=== PATIENT | male | born 1995 | race American Indian/Alaskan Native ===

== ENCOUNTER 2021-04-16 23:22 | Inpatient (IN) | payer BC, OTHER ==
[2021-04-16] MEDS ORDERED: fentaNYL 100 MCG/2 ML INJ IV PRN (23:26)
[2021-04-16] MEDS ORDERED: MINERAL OIL/PETROLATUM, WHITE OPHTH OINT 3.5 GM OU PRN (23:26)
[2021-04-16] MEDS ORDERED: LIP THERAPY VASELINE TP PRN (23:26)
[2021-04-16] MEDS ORDERED: SODIUM CHLORIDE 0.9% 1000 ML 1,000 ML IV ONE (23:28)
[2021-04-16] MEDS ORDERED: ASPIRIN 300 MG RECT SUPP PR ONE (23:28)
[2021-04-16] MEDS ORDERED: hydrALAZINE 20 MG/1 ML INJ IV ONE (23:29)
--- NOTE | 2021-04-16 23:30 | Emergency Department Report ---
ED CPR HPI - General Chief Complaint: Cardiac Arrest/CPR Stated Complaint: CPR Time Seen by Provider: 04/16/21 23:22 Source: EMS Mode of arrival: Stretcher Limitations: Altered Mental Status, Physical Limitation - History of Present Illness Initial Comments: Patient is a 26-year-old male that presents emergency room for cardiac arrest. Patient was brought to the emergency room initially for seizure while in route with EMS, patient went to cardiac arrest. Patient initially walked to the ambulance. Patient was alert and oriented x3 and the patient that went into a seizure that could not be stopped patient was given Versed and went into ventricular tachycardia. Patient was then shocked and went into a cardiac arrest. Patient's initial rhythm was PEA on the monitor and then CPR was started the patient given 1 round of epi. Patient had e ROSC after the epi. Patient has history of end-stage renal disease on dialysis, hypertension and no history of seizure. MD Complaint: seizure Bystander CPR Performed: No AED Applied by Bystander/Hoisting Laborer: No Shock Advised: Yes Number of Shocks Delivered: 1 Initial Findings in the Field: alert ROSC in the Field: Yes Associated Injuries: No - Related Data Allergies Allergy/AdvReac Type Severity Reaction Status Date / Time No Known Allergies Allergy Verified 04/16/21 23:39 ED Review of Systems ROS: Stated complaint: CPR Other details as noted in HPI Comment: Unobtainable due to pts medical conditions ED Past Medical Hx - Past Medical History Previous Medical History?: Yes Hx Hypertension: Yes Hx Renal Disease: Yes (End-stage renal disease on dialysis.) - Surgical History Past Surgical History?: Yes Additional Surgical History: Left arm dialysis fistula. - Family History Family history: no significant - Social History Smoking Status: Unknown if ever smoked Substance Use Type: None ED Physical Exam - General General appearance: obtunded - Head Head exam: Present: atraumatic, normocephalic - Eye Eye exam: Present: normal appearance, PERRL Pupils: Present: normal accommodation - ENT ENT exam: Present: mucous membranes dry - Neck Neck exam: Present: normal inspection - Respiratory Respiratory exam: Present: other (Patient being bagged by respiratory. Patient was immediately extubated after it was noted that the patient was not intubated endotracheally and was in stomach.) - Cardiovascular Cardiovascular Exam: Present: regular rate, normal rhythm. Absent: systolic murmur, diastolic murmur, rubs, gallop - GI/Abdominal GI/Abdominal exam: Present: soft, normal bowel sounds - Rectal Rectal exam: Present: deferred - Extremities Exam Extremities exam: Present: normal inspection - Back Exam Back exam: Present: normal inspection - Neurological Exam Neurological exam: Present: altered - Skin Skin exam: Present: warm, dry, intact, normal color. Absent: rash ED Course Vital Signs 04/16/21 04/16/21 04/16/21 23:22 23:26 23:30 Temperature Pulse Rate 132 H Respiratory 20 10 L Rate Blood Pressure 241/149 O2 Sat by Pulse 100 100 Oximetry 04/16/21 04/16/21 04/17/21 23:45 23:56 00:00 Temperature Pulse Rate 119 H 118 H 131 H Respiratory 20 20 Rate Blood Pressure 183/90 183/90 183/90 O2 Sat by Pulse 99 99 95 Oximetry 04/17/21 04/17/21 04/17/21 00:01 00:15 00:30 Temperature 99.0 F Pulse Rate 132 H 129 H Respiratory 16 20 20 Rate Blood Pressure 204/126 204/126 O2 Sat by Pulse 97 97 Oximetry 04/17/21 04/17/21 04/17/21 00:46 01:00 01:15 Temperature Pulse Rate 107 H 113 H 115 H Respiratory 21 26 H 26 H Rate Blood Pressure 171/106 175/105 178/114 O2 Sat by Pulse 98 98 96 Oximetry 04/17/21 04/17/21 04/17/21 01:42 01:46 02:00 Temperature Pulse Rate 117 H 108 H Respiratory 17 17 Rate Blood Pressure 177/118 177/118 162/106 O2 Sat by Pulse 97 99 99 Oximetry 04/17/21 04/17/21 04/17/21 02:16 02:30 02:46 Temperature Pulse Rate 106 H 106 H 105 H Respiratory 20 20 20 Rate Blood Pressure 178/114 159/98 155/97 O2 Sat by Pulse 99 99 99 Oximetry 04/17/21 04/17/21 04/17/21 03:00 03:16 03:30 Temperature Pulse Rate 101 H 99 H 104 H Respiratory 20 20 20 Rate Blood Pressure 161/101 161/101 161/101 O2 Sat by Pulse 98 99 100 Oximetry 04/17/21 04/17/21 03:50 04:00 Temperature Pulse Rate 105 H 106 H Respiratory 20 20 Rate Blood Pressure 139/89 146/83 O2 Sat by Pulse 97 97 Oximetry - Reevaluation(s) Reevaluation #1: Initial valuation done. Patient arrived via EMS. Report received from EMS. Elvin clark was found to be intubated in the stomach. The ET tube was removed and the patient was immediately bagged. Patient was then given RSI meds of etomidate and rocuronium. Patient was then intubated without difficulty. See procedure note. 04/16/21 23:07 Reevaluation #2: Patient was intubated without difficulty. See procedure note. Patient placed on the ventilator. Patient's blood pressure extremely elevated. Patient's blood pressure will be monitored and the patient was given 20 mg of hydralazine if it remains high. 04/16/21 23:15 Reevaluation #3: Patient vital signs pain monitor. Patient is on vent. Patient is adequately sedated. Patient is already received 20 of hydralazine the patient blood pressure still high. Patient received Lopressor. 04/17/21 00:20 Reevaluation #4: Patient blood pressure still elevated. Patient will placed on a nicardipine drip. 04/17/21 01:16 - Consultations Consultation #1: Hospitalist consulted for admission. Hospitalist to admit patient. 04/17/21 02:20 - Intubation Time Out Performed: Yes Sedative: Etomidate Paralytic: Rocuronium Laryngoscope: fiberoptic video scope Size: 4 ET Tube Size: 7.5 Tube Secured Depth (cm): 22 Tube Secured Location: teeth Tube Placement Confirmation: visualized tube passing t, equal breath sounds bilat, no breath sounds over epi, confirmation by capnometr Patient Tolerated Procedure: well, no complications Intubation Complications: none ED Medical Decision Making - Lab Data Result diagrams: 04/16/21 23:41 04/17/21 03:56 - EKG Data -: EKG Interpreted by Me EKG shows normal: sinus rhythm, axis, intervals, QRS complexes, ST-T waves Rate: tachycardia - Radiology Data Radiology results: report reviewed, image reviewed interpreted by me: Chest x-ray: No pneumonia, no pneumothorax, no osseous findings, ET tube in satisfactory placement. CHEST 1 VIEW 04/16/2021 10:46 PM INDICATION / CLINICAL INFORMATION: ETT placement. COMPARISON: None available. FINDINGS: SUPPORT DEVICES: Tip of endotracheal tube is positioned approximately 5 cm above the altagracia. HEART / MEDIASTINUM: No significant abnormality. LUNGS / PLEURA: No significant pulmonary or pleural abnormality. No pneumothorax. ADDITIONAL FINDINGS: No significant additional findings. IMPRESSION: 1. Endotracheal tube in expected position. CT HEAD WITHOUT CONTRAST INDICATION / CLINICAL INFORMATION: Seizure and cardiac arrest. TECHNIQUE: All CT scans at this location are performed using CT dose reduction for [place] by means of automated exposure control. COMPARISON: None available. FINDINGS: Study is limited by motion artifact. HEMORRHAGE: None. EXTRA-AXIAL SPACES: Normal in size and morphology for the patient's age. VENTRICULAR SYSTEM: Normal in size and morphology for the patient's age. CEREBRAL PARENCHYMA: No significant abnormality. No acute territorial infarct. MIDLINE SHIFT / HERNIATION: None. CEREBELLUM / BRAINSTEM: No significant abnormality. ORBITS: Normal as visualized. SOFT TISSUES: No significant abnormality. SKULL: No significant abnormality. PARANASAL SINUSES / MASTOID AIR CELLS: Normal as visualized. ADDITIONAL FINDINGS: None. IMPRESSION: 1. No acute intracranial abnormality. - Medical Decision Making Patient is a 46-year-old male who presents emergency room for cardiac arrest. Patient initially called EMS because he had a new onset seizure. Patient not have a history of seizure. Patient began to have another seizure with EMS and was given Versed and went into V. tach and went to a cardiac arrest. Patient was shocked by EMS. Patient was given 1 round of epi and had spontaneous return of circulation. Patient was then intubated by EMS and the ET tube was noted to be in the stomach. Patient was immediately extubated and reintubated properly. See procedure note. Patient tolerated intubation and the patient was given etomidate and mar for RSI. Patient had chest x-ray to confirm ET tube and showed good placement of the ET tube. Patient had labs done which showed multiple abnormalities to include DKA, metabolic acidosis, end-stage renal disease. Patient was placed on a DKA protocol to include insulin and fluids. Patient also found to be hyperkalemic and given Kayexalate and calcium. Patient given calcium prior to being given insulin. Patient initially placed on fentanyl and then needed a Ativan drip. Patient had a head CT which was negative for acute findings. Patient also found to have hypertensive emergency and the patient was placed on nicardipine drip after hydralazine and blood pressure did not bring down the blood pressure. Patient admitted to the hospital service for further evaluation treatment into the ICU. Critical care time documented due to the multiple reassessments, prolonged time at the bedside, interpretation of diagnostics and labs. - Differential Diagnosis Cardiac arrest, seizure, sepsis, DKA, Critical Care Time: Yes Critical care time in (mins) excluding proc time.: 80 Critical care attestation.: If time is entered above; I have spent that time in minutes in the direct care of this critically ill patient, excluding procedure time. Critical Care Time: 80 minutes ED Disposition Clinical Impression: Cardiac arrest, Seizure-like activity, New onset seizure, Metabolic acidosis, ESRD (end stage renal disease) on dialysis, Hypertensive emergency, Hyperkalemia DKA (diabetic ketoacidosis) Qualifiers: Diabetes mellitus type: other specified (including DIPAK) Diabetes mellitus complication detail: with coma Qualified Code(s): E13.11 - Other specified diabetes mellitus with ketoacidosis with coma UTI (urinary tract infection) Qualifiers: Urinary tract infection type: acute cystitis Hematuria presence: with hematuria Qualified Code(s): N30.01 - Acute cystitis with hematuria Disposition: OP ADMIT IP TO THIS HOSP Is pt being admited?: Yes Does the pt Need Aspirin: No Condition: Critical Time of Disposition: 02:20
[2021-04-16] MEDS ORDERED: CEFEPIME/NS 2 GM/100 ML 2 GM/100 ML BAG IV ONE (23:35)
[2021-04-16] MEDS ORDERED: levETIRAcetam 1000 MG/NS 0.75% 1,000 MG/100 ML BAG IV ONE (23:35)
--- NOTE | 2021-04-16 23:53 | XRay Report ---
CHEST 1 VIEW 04/16/2021 10:46 PM INDICATION / CLINICAL INFORMATION: ETT placement. COMPARISON: None available. FINDINGS: SUPPORT DEVICES: Tip of endotracheal tube is positioned approximately 5 cm above the altagracia. HEART / MEDIASTINUM: No significant abnormality. LUNGS / PLEURA: No significant pulmonary or pleural abnormality. No pneumothorax. ADDITIONAL FINDINGS: No significant additional findings. IMPRESSION: 1. Endotracheal tube in expected position. Signer Name: Naveen Rodriguez MD Signed: 04/16/2021 11:49 PM Workstation Name: [id number]
[2021-04-17 00:03] LABS: Mean Corpuscular HGB Conc 29 % (32-34); Mean Corpuscular Volume 81 fl (84-94); Platelet Count 369 K/mm3 (140-440); Red Blood Count 4.97 M/mm3 (3.65-5.03)
[2021-04-17 00:23] LABS: INR 1.47 (0.87-1.13)
[2021-04-17 00:24] LABS: Partial Thromboplastin Time 38.2 Sec. (24.2-36.6)
[2021-04-17] MEDS: fentaNYL DRIP Premix 2,000 MCG/100 ML BAG IV SCH ×3 (00:24→20:04)
[2021-04-17] MEDS ORDERED: ROCURONIUM 50 MG/5 ML INJ IV ONE (00:24)
[2021-04-17] MEDS ORDERED: ETOMIDATE 20 MG/10 ML INJ IV ONE (00:24)
[2021-04-17 00:25] LABS: Albumin 4.7 g/dL (3.9-5); Calcium 9.5 mg/dL (8.4-10.2)
[2021-04-17] MEDS ORDERED: METOPROLOL TARTRATE 5 MG/5 ML INJ IV ONE (00:25)
[2021-04-17 00:40] LABS: Hematocrit 40.5 % (35.5-45.6); Hemoglobin 11.9 gm/dl (11.8-15.2); Red Cell Distribution Width 20.4 % (13.2-15.2)
[2021-04-17] MEDS: LORazepam 2 MG/ML VIAL IV PRN ×2 (01:00→03:28)
[2021-04-17 01:03] LABS: ABG Base Excess -19.6 mmol/L (-2.0-3.0); ABG HCO3 10.3 mmol/L (20.0-26.0); ABG Methemoglobin 0.6 % (0.0-1.5); ABG Oxygen Saturation 90.8 % (95.0-99.0); ABG PO2 91.2 mm Hg (80.0-90.0)
[2021-04-17 01:08] LABS: ABG PH 7.03 pH Units (7.350-7.450)
[2021-04-17] MEDS ORDERED: niCARdipine DRIP 40 MG/200 ML BAG IV ONE (01:17)
[2021-04-17] MEDS ORDERED: CALCIUM CHLORIDE 1,000 MG/10 ML SDV IVP ONE (01:21)
[2021-04-17] MEDS ORDERED: INSULIN REGULAR, HUMAN 100 UNITS/1 ML IV ONE ×2 (01:21→10:00)
[2021-04-17] MEDS ORDERED: DEXTROSE 50% IN WATER (25GM) 50 ML VIAL IV ONE (01:21)
[2021-04-17] MEDS ORDERED: SODIUM POLYSTYRENE 15 GM/60 ML ORAL LIQD PR ONE (01:21)
[2021-04-17] MEDS ORDERED: SODIUM CHLORIDE 0.9% 1000 ML 1,000 ML IV ONE (01:25)
[2021-04-17] MEDS ORDERED: DEXTROSE 50% IN WATER (25GM) 50 ML SYRINGE IV PRN (01:25)
[2021-04-17] MEDS ORDERED: CALCIUM CHLORIDE 1,000 MG in SODIUM CHLORIDE 0.9% 100 ML IV ONE (01:30)
[2021-04-17 01:31] LABS: Bacteria,Urine 1+ /HPF (Negative); Bilirubin,Urine NEG (Negative); Blood,Urine MOD (Negative); Color,Urine Yellow (Yellow); Urobilinogen,Urine < 2.0 mg/dL (<2.0)
[2021-04-17 01:33] LABS: Protein,Urine >500 mg/dL (Negative)
[2021-04-17 01:38] LABS: Amphetamine Screen,Urine PRESUMPTIVE NEGATIVE; Benzodiazepines Screen,Urine PRESUMPTIVE NEGATIVE; Cannabinoid Screen,Urine PRESUMPTIVE NEGATIVE; Cocaine Screen,Urine PRESUMPTIVE NEGATIVE; Methadone Screen,Urine PRESUMPTIVE NEGATIVE; Opiate Screen,Urine PRESUMPTIVE NEGATIVE
[2021-04-17] MEDS ORDERED: LORazepam 2 MG/ML VIAL ONE (01:39)
--- NOTE | 2021-04-17 01:56 | Cat Scan Report ---
CT HEAD WITHOUT CONTRAST INDICATION / CLINICAL INFORMATION: Seizure and cardiac arrest. TECHNIQUE: All CT scans at this location are performed using CT dose reduction for ALARA by means of automated exposure control. COMPARISON: None available. FINDINGS: Study is limited by motion artifact. HEMORRHAGE: None. EXTRA-AXIAL SPACES: Normal in size and morphology for the patient's age. VENTRICULAR SYSTEM: Normal in size and morphology for the patient's age. CEREBRAL PARENCHYMA: No significant abnormality. No acute territorial infarct. MIDLINE SHIFT / HERNIATION: None. CEREBELLUM / BRAINSTEM: No significant abnormality. ORBITS: Normal as visualized. SOFT TISSUES: No significant abnormality. SKULL: No significant abnormality. PARANASAL SINUSES / MASTOID AIR CELLS: Normal as visualized. ADDITIONAL FINDINGS: None. IMPRESSION: 1. No acute intracranial abnormality. Signer Name: Naveen Rodriguez MD Signed: 04/17/2021 1:51 AM Workstation Name: [id number]
[2021-04-17] MEDS ORDERED: INSULIN REGULAR, HUMAN 100 UNITS in SODIUM CHLORIDE 0.9% 99 ML IV SCH ×2 (02:00→05:00)
[2021-04-17 02:14] LABS: Calcium 7.9 mg/dL (8.4-10.2)
[2021-04-17 02:38] LABS: Anisocytosis 1+; Total Cells Counted 100
[2021-04-17 02:39] LABS: Platelet Estimate Consistent w Auto
[2021-04-17] MEDS: D5W/0.45% NACL 1,000 ML IV SCH ×3 (02:51→21:23)
[2021-04-17] MEDS ORDERED: LORazepam 100 MG in SODIUM CHLORIDE 0.9% 50 ML, EMPTY BAG 0 ML IV SCH (03:00)
[2021-04-17 04:32] LABS: Chol/HDL Ratio 2.82 %
[2021-04-17] MEDS ORDERED: ONDANSETRON 4 MG/2 ML INJ IV PRN (04:50)
[2021-04-17] MEDS ORDERED: HYDROcodone/ACETAMINOPHEN 5-325 MG TAB PO PRN (04:50)
[2021-04-17] MEDS ORDERED: HYDROmorphone 1 MG/1 ML INJ IV PRN (04:50)
[2021-04-17] MEDS ORDERED: SODIUM BICARB 8.4% 50 MEQ/50 ML SYRINGE IV ONE (05:00)
[2021-04-17] MEDS ORDERED: CEFEPIME/NS 1 GM/100 ML 1 GM/100 ML BAG IV SCH (05:00)
[2021-04-17] MEDS ORDERED: CALCIUM GLUCONATE 1,000 MG in SODIUM CHLORIDE 0.9% 100 ML IV ONE ×2 (05:06→09:04)
[2021-04-17] MEDS ORDERED: NITROGLYCERIN 0.4 MG TAB SUBL SL PRN (05:06)
[2021-04-17] MEDS ORDERED: ACETAMINOPHEN 325 MG TAB PO PRN (05:06)
--- NOTE | 2021-04-17 05:13 | History and Physical Report ---
History of Present Illness Date of examination: 04/17/21 Date of admission: 04/17/21 02:27 Chief complaint: Cardiac arrest History of present illness: 26-year-old male with past medical history of end-stage renal disease on dialysis, hypertension was brought to the emergency room because of cardiac arrest. Patient was brought to the emergency room initially for seizure while in route with EMS, patient went to cardiac arrest. Patient initially walked to the ambulance. Patient was alert and oriented x3 and the patient that went into a seizure that could not be stopped patient was given Versed and went into ventricular tachycardia. Patient was then shocked and went into a cardiac arrest. Patient's initial rhythm was PEA on the monitor and then CPR was started the patient given 1 round of epi. Patient had e ROSC after the epi. In the emergency room patient is found to have cardiac arrest. Patient was intubated by the ER physician. Patient potassium was 7.6 bicarb was 12 anion gap 34 BUN 94 creatinine 17.6 and troponin 0 0.091 Past History Past Medical History: ESRD, hypertension Medications and Allergies Allergies Allergy/AdvReac Type Severity Reaction Status Date / Time No Known Allergies Allergy Verified 04/16/21 23:39 Active Meds: Active Medications Acetaminophen (Acetaminophen 325 Mg Tab) 650 mg PO Q4H PRN PRN Reason: Pain MILD(1-3)/Fever >100.5/BANKS Dextrose (Dextrose 50% In Water (25gm) 50 Ml Syringe) 50 ml IV Q30MIN PRN; Protocol PRN Reason: Hypoglycemia Last Admin: 04/17/21 02:48 Dose: 50 ml Documented by: Famotidine (Famotidine 20 Mg/2 Ml Inj) 20 mg IV DAILY ZEE Fentanyl (Fentanyl 100 Mcg/2 Ml Inj) 50 mcg IV Q10MIN PRN PRN Reason: ANALGESIA Hydromorphone HCl (Hydromorphone 1 Mg/1 Ml Inj) 0.5 mg IV Q3H PRN PRN Reason: Pain , Severe (7-10) Hydrophilic Ointment (Lip Therapy Vaseline) 1 applic TP Q2HR PRN PRN Reason: Dry Lips Fentanyl Citrate (Fentanyl Drip Premix) 2,000 mcg in 100 mls @ 3.606 mls/hr IV TITR ZEE; Protocol Last Titration: 04/17/21 02:31 Dose: 5 mcg/kg/hr, 18.03 mls/hr Documented by: Nicardipine/Sodium Chloride (Cardene Drip 40 Mg/200 Ml) 40 mg in 200 mls @ 25 mls/hr IV ONCE ONE; Protocol Stop: 04/17/21 09:16 Last Titration: 04/17/21 03:28 Dose: 5 mg/hr, 25 mls/hr Documented by: Insulin Human Regular 100 (units/ Sodium Chloride) 100 mls @ 1 mls/hr IV TITR ZEE; Protocol Last Titration: 04/17/21 04:32 Dose: 0 units/hr, 0 mls/hr Documented by: Lorazepam 100 mg/ Sodium Chloride/ Miscellaneous Information 100 mls @ 1 mls/hr IV TITR ZEE; Protocol Last Titration: 04/17/21 03:28 Dose: 2 mg/hr, 2 mls/hr Documented by: Dextrose/Sodium Chloride (D5/0.45ns) 1,000 mls @ 125 mls/hr IV DIRECT ZEE Last Admin: 04/17/21 02:51 Dose: 125 mls/hr Documented by: Cefepime HCl (Cefepime/Ns 1 Gm/100 Ml) 1 gm in 100 mls @ 200 mls/hr IV Q8H ZEE; Protocol Insulin Human Regular 100 (units/ Sodium Chloride) 100 mls @ 1 mls/hr IV TITR ZEE; Protocol Levetiracetam 500 mg/ Dextrose 105 mls @ 400 mls/hr IV Q12HR ZEE Lorazepam (Lorazepam 2 Mg/Ml Vial) 2 mg IV Q10MIN PRN PRN Reason: Agitation Last Admin: 04/17/21 03:28 Dose: 2 mg Documented by: Multi-Ingred Cream/Lotion/Oil/Oint (Mineral Oil/Petrolatum, White Ophth Oint 3.5 Gm) 1 applic OU Q4HR PRN PRN Reason: Dry Eye(s) Ondansetron HCl (Ondansetron 4 Mg/2 Ml Inj) 4 mg IV Q8H PRN PRN Reason: Nausea And Vomiting Senna/Docusate Sodium (Sennosides/Docusate Sodium 8.6/50 Mg Tab) 1 tab FEEDTUBE BID ZEE Sodium Chloride (Sodium Chloride 0.9% 10 Ml Flush Syringe) 10 ml IV BID ZEE Sodium Chloride (Sodium Chloride 0.9% 10 Ml Flush Syringe) 10 ml IV PRN PRN PRN Reason: LINE FLUSH Review of Systems Neurological: seizures Exam - Constitutional Vitals: Temp Pulse Resp BP Pulse Ox 99.0 F 106 H 20 128/74 98 04/17/21 00:01 04/17/21 04:34 04/17/21 04:32 04/17/21 04:32 04/17/21 04:34 General appearance: Present: no acute distress, well-nourished - EENT Eyes: Present: PERRL ENT: hearing intact, clear oral mucosa - Neck Neck: Present: supple, normal ROM - Respiratory Respiratory effort: normal Respiratory: bilateral: diminished - Cardiovascular Heart Sounds: Present: S1 & S2. Absent: rub, click - Extremities Extremities: pulses symmetrical, No edema Peripheral Pulses: within normal limits - Abdominal General gastrointestinal: Present: soft, non-tender, non-distended, normal bowel sounds Male genitourinary: Present: normal - Integumentary Integumentary: Present: clear, warm, dry - Musculoskeletal Musculoskeletal: gait normal, strength equal bilaterally - Psychiatric Psychiatric: other (Patient is status post intubation) - Neurologic Neurologic: CNII-XII intact, moves all extremities, other (Patient is a status post intubation) HEART Score - HEART Score Troponin: Troponin T 0.091 ng/mL (0.00-0.029) H 04/17/21 01:40 Results - Labs CBC & Chem 7: 04/16/21 23:41 04/17/21 03:56 Labs: Laboratory Last Values WBC 9.7 K/mm3 (4.5-11.0) 04/16/21 23:41 RBC 4.97 M/mm3 (3.65-5.03) 04/16/21 23:41 Hgb 11.9 gm/dl (11.8-15.2) 04/16/21 23:41 Hct 40.5 % (35.5-45.6) 04/16/21 23:41 MCV 81 fl (84-94) L 04/16/21 23:41 MCH 24 pg (28-32) L 04/16/21 23:41 MCHC 29 % (32-34) L 04/16/21 23:41 RDW 20.4 % (13.2-15.2) H 04/16/21 23:41 Plt Count 369 K/mm3 (140-440) 04/16/21 23:41 Lymph % (Auto) Insurance Sales Professional 04/16/21 23:41 Lymph # (Auto) Insurance Sales Professional 04/16/21 23:41 Add Manual Diff Complete 04/16/21 23:41 Total Counted 100 04/16/21 23:41 Seg Neuts % (Manual) 26.0 % (40.0-70.0) L 04/16/21 23:41 Lymphocytes % (Manual) 70.0 % (13.4-35.0) H 04/16/21 23:41 Monocytes % (Manual) 3.0 % (0.0-7.3) 04/16/21 23:41 Eosinophils % (Manual) 1.0 % (0.0-4.3) 04/16/21 23:41 Nucleated RBC % Not Reportable 04/16/21 23:41 Seg Neutrophils # Man 2.5 K/mm3 (1.8-7.7) 04/16/21 23:41 Band Neutrophils # 0.0 K/mm3 04/16/21 23:41 Lymphocytes # (Manual) 6.8 K/mm3 (1.2-5.4) H 04/16/21 23:41 Abs React Lymphs (Man) 0.0 K/mm3 04/16/21 23:41 Monocytes # (Manual) 0.3 K/mm3 (0.0-0.8) 04/16/21 23:41 Eosinophils # (Manual) 0.1 K/mm3 (0.0-0.4) 04/16/21 23:41 Basophils # (Manual) 0.0 K/mm3 (0.0-0.1) 04/16/21 23:41 Metamyelocytes # 0.0 K/mm3 04/16/21 23:41 Myelocytes # 0.0 K/mm3 04/16/21 23:41 Promyelocytes # 0.0 K/mm3 04/16/21 23:41 Blast Cells # 0.0 K/mm3 04/16/21 23:41 WBC Morphology Not Reportable 04/16/21 23:41 Hypersegmented Neuts Not Reportable 04/16/21 23:41 Hyposegmented Neuts Not Reportable 04/16/21 23:41 Hypogranular Neuts Not Reportable 04/16/21 23:41 Smudge Cells Not Reportable 04/16/21 23:41 Toxic Granulation Not Reportable 04/16/21 23:41 Toxic Vacuolation Not Reportable 04/16/21 23:41 Dohle Bodies Not Reportable 04/16/21 23:41 Pelger-Huet Anomaly Not Reportable 04/16/21 23:41 Lila Rods Not Reportable 04/16/21 23:41 Platelet Estimate Consistent w auto 04/16/21 23:41 Clumped Platelets Not Reportable 04/16/21 23:41 Plt Clumps, EDTA Not Reportable 04/16/21 23:41 Large Platelets Not Reportable 04/16/21 23:41 Giant Platelets Not Reportable 04/16/21 23:41 Platelet Satelliting Not Reportable 04/16/21 23:41 Plt Morphology Comment Not Reportable 04/16/21 23:41 RBC Morphology Not Reportable 04/16/21 23:41 Dimorphic RBCs Not Reportable 04/16/21 23:41 Polychromasia Not Reportable 04/16/21 23:41 Hypochromasia Not Reportable 04/16/21 23:41 Poikilocytosis Not Reportable 04/16/21 23:41 Anisocytosis 1+ 04/16/21 23:41 Microcytosis Not Reportable 04/16/21 23:41 Macrocytosis Not Reportable 04/16/21 23:41 Spherocytes Not Reportable 04/16/21 23:41 Pappenheimer Bodies Not Reportable 04/16/21 23:41 Sickle Cells Not Reportable 04/16/21 23:41 Target Cells Not Reportable 04/16/21 23:41 Tear Drop Cells Not Reportable 04/16/21 23:41 Ovalocytes Not Reportable 04/16/21 23:41 Helmet Cells Not Reportable 04/16/21 23:41 [place] Bodies Not Reportable 04/16/21 23:41 [place] Rings Not Reportable 04/16/21 23:41 Diamond Cells Not Reportable 04/16/21 23:41 Bite Cells Not Reportable 04/16/21 23:41 Crenated Cell Not Reportable 04/16/21 23:41 Elliptocytes Not Reportable 04/16/21 23:41 Acanthocytes (Spur) Not Reportable 04/16/21 23:41 Rouleaux Not Reportable 04/16/21 23:41 Hemoglobin C Crystals Not Reportable 04/16/21 23:41 Schistocytes Not Reportable 04/16/21 23:41 Malaria parasites Not Reportable 04/16/21 23:41 Nicolas Bodies Not Reportable 04/16/21 23:41 Hem Pathologist Commnt No 04/16/21 23:41 PT 18.3 Sec. (12.2-14.9) H 04/16/21 23:41 INR 1.47 (0.87-1.13) H 04/16/21 23:41 APTT 38.2 Sec. (24.2-36.6) H 04/16/21 23:41 ABG pH 7.245 (7.320-7.450) L 04/17/21 04:32 POC ABG pCO2 34.9 mmHg (32.0-48.0) 04/17/21 04:32 ABG pCO2 40.0 mm Hg 04/17/21 00:55 POC ABG pO2 92.3 mmHg (83-108) 04/17/21 04:32 ABG pO2 91.2 mm Hg (80.0-90.0) H 04/17/21 00:55 POC ABG HCO3 14.8 04/17/21 04:32 ABG HCO3 10.3 mmol/L (20.0-26.0) L 04/17/21 00:55 ABG O2 Saturation 95.1 (0-100) 04/17/21 04:32 ABG O2 Content 13.8 (0.0-44) 04/17/21 00:55 POC ABG Base Excess -11.5 04/17/21 04:32 ABG Base Excess -19.6 mmol/L (-2.0-3.0) L 04/17/21 00:55 ABG Hemoglobin 10.7 (12.0-17.5) L 04/17/21 04:32 ABG Oxyhemoglobin 93.7 (94-98) L 04/17/21 04:32 ABG Carboxyhemoglobin 1.5 % (0.0-5.0) 04/17/21 00:55 ABG Methemoglobin 0.3 (0.0-1.5) 04/17/21 04:32 ABG Sodium 133.2 mmol/L (136.0-145.0) L 04/17/21 04:32 ABG Potassium 6.0 mmol/L (3.40-4.50) H 04/17/21 04:32 ABG Chloride 102.0 mmol/L (98-107) 04/17/21 04:32 ABG Glucose 85 mg/dL (65-95) 04/17/21 04:32 Oxyhemoglobin 88.9 % (95.0-99.0) L 04/17/21 00:55 Carboxyhemoglobin 1.2 (0.5-1.5) 04/17/21 04:32 FiO2 30 % 04/17/21 00:55 FiO2 % 30.0 04/17/21 04:32 Sodium 134 mmol/L (137-145) L 04/17/21 03:56 Potassium 6.4 mmol/L (3.6-5.0) H* 04/17/21 03:56 Chloride 98.0 mmol/L (98-107) 04/17/21 03:56 Carbon Dioxide 15 mmol/L (22-30) L 04/17/21 03:56 Anion Gap 27 mmol/L 04/17/21 03:56 BUN 92 mg/dL (9-20) H 04/17/21 03:56 Creatinine 17.0 mg/dL (0.8-1.3) H 04/17/21 03:56 Estimated GFR 4 ml/min 04/17/21 03:56 BUN/Creatinine Ratio 5 % 04/17/21 03:56 Glucose 137 mg/dL (75-100) H 04/17/21 03:56 POC Glucose 87 mg/dL (70-105) 04/17/21 04:32 Calcium 8.0 mg/dL (8.4-10.2) L 04/17/21 03:56 Phosphorus 9.30 mg/dL (2.5-4.5) H 04/17/21 01:40 Magnesium 3.70 mg/dL (1.7-2.3) H 04/17/21 01:40 Total Bilirubin 0.30 mg/dL (0.1-1.2) 04/16/21 23:41 AST 25 units/L (5-40) 04/16/21 23:41 ALT 20 units/L (7-56) 04/16/21 23:41 Alkaline Phosphatase 137 units/L (35-129) H 04/16/21 23:41 Troponin T 0.091 ng/mL (0.00-0.029) H 04/17/21 01:40 Total Protein 7.8 g/dL (6.3-8.2) 04/16/21 23:41 Albumin 4.7 g/dL (3.9-5) 04/16/21 23:41 Albumin/Globulin Ratio 1.5 % 04/16/21 23:41 Triglycerides 114 mg/dL (2-149) 04/16/21 23:41 Cholesterol 147 mg/dL (50-199) 04/16/21 23:41 LDL Cholesterol Direct 85 mg/dL (50-130) 04/16/21 23:41 HDL Cholesterol 52 mg/dL (40-59) 04/16/21 23:41 Cholesterol/HDL Ratio 2.82 % 04/16/21 23:41 Arterial Blood Glucose 85 mg/dL (65-95) 04/17/21 04:32 Arterial Blood Ionized Calcium 4.5 mg/dL (4.6-5.3) L 04/17/21 04:32 Urine Color Yellow (Yellow) 04/17/21 01:05 Urine Turbidity Slightly-cloudy (Clear) 04/17/21 01:05 Urine pH 7.0 (5.0-7.0) 04/17/21 01:05 Ur Specific [place] 1.012 (1.003-1.030) 04/17/21 01:05 Urine Protein >500 mg/dL (Negative) 04/17/21 01:05 Urine Glucose (UA) >=500 mg/dL (Negative) 04/17/21 01:05 Urine Ketones Neg mg/dL (Negative) 04/17/21 01:05 Urine Blood Mod (Negative) 04/17/21 01:05 Urine Nitrite Neg (Negative) 04/17/21 01:05 Urine Bilirubin Neg (Negative) 04/17/21 01:05 Urine Urobilinogen < 2.0 mg/dL (<2.0) 04/17/21 01:05 Ur Leukocyte Esterase Tr (Negative) 04/17/21 01:05 Urine WBC (Auto) 51.0 /HPF (0.0-6.0) H 04/17/21 01:05 Urine RBC (Auto) 47.0 /HPF (0.0-6.0) 04/17/21 01:05 Urine Bacteria (Auto) 1+ /HPF (Negative) 04/17/21 01:05 Urine Opiates Screen Presumptive negative 04/17/21 01:05 Urine Methadone Screen Presumptive negative 04/17/21 01:05 Ur Barbiturates Screen Presumptive negative 04/17/21 01:05 Ur Phencyclidine Scrn Presumptive negative 04/17/21 01:05 Ur Amphetamines Screen Presumptive negative 04/17/21 01:05 U Benzodiazepines Scrn Presumptive negative 04/17/21 01:05 Urine Cocaine Screen Presumptive negative 04/17/21 01:05 U Marijuana (THC) Screen Presumptive negative 04/17/21 01:05 Drugs of Abuse Note Disclamer 04/17/21 01:05 Plasma/Serum Alcohol < 0.01 % (0-0.07) 04/17/21 00:08 Microbiology: Microbiology 04/17/21 00:08 Peripheral/Venous Blood Culture - Preliminary Culture in Progress 04/17/21 00:41 Peripheral/Venous Blood Culture - Preliminary Culture in Progress - Imaging and Cardiology Chest x-ray: report reviewed CT Scan - head: report reviewed Assessment and Plan VTE prophylaxis?: Mechanical Plan of care discussed with patient/family: Yes - Patient Problems (1) Cardiac arrest Current Visit: Yes Status: Acute Plan to address problem: Admit the patient to the critical care unit. Aspirin 81 mg p.o. daily. Lipitor 40 mg p.o. daily. Nitroglycerin as needed. We will do the serial cardiac enzyme. Echocardiogram. Cardiology consult (2) DKA (diabetic ketoacidosis) Current Visit: Yes Status: Acute Qualifiers: Diabetes mellitus type: other specified (including DIPAK) Diabetes mellitus complication detail: with coma Qualified Code(s): E13.11 - Other specified diabetes mellitus with ketoacidosis with coma Plan to address problem: We will put the patient on DKA pathway. IV fluid as per protocol. Insulin drip as per protocol. Serial BMP. Will consult critical care. (3) ESRD (end stage renal disease) on dialysis Current Visit: Yes Status: Acute Plan to address problem: Avoid nephrotoxic drug. We will consult nephrology for hemodialysis. Recheck BMP in the morning (4) Hyperkalemia Current Visit: Yes Status: Acute Plan to address problem: Patient get insulin. Calcium gluconate one 1 g IV x1 dose. Kayexalate 60 g p.o. every 6 hours x2 dose. Will consult nephrology for hemodialysis. Recheck BMP in the morning (5) Metabolic acidosis Current Visit: Yes Status: Acute Plan to address problem: Most likely secondary to renal failure. Sodium bicarb 2 amp IV slowly x1 dose. Will consult nephrology for hemodialysis recheck BMP in the morning (6) New onset seizure Current Visit: Yes Status: Acute Plan to address problem: Keppra 500 mg IV every 12 hours. EEG. Will consult neurology for evaluation. (7) DVT prophylaxis Current Visit: Yes Status: Acute Plan to address problem: SCD for DVT prophylaxis. Pepcid 20 mg IV twice daily for GI prophylaxis. Patient is a full code
[2021-04-17 05:55] LABS: Calcium 7.9 mg/dL (8.4-10.2)
[2021-04-17 05:57] LABS: Hematocrit 32.8 % (35.5-45.6); Hemoglobin 10.4 gm/dl (11.8-15.2); Mean Corpuscular HGB Conc 32 % (32-34); Mean Corpuscular Volume 73 fl (84-94); Platelet Count 234 K/mm3 (140-440); Red Blood Count 4.49 M/mm3 (3.65-5.03)
[2021-04-17] MEDS: SODIUM POLYSTYRENE 15 GM/60 ML ORAL LIQD PO SCH ×3 (05:57→13:21)
[2021-04-17 06:06] LABS: Red Cell Distribution Width 20.2 % (13.2-15.2)
[2021-04-17 07:26] LABS: Anisocytosis 1+; Platelet Estimate Consistent w Auto; Total Cells Counted 100
[2021-04-17] MEDS ORDERED: SODIUM CHLORIDE 0.9% 100 ML IV PRN (08:24)
--- NOTE | 2021-04-17 08:49 | Consultation ---
History of Present Illness Consult date: 04/17/21 Reason for Consult: Post cardiac arrest ,ESRD and or witnessed seizure,DKA History of present illness: Chief complaint: Cardiac arrest History of present illness: 26-year-old male with past medical history of end-stage renal disease on dialysis, hypertension was brought to the emergency room because of cardiac arrest. Patient was brought to the emergency room initially for seizure while in route with EMS, patient went to cardiac arrest. Patient initially walked to the ambulance. Patient was alert and oriented x3 then went into witnessed seizure that could not be stopped patient was given Versed and went into ventricular tachycardia. Patient was then shocked and went into a cardiac arrest. Patient's initial rhythm was PEA on the monitor and then CPR was started the patient given 1 round of epi. Patient had e ROSC after the epi. In the emergency room patient is found to have cardiac arrest. Patient was intubated by the ER physician. Patient potassium was 7.6 bicarb was 4, anion gap 34 BUN 94 creatinine 17.6 and troponin [address] brain is unremarkable pt. was given keppra Intubated and started on fentanyl and propofol. UDS is unremarkable Past History Past Medical History: ESRD, hypertension. Medications and Allergies Allergies Allergy/AdvReac Type Severity Reaction Status Date / Time No Known Allergies Allergy Verified 04/16/21 23:39 Active Meds: Active Medications Acetaminophen (Acetaminophen 325 Mg Tab) 650 mg PO Q4H PRN PRN Reason: Pain MILD(1-3)/Fever >100.5/BANKS Dextrose (Dextrose 50% In Water (25gm) 50 Ml Syringe) 50 ml IV Q30MIN PRN; Protocol PRN Reason: Hypoglycemia Last Admin: 04/17/21 02:48 Dose: 50 ml Documented by: Famotidine (Famotidine 20 Mg/2 Ml Inj) 20 mg IV DAILY [facility] Fentanyl (Fentanyl 100 Mcg/2 Ml Inj) 50 mcg IV Q10MIN PRN PRN Reason: ANALGESIA Hydromorphone HCl (Hydromorphone 1 Mg/1 Ml Inj) 0.5 mg IV Q3H PRN PRN Reason: Pain , Severe (7-10) Hydrophilic Ointment (Lip Therapy Vaseline) 1 applic TP Q2HR PRN PRN Reason: Dry Lips Fentanyl Citrate (Fentanyl Drip Premix) 2,000 mcg in 100 mls @ 3.606 mls/hr IV TITR ZEE; Protocol Last Titration: 04/17/21 02:31 Dose: 5 mcg/kg/hr, 18.03 mls/hr Documented by: Nicardipine/Sodium Chloride (Cardene Drip 40 Mg/200 Ml) 40 mg in 200 mls @ 25 mls/hr IV ONCE ONE; Protocol Stop: 04/17/21 09:16 Last Titration: 04/17/21 03:28 Dose: 5 mg/hr, 25 mls/hr Documented by: Insulin Human Regular 100 (units/ Sodium Chloride) 100 mls @ 1 mls/hr IV TITR ZEE; Protocol Last Titration: 04/17/21 04:32 Dose: 0 units/hr, 0 mls/hr Documented by: Lorazepam 100 mg/ Sodium Chloride/ Miscellaneous Information 100 mls @ 1 mls/hr IV TITR ZEE; Protocol Last Titration: 04/17/21 03:28 Dose: 2 mg/hr, 2 mls/hr Documented by: Dextrose/Sodium Chloride (D5/0.45ns) 1,000 mls @ 125 mls/hr IV DIRECT ZEE Last Admin: 04/17/21 02:51 Dose: 125 mls/hr Documented by: Cefepime HCl (Cefepime/Ns 1 Gm/100 Ml) 1 gm in 100 mls @ 200 mls/hr IV Q8H ZEE; Protocol Insulin Human Regular 100 (units/ Sodium Chloride) 100 mls @ 1 mls/hr IV TITR ZEE; Protocol Levetiracetam 500 mg/ Dextrose 105 mls @ 400 mls/hr IV Q12HR ZEE Lorazepam (Lorazepam 2 Mg/Ml Vial) 2 mg IV Q10MIN PRN PRN Reason: Agitation Last Admin: 04/17/21 03:28 Dose: 2 mg Documented by: Multi-Ingred Cream/Lotion/Oil/Oint (Mineral Oil/Petrolatum, White Ophth Oint 3.5 Gm) 1 applic OU Q4HR PRN PRN Reason: Dry Eye(s) Ondansetron HCl (Ondansetron 4 Mg/2 Ml Inj) 4 mg IV Q8H PRN PRN Reason: Nausea And Vomiting Senna/Docusate Sodium (Sennosides/Docusate Sodium 8.6/50 Mg Tab) 1 tab FEEDTUBE BID ZEE Sodium Chloride (Sodium Chloride 0.9% 10 Ml Flush Syringe) 10 ml IV BID ZEE Sodium Chloride (Sodium Chloride 0.9% 10 Ml Flush Syringe) 10 ml IV PRN PRN PRN Reason: LINE FLUSH Review of Systems Neurological: seizures Past History Past Medical History: ESRD, hypertension Medications and Allergies Allergies Allergy/AdvReac Type Severity Reaction Status Date / Time No Known Allergies Allergy Verified 04/16/21 23:39 Active Meds: Active Medications Acetaminophen (Acetaminophen 325 Mg Tab) 650 mg PO Q4H PRN PRN Reason: Pain MILD(1-3)/Fever >100.5/BANKS Atorvastatin Calcium (Atorvastatin 40 Mg Tab) 40 mg PO QHS ZEE Dextrose (Dextrose 50% In Water (25gm) 50 Ml Syringe) 50 ml IV Q30MIN PRN; Protocol PRN Reason: Hypoglycemia Last Admin: 04/17/21 02:48 Dose: 50 ml Documented by: Famotidine (Famotidine 20 Mg/2 Ml Inj) 20 mg IV DAILY ZEE Fentanyl (Fentanyl 100 Mcg/2 Ml Inj) 50 mcg IV Q10MIN PRN PRN Reason: ANALGESIA Hydrophilic Ointment (Lip Therapy Vaseline) 1 applic TP Q2HR PRN PRN Reason: Dry Lips Fentanyl Citrate (Fentanyl Drip Premix) 2,000 mcg in 100 mls @ 3.606 mls/hr IV TITR ZEE; Protocol Last Titration: 04/17/21 04:32 Dose: 4 mcg/kg/hr, 14.424 mls/hr Documented by: Nicardipine/Sodium Chloride (Cardene Drip 40 Mg/200 Ml) 40 mg in 200 mls @ 25 mls/hr IV ONCE ONE; Protocol Stop: 04/17/21 09:16 Last Titration: 04/17/21 06:00 Dose: 2.5 mg/hr, 12.5 mls/hr Documented by: Dextrose/Sodium Chloride (D5/0.45ns) 1,000 mls @ 125 mls/hr IV DIRECT ZEE Last Admin: 04/17/21 02:51 Dose: 125 mls/hr Documented by: Insulin Human Regular 100 (units/ Sodium Chloride) 100 mls @ 1 mls/hr IV TITR ZEE; Protocol Levetiracetam 500 mg/ Dextrose 105 mls @ 400 mls/hr IV Q12HR ZEE Cefepime HCl (Cefepime/Ns 1 Gm/100 Ml) 1 gm in 100 mls @ 200 mls/hr IV Q24H ZEE; Protocol Propofol (Diprivan 10 Mg/Ml) 1,000 mg in 100 mls @ 2.164 mls/hr IV TITR ZEE; Protocol Sodium Chloride (Nacl 0.9%) 100 mls @ 999 mls/hr IV SHYANNE PRN PRN Reason: Hypotension Multi-Ingred Cream/Lotion/Oil/Oint (Mineral Oil/Petrolatum, White Ophth Oint 3.5 Gm) 1 applic OU Q4HR PRN PRN Reason: Dry Eye(s) Nitroglycerin (Nitroglycerin 0.4 Mg Tab Subl) 0.4 mg SL Q5M PRN PRN Reason: Chest Pain Ondansetron HCl (Ondansetron 4 Mg/2 Ml Inj) 4 mg IV Q8H PRN PRN Reason: Nausea And Vomiting Senna/Docusate Sodium (Sennosides/Docusate Sodium 8.6/50 Mg Tab) 1 tab FEEDTUBE BID ZEE Sodium Chloride (Sodium Chloride 0.9% 10 Ml Flush Syringe) 10 ml IV BID ZEE Sodium Chloride (Sodium Chloride 0.9% 10 Ml Flush Syringe) 10 ml IV PRN PRN PRN Reason: LINE FLUSH Sodium Polystyrene Sulfonate (Sodium Polystyrene 15 Gm/60 Ml Oral Liqd) 30 gm PO Q6HR ZEE Stop: 04/17/21 12:01 Last Admin: 04/17/21 05:57 Dose: 30 gm Documented by: Physical Examination - Vital Signs Vital Signs: Vital Signs Pulse Ox 100 04/16/21 23:22 - Constitutional General appearance: uncomfortable, other (intubated , moan and move to stimulat ion) - EENT EENT: Present: PERRL, mucous membranes moist - Respiratory Respiratory: Present: chest non-tender, lungs clear, rhonchi - Cardiovascular Cardiovascular: Present: regular rate, normal S1, normal S2 Extremities: Present: no peripheral edema bilatateraly, no clubbing, cyanosis - Gastrointestinal Gastrointestinal: Present: normoactive bowel sounds - Integumentary Integumentary: Present: normal - Neurologic Cranial nerve examination: PERRL, EOMI, intact Speech examination: other (Intubated) Sensorimotor examination: other (move mostly head and to lesser extent limbs to stimulation ) Results - Laboratory Findings CBC and BMP: 04/17/21 05:21 04/17/21 10:16 Abnormal Lab Findings: Abnormal Labs 04/16/21 04/16/21 04/16/21 23:41 23:41 23:41 WBC Hgb Hct MCV 81 L MCH 24 L MCHC 29 L RDW 20.4 H Seg Neuts % (Manual) 26.0 L Lymphocytes % (Manual) 70.0 H Seg Neutrophils # Man Lymphocytes # (Manual) 6.8 H PT 18.3 H INR 1.47 H APTT 38.2 H ABG pH ABG pO2 ABG HCO3 ABG O2 Saturation ABG Base Excess ABG Hemoglobin ABG Oxyhemoglobin ABG Sodium ABG Potassium Oxyhemoglobin Sodium 135 L Potassium 6.0 H Chloride 87.9 L Carbon Dioxide 4 L* BUN 95 H Creatinine 17.9 H Glucose 239 H POC Glucose Calcium Phosphorus Magnesium Alkaline Phosphatase 137 H Troponin T 0.047 H Arterial Blood Ionized Calcium Urine WBC (Auto) 04/17/21 04/17/21 04/17/21 00:55 01:05 01:40 WBC Hgb Hct MCV MCH MCHC RDW Seg Neuts % (Manual) Lymphocytes % (Manual) Seg Neutrophils # Man Lymphocytes # (Manual) PT INR APTT ABG pH 7.030 L* ABG pO2 91.2 H ABG HCO3 10.3 L ABG O2 Saturation 90.8 L ABG Base Excess -19.6 L ABG Hemoglobin 10.9 L ABG Oxyhemoglobin ABG Sodium ABG Potassium Oxyhemoglobin 88.9 L Sodium Potassium Chloride Carbon Dioxide BUN Creatinine Glucose POC Glucose Calcium Phosphorus Magnesium Alkaline Phosphatase Troponin T 0.091 H Arterial Blood Ionized Calcium Urine WBC (Auto) 51.0 H 04/17/21 04/17/21 04/17/21 01:40 01:40 02:30 WBC Hgb Hct MCV MCH MCHC RDW Seg Neuts % (Manual) Lymphocytes % (Manual) Seg Neutrophils # Man Lymphocytes # (Manual) PT INR APTT ABG pH ABG pO2 ABG HCO3 ABG O2 Saturation ABG Base Excess ABG Hemoglobin ABG Oxyhemoglobin ABG Sodium ABG Potassium Oxyhemoglobin Sodium 133 L Potassium 7.6 H* D Chloride 94.8 L Carbon Dioxide 12 L D BUN 94 H Creatinine 17.6 H Glucose 209 H POC Glucose 151 H Calcium 7.9 L D Phosphorus 9.30 H Magnesium 3.70 H Alkaline Phosphatase Troponin T Arterial Blood Ionized Calcium Urine WBC (Auto) 04/17/21 04/17/21 04/17/21 03:42 03:56 04:32 WBC Hgb Hct MCV MCH MCHC RDW Seg Neuts % (Manual) Lymphocytes % (Manual) Seg Neutrophils # Man Lymphocytes # (Manual) PT INR APTT ABG pH 7.245 L ABG pO2 ABG HCO3 ABG O2 Saturation ABG Base Excess ABG Hemoglobin 10.7 L ABG Oxyhemoglobin 93.7 L ABG Sodium 133.2 L ABG Potassium 6.0 H Oxyhemoglobin Sodium 134 L Potassium 6.4 H* Chloride Carbon Dioxide 15 L BUN 92 H Creatinine 17.0 H Glucose 137 H POC Glucose 128 H Calcium 8.0 L Phosphorus Magnesium Alkaline Phosphatase Troponin T Arterial Blood Ionized Calcium 4.5 L Urine WBC (Auto) 04/17/21 04/17/21 04/17/21 05:08 05:08 05:08 WBC Hgb Hct MCV MCH MCHC RDW Seg Neuts % (Manual) Lymphocytes % (Manual) Seg Neutrophils # Man Lymphocytes # (Manual) PT INR APTT ABG pH ABG pO2 ABG HCO3 ABG O2 Saturation ABG Base Excess ABG Hemoglobin ABG Oxyhemoglobin ABG Sodium ABG Potassium Oxyhemoglobin Sodium Potassium 6.5 H* Chloride Carbon Dioxide 17 L BUN 94 H Creatinine 17.4 H Glucose POC Glucose Calcium 7.9 L Phosphorus 7.50 H Magnesium 3.80 H Alkaline Phosphatase Troponin T 0.301 H* D Arterial Blood Ionized Calcium Urine WBC (Auto) 04/17/21 04/17/21 05:21 07:44 WBC 15.3 H Hgb 10.4 L Hct 32.8 L D MCV 73 L MCH 23 L MCHC RDW 20.2 H Seg Neuts % (Manual) 93.0 H Lymphocytes % (Manual) 4.0 L Seg Neutrophils # Man 14.2 H Lymphocytes # (Manual) 0.6 L PT INR APTT ABG pH ABG pO2 ABG HCO3 ABG O2 Saturation ABG Base Excess ABG Hemoglobin ABG Oxyhemoglobin ABG Sodium ABG Potassium Oxyhemoglobin Sodium Potassium Chloride Carbon Dioxide BUN Creatinine Glucose POC Glucose 123 H Calcium Phosphorus Magnesium Alkaline Phosphatase Troponin T Arterial Blood Ionized Calcium Urine WBC (Auto) Assessment and Plan Assessment and Plan VTE prophylaxis?: Mechanical Plan of care discussed with patient/family: Yes - Patient Problems #post Cardiac arrest Admit the patient to the critical care unit. Aspirin 81 mg p.o. daily. Lipitor 40 mg p.o. daily. Nitroglycerin as needed. We will do the serial cardiac enzyme. Echocardiogram. Cardiology consult # New onset seizure -Most likley secondary to above , renal failure , DKA -infection can not be excluded -will stop Keppra -Vimpat 50 mg bid -EEG when possible -MRI brain wo Gd when possible # DKA (diabetic ketoacidosis) -We will put the patient on DKA pathway. - IV fluid as per protocol. - Insulin drip as per protocol. # ESRD (end stage renal disease) on dialysis -Avoid nephrotoxic drug. -hemodialysis today # Hyperkalemia -Patient get insulin. -Calcium gluconate one 1 g IV x1 dose. - Kayexalate 60 g p.o. every 6 hours x2 dose. -Dialysis today # Metabolic acidosis -Most likely secondary to renal failure. - Sodium bicarb 2 amp IV slowly x1 dose. # DVT prophylaxis SCD for DVT prophylaxis. Pepcid 20 mg IV twice daily for GI prophylaxis. Patient is a full code will follow
[2021-04-17] MEDS ORDERED: DEXTROSE 50% IN WATER (25GM) 50 ML SYRINGE IV ONE (09:02)
--- NOTE | 2021-04-17 09:07 | Consultation ---
History of Present Illness - Reason for Consult Consult date: 04/17/21 end stage renal disease, hyperkalemia - History of Present Illness This is a 26 year-old man with ESRD who presents for cardiac arrest. Patient intubated, unable to provide HPI, unknown where patient receives HD and who is primary pastoral worker is. No contact listed in demographics. Per report, initially had seizure with EMS, unable to be stopped with Versed, went into cardiac arrest with PEA, s/p CPR. K noted to be high, with severe acidosis. Past History Past Medical History: ESRD, hypertension Medications and Allergies Allergies Allergy/AdvReac Type Severity Reaction Status Date / Time No Known Allergies Allergy Verified 04/16/21 23:39 Active Meds: Active Medications Acetaminophen (Acetaminophen 325 Mg Tab) 650 mg PO Q4H PRN PRN Reason: Pain MILD(1-3)/Fever >100.5/BANKS Atorvastatin Calcium (Atorvastatin 40 Mg Tab) 40 mg PO QHS ZEE Dextrose (Dextrose 50% In Water (25gm) 50 Ml Syringe) 50 ml IV Q30MIN PRN; Protocol PRN Reason: Hypoglycemia Last Admin: 04/17/21 02:48 Dose: 50 ml Documented by: Dextrose (Dextrose 50% In Water (25gm) 50 Ml Syringe) 50 ml IV ONCE ONE; Protocol Stop: 04/17/21 09:03 Famotidine (Famotidine 20 Mg/2 Ml Inj) 20 mg IV DAILY ZEE Fentanyl (Fentanyl 100 Mcg/2 Ml Inj) 50 mcg IV Q10MIN PRN PRN Reason: ANALGESIA Hydrophilic Ointment (Lip Therapy Vaseline) 1 applic TP Q2HR PRN PRN Reason: Dry Lips Fentanyl Citrate (Fentanyl Drip Premix) 2,000 mcg in 100 mls @ 3.606 mls/hr IV TITR ZEE; Protocol Last Titration: 04/17/21 04:32 Dose: 4 mcg/kg/hr, 14.424 mls/hr Documented by: Nicardipine/Sodium Chloride (Cardene Drip 40 Mg/200 Ml) 40 mg in 200 mls @ 25 mls/hr IV ONCE ONE; Protocol Stop: 04/17/21 09:16 Last Titration: 04/17/21 06:00 Dose: 2.5 mg/hr, 12.5 mls/hr Documented by: Dextrose/Sodium Chloride (D5/0.45ns) 1,000 mls @ 125 mls/hr IV DIRECT ZEE Last Admin: 04/17/21 02:51 Dose: 125 mls/hr Documented by: Insulin Human Regular 100 (units/ Sodium Chloride) 100 mls @ 1 mls/hr IV TITR ZEE; Protocol Levetiracetam 500 mg/ Dextrose 105 mls @ 400 mls/hr IV Q12HR ZEE Cefepime HCl (Cefepime/Ns 1 Gm/100 Ml) 1 gm in 100 mls @ 200 mls/hr IV Q24H ZEE; Protocol Propofol (Diprivan 10 Mg/Ml) 1,000 mg in 100 mls @ 2.164 mls/hr IV TITR ZEE; Protocol Sodium Chloride (Nacl 0.9%) 100 mls @ 999 mls/hr IV SHYANNE PRN PRN Reason: Hypotension Calcium Gluconate 1,000 mg/ (Sodium Chloride) 110 mls @ 660 mls/hr IV ONCE ONE Stop: 04/17/21 09:13 Insulin Human Regular (Insulin Regular, Human 100 Units/1 Ml) 8 units IV ONCE ONE Stop: 04/17/21 09:03 Multi-Ingred Cream/Lotion/Oil/Oint (Mineral Oil/Petrolatum, White Ophth Oint 3.5 Gm) 1 applic OU Q4HR PRN PRN Reason: Dry Eye(s) Nitroglycerin (Nitroglycerin 0.4 Mg Tab Subl) 0.4 mg SL Q5M PRN PRN Reason: Chest Pain Ondansetron HCl (Ondansetron 4 Mg/2 Ml Inj) 4 mg IV Q8H PRN PRN Reason: Nausea And Vomiting Senna/Docusate Sodium (Sennosides/Docusate Sodium 8.6/50 Mg Tab) 1 tab FEEDTUBE BID ZEE Sodium Chloride (Sodium Chloride 0.9% 10 Ml Flush Syringe) 10 ml IV BID ZEE Sodium Chloride (Sodium Chloride 0.9% 10 Ml Flush Syringe) 10 ml IV PRN PRN PRN Reason: LINE FLUSH Sodium Polystyrene Sulfonate (Sodium Polystyrene 15 Gm/60 Ml Oral Liqd) 30 gm PO Q6HR ZEE Stop: 04/17/21 12:01 Last Admin: 04/17/21 05:57 Dose: 30 gm Documented by: Review of Systems ROS unobtainable: due to endotracheal tube, due to mental status Exam - Vital Signs Vital signs: Vital Signs Pulse Ox 100 04/16/21 23:22 - Physical Exam Narrative exam: Constitutional: ill appearing, intubated Head: NC/AT Neck: supple Lungs: coarse lung sounds CV: tachycardic Abdomen: soft, non-tender, bowel sounds present Back: nontender Extremities: no edema, pulses WNL Skin: intact Neuro: sedated Results - Lab Results 04/17/21 05:21 04/17/21 08:10 Most recent lab results ABG pH 7.245 (7.320-7.450) L 04/17/21 04:32 ABG pCO2 40.0 mm Hg 04/17/21 00:55 ABG pO2 91.2 mm Hg (80.0-90.0) H 04/17/21 00:55 ABG HCO3 10.3 mmol/L (20.0-26.0) L 04/17/21 00:55 ABG O2 Saturation 95.1 (0-100) 04/17/21 04:32 Calcium 7.9 mg/dL (8.4-10.2) L 04/17/21 05:08 Phosphorus 7.50 mg/dL (2.5-4.5) H 04/17/21 05:08 Magnesium 3.80 mg/dL (1.7-2.3) H 04/17/21 05:08 Assessment and Plan This is a 26 year old man who presents with cardiac arrest, hyperkalemia/acidosis # ESRD: HD STAT today for recurrent hyperkalemia/acidosis - daily labs - renally dose meds - avoid nephrotoxins - renal diet - verbal consent unable to be obtained due to patient status; dual physician consent provided for emergent need (spoke with primary team) # Anemia: last hemoglobin at goal for ESRD, no ESAs indicated # HTN: UF as tolerated. BP high initially # Secondary Hyperparathyroidism: continue home binders as needed # Cardiac Arrest, Respiratory Failure: appreciate ICU, cardiology; HD for hyperkalemia as noted
[2021-04-17] MEDS: SENNOSIDES/DOCUSATE SODIUM 8.6/50 MG TAB FEEDTUBE SCH ×2 (09:26→21:23)
[2021-04-17] MEDS: FAMOTIDINE 20 MG/2 ML INJ IV SCH (09:26)
[2021-04-17] MEDS ORDERED: FAMOTIDINE 20 MG/2 ML INJ IV SCH (10:00)
[2021-04-17] MEDS ORDERED: levETIRAcetam 500 MG in DEXTROSE 5% IN WATER 100 ML IV SCH (10:00)
--- NOTE | 2021-04-17 10:38 | Consultation ---
History of Present Illness Consult date: 04/17/21 Reason for consult: other (Cardiac arrest) History of present illness: 26 y/o male with known ESRD and HTN admitted with seizures. Subsequently after treatment administered for seizures, patient developed VTACH and then went into VFIB arrest. Patient had ROSC and was intubated. Transferred to ICU. Currently sedated so no further history can be obtained. Hyperkalemic and severely acidotic on arrival. Past History Past Medical History: ESRD, hypertension Past Surgical History: Other (unobtainable) Social history: other (unobtainable) Family history: other (unobtainable) Medications and Allergies Allergies Allergy/AdvReac Type Severity Reaction Status Date / Time No Known Allergies Allergy Verified 04/16/21 23:39 Home Medications Medication Instructions Recorded Confirmed Last Taken Type Amlodipine Besylate 5 mg PO DAILY 04/18/21 04/18/21 Unknown History Lamivudine 150 mg PO DAILY 04/18/21 04/18/21 Unknown History Lisinopril 40 mg PO DAILY 04/18/21 04/18/21 Unknown History Nifedipine ER 30 mg PO DAILY 04/18/21 04/18/21 Unknown History Sevelamer Carbonate 800 mg PO TID 04/18/21 04/18/21 Unknown History Tenofovir Disoproxil Fumarate 300 mg PO 1XW 04/18/21 04/18/21 Unknown History Tivicay 50 mg PO DAILY 04/18/21 04/18/21 Unknown History carvediloL 6.25 mg PO BID 04/18/21 04/18/21 Unknown History hydrALAZINE 50 mg PO BID 04/18/21 04/18/21 Unknown History Active Meds: Active Medications Acetaminophen (Acetaminophen 325 Mg Tab) 650 mg PO Q4H PRN PRN Reason: Pain MILD(1-3)/Fever >100.5/BANKS Atorvastatin Calcium (Atorvastatin 40 Mg Tab) 40 mg PO QHS ZEE Dextrose (Dextrose 50% In Water (25gm) 50 Ml Syringe) 50 ml IV Q30MIN PRN; Protocol PRN Reason: Hypoglycemia Last Admin: 04/17/21 02:48 Dose: 50 ml Documented by: Famotidine (Famotidine 20 Mg/2 Ml Inj) 20 mg IV DAILY ZEE Last Admin: 04/17/21 09:26 Dose: 20 mg Documented by: Fentanyl (Fentanyl 100 Mcg/2 Ml Inj) 50 mcg IV Q10MIN PRN PRN Reason: ANALGESIA Hydrophilic Ointment (Lip Therapy Vaseline) 1 applic TP Q2HR PRN PRN Reason: Dry Lips Fentanyl Citrate (Fentanyl Drip Premix) 2,000 mcg in 100 mls @ 3.606 mls/hr IV TITR [facility]; Protocol Last Titration: 04/17/21 04:32 Dose: 4 mcg/kg/hr, 14.424 mls/hr Documented by: Dextrose/Sodium Chloride (D5/0.45ns) 1,000 mls @ 125 mls/hr IV DIRECT [facility] Last Admin: 04/17/21 02:51 Dose: 125 mls/hr Documented by: Insulin Human Regular 100 (units/ Sodium Chloride) 100 mls @ 1 mls/hr IV TITR [facility]; Protocol Levetiracetam 500 mg/ Dextrose 105 mls @ 400 mls/hr IV Q12HR [facility] Last Admin: 04/17/21 09:26 Dose: 400 mls/hr Documented by: Cefepime HCl (Cefepime/Ns 1 Gm/100 Ml) 1 gm in 100 mls @ 200 mls/hr IV Q24H [facility]; Protocol Propofol (Diprivan 10 Mg/Ml) 1,000 mg in 100 mls @ 2.164 mls/hr IV TITR [facility]; Protocol Sodium Chloride (Nacl 0.9%) 100 mls @ 999 mls/hr IV [facility] PRN PRN Reason: Hypotension Multi-Ingred Cream/Lotion/Oil/Oint (Mineral Oil/Petrolatum, White Ophth Oint 3.5 Gm) 1 applic OU Q4HR PRN PRN Reason: Dry Eye(s) Nitroglycerin (Nitroglycerin 0.4 Mg Tab Subl) 0.4 mg SL Q5M PRN PRN Reason: Chest Pain Ondansetron HCl (Ondansetron 4 Mg/2 Ml Inj) 4 mg IV Q8H PRN PRN Reason: Nausea And Vomiting Senna/Docusate Sodium (Sennosides/Docusate Sodium 8.6/50 Mg Tab) 1 tab FEEDTUBE BID [facility] Last Admin: 04/17/21 09:26 Dose: 1 tab Documented by: Sodium Chloride (Sodium Chloride 0.9% 10 Ml Flush Syringe) 10 ml IV BID [facility] Last Admin: 04/17/21 09:27 Dose: 10 ml Documented by: Sodium Chloride (Sodium Chloride 0.9% 10 Ml Flush Syringe) 10 ml IV PRN PRN PRN Reason: LINE FLUSH Sodium Polystyrene Sulfonate (Sodium Polystyrene 15 Gm/60 Ml Oral Liqd) 30 gm PO Q6HR [facility] Stop: 04/17/21 12:01 Last Admin: 04/17/21 05:57 Dose: 30 gm Documented by: Review of Systems ROS unobtainable: due to endotracheal tube, due to mental status Physical Examination Vital signs: Vital Signs Pulse Ox 100 04/16/21 23:22 General appearance: no acute distress, comatose (secondary to sedation) ENT: other (orally intubated) Effort: normal Ascultation: Bilateral: clear Percussion: Bilateral: not dull Cardiovascular: regular rate and rhythm Gastrointestinal: normoactive bowel sounds, soft Results - Laboratory Findings CBC and BMP: 04/19/21 04:23 04/19/21 04:23 ABG ABG pH 7.245 (7.320-7.450) L 04/17/21 04:32 POC ABG pCO2 34.9 mmHg (32.0-48.0) 04/17/21 04:32 ABG pCO2 40.0 mm Hg 04/17/21 00:55 POC ABG pO2 92.3 mmHg (83-108) 04/17/21 04:32 ABG pO2 91.2 mm Hg (80.0-90.0) H 04/17/21 00:55 POC ABG HCO3 14.8 04/17/21 04:32 ABG O2 Saturation 95.1 (0-100) 04/17/21 04:32 PT/INR, D-dimer PT 18.3 Sec. (12.2-14.9) H 04/16/21 23:41 INR 1.47 (0.87-1.13) H 04/16/21 23:41 Abnormal lab findings: Abnormal Labs 04/16/21 04/16/21 04/16/21 23:41 23:41 23:41 WBC Hgb Hct MCV 81 L MCH 24 L MCHC 29 L RDW 20.4 H Seg Neuts % (Manual) 26.0 L Lymphocytes % (Manual) 70.0 H Seg Neutrophils # Man Lymphocytes # (Manual) 6.8 H PT 18.3 H INR 1.47 H APTT 38.2 H ABG pH ABG pO2 ABG HCO3 ABG O2 Saturation ABG Base Excess ABG Hemoglobin ABG Oxyhemoglobin ABG Sodium ABG Potassium Oxyhemoglobin Sodium 135 L Potassium 6.0 H Chloride 87.9 L Carbon Dioxide 4 L* BUN 95 H Creatinine 17.9 H Glucose 239 H POC Glucose Calcium Phosphorus Magnesium Alkaline Phosphatase 137 H Troponin T 0.047 H Arterial Blood Ionized Calcium Urine WBC (Auto) 04/17/21 04/17/21 04/17/21 00:55 01:05 01:40 WBC Hgb Hct MCV MCH MCHC RDW Seg Neuts % (Manual) Lymphocytes % (Manual) Seg Neutrophils # Man Lymphocytes # (Manual) PT INR APTT ABG pH 7.030 L* ABG pO2 91.2 H ABG HCO3 10.3 L ABG O2 Saturation 90.8 L ABG Base Excess -19.6 L ABG Hemoglobin 10.9 L ABG Oxyhemoglobin ABG Sodium ABG Potassium Oxyhemoglobin 88.9 L Sodium Potassium Chloride Carbon Dioxide BUN Creatinine Glucose POC Glucose Calcium Phosphorus Magnesium Alkaline Phosphatase Troponin T 0.091 H Arterial Blood Ionized Calcium Urine WBC (Auto) 51.0 H 04/17/21 04/17/21 04/17/21 01:40 01:40 02:30 WBC Hgb Hct MCV MCH MCHC RDW Seg Neuts % (Manual) Lymphocytes % (Manual) Seg Neutrophils # Man Lymphocytes # (Manual) PT INR APTT ABG pH ABG pO2 ABG HCO3 ABG O2 Saturation ABG Base Excess ABG Hemoglobin ABG Oxyhemoglobin ABG Sodium ABG Potassium Oxyhemoglobin Sodium 133 L Potassium 7.6 H* D Chloride 94.8 L Carbon Dioxide 12 L D BUN 94 H Creatinine 17.6 H Glucose 209 H POC Glucose 151 H Calcium 7.9 L D Phosphorus 9.30 H Magnesium 3.70 H Alkaline Phosphatase Troponin T Arterial Blood Ionized Calcium Urine WBC (Auto) 04/17/21 04/17/21 04/17/21 03:42 03:56 04:32 WBC Hgb Hct MCV MCH MCHC RDW Seg Neuts % (Manual) Lymphocytes % (Manual) Seg Neutrophils # Man Lymphocytes # (Manual) PT INR APTT ABG pH 7.245 L ABG pO2 ABG HCO3 ABG O2 Saturation ABG Base Excess ABG Hemoglobin 10.7 L ABG Oxyhemoglobin 93.7 L ABG Sodium 133.2 L ABG Potassium 6.0 H Oxyhemoglobin Sodium 134 L Potassium 6.4 H* Chloride Carbon Dioxide 15 L BUN 92 H Creatinine 17.0 H Glucose 137 H POC Glucose 128 H Calcium 8.0 L Phosphorus Magnesium Alkaline Phosphatase Troponin T Arterial Blood Ionized Calcium 4.5 L Urine WBC (Auto) 04/17/21 04/17/21 04/17/21 05:08 05:08 05:08 WBC Hgb Hct MCV MCH MCHC RDW Seg Neuts % (Manual) Lymphocytes % (Manual) Seg Neutrophils # Man Lymphocytes # (Manual) PT INR APTT ABG pH ABG pO2 ABG HCO3 ABG O2 Saturation ABG Base Excess ABG Hemoglobin ABG Oxyhemoglobin ABG Sodium ABG Potassium Oxyhemoglobin Sodium Potassium 6.5 H* Chloride Carbon Dioxide 17 L BUN 94 H Creatinine 17.4 H Glucose POC Glucose Calcium 7.9 L Phosphorus 7.50 H Magnesium 3.80 H Alkaline Phosphatase Troponin T 0.301 H* D Arterial Blood Ionized Calcium Urine WBC (Auto) 04/17/21 04/17/21 04/17/21 05:21 07:44 08:10 WBC 15.3 H Hgb 10.4 L Hct 32.8 L D MCV 73 L MCH 23 L MCHC RDW 20.2 H Seg Neuts % (Manual) 93.0 H Lymphocytes % (Manual) 4.0 L Seg Neutrophils # Man 14.2 H Lymphocytes # (Manual) 0.6 L PT INR APTT ABG pH ABG pO2 ABG HCO3 ABG O2 Saturation ABG Base Excess ABG Hemoglobin ABG Oxyhemoglobin ABG Sodium ABG Potassium Oxyhemoglobin Sodium Potassium 6.8 H* Chloride Carbon Dioxide BUN Creatinine Glucose POC Glucose 123 H Calcium Phosphorus Magnesium Alkaline Phosphatase Troponin T Arterial Blood Ionized Calcium Urine WBC (Auto) 04/17/21 04/17/21 09:36 09:43 WBC Hgb Hct MCV MCH MCHC RDW Seg Neuts % (Manual) Lymphocytes % (Manual) Seg Neutrophils # Man Lymphocytes # (Manual) PT INR APTT ABG pH ABG pO2 ABG HCO3 ABG O2 Saturation ABG Base Excess ABG Hemoglobin ABG Oxyhemoglobin ABG Sodium ABG Potassium Oxyhemoglobin Sodium Potassium Chloride Carbon Dioxide BUN Creatinine Glucose POC Glucose 112 H Calcium Phosphorus Magnesium 3.40 H Alkaline Phosphatase Troponin T Arterial Blood Ionized Calcium Urine WBC (Auto) - Diagnostic Findings Chest x-ray: image reviewed Assessment and Plan 26 y/o with witnessed cardiac arrest (Vfib), with ESRD on HD 1. Check UDS 2. Check Echo, given heart size on CXR 3. HD per renal 4. Wean Sedation as tolerated. 5. On minimal vent support and CXR is clear. If mentation is normal post HD can consider extubation. CCT 31 minutes.
[2021-04-17 11:34] LABS: Calcium 8.2 mg/dL (8.4-10.2)
[2021-04-17 12:00] LABS: Hepatitis B Surface Antigen Non-Reactive (Negative); Hepatitis C Virus Antibody Non-Reactive (NonReactive)
[2021-04-17 12:51] LABS: Amphetamine Screen,Urine Negative; Benzodiazepines Screen,Urine Negative; Cannabinoid Screen,Urine Negative; Cocaine Screen,Urine Negative; Methadone Screen,Urine Negative; Opiate Screen,Urine Negative
[2021-04-17 13:10] LABS: Calcium 7.4 mg/dL (8.4-10.2)
[2021-04-17] MEDS: LACOSAMIDE 50 MG in SODIUM CHLORIDE 0.9% 100 ML IV SCH (13:24)
[2021-04-17] MEDS: hydrALAZINE 20 MG/1 ML INJ IV PRN (14:25)
--- NOTE | 2021-04-17 14:57 | Event Note ---
<APUL JOSHI - Last Filed: 04/17/21 14:53> Date: 04/17/21 This is a 26-year-old male with ESRD and HTN who presented to the emergency department s/p V. fib arrest after witnessed seizure with EMS and was treated with Versed and was noted to be in V. tach and after being shocked patient was noted to be in PEA and ACLS was initiated with achievement of ROSC and the patient was intubated. Upon arrival to the emergency department it was noted that patient was intubated into the stomach and was reintubated in the ED work- up in emergency department revealed hyperkalemia, high anion gap metabolic acidosis, elevated BUN/creatinine and troponin. He was started on DKA protocol. Patient was admitted to the hospital service with consults to CCM, cardiology, nephrology, neurology s/p cardiac arrest, ESRD on HD, DKA, hyperkalemia acute hypoxic respiratory failure and seizures PMH: Unable to obtain as patient is sedated and intubated, per documentation patient has ESRD and HTN Past surgical history: Unable to obtain Home medications: Unable to obtain, not updated in chart Neuro: Acute metabolic encephalopathy -04/16 CT head shows -Multifactorial with regard imbalances, hypoxia, new onset seizure -04/17 UDS negative New onset seizures -Witnessed by EMS and aborted with Versed -Patient was loaded with Keppra in the ED -Currently on Vimpat -Neurology consulted, appreciate recommendations -Neurology recommends EEG and MRI when possible Cardio: S/p cardiac arrest -Per EMS patient went into V. tach after having seizure aborted by Versed -Cardiology consulted, appreciate recommendations -Echocardiogram pending -CXR shows cardiomegaly -Lipitor,ASA Elevated troponins -04/16 troponin 0.047, 04/17 troponin 0.091, 04/17 troponin 0.301, 04/17 troponin 0.282 -Cardiology consulted, appreciate recommendations -Likely elevated secondary to cardiac arrest, NSTEMI type II h/o HTN -Resume home antihypertensive regimen when obtained and as needed -s/p cardene gtt -IV as needed hydralazine -Blood pressure monitor per protocol Respiratory: Acute hypoxic respiratory failure -Patient was intubated in the field however he was intubated to stomach and had to be reintubated in the emergency department upon arrival -CCM consulted, appreciate recommendations -VAP bundle -Ventilator weaning as tolerated -Daily SBT -Daily CXR and serial ABGs FEN/GI DKA -Initiated DKA protocol -On insulin drip -BMP per protocol ESRD -Nephrology consulted, appreciate recommendations -HD per nephrology -Avoid nephrotoxic medications -Renally dose medications -Strict intake and output -Daily weights Hyperkalemia -S/p calcium gluconate, insulin, D50, Kionex -HD per nephrology Heme: Leukocytosis -Patient started on cefepime -04/17 blood pressures x2 in progress Guerrero catheter for strict intake and output -Guerrero care per nursing Skin, NAD -Offloading per nursing protocol DVT/GI prophylaxis: Heparin subcu, SCDs to bilateral lower extremities while in bed, PPI Full code Disposition: ICU Lines: Guerrero, PIV The high probability of a clinically significant, sudden or life threatening deterioration of the [multi] system(s) required my full and direct attention, intervention and personal management. The aggregate critical care time was [45] minutes. This time is in addition to time spent performing reported procedures but includes the following: [x] Data Review and interpretation [x] Patient assessment and monitoring of vital signs [x] Documentation [x] Medication orders and management <ANGELINE ARMSTRONG - Last Filed: 04/18/21 11:42> Patient seen and examined, agree with assessment and plan as outlined as above. Patient 26-year-old end-stage renal disease patient who presented with seizures, V. tach and PEA, ACLS with ROSC. Intubated, brought to [facility] for continued care in the ICU. Cardiology, nephrology, neurology have been consulted. Patient is intubated, will attempt to wean off of vent. Blood pressure not controlled, will start labetalol, nicardipine if needed. Prognosis is guarded at this time.
--- NOTE | 2021-04-17 16:30 | Consultation ---
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 Pt was initially evaluated by EMS for new onset seizure activity. Following administration of Versed by EMS, pt apparently went into VT arrest. ACLS protocol was initiated by EMS. Pt received 1 shock according to ER documentation, after which PEA was noted on the monitor. Following 1 subsequent round of CPR and 1 dose of epi, ROSC was achieved. Pt is previously unknown to our practice; however, he has been seen by [facility]. 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 Past History Past Medical History: ESRD, HIV/AIDS, hypertension Past Surgical History: denies: CABG, PTCA Social history: denies: smoking, alcohol abuse Family history: denies: CAD Medications and Allergies Allergies Allergy/AdvReac Type Severity Reaction Status Date / Time No Known Allergies Allergy Verified 04/16/21 23:39 Active Meds: Active Medications Acetaminophen (Acetaminophen 325 Mg Tab) 650 mg PO Q4H PRN PRN Reason: Pain MILD(1-3)/Fever >100.5/BANKS Atorvastatin Calcium (Atorvastatin 40 Mg Tab) 40 mg PO QHS [facility] Dextrose (Dextrose 50% In Water (25gm) 50 Ml Syringe) 50 ml IV Q30MIN PRN; Protocol PRN Reason: Hypoglycemia Last Admin: 04/17/21 02:48 Dose: 50 ml Documented by: Famotidine (Famotidine 20 Mg/2 Ml Inj) 20 mg IV DAILY [facility] Last Admin: 04/17/21 09:26 Dose: 20 mg Documented by: Fentanyl (Fentanyl 100 Mcg/2 Ml Inj) 50 mcg IV Q10MIN PRN PRN Reason: ANALGESIA Hydralazine HCl (Hydralazine 20 Mg/1 Ml Inj) 10 mg IV Q4H PRN PRN Reason: Hypertension Last Admin: 04/17/21 14:25 Dose: 10 mg Documented by: Hydrophilic Ointment (Lip Therapy Vaseline) 1 applic TP Q2HR PRN PRN Reason: Dry Lips Fentanyl Citrate (Fentanyl Drip Premix) 2,000 mcg in 100 mls @ 3.606 mls/hr IV TITR [facility]; Protocol Last Admin: 04/17/21 11:15 Dose: 4 mcg/kg/hr, 14.424 mls/hr Documented by: Dextrose/Sodium Chloride (D5/0.45ns) 1,000 mls @ 125 mls/hr IV DIRECT [facility] Last Admin: 04/17/21 11:16 Dose: 125 mls/hr Documented by: Insulin Human Regular 100 (units/ Sodium Chloride) 100 mls @ 1 mls/hr IV TITR [facility]; Protocol Cefepime HCl (Cefepime/Ns 1 Gm/100 Ml) 1 gm in 100 mls @ 200 mls/hr IV Q24H [facility]; Protocol Propofol (Diprivan 10 Mg/Ml) 1,000 mg in 100 mls @ 2.164 mls/hr IV TITR [facility]; Protocol Sodium Chloride (Nacl 0.9%) 100 mls @ 999 mls/hr IV [facility] PRN PRN Reason: Hypotension Lacosamide 50 mg/ Sodium (Chloride) 105 mls @ 100 mls/hr IV Q12H [facility] Last Admin: 04/17/21 13:24 Dose: 100 mls/hr Documented by: Labetalol HCl (Labetalol 20 Mg/4 Ml Inj) 10 mg IV Q4HR PRN PRN Reason: Hypertension Last Admin: 04/17/21 15:46 Dose: 10 mg Documented by: Multi-Ingred Cream/Lotion/Oil/Oint (Mineral Oil/Petrolatum, White Ophth Oint 3.5 Gm) 1 applic OU Q4HR PRN PRN Reason: Dry Eye(s) Nitroglycerin (Nitroglycerin 0.4 Mg Tab Subl) 0.4 mg SL Q5M PRN PRN Reason: Chest Pain Ondansetron HCl (Ondansetron 4 Mg/2 Ml Inj) 4 mg IV Q8H PRN PRN Reason: Nausea And Vomiting Senna/Docusate Sodium (Sennosides/Docusate Sodium 8.6/50 Mg Tab) 1 tab FEEDTUBE BID [facility] Last Admin: 04/17/21 09:26 Dose: 1 tab Documented by: Sodium Chloride (Sodium Chloride 0.9% 10 Ml Flush Syringe) 10 ml IV BID [facility] Last Admin: 04/17/21 09:27 Dose: 10 ml Documented by: Sodium Chloride (Sodium Chloride 0.9% 10 Ml Flush Syringe) 10 ml IV PRN PRN PRN Reason: LINE FLUSH Review of Systems ROS unobtainable: due to endotracheal tube Physical Examination Last Vital Signs Temp 98.8 F 04/17/21 16:00 Pulse 109 H 04/17/21 17:20 Resp 20 04/17/21 17:20 BP 145/94 04/17/21 17:20 Pulse Ox 98 04/17/21 17:20 General appearance: other (intubated) HEENT: Positive: Normocephaly Neck: Negative: JVD/HJR Cardiac: Positive: S1/S2, Tachycardia Lungs: Positive: Ventilated Respirations Neuro: Positive: Other (intubated) Abdomen: Positive: Soft Skin: Negative: Rash, Wound Musculoskeletal: No Fluid Collection Extremities: Present: lower extr. pulses. Absent: edema Results 04/17/21 05:21 04/17/21 12:35 Cardiac Enzymes 04/16/21 Range/Units 23:41 AST 25 (5-40) units/L Coagulation 04/16/21 Range/Units 23:41 PT 18.3 H (12.2-14.9) Sec. INR 1.47 H (0.87-1.13) APTT 38.2 H (24.2-36.6) Sec. Lipids 04/16/21 Range/Units 23:41 Triglycerides 114 (2-149) mg/dL Cholesterol 147 (50-199) mg/dL HDL Cholesterol 52 (40-59) mg/dL Cholesterol/HDL Ratio 2.82 % CBC 04/16/21 04/17/21 Range/Units 23:41 05:21 WBC 9.7 15.3 H (4.5-11.0) K/mm3 RBC 4.97 4.49 (3.65-5.03) M/mm3 Hgb 11.9 10.4 L (11.8-15.2) gm/dl Hct 40.5 32.8 L D (35.5-45.6) % Plt Count 369 234 (140-440) K/mm3 Lymph # (Auto) Welder Oxyhydrogen Comprehensive Metabolic Panel 04/16/21 04/17/21 04/17/21 Range/Units 23:41 01:40 03:56 Sodium 135 L 133 L 134 L (137-145) mmol/L Potassium 6.0 H 7.6 H* D 6.4 H* (3.6-5.0) mmol/L Chloride 87.9 L 94.8 L 98.0 (98-107) mmol/L Carbon Dioxide 4 L* 12 L D 15 L (22-30) mmol/L BUN 95 H 94 H 92 H (9-20) mg/dL Creatinine 17.9 H 17.6 H 17.0 H (0.8-1.3) mg/dL Glucose 239 H 209 H 137 H (75-100) mg/dL Calcium 9.5 7.9 L D 8.0 L (8.4-10.2) mg/dL AST 25 (5-40) units/L ALT 20 (7-56) units/L Alkaline Phosphatase 137 H (35-129) units/L Total Protein 7.8 (6.3-8.2) g/dL Albumin 4.7 (3.9-5) g/dL 04/17/21 04/17/21 04/17/21 Range/Units 05:08 08:10 10:16 Sodium 137 140 (137-145) mmol/L Potassium 6.5 H* 6.8 H* 5.0 D (3.6-5.0) mmol/L Chloride 98.0 98.5 (98-107) mmol/L Carbon Dioxide 17 L 18 L (22-30) mmol/L BUN 94 H 93 H (9-20) mg/dL Creatinine 17.4 H 16.5 H (0.8-1.3) mg/dL Glucose 80 139 H (75-100) mg/dL Calcium 7.9 L 8.2 L (8.4-10.2) mg/dL AST (5-40) units/L ALT (7-56) units/L Alkaline Phosphatase (35-129) units/L Total Protein (6.3-8.2) g/dL Albumin (3.9-5) g/dL 04/17/21 Range/Units 12:35 Sodium 136 L (137-145) mmol/L Potassium 4.0 (3.6-5.0) mmol/L Chloride 97.8 L (98-107) mmol/L Carbon Dioxide 21 L (22-30) mmol/L BUN 61 H (9-20) mg/dL Creatinine 11.2 H (0.8-1.3) mg/dL Glucose 247 H (75-100) mg/dL Calcium 7.4 L (8.4-10.2) mg/dL AST (5-40) units/L ALT (7-56) units/L Alkaline Phosphatase (35-129) units/L Total Protein (6.3-8.2) g/dL Albumin (3.9-5) g/dL - Imaging and Cardiology Echo: pending EKG: report reviewed, image reviewed EKG interpretations - EKG Sinus rhythms and dysrhythmias: sinus tachycardia Repolarization changes or abnormalities: nonspecific abnormality, ST segment, and/or T wave Assessment and Plan Echo pending. Suspect cardiac arrest secondary to significant electrolyte disturbances. Volume optimization and correction of electrolytes per Nephro. May initiate IV Lopressor while pt remains NPO. Wean Cardene gtt as tolerated. Pt seen in conjunction with Dr. Phillips, who agrees with the assessment and plan of care. - Patient Problems (1) Cardiac arrest Current Visit: Yes Status: Acute (2) New onset seizure Current Visit: Yes Status: Acute (3) Metabolic acidosis Current Visit: Yes Status: Acute (4) Hyperkalemia Current Visit: Yes Status: Acute (5) Hypermagnesemia Current Visit: Yes Status: Acute (6) Accelerated hypertension Current Visit: Yes Status: Acute (7) NSTEMI (non-ST elevated myocardial infarction) Current Visit: Yes Status: Acute Plan to address problem: Type 2 (8) Restrictive cardiomyopathy Current Visit: Yes Status: Chronic (9) ESRD (end stage renal disease) on dialysis Current Visit: Yes Status: Chronic (10) HIV-associated nephropathy Current Visit: Yes Status: Chronic (11) AIDS Current Visit: Yes Status: Chronic
[2021-04-17] MEDS: niCARdipine 50 MG in SODIUM CHLORIDE 0.9% 250ML 230 ML IV SCH (17:40)
[2021-04-17 18:34] LABS: Calcium 8.1 mg/dL (8.4-10.2)
[2021-04-17] MEDS: METOPROLOL TARTRATE 5 MG/5 ML INJ IV SCH (20:05)
[2021-04-17 23:59] LABS: Calcium 8.2 mg/dL (8.4-10.2)
[2021-04-18] MEDS: METOPROLOL TARTRATE 5 MG/5 ML INJ IV SCH ×2 (00:58→06:32)
[2021-04-18] MEDS: CEFEPIME/NS 1 GM/100 ML 1 GM/100 ML BAG IV SCH (01:01)
[2021-04-18] MEDS: LACOSAMIDE 50 MG in SODIUM CHLORIDE 0.9% 100 ML IV SCH ×2 (01:01→13:03)
[2021-04-18] MEDS: HALOPERIDOL LACTATE 5 MG/1 ML INJ IV PRN (01:36)
[2021-04-18 02:19] LABS: Calcium 8.2 mg/dL (8.4-10.2)
[2021-04-18] MEDS: niCARdipine 50 MG in SODIUM CHLORIDE 0.9% 250ML 230 ML IV SCH (02:20)
[2021-04-18] MEDS: LORazepam 2 MG/ML VIAL IV PRN ×2 (03:02→19:44)
[2021-04-18] MEDS: D5W/0.45% NACL 1,000 ML IV SCH (05:30)
[2021-04-18] MEDS: hydrALAZINE 20 MG/1 ML INJ IV PRN ×3 (08:07→19:43)
[2021-04-18 08:12] LABS: Hematocrit 28.6 % (35.5-45.6); Hemoglobin 9.2 gm/dl (11.8-15.2); Mean Corpuscular HGB Conc 32 % (32-34); Mean Corpuscular Volume 72 fl (84-94); Platelet Count 235 K/mm3 (140-440); Red Blood Count 3.96 M/mm3 (3.65-5.03)
[2021-04-18 08:15] LABS: Red Cell Distribution Width 20.4 % (13.2-15.2)
[2021-04-18 08:27] LABS: Calcium 8.3 mg/dL (8.4-10.2)
--- NOTE | 2021-04-18 08:56 | Progress Note ---
Assessment and Plan Echo findings reviewed - EF 55-60%, moderate concentric LVH, no significant valvular abnormalities. Suspect VT arrest secondary to significant electrolyte disturbances. Volume optimization and correction of electrolytes per [facility]ph[facility]. (Pt was recently set up @ [facility] on TTS schedule after completing transition to [facility] [employer] program Oct 2020 per [facility]). Will optimize antihypertensive now that pt is able to tolerate PO meds. Start PO Lopressor 50mg BID. Increase as tolerated. Resume also Amlodipine 10mg daily. Signed by: Tiffany Keith NP Pt seen in conjunction with Dr. Phillips, who agrees with the assessment and plan of care. - Patient Problems (1) Cardiac arrest Current Visit: Yes Status: Acute (2) New onset seizure Current Visit: Yes Status: Acute (3) Acute metabolic encephalopathy Current Visit: Yes Status: Acute (4) Metabolic acidosis Current Visit: Yes Status: Acute (5) Hyperkalemia Current Visit: Yes Status: Acute (6) Hypermagnesemia Current Visit: Yes Status: Acute (7) Accelerated hypertension Current Visit: Yes Status: Acute (8) NSTEMI (non-ST elevated myocardial infarction) Current Visit: Yes Status: Acute Plan to address problem: Type 2 (9) ESRD (end stage renal disease) on dialysis Current Visit: Yes Status: Chronic (10) Anemia Current Visit: Yes Status: Chronic (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 Lethargic, not answering questions. Tele reviewed - ST 110-120s, no acute events overnight. Objective Last Vital Signs Temp 98.2 F 04/18/21 04:34 Pulse 122 H 04/18/21 14:06 Resp 20 04/18/21 12:00 BP 209/111 04/18/21 14:06 Pulse Ox 97 04/18/21 11:30 - Physical Examination General: No Apparent Distress HEENT: Positive: Normocephaly Neck: Negative: JVD/HJR Cardiac: Positive: Regular Rhythm, S1/S2, Tachycardia Lungs: Positive: Decreased Breath Sounds (bases) Neuro: Positive: Other (unresponsive) Abdomen: Positive: Soft Skin: Negative: Rash, Wound Musculoskeletal: No Fluid Collection Extremities: Present: lower extr. pulses. Absent: edema - Labs and Meds CBC 04/18/21 Range/Units 07:55 WBC 15.2 H (4.5-11.0) K/mm3 RBC 3.96 (3.65-5.03) M/mm3 Hgb 9.2 L (11.8-15.2) gm/dl Hct 28.6 L (35.5-45.6) % Plt Count 235 (140-440) K/mm3 Comprehensive Metabolic Panel 04/17/21 04/17/21 04/17/21 Range/Units 08:10 10:16 12:35 Sodium 140 136 L (137-145) mmol/L Potassium 6.8 H* 5.0 D 4.0 (3.6-5.0) mmol/L Chloride 98.5 97.8 L (98-107) mmol/L Carbon Dioxide 18 L 21 L (22-30) mmol/L BUN 93 H 61 H (9-20) mg/dL Creatinine 16.5 H 11.2 H (0.8-1.3) mg/dL Glucose 139 H 247 H (75-100) mg/dL Calcium 8.2 L 7.4 L (8.4-10.2) mg/dL 04/17/21 04/17/21 04/18/21 Range/Units 17:45 23:25 01:38 Sodium 135 L 134 L 136 L (137-145) mmol/L Potassium 4.0 4.1 4.0 (3.6-5.0) mmol/L Chloride 96.4 L 95.3 L 96.2 L (98-107) mmol/L Carbon Dioxide 22 22 22 (22-30) mmol/L BUN 45 H 44 H 45 H (9-20) mg/dL Creatinine 10.5 H 11.0 H 11.6 H (0.8-1.3) mg/dL Glucose 117 H 149 H 106 H (75-100) mg/dL Calcium 8.1 L 8.2 L 8.2 L (8.4-10.2) mg/dL 04/18/21 Range/Units 07:55 Sodium 134 L (137-145) mmol/L Potassium 3.7 (3.6-5.0) mmol/L Chloride 93.4 L (98-107) mmol/L Carbon Dioxide 24 (22-30) mmol/L BUN 45 H (9-20) mg/dL Creatinine 11.2 H (0.8-1.3) mg/dL Glucose 108 H (75-100) mg/dL Calcium 8.3 L (8.4-10.2) mg/dL - Imaging and Cardiology EKG: report reviewed, image reviewed Echo: report reviewed - Telemetry EKG Rhythm: Sinus Tachycardia - EKG Sinus rhythms and dysrhythmias: sinus tachycardia Repolarization changes or abnormalities: nonspecific abnormality, ST segment, and/or T wave
--- NOTE | 2021-04-18 09:23 | Progress Note ---
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 BP high initially, now much improved # Secondary Hyperparathyroidism: continue home binders as needed # Cardiac Arrest, Respiratory Failure: appreciate ICU, cardiology; HD for hyperkalemia as noted Subjective Date of service: 04/18/21 Interval history: Extubated overnight, resting this AM on NC. Arousable but remains minimally interactive and not answering questions Objective - Exam Narrative Exam: Constitutional: no acute distress, on NC Head: NC/AT Neck: supple Lungs: coarse lung sounds CV: tachycardic Abdomen: soft, non-tender, bowel sounds present Back: nontender Extremities: no edema, pulses WNL Skin: intact Neuro: drowsy - Vital Signs Vital signs: Vital Signs - 12hr 04/17/21 04/17/21 04/17/21 21:30 21:40 21:50 Temperature Pulse Rate 111 H 107 H 105 H Pulse Rate [ From Monitor] Pulse Rate [ None] Respiratory 21 20 20 Rate Blood Pressure 154/92 154/92 153/93 O2 Sat by Pulse 97 98 99 Oximetry 04/17/21 04/17/21 04/17/21 22:00 22:10 22:20 Temperature Pulse Rate 105 H 112 H 108 H Pulse Rate [ From Monitor] Pulse Rate [ None] Respiratory 20 22 20 Rate Blood Pressure 153/97 153/97 168/99 O2 Sat by Pulse 98 97 98 Oximetry 04/17/21 04/17/21 04/17/21 22:25 22:30 22:40 Temperature Pulse Rate 107 H 106 H Pulse Rate [ 91 H From Monitor] Pulse Rate [ None] Respiratory 20 20 21 Rate Blood Pressure 155/95 155/95 O2 Sat by Pulse 98 97 100 Oximetry 04/17/21 04/17/21 04/17/21 22:50 23:00 23:05 Temperature Pulse Rate 108 H 109 H 115 H Pulse Rate [ 91 H From Monitor] Pulse Rate [ None] Respiratory 20 20 Rate Blood Pressure 162/101 O2 Sat by Pulse 99 99 Oximetry 04/17/21 04/17/21 04/17/21 23:10 23:15 23:20 Temperature Pulse Rate 125 H 115 H 121 H Pulse Rate [ From Monitor] Pulse Rate [ None] Respiratory 16 22 20 Rate Blood Pressure 162/101 189/105 O2 Sat by Pulse 100 98 Oximetry 04/17/21 04/17/21 04/17/21 23:30 23:40 23:50 Temperature Pulse Rate 116 H 114 H 127 H Pulse Rate [ From Monitor] Pulse Rate [ None] Respiratory 21 20 36 H Rate Blood Pressure 161/93 161/93 167/93 O2 Sat by Pulse 99 99 100 Oximetry 04/17/21 04/18/21 04/18/21 23:53 00:00 00:10 Temperature 97.9 F Pulse Rate 132 H 132 H Pulse Rate [ From Monitor] Pulse Rate [ None] Respiratory 18 26 H Rate Blood Pressure 150/97 150/97 O2 Sat by Pulse 91 Oximetry 04/18/21 04/18/21 04/18/21 00:20 00:30 00:40 Temperature Pulse Rate 125 H 131 H 129 H Pulse Rate [ From Monitor] Pulse Rate [ None] Respiratory 23 26 H 25 H Rate Blood Pressure 154/88 154/88 142/87 O2 Sat by Pulse 96 Oximetry 04/18/21 04/18/21 04/18/21 00:52 00:58 01:00 Temperature Pulse Rate 130 H 130 H 116 H Pulse Rate [ From Monitor] Pulse Rate [ None] Respiratory 29 H 22 Rate Blood Pressure 151/88 151/88 161/95 O2 Sat by Pulse 97 100 Oximetry 04/18/21 04/18/21 04/18/21 01:10 01:20 01:30 Temperature Pulse Rate 119 H 120 H 114 H Pulse Rate [ From Monitor] Pulse Rate [ None] Respiratory 21 22 20 Rate Blood Pressure 161/95 168/97 158/87 O2 Sat by Pulse 99 94 96 Oximetry 04/18/21 04/18/21 04/18/21 01:40 01:50 02:00 Temperature Pulse Rate 116 H 110 H 107 H Pulse Rate [ From Monitor] Pulse Rate [ None] Respiratory 22 18 15 Rate Blood Pressure 151/88 157/93 164/98 O2 Sat by Pulse 96 92 93 Oximetry 04/18/21 04/18/21 04/18/21 02:10 02:20 02:30 Temperature Pulse Rate 120 H 120 H 114 H Pulse Rate [ From Monitor] Pulse Rate [ None] Respiratory 21 28 H 23 Rate Blood Pressure 157/93 174/111 181/105 O2 Sat by Pulse 89 97 Oximetry 04/18/21 04/18/21 04/18/21 02:40 02:50 03:00 Temperature Pulse Rate 108 H Pulse Rate [ From Monitor] Pulse Rate [ None] Respiratory 22 33 H Rate Blood Pressure 181/105 163/112 193/122 O2 Sat by Pulse 91 Oximetry 04/18/21 04/18/21 04/18/21 03:10 03:20 03:30 Temperature Pulse Rate 126 H 104 H 109 H Pulse Rate [ From Monitor] Pulse Rate [ None] Respiratory 17 22 23 Rate Blood Pressure 193/122 155/86 146/89 O2 Sat by Pulse 97 90 Oximetry 04/18/21 04/18/21 04/18/21 03:40 03:45 03:50 Temperature Pulse Rate 106 H 106 H 104 H Pulse Rate [ From Monitor] Pulse Rate [ None] Respiratory 21 20 18 Rate Blood Pressure 146/89 141/81 O2 Sat by Pulse 93 99 94 Oximetry 04/18/21 04/18/21 04/18/21 04:00 04:10 04:20 Temperature Pulse Rate 107 H 116 H 110 H Pulse Rate [ From Monitor] Pulse Rate [ None] Respiratory 19 20 19 Rate Blood Pressure 139/75 139/75 127/70 O2 Sat by Pulse 94 90 94 Oximetry 04/18/21 04/18/21 04/18/21 04:30 04:34 04:40 Temperature 98.2 F Pulse Rate 111 H 110 H 114 H Pulse Rate [ From Monitor] Pulse Rate [ 101 H None] Respiratory 19 19 21 Rate Blood Pressure 126/72 127/70 126/72 O2 Sat by Pulse 94 94 94 Oximetry 04/18/21 04/18/21 04/18/21 04:50 05:00 05:10 Temperature Pulse Rate 112 H 112 H Pulse Rate [ From Monitor] Pulse Rate [ None] Respiratory 19 21 Rate Blood Pressure 140/84 141/87 141/87 O2 Sat by Pulse 92 93 91 Oximetry 04/18/21 04/18/21 04/18/21 05:20 05:30 05:40 Temperature Pulse Rate 116 H 111 H Pulse Rate [ From Monitor] Pulse Rate [ None] Respiratory 19 18 Rate Blood Pressure 125/100 171/82 141/93 O2 Sat by Pulse 99 99 96 Oximetry 04/18/21 04/18/21 04/18/21 05:50 06:00 06:32 Temperature Pulse Rate 111 H 115 H 118 H Pulse Rate [ From Monitor] Pulse Rate [ None] Respiratory 18 22 Rate Blood Pressure 150/93 142/94 143/80 O2 Sat by Pulse 97 95 Oximetry 04/18/21 08:07 Temperature Pulse Rate Pulse Rate [ From Monitor] Pulse Rate [ None] Respiratory Rate Blood Pressure 170/108 O2 Sat by Pulse Oximetry - Lab 04/18/21 07:55 04/18/21 07:55 Most recent lab results ABG pH 7.245 (7.320-7.450) L 04/17/21 04:32 ABG pCO2 40.0 mm Hg 04/17/21 00:55 ABG pO2 91.2 mm Hg (80.0-90.0) H 04/17/21 00:55 ABG HCO3 10.3 mmol/L (20.0-26.0) L 04/17/21 00:55 ABG O2 Saturation 95.1 (0-100) 04/17/21 04:32 Calcium 8.3 mg/dL (8.4-10.2) L 04/18/21 07:55 Phosphorus 7.50 mg/dL (2.5-4.5) H 04/17/21 05:08 Magnesium 3.40 mg/dL (1.7-2.3) H 04/17/21 09:36 Medications & Allergies - Medications Allergies/Adverse Reactions: Allergies No Known Allergies Allergy (Verified 04/16/21 23:39) Active Medications: Generic Name Dose Route Start Last Admin Trade Name Freq PRN Reason Stop Dose Admin Acetaminophen 650 mg 04/17/21 04:50 Acetaminophen 325 Mg Tab PO Q4H PRN Pain MILD(1-3)/Fever >100.5/BANKS Atorvastatin Calcium 40 mg 04/17/21 22:00 04/17/21 21:22 Atorvastatin 40 Mg Tab PO 40 mg QHS ZEE Administration Dextrose 50 ml 04/17/21 01:25 04/17/21 02:48 Dextrose 50% In Water (25gm) 50 Ml Syringe IV 50 ml Q30MIN PRN Administration Hypoglycemia Protocol Famotidine 20 mg 04/17/21 10:00 04/17/21 09:26 Famotidine 20 Mg/2 Ml Inj IV 20 mg DAILY ZEE Administration Fentanyl 50 mcg 04/16/21 23:26 04/17/21 21:30 Fentanyl 100 Mcg/2 Ml Inj IV 50 mcg Q10MIN PRN Administration ANALGESIA Haloperidol Lactate 5 mg 04/18/21 01:14 04/18/21 01:36 Haloperidol Lactate 5 Mg/1 Ml Inj IV 5 mg Q6H PRN Administration Agitation Hydralazine HCl 10 mg 04/17/21 13:23 04/18/21 08:07 Hydralazine 20 Mg/1 Ml Inj IV 10 mg Q4H PRN Administration Hypertension Hydrophilic Ointment 1 applic 04/16/21 23:26 Lip Therapy Vaseline TP Q2HR PRN Dry Lips Fentanyl Citrate 2,000 mcg in 100 mls @ 3.606 mls/hr 04/16/21 23:45 04/17/21 23:30 Fentanyl Drip Premix IV 0 mcg/kg/hr TITR ZEE 0 mls/hr Titration Protocol 1 MCG/KG/HR Dextrose/Sodium Chloride 1,000 mls @ 125 mls/hr 04/17/21 03:00 04/18/21 05:30 D5/0.45ns IV 125 mls/hr DIRECT ZEE Administration Insulin Human Regular 100 100 mls @ 1 mls/hr 04/17/21 05:00 04/18/21 08:32 units/ Sodium Chloride IV 1 units/hr TITR ZEE 1 mls/hr Titration Protocol 1 UNITS/HR Cefepime HCl 1 gm in 100 mls @ 200 mls/hr 04/17/21 23:45 04/18/21 01:01 Cefepime/Ns 1 Gm/100 Ml IV 200 mls/hr Q24H ZEE Administration Protocol Propofol 1,000 mg in 100 mls @ 2.164 mls/hr 04/17/21 08:00 Diprivan 10 Mg/Ml IV TITR ZEE Protocol 5 MCG/KG/MIN Sodium Chloride 100 mls @ 999 mls/hr 04/17/21 08:24 Nacl 0.9% IV SHYANNE PRN Hypotension Lacosamide 50 mg/ Sodium 105 mls @ 100 mls/hr 04/17/21 13:00 04/18/21 01:01 Chloride IV 100 mls/hr Q12H ZEE Administration Labetalol HCl 10 mg 04/17/21 15:18 04/18/21 05:45 Labetalol 20 Mg/4 Ml Inj IV 10 mg Q4HR PRN Administration Hypertension Lorazepam 1 mg 04/18/21 01:14 04/18/21 03:02 Lorazepam 2 Mg/Ml Vial IV 1 mg Q4HR PRN Administration Agitation Metoprolol Tartrate 2.5 mg 04/17/21 19:00 04/18/21 06:32 Metoprolol Tartrate 5 Mg/5 Ml Inj IV 2.5 mg Q6H ZEE Administration Multi-Ingred Cream/Lotion/Oil/Oint 1 applic 04/16/21 23:26 Mineral Oil/Petrolatum, White Ophth Oint 3.5 Gm OU Q4HR PRN Dry Eye(s) Nitroglycerin 0.4 mg 04/17/21 05:06 Nitroglycerin 0.4 Mg Tab Subl SL Q5M PRN Chest Pain Ondansetron HCl 4 mg 04/17/21 04:50 Ondansetron 4 Mg/2 Ml Inj IV Q8H PRN Nausea And Vomiting Senna/Docusate Sodium 1 tab 04/17/21 10:00 04/17/21 21:23 Sennosides/Docusate Sodium 8.6/50 Mg Tab FEEDTUBE 1 tab BID ZEE Administration Sodium Chloride 10 ml 04/17/21 10:00 04/17/21 21:32 Sodium Chloride 0.9% 10 Ml Flush Syringe IV 10 ml BID ZEE Administration Sodium Chloride 10 ml 04/17/21 04:50 04/18/21 05:32 Sodium Chloride 0.9% 10 Ml Flush Syringe IV 10 ml PRN PRN Administration LINE FLUSH
[2021-04-18] MEDS: FAMOTIDINE 20 MG/2 ML INJ IV SCH (10:04)
[2021-04-18] MEDS: SENNOSIDES/DOCUSATE SODIUM 8.6/50 MG TAB FEEDTUBE SCH ×2 (10:04→23:52)
--- NOTE | 2021-04-18 10:49 | Progress Note ---
Assessment and Plan 26 y/o with witnessed cardiac arrest (Vfib), with ESRD on HD 04/18/21: UDS was negative. Spoke with Cards about ECHO, it is normal EF with moderate LVH. HD per renal. Continue scheduled mood therapy as long as QT is stable. Agree with sitter. Transfer to floor. Will sign off once out of unit. 1. Check UDS 2. Check Echo, given heart size on CXR 3. HD per renal 4. Wean Sedation as tolerated. 5. On minimal vent support and CXR is clear. If mentation is normal post HD can consider extubation. Subjective Date of service: 04/18/21 Interval history: Called last night by staff that patient is awake and alert. Had HD on yesterday as well. minimal vent settings so I ordered extubation. Tolerated well but was very agitated and combative so ordered scheduled haldol. Patient is asleep now. STable. Objective Vital Signs - 12hr 04/17/21 04/17/21 04/17/21 22:50 23:00 23:05 Temperature Pulse Rate 108 H 109 H 115 H Pulse Rate [ 91 H From Monitor] Pulse Rate [ None] Respiratory 20 20 Rate Blood Pressure 162/101 O2 Sat by Pulse 99 99 Oximetry 04/17/21 04/17/21 04/17/21 23:10 23:15 23:20 Temperature Pulse Rate 125 H 115 H 121 H Pulse Rate [ From Monitor] Pulse Rate [ None] Respiratory 16 22 20 Rate Blood Pressure 162/101 189/105 O2 Sat by Pulse 100 98 Oximetry 04/17/21 04/17/21 04/17/21 23:30 23:40 23:50 Temperature Pulse Rate 116 H 114 H 127 H Pulse Rate [ From Monitor] Pulse Rate [ None] Respiratory 21 20 36 H Rate Blood Pressure 161/93 161/93 167/93 O2 Sat by Pulse 99 99 100 Oximetry 04/17/21 04/18/21 04/18/21 23:53 00:00 00:10 Temperature 97.9 F Pulse Rate 132 H 132 H Pulse Rate [ From Monitor] Pulse Rate [ None] Respiratory 18 26 H Rate Blood Pressure 150/97 150/97 O2 Sat by Pulse 91 Oximetry 04/18/21 04/18/21 04/18/21 00:20 00:30 00:40 Temperature Pulse Rate 125 H 131 H 129 H Pulse Rate [ From Monitor] Pulse Rate [ None] Respiratory 23 26 H 25 H Rate Blood Pressure 154/88 154/88 142/87 O2 Sat by Pulse 96 Oximetry 04/18/21 04/18/21 04/18/21 00:52 00:58 01:00 Temperature Pulse Rate 130 H 130 H 116 H Pulse Rate [ From Monitor] Pulse Rate [ None] Respiratory 29 H 22 Rate Blood Pressure 151/88 151/88 161/95 O2 Sat by Pulse 97 100 Oximetry 04/18/21 04/18/21 04/18/21 01:10 01:20 01:30 Temperature Pulse Rate 119 H 120 H 114 H Pulse Rate [ From Monitor] Pulse Rate [ None] Respiratory 21 22 20 Rate Blood Pressure 161/95 168/97 158/87 O2 Sat by Pulse 99 94 96 Oximetry 04/18/21 04/18/21 04/18/21 01:40 01:50 02:00 Temperature Pulse Rate 116 H 110 H 107 H Pulse Rate [ From Monitor] Pulse Rate [ None] Respiratory 22 18 15 Rate Blood Pressure 151/88 157/93 164/98 O2 Sat by Pulse 96 92 93 Oximetry 04/18/21 04/18/21 04/18/21 02:10 02:20 02:30 Temperature Pulse Rate 120 H 120 H 114 H Pulse Rate [ From Monitor] Pulse Rate [ None] Respiratory 21 28 H 23 Rate Blood Pressure 157/93 174/111 181/105 O2 Sat by Pulse 89 97 Oximetry 04/18/21 04/18/21 04/18/21 02:40 02:50 03:00 Temperature Pulse Rate 108 H Pulse Rate [ From Monitor] Pulse Rate [ None] Respiratory 22 33 H Rate Blood Pressure 181/105 163/112 193/122 O2 Sat by Pulse 91 Oximetry 04/18/21 04/18/21 04/18/21 03:10 03:20 03:30 Temperature Pulse Rate 126 H 104 H 109 H Pulse Rate [ From Monitor] Pulse Rate [ None] Respiratory 17 22 23 Rate Blood Pressure 193/122 155/86 146/89 O2 Sat by Pulse 97 90 Oximetry 04/18/21 04/18/21 04/18/21 03:40 03:45 03:50 Temperature Pulse Rate 106 H 106 H 104 H Pulse Rate [ From Monitor] Pulse Rate [ None] Respiratory 21 20 18 Rate Blood Pressure 146/89 141/81 O2 Sat by Pulse 93 99 94 Oximetry 04/18/21 04/18/21 04/18/21 04:00 04:10 04:20 Temperature Pulse Rate 107 H 116 H 110 H Pulse Rate [ From Monitor] Pulse Rate [ None] Respiratory 19 20 19 Rate Blood Pressure 139/75 139/75 127/70 O2 Sat by Pulse 94 90 94 Oximetry 04/18/21 04/18/21 04/18/21 04:30 04:34 04:40 Temperature 98.2 F Pulse Rate 111 H 110 H 114 H Pulse Rate [ From Monitor] Pulse Rate [ 101 H None] Respiratory 19 19 21 Rate Blood Pressure 126/72 127/70 126/72 O2 Sat by Pulse 94 94 94 Oximetry 04/18/21 04/18/21 04/18/21 04:50 05:00 05:10 Temperature Pulse Rate 112 H 112 H Pulse Rate [ From Monitor] Pulse Rate [ None] Respiratory 19 21 Rate Blood Pressure 140/84 141/87 141/87 O2 Sat by Pulse 92 93 91 Oximetry 04/18/21 04/18/21 04/18/21 05:20 05:30 05:40 Temperature Pulse Rate 116 H 111 H Pulse Rate [ From Monitor] Pulse Rate [ None] Respiratory 19 18 Rate Blood Pressure 125/100 171/82 141/93 O2 Sat by Pulse 99 99 96 Oximetry 04/18/21 04/18/21 04/18/21 05:50 06:00 06:32 Temperature Pulse Rate 111 H 115 H 118 H Pulse Rate [ From Monitor] Pulse Rate [ None] Respiratory 18 22 Rate Blood Pressure 150/93 142/94 143/80 O2 Sat by Pulse 97 95 Oximetry 04/18/21 04/18/21 08:07 10:15 Temperature Pulse Rate Pulse Rate [ From Monitor] Pulse Rate [ None] Respiratory Rate Blood Pressure 170/108 168/116 O2 Sat by Pulse Oximetry Gastrointestinal: normoactive bowel sounds Integumentary: normal CBC and BMP: 04/18/21 07:55 04/18/21 07:55 ABG, PT/INR, D-dimer: ABG ABG pH 7.245 (7.320-7.450) L 04/17/21 04:32 POC ABG pCO2 34.9 mmHg (32.0-48.0) 04/17/21 04:32 ABG pCO2 40.0 mm Hg 04/17/21 00:55 POC ABG pO2 92.3 mmHg (83-108) 04/17/21 04:32 ABG pO2 91.2 mm Hg (80.0-90.0) H 04/17/21 00:55 POC ABG HCO3 14.8 04/17/21 04:32 ABG O2 Saturation 95.1 (0-100) 04/17/21 04:32 PT/INR, D-dimer PT 18.3 Sec. (12.2-14.9) H 04/16/21 23:41 INR 1.47 (0.87-1.13) H 04/16/21 23:41 Abnormal lab findings: Abnormal Labs 04/16/21 04/16/21 04/16/21 23:41 23:41 23:41 WBC Hgb Hct MCV 81 L MCH 24 L MCHC 29 L RDW 20.4 H Seg Neuts % (Manual) 26.0 L Lymphocytes % (Manual) 70.0 H Seg Neutrophils # Man Lymphocytes # (Manual) 6.8 H PT 18.3 H INR 1.47 H APTT 38.2 H ABG pH ABG pO2 ABG HCO3 ABG O2 Saturation ABG Base Excess ABG Hemoglobin ABG Oxyhemoglobin ABG Sodium ABG Potassium Oxyhemoglobin Sodium 135 L Potassium 6.0 H Chloride 87.9 L Carbon Dioxide 4 L* BUN 95 H Creatinine 17.9 H Glucose 239 H POC Glucose Calcium Phosphorus Magnesium Alkaline Phosphatase 137 H Troponin T 0.047 H Arterial Blood Ionized Calcium Urine WBC (Auto) 04/17/21 04/17/21 04/17/21 00:55 01:05 01:40 WBC Hgb Hct MCV MCH MCHC RDW Seg Neuts % (Manual) Lymphocytes % (Manual) Seg Neutrophils # Man Lymphocytes # (Manual) PT INR APTT ABG pH 7.030 L* ABG pO2 91.2 H ABG HCO3 10.3 L ABG O2 Saturation 90.8 L ABG Base Excess -19.6 L ABG Hemoglobin 10.9 L ABG Oxyhemoglobin ABG Sodium ABG Potassium Oxyhemoglobin 88.9 L Sodium Potassium Chloride Carbon Dioxide BUN Creatinine Glucose POC Glucose Calcium Phosphorus Magnesium Alkaline Phosphatase Troponin T 0.091 H Arterial Blood Ionized Calcium Urine WBC (Auto) 51.0 H 07/17/21 07/17/21 07/17/21 01:40 01:40 02:30 WBC Hgb Hct MCV MCH MCHC RDW Seg Neuts % (Manual) Lymphocytes % (Manual) Seg Neutrophils # Man Lymphocytes # (Manual) PT INR APTT ABG pH ABG pO2 ABG HCO3 ABG O2 Saturation ABG Base Excess ABG Hemoglobin ABG Oxyhemoglobin ABG Sodium ABG Potassium Oxyhemoglobin Sodium 133 L Potassium 7.6 H* D Chloride 94.8 L Carbon Dioxide 12 L D BUN 94 H Creatinine 17.6 H Glucose 209 H POC Glucose 151 H Calcium 7.9 L D Phosphorus 9.30 H Magnesium 3.70 H Alkaline Phosphatase Troponin T Arterial Blood Ionized Calcium Urine WBC (Auto) 04/17/21 04/17/21 04/17/21 03:42 03:56 04:32 WBC Hgb Hct MCV MCH MCHC RDW Seg Neuts % (Manual) Lymphocytes % (Manual) Seg Neutrophils # Man Lymphocytes # (Manual) PT INR APTT ABG pH 7.245 L ABG pO2 ABG HCO3 ABG O2 Saturation ABG Base Excess ABG Hemoglobin 10.7 L ABG Oxyhemoglobin 93.7 L ABG Sodium 133.2 L ABG Potassium 6.0 H Oxyhemoglobin Sodium 134 L Potassium 6.4 H* Chloride Carbon Dioxide 15 L BUN 92 H Creatinine 17.0 H Glucose 137 H POC Glucose 128 H Calcium 8.0 L Phosphorus Magnesium Alkaline Phosphatase Troponin T Arterial Blood Ionized Calcium 4.5 L Urine WBC (Auto) 04/17/21 04/17/21 04/17/21 05:08 05:08 05:08 WBC Hgb Hct MCV MCH MCHC RDW Seg Neuts % (Manual) Lymphocytes % (Manual) Seg Neutrophils # Man Lymphocytes # (Manual) PT INR APTT ABG pH ABG pO2 ABG HCO3 ABG O2 Saturation ABG Base Excess ABG Hemoglobin ABG Oxyhemoglobin ABG Sodium ABG Potassium Oxyhemoglobin Sodium Potassium 6.5 H* Chloride Carbon Dioxide 17 L BUN 94 H Creatinine 17.4 H Glucose POC Glucose Calcium 7.9 L Phosphorus 7.50 H Magnesium 3.80 H Alkaline Phosphatase Troponin T 0.301 H* D Arterial Blood Ionized Calcium Urine WBC (Auto) 04/17/21 04/17/21 04/17/21 05:21 07:44 08:10 WBC 15.3 H Hgb 10.4 L Hct 32.8 L D MCV 73 L MCH 23 L MCHC RDW 20.2 H Seg Neuts % (Manual) 93.0 H Lymphocytes % (Manual) 4.0 L Seg Neutrophils # Man 14.2 H Lymphocytes # (Manual) 0.6 L PT INR APTT ABG pH ABG pO2 ABG HCO3 ABG O2 Saturation ABG Base Excess ABG Hemoglobin ABG Oxyhemoglobin ABG Sodium ABG Potassium Oxyhemoglobin Sodium Potassium 6.8 H* Chloride Carbon Dioxide BUN Creatinine Glucose POC Glucose 123 H Calcium Phosphorus Magnesium Alkaline Phosphatase Troponin T Arterial Blood Ionized Calcium Urine WBC (Auto) 04/17/21 04/17/21 04/17/21 09:36 09:43 10:16 WBC Hgb Hct MCV MCH MCHC RDW Seg Neuts % (Manual) Lymphocytes % (Manual) Seg Neutrophils # Man Lymphocytes # (Manual) PT INR APTT ABG pH ABG pO2 ABG HCO3 ABG O2 Saturation ABG Base Excess ABG Hemoglobin ABG Oxyhemoglobin ABG Sodium ABG Potassium Oxyhemoglobin Sodium Potassium Chloride Carbon Dioxide 18 L BUN 93 H Creatinine 16.5 H Glucose 139 H POC Glucose 112 H Calcium 8.2 L Phosphorus Magnesium 3.40 H Alkaline Phosphatase Troponin T Arterial Blood Ionized Calcium Urine WBC (Auto) 04/17/21 04/17/21 04/17/21 10:16 10:44 12:35 WBC Hgb Hct MCV MCH MCHC RDW Seg Neuts % (Manual) Lymphocytes % (Manual) Seg Neutrophils # Man Lymphocytes # (Manual) PT INR APTT ABG pH ABG pO2 ABG HCO3 ABG O2 Saturation ABG Base Excess ABG Hemoglobin ABG Oxyhemoglobin ABG Sodium ABG Potassium Oxyhemoglobin Sodium 136 L Potassium Chloride 97.8 L Carbon Dioxide 21 L BUN 61 H Creatinine 11.2 H Glucose 247 H POC Glucose 147 H Calcium 7.4 L Phosphorus Magnesium Alkaline Phosphatase Troponin T 0.282 H* Arterial Blood Ionized Calcium Urine WBC (Auto) 04/17/21 04/17/21 04/17/21 12:36 16:39 17:40 WBC Hgb Hct MCV MCH MCHC RDW Seg Neuts % (Manual) Lymphocytes % (Manual) Seg Neutrophils # Man Lymphocytes # (Manual) PT INR APTT ABG pH ABG pO2 ABG HCO3 ABG O2 Saturation ABG Base Excess ABG Hemoglobin ABG Oxyhemoglobin ABG Sodium ABG Potassium Oxyhemoglobin Sodium Potassium Chloride Carbon Dioxide BUN Creatinine Glucose POC Glucose 248 H 119 H 135 H Calcium Phosphorus Magnesium Alkaline Phosphatase Troponin T Arterial Blood Ionized Calcium Urine WBC (Auto) 04/17/21 04/17/21 04/17/21 17:45 19:45 23:13 WBC Hgb Hct MCV MCH MCHC RDW Seg Neuts % (Manual) Lymphocytes % (Manual) Seg Neutrophils # Man Lymphocytes # (Manual) PT INR APTT ABG pH ABG pO2 ABG HCO3 ABG O2 Saturation ABG Base Excess ABG Hemoglobin ABG Oxyhemoglobin ABG Sodium ABG Potassium Oxyhemoglobin Sodium 135 L Potassium Chloride 96.4 L Carbon Dioxide BUN 45 H Creatinine 10.5 H Glucose 117 H POC Glucose 114 H 151 H Calcium 8.1 L Phosphorus Magnesium Alkaline Phosphatase Troponin T Arterial Blood Ionized Calcium Urine WBC (Auto) 04/17/21 04/18/21 04/18/21 23:25 00:02 00:58 WBC Hgb Hct MCV MCH MCHC RDW Seg Neuts % (Manual) Lymphocytes % (Manual) Seg Neutrophils # Man Lymphocytes # (Manual) PT INR APTT ABG pH ABG pO2 ABG HCO3 ABG O2 Saturation ABG Base Excess ABG Hemoglobin ABG Oxyhemoglobin ABG Sodium ABG Potassium Oxyhemoglobin Sodium 134 L Potassium Chloride 95.3 L Carbon Dioxide BUN 44 H Creatinine 11.0 H Glucose 149 H POC Glucose 149 H 123 H Calcium 8.2 L Phosphorus Magnesium Alkaline Phosphatase Troponin T Arterial Blood Ionized Calcium Urine WBC (Auto) 04/18/21 04/18/21 04/18/21 01:38 03:09 04:29 WBC Hgb Hct MCV MCH MCHC RDW Seg Neuts % (Manual) Lymphocytes % (Manual) Seg Neutrophils # Man Lymphocytes # (Manual) PT INR APTT ABG pH ABG pO2 ABG HCO3 ABG O2 Saturation ABG Base Excess ABG Hemoglobin ABG Oxyhemoglobin ABG Sodium ABG Potassium Oxyhemoglobin Sodium 136 L Potassium Chloride 96.2 L Carbon Dioxide BUN 45 H Creatinine 11.6 H Glucose 106 H POC Glucose 108 H 112 H Calcium 8.2 L Phosphorus Magnesium Alkaline Phosphatase Troponin T Arterial Blood Ionized Calcium Urine WBC (Auto) 04/18/21 04/18/21 04/18/21 05:38 06:41 07:39 WBC Hgb Hct MCV MCH MCHC RDW Seg Neuts % (Manual) Lymphocytes % (Manual) Seg Neutrophils # Man Lymphocytes # (Manual) PT INR APTT ABG pH ABG pO2 ABG HCO3 ABG O2 Saturation ABG Base Excess ABG Hemoglobin ABG Oxyhemoglobin ABG Sodium ABG Potassium Oxyhemoglobin Sodium Potassium Chloride Carbon Dioxide BUN Creatinine Glucose POC Glucose 140 H 121 H 108 H Calcium Phosphorus Magnesium Alkaline Phosphatase Troponin T Arterial Blood Ionized Calcium Urine WBC (Auto) 04/18/21 04/18/21 04/18/21 07:55 07:55 08:32 WBC 15.2 H Hgb 9.2 L Hct 28.6 L MCV 72 L MCH 23 L MCHC RDW 20.4 H Seg Neuts % (Manual) Lymphocytes % (Manual) Seg Neutrophils # Man Lymphocytes # (Manual) PT INR APTT ABG pH ABG pO2 ABG HCO3 ABG O2 Saturation ABG Base Excess ABG Hemoglobin ABG Oxyhemoglobin ABG Sodium ABG Potassium Oxyhemoglobin Sodium 134 L Potassium Chloride 93.4 L Carbon Dioxide BUN 45 H Creatinine 11.2 H Glucose 108 H POC Glucose 126 H Calcium 8.3 L Phosphorus Magnesium Alkaline Phosphatase Troponin T Arterial Blood Ionized Calcium Urine WBC (Auto) 04/18/21 09:27 WBC Hgb Hct MCV MCH MCHC RDW Seg Neuts % (Manual) Lymphocytes % (Manual) Seg Neutrophils # Man Lymphocytes # (Manual) PT INR APTT ABG pH ABG pO2 ABG HCO3 ABG O2 Saturation ABG Base Excess ABG Hemoglobin ABG Oxyhemoglobin ABG Sodium ABG Potassium Oxyhemoglobin Sodium Potassium Chloride Carbon Dioxide BUN Creatinine Glucose POC Glucose 119 H Calcium Phosphorus Magnesium Alkaline Phosphatase Troponin T Arterial Blood Ionized Calcium Urine WBC (Auto)
--- NOTE | 2021-04-18 11:17 | Consultation ---
History of Present Illness - Reason for Consult Consult date: 04/18/21 Reason for consult: MHE - History of Present Psychiatric Illness Per ER Note: Patient is a 26-year-old male that presents emergency room for cardiac arrest. Patient was brought to the emergency room initially for seizure while in route with EMS, patient went to cardiac arrest. Patient initially walked to the ambulance. Patient was alert and oriented x3 and the patient that went into a seizure that could not be stopped patient was given Versed and went into ventricular tachycardia. Patient was then shocked and went into a cardiac arrest. Patient's initial rhythm was PEA on the monitor and then CPR was started the patient given 1 round of epi. Patient had e ROSC after the epi. Patient has history of end-stage renal disease on dialysis, hypertension and no history of seizure. Lenin Wu is a 26y/o patient I attempted to evaluate today. A sitter is at bedside. The patient was lying in bed asleep. He arouses easily but drifts back off. Not sure if he's just out of it or doesn't feel like talking at the moment. The sitter at bedside states the patient has been pleasant, but several doctors have asked him the same questions so she says he might just be tired of answering them. The patient says "I don't know" when asking him what brought him to the hospital. He also says "I don't know" when assessing his orientation. The patient then rolls over and closes his eyes. He then wakes up and starts pulling off his EKG leads. The sitter stops him and replaces. PAST PSYCHIATRIC HISTORY: Unable to assess PAST MEDICAL HISTORY: None reported or document Family Psychiatric History: Denies SOCIAL HISTORY Unable to assess REVIEW OF SYSTEMS Unable to assess MENTAL STATUS EXAMINATION Unable to assess Diagnoses: Altered Mental Status Treatment Plan Agree with Haldol prn order PSYCHOTHERAPY: Supportive psychotherapy provided MEDICAL: Per primary team DELIRIUM PRECAUTIONS: Please re-orient patient frequently, keep lights on during the day, and minimize benzodiazepines and opiates as these medications could worsen patient's confusion. PROPERTY AND SUPPLY OFFICER: Per medical team DISPOSITION: Do not recommend acute psychiatric inpatient treatment. The patient has complex and acute medical conditions that supersede any need for psychiatric treatment at this time. Please reconsult if needed in the future. Will sign off. Thank you for the consult. Please contact with any questions and/or concerns. Case staffed with Dr. Jordan Medications and Allergies Allergies Allergy/AdvReac Type Severity Reaction Status Date / Time No Known Allergies Allergy Verified 04/16/21 23:39 Active Meds: Active Medications Acetaminophen (Acetaminophen 325 Mg Tab) 650 mg PO Q4H PRN PRN Reason: Pain MILD(1-3)/Fever >100.5/BANKS Atorvastatin Calcium (Atorvastatin 40 Mg Tab) 40 mg PO QHS ZEE Last Admin: 04/17/21 21:22 Dose: 40 mg Documented by: Dextrose (Dextrose 50% In Water (25gm) 50 Ml Syringe) 50 ml IV Q30MIN PRN; Protocol PRN Reason: Hypoglycemia Last Admin: 04/17/21 02:48 Dose: 50 ml Documented by: Famotidine (Famotidine 20 Mg/2 Ml Inj) 20 mg IV DAILY ZEE Last Admin: 04/18/21 10:04 Dose: 20 mg Documented by: Fentanyl (Fentanyl 100 Mcg/2 Ml Inj) 50 mcg IV Q10MIN PRN PRN Reason: ANALGESIA Last Admin: 04/17/21 21:30 Dose: 50 mcg Documented by: Haloperidol Lactate (Haloperidol Lactate 5 Mg/1 Ml Inj) 5 mg IV Q6H PRN PRN Reason: Agitation Last Admin: 04/18/21 01:36 Dose: 5 mg Documented by: Hydralazine HCl (Hydralazine 20 Mg/1 Ml Inj) 10 mg IV Q4H PRN PRN Reason: Hypertension Last Admin: 04/18/21 08:07 Dose: 10 mg Documented by: Hydrophilic Ointment (Lip Therapy Vaseline) 1 applic TP Q2HR PRN PRN Reason: Dry Lips Fentanyl Citrate (Fentanyl Drip Premix) 2,000 mcg in 100 mls @ 3.606 mls/hr IV TITR ZEE; Protocol Last Titration: 04/17/21 23:30 Dose: 0 mcg/kg/hr, 0 mls/hr Documented by: Dextrose/Sodium Chloride (D5/0.45ns) 1,000 mls @ 125 mls/hr IV DIRECT ZEE Last Admin: 04/18/21 05:30 Dose: 125 mls/hr Documented by: Insulin Human Regular 100 (units/ Sodium Chloride) 100 mls @ 1 mls/hr IV TITR ZEE; Protocol Last Titration: 04/18/21 10:28 Dose: 0.5 units/hr, 0.5 mls/hr Documented by: Cefepime HCl (Cefepime/Ns 1 Gm/100 Ml) 1 gm in 100 mls @ 200 mls/hr IV Q24H [facility]; Protocol Last Admin: 04/18/21 01:01 Dose: 200 mls/hr Documented by: Propofol (Diprivan 10 Mg/Ml) 1,000 mg in 100 mls @ 2.164 mls/hr IV TITR ZEE; Protocol Sodium Chloride (Nacl 0.9%) 100 mls @ 999 mls/hr IV SHYANNE PRN PRN Reason: Hypotension Lacosamide 50 mg/ Sodium (Chloride) 105 mls @ 100 mls/hr IV Q12H [facility] Last Admin: 04/18/21 01:01 Dose: 100 mls/hr Documented by: Labetalol HCl (Labetalol 20 Mg/4 Ml Inj) 10 mg IV Q4HR PRN PRN Reason: Hypertension Last Admin: 04/18/21 10:15 Dose: 10 mg Documented by: Lorazepam (Lorazepam 2 Mg/Ml Vial) 1 mg IV Q4HR PRN PRN Reason: Agitation Last Admin: 04/18/21 03:02 Dose: 1 mg Documented by: Metoprolol Tartrate (Metoprolol Tartrate 5 Mg/5 Ml Inj) 2.5 mg IV Q6H [facility] Last Admin: 04/18/21 06:32 Dose: 2.5 mg Documented by: Multi-Ingred Cream/Lotion/Oil/Oint (Mineral Oil/Petrolatum, White Ophth Oint 3.5 Gm) 1 applic OU Q4HR PRN PRN Reason: Dry Eye(s) Nitroglycerin (Nitroglycerin 0.4 Mg Tab Subl) 0.4 mg SL Q5M PRN PRN Reason: Chest Pain Ondansetron HCl (Ondansetron 4 Mg/2 Ml Inj) 4 mg IV Q8H PRN PRN Reason: Nausea And Vomiting Senna/Docusate Sodium (Sennosides/Docusate Sodium 8.6/50 Mg Tab) 1 tab FEEDTUBE BID [facility] Last Admin: 04/18/21 10:04 Dose: 1 tab Documented by: Sodium Chloride (Sodium Chloride 0.9% 10 Ml Flush Syringe) 10 ml IV BID [facility] Last Admin: 04/18/21 10:04 Dose: 10 ml Documented by: Sodium Chloride (Sodium Chloride 0.9% 10 Ml Flush Syringe) 10 ml IV PRN PRN PRN Reason: LINE FLUSH Last Admin: 04/18/21 05:32 Dose: 10 ml Documented by: Mental Status Exam - Vital signs Last Vital Signs Temp 98.2 F 04/18/21 04:34 Pulse 118 H 04/18/21 06:32 Resp 22 04/18/21 06:00 BP 168/116 04/18/21 10:15 Pulse Ox 95 04/18/21 06:00 Results Result Diagrams: 04/18/21 07:55 04/18/21 07:55 Abnormal lab results 04/17/21 04/17/21 04/17/21 Range/Units 10:16 10:16 12:35 WBC (4.5-11.0) K/mm3 Hgb (11.8-15.2) gm/dl Hct (35.5-45.6) % MCV (84-94) fl MCH (28-32) pg RDW (13.2-15.2) % Sodium 136 L (137-145) mmol/L Chloride 97.8 L (98-107) mmol/L Carbon Dioxide 18 L 21 L (22-30) mmol/L BUN 93 H 61 H (9-20) mg/dL Creatinine 16.5 H 11.2 H (0.8-1.3) mg/dL Glucose 139 H 247 H (75-100) mg/dL POC Glucose (70-105) mg/dL Calcium 8.2 L 7.4 L (8.4-10.2) mg/dL Troponin T 0.282 H* (0.00-0.029) ng/mL 04/17/21 04/17/21 04/17/21 Range/Units 12:36 16:39 17:40 WBC (4.5-11.0) K/mm3 Hgb (11.8-15.2) gm/dl Hct (35.5-45.6) % MCV (84-94) fl MCH (28-32) pg RDW (13.2-15.2) % Sodium (137-145) mmol/L Chloride (98-107) mmol/L Carbon Dioxide (22-30) mmol/L BUN (9-20) mg/dL Creatinine (0.8-1.3) mg/dL Glucose (75-100) mg/dL POC Glucose 248 H 119 H 135 H (70-105) mg/dL Calcium (8.4-10.2) mg/dL Troponin T (0.00-0.029) ng/mL 04/17/21 04/17/21 04/17/21 Range/Units 17:45 19:45 23:13 WBC (4.5-11.0) K/mm3 Hgb (11.8-15.2) gm/dl Hct (35.5-45.6) % MCV (84-94) fl MCH (28-32) pg RDW (13.2-15.2) % Sodium 135 L (137-145) mmol/L Chloride 96.4 L (98-107) mmol/L Carbon Dioxide (22-30) mmol/L BUN 45 H (9-20) mg/dL Creatinine 10.5 H (0.8-1.3) mg/dL Glucose 117 H (75-100) mg/dL POC Glucose 114 H 151 H (70-105) mg/dL Calcium 8.1 L (8.4-10.2) mg/dL Troponin T (0.00-0.029) ng/mL 04/17/21 04/18/21 04/18/21 Range/Units 23:25 00:02 00:58 WBC (4.5-11.0) K/mm3 Hgb (11.8-15.2) gm/dl Hct (35.5-45.6) % MCV (84-94) fl MCH (28-32) pg RDW (13.2-15.2) % Sodium 134 L (137-145) mmol/L Chloride 95.3 L (98-107) mmol/L Carbon Dioxide (22-30) mmol/L BUN 44 H (9-20) mg/dL Creatinine 11.0 H (0.8-1.3) mg/dL Glucose 149 H (75-100) mg/dL POC Glucose 149 H 123 H (70-105) mg/dL Calcium 8.2 L (8.4-10.2) mg/dL Troponin T (0.00-0.029) ng/mL 04/18/21 04/18/21 04/18/21 Range/Units 01:38 03:09 04:29 WBC (4.5-11.0) K/mm3 Hgb (11.8-15.2) gm/dl Hct (35.5-45.6) % MCV (84-94) fl MCH (28-32) pg RDW (13.2-15.2) % Sodium 136 L (137-145) mmol/L Chloride 96.2 L (98-107) mmol/L Carbon Dioxide (22-30) mmol/L BUN 45 H (9-20) mg/dL Creatinine 11.6 H (0.8-1.3) mg/dL Glucose 106 H (75-100) mg/dL POC Glucose 108 H 112 H (70-105) mg/dL Calcium 8.2 L (8.4-10.2) mg/dL Troponin T (0.00-0.029) ng/mL 04/18/21 04/18/21 04/18/21 Range/Units 05:38 06:41 07:39 WBC (4.5-11.0) K/mm3 Hgb (11.8-15.2) gm/dl Hct (35.5-45.6) % MCV (84-94) fl MCH (28-32) pg RDW (13.2-15.2) % Sodium (137-145) mmol/L Chloride (98-107) mmol/L Carbon Dioxide (22-30) mmol/L BUN (9-20) mg/dL Creatinine (0.8-1.3) mg/dL Glucose (75-100) mg/dL POC Glucose 140 H 121 H 108 H (70-105) mg/dL Calcium (8.4-10.2) mg/dL Troponin T (0.00-0.029) ng/mL 04/18/21 04/18/21 04/18/21 Range/Units 07:55 07:55 08:32 WBC 15.2 H (4.5-11.0) K/mm3 Hgb 9.2 L (11.8-15.2) gm/dl Hct 28.6 L (35.5-45.6) % MCV 72 L (84-94) fl MCH 23 L (28-32) pg RDW 20.4 H (13.2-15.2) % Sodium 134 L (137-145) mmol/L Chloride 93.4 L (98-107) mmol/L Carbon Dioxide (22-30) mmol/L BUN 45 H (9-20) mg/dL Creatinine 11.2 H (0.8-1.3) mg/dL Glucose 108 H (75-100) mg/dL POC Glucose 126 H (70-105) mg/dL Calcium 8.3 L (8.4-10.2) mg/dL Troponin T (0.00-0.029) ng/mL 04/18/21 Range/Units 09:27 WBC (4.5-11.0) K/mm3 Hgb (11.8-15.2) gm/dl Hct (35.5-45.6) % MCV (84-94) fl MCH (28-32) pg RDW (13.2-15.2) % Sodium (137-145) mmol/L Chloride (98-107) mmol/L Carbon Dioxide (22-30) mmol/L BUN (9-20) mg/dL Creatinine (0.8-1.3) mg/dL Glucose (75-100) mg/dL POC Glucose 119 H (70-105) mg/dL Calcium (8.4-10.2) mg/dL Troponin T (0.00-0.029) ng/mL All other labs normal.
[2021-04-18 11:56] LABS: Anisocytosis 1+; Total Cells Counted 100
[2021-04-18 11:59] LABS: Platelet Estimate Consistent w Auto; Schistocytes Rare
--- NOTE | 2021-04-18 12:21 | Progress Note ---
Assessment and Plan Assessment and Plan VTE prophylaxis?: Mechanical Plan of care discussed with patient/family: Yes - Patient Problems #post Cardiac arrest Admit the patient to the critical care unit. Aspirin 81 mg p.o. daily. Lipitor 40 mg p.o. daily. Nitroglycerin as needed. We will do the serial cardiac enzyme. Echocardiogram. Cardiology consult --Awak responsive today extubated follow command , no clear weakness is noted # New onset seizure -Most likley secondary to above , renal failure , DKA -infection can not be excluded -will stop Keppra -Vimpat 50 mg bid -EEG when possible -MRI brain wo Gd when possible # DKA (diabetic ketoacidosis) -We will put the patient on DKA pathway. - IV fluid as per protocol. - Insulin drip as per protocol. # ESRD (end stage renal disease) on dialysis -Avoid nephrotoxic drug. -hemodialysis today # Hyperkalemia -Patient get insulin. -Calcium gluconate one 1 g IV x1 dose. - Kayexalate 60 g p.o. every 6 hours x2 dose. -Dialysis today # Metabolic acidosis -Most likely secondary to renal failure. - Sodium bicarb 2 amp IV slowly x1 dose. # DVT prophylaxis SCD for DVT prophylaxis. Pepcid 20 mg IV twice daily for GI prophylaxis. Patient is a full code will follow Subjective Date of service: 04/18/21 Principal diagnosis: seizure and cardiac arrest ,ESRD on dialysis Interval history: pt. is extubated last night he is more interactive today , no witnessed seizure, suger WNL today MRI ,EEG and ,ECHO are pending he is on dialysis evaluated today by psychiatry and cardiology Objective - Vital Sign Vital Signs - 12hr 04/18/21 04/18/21 04/18/21 00:20 00:30 00:40 Temperature Pulse Rate 125 H 131 H 129 H Pulse Rate [ From Monitor] Pulse Rate [ None] Respiratory 23 26 H 25 H Rate Blood Pressure 154/88 154/88 142/87 O2 Sat by Pulse 96 Oximetry 04/18/21 04/18/21 04/18/21 00:52 00:58 01:00 Temperature Pulse Rate 130 H 130 H 116 H Pulse Rate [ From Monitor] Pulse Rate [ None] Respiratory 29 H 22 Rate Blood Pressure 151/88 151/88 161/95 O2 Sat by Pulse 97 100 Oximetry 04/18/21 04/18/21 04/18/21 01:10 01:20 01:30 Temperature Pulse Rate 119 H 120 H 114 H Pulse Rate [ From Monitor] Pulse Rate [ None] Respiratory 21 22 20 Rate Blood Pressure 161/95 168/97 158/87 O2 Sat by Pulse 99 94 96 Oximetry 04/18/21 04/18/21 04/18/21 01:40 01:50 02:00 Temperature Pulse Rate 116 H 110 H 107 H Pulse Rate [ From Monitor] Pulse Rate [ None] Respiratory 22 18 15 Rate Blood Pressure 151/88 157/93 164/98 O2 Sat by Pulse 96 92 93 Oximetry 04/18/21 04/18/21 04/18/21 02:10 02:20 02:30 Temperature Pulse Rate 120 H 120 H 114 H Pulse Rate [ From Monitor] Pulse Rate [ None] Respiratory 21 28 H 23 Rate Blood Pressure 157/93 174/111 181/105 O2 Sat by Pulse 89 97 Oximetry 04/18/21 04/18/21 04/18/21 02:40 02:50 03:00 Temperature Pulse Rate 108 H Pulse Rate [ From Monitor] Pulse Rate [ None] Respiratory 22 33 H Rate Blood Pressure 181/105 163/112 193/122 O2 Sat by Pulse 91 Oximetry 04/18/21 04/18/21 04/18/21 03:10 03:20 03:30 Temperature Pulse Rate 126 H 104 H 109 H Pulse Rate [ From Monitor] Pulse Rate [ None] Respiratory 17 22 23 Rate Blood Pressure 193/122 155/86 146/89 O2 Sat by Pulse 97 90 Oximetry 04/18/21 04/18/21 04/18/21 03:40 03:45 03:50 Temperature Pulse Rate 106 H 106 H 104 H Pulse Rate [ From Monitor] Pulse Rate [ None] Respiratory 21 20 18 Rate Blood Pressure 146/89 141/81 O2 Sat by Pulse 93 99 94 Oximetry 04/18/21 04/18/21 04/18/21 04:00 04:10 04:20 Temperature Pulse Rate 107 H 116 H 110 H Pulse Rate [ From Monitor] Pulse Rate [ None] Respiratory 19 20 19 Rate Blood Pressure 139/75 139/75 127/70 O2 Sat by Pulse 94 90 94 Oximetry 04/18/21 04/18/21 04/18/21 04:30 04:34 04:40 Temperature 98.2 F Pulse Rate 111 H 110 H 114 H Pulse Rate [ From Monitor] Pulse Rate [ 101 H None] Respiratory 19 19 21 Rate Blood Pressure 126/72 127/70 126/72 O2 Sat by Pulse 94 94 94 Oximetry 04/18/21 04/18/21 04/18/21 04:50 05:00 05:10 Temperature Pulse Rate 112 H 112 H Pulse Rate [ From Monitor] Pulse Rate [ None] Respiratory 19 21 Rate Blood Pressure 140/84 141/87 141/87 O2 Sat by Pulse 92 93 91 Oximetry 04/18/21 04/18/21 04/18/21 05:20 05:30 05:40 Temperature Pulse Rate 116 H 111 H Pulse Rate [ From Monitor] Pulse Rate [ None] Respiratory 19 18 Rate Blood Pressure 125/100 171/82 141/93 O2 Sat by Pulse 99 99 96 Oximetry 04/18/21 04/18/21 04/18/21 05:50 06:00 06:10 Temperature Pulse Rate 111 H 115 H 111 H Pulse Rate [ From Monitor] Pulse Rate [ None] Respiratory 18 22 22 Rate Blood Pressure 150/93 142/94 142/94 O2 Sat by Pulse 97 95 98 Oximetry 04/18/21 04/18/21 04/18/21 06:20 06:30 06:32 Temperature Pulse Rate 109 H 117 H 118 H Pulse Rate [ From Monitor] Pulse Rate [ None] Respiratory 21 24 Rate Blood Pressure 128/73 143/80 143/80 O2 Sat by Pulse 99 99 Oximetry 04/18/21 04/18/21 04/18/21 06:40 06:50 07:00 Temperature Pulse Rate 120 H 124 H 124 H Pulse Rate [ From Monitor] Pulse Rate [ None] Respiratory 23 20 13 Rate Blood Pressure 143/80 146/89 146/89 O2 Sat by Pulse 100 98 Oximetry 04/18/21 04/18/21 04/18/21 07:10 07:20 07:30 Temperature Pulse Rate 121 H 124 H 121 H Pulse Rate [ From Monitor] Pulse Rate [ None] Respiratory 20 21 20 Rate Blood Pressure 154/85 146/89 146/89 O2 Sat by Pulse Oximetry 04/18/21 04/18/21 04/18/21 07:40 07:50 08:00 Temperature Pulse Rate 123 H 114 H 114 H Pulse Rate [ 119 H From Monitor] Pulse Rate [ None] Respiratory 23 20 18 Rate Blood Pressure 174/92 175/98 170/108 O2 Sat by Pulse 95 92 Oximetry 04/18/21 04/18/21 04/18/21 08:07 08:10 08:20 Temperature Pulse Rate 115 H 117 H Pulse Rate [ From Monitor] Pulse Rate [ None] Respiratory 21 19 Rate Blood Pressure 170/108 170/108 170/108 O2 Sat by Pulse 93 95 Oximetry 04/18/21 04/18/21 04/18/21 08:30 08:40 08:50 Temperature Pulse Rate 122 H 119 H 122 H Pulse Rate [ From Monitor] Pulse Rate [ None] Respiratory 25 H 22 25 H Rate Blood Pressure 162/94 162/94 173/105 O2 Sat by Pulse 100 Oximetry 04/18/21 04/18/21 04/18/21 09:00 09:10 09:20 Temperature Pulse Rate 123 H 127 H 125 H Pulse Rate [ From Monitor] Pulse Rate [ None] Respiratory 24 19 20 Rate Blood Pressure 187/123 187/123 187/123 O2 Sat by Pulse 98 97 97 Oximetry 04/18/21 04/18/21 04/18/21 09:30 09:40 09:50 Temperature Pulse Rate 118 H 119 H 113 H Pulse Rate [ From Monitor] Pulse Rate [ None] Respiratory 22 20 20 Rate Blood Pressure 187/123 184/91 178/90 O2 Sat by Pulse 85 100 100 Oximetry 04/18/21 04/18/21 04/18/21 10:00 10:10 10:15 Temperature Pulse Rate 114 H 116 H Pulse Rate [ From Monitor] Pulse Rate [ None] Respiratory 20 22 Rate Blood Pressure 181/95 181/95 168/116 O2 Sat by Pulse 100 99 Oximetry 04/18/21 04/18/21 04/18/21 10:20 10:30 10:40 Temperature Pulse Rate 120 H 110 H 105 H Pulse Rate [ From Monitor] Pulse Rate [ None] Respiratory 25 H 21 21 Rate Blood Pressure 168/116 173/94 173/94 O2 Sat by Pulse 95 94 95 Oximetry 04/18/21 04/18/21 04/18/21 10:50 11:00 11:10 Temperature Pulse Rate 116 H 118 H Pulse Rate [ From Monitor] Pulse Rate [ None] Respiratory 23 22 Rate Blood Pressure 179/87 175/101 175/101 O2 Sat by Pulse 94 95 Oximetry 04/18/21 04/18/21 04/18/21 11:20 11:30 11:40 Temperature Pulse Rate 112 H 112 H 113 H Pulse Rate [ From Monitor] Pulse Rate [ None] Respiratory 21 21 22 Rate Blood Pressure 165/108 190/116 190/116 O2 Sat by Pulse 97 97 Oximetry 04/18/21 04/18/21 11:50 12:00 Temperature Pulse Rate 107 H 106 H Pulse Rate [ From Monitor] Pulse Rate [ None] Respiratory 19 20 Rate Blood Pressure 191/85 183/94 O2 Sat by Pulse Oximetry - General Apperance Constitutional: comfortable - EENT EENT: PERRL, mucous membranes moist - Respiratory Respiratory: chest non-tender, lungs clear, rhonchi - Cardiovascular Cardiovascular: regular rate, normal S1, normal S2 Extremities: no peripheral edema bilat, no clubbing, cyanosis - Gastrointestinal Gastrointestinal: normoactive bowel sounds - Integumentary Integumentary: normal - Neurologic Cranial nerve examination: PERRL, EOMI, intact Detailed motor examination: grossly full strength in - Laboratory Findings CBC and BMP: 04/18/21 07:55 04/18/21 07:55 Abnormal Lab Findings: Abnormal Labs 04/16/21 04/16/21 04/16/21 23:41 23:41 23:41 WBC Hgb Hct MCV 81 L MCH 24 L MCHC 29 L RDW 20.4 H Seg Neuts % (Manual) 26.0 L Lymphocytes % (Manual) 70.0 H Seg Neutrophils # Man Lymphocytes # (Manual) 6.8 H PT 18.3 H INR 1.47 H APTT 38.2 H ABG pH ABG pO2 ABG HCO3 ABG O2 Saturation ABG Base Excess ABG Hemoglobin ABG Oxyhemoglobin ABG Sodium ABG Potassium Oxyhemoglobin Sodium 135 L Potassium 6.0 H Chloride 87.9 L Carbon Dioxide 4 L* BUN 95 H Creatinine 17.9 H Glucose 239 H POC Glucose Calcium Phosphorus Magnesium Alkaline Phosphatase 137 H Troponin T 0.047 H Arterial Blood Ionized Calcium Urine WBC (Auto) 04/17/21 04/17/21 04/17/21 00:55 01:05 01:40 WBC Hgb Hct MCV MCH MCHC RDW Seg Neuts % (Manual) Lymphocytes % (Manual) Seg Neutrophils # Man Lymphocytes # (Manual) PT INR APTT ABG pH 7.030 L* ABG pO2 91.2 H ABG HCO3 10.3 L ABG O2 Saturation 90.8 L ABG Base Excess -19.6 L ABG Hemoglobin 10.9 L ABG Oxyhemoglobin ABG Sodium ABG Potassium Oxyhemoglobin 88.9 L Sodium Potassium Chloride Carbon Dioxide BUN Creatinine Glucose POC Glucose Calcium Phosphorus Magnesium Alkaline Phosphatase Troponin T 0.091 H Arterial Blood Ionized Calcium Urine WBC (Auto) 51.0 H 04/17/21 04/17/21 04/17/21 01:40 01:40 02:30 WBC Hgb Hct MCV MCH MCHC RDW Seg Neuts % (Manual) Lymphocytes % (Manual) Seg Neutrophils # Man Lymphocytes # (Manual) PT INR APTT ABG pH ABG pO2 ABG HCO3 ABG O2 Saturation ABG Base Excess ABG Hemoglobin ABG Oxyhemoglobin ABG Sodium ABG Potassium Oxyhemoglobin Sodium 133 L Potassium 7.6 H* D Chloride 94.8 L Carbon Dioxide 12 L D BUN 94 H Creatinine 17.6 H Glucose 209 H POC Glucose 151 H Calcium 7.9 L D Phosphorus 9.30 H Magnesium 3.70 H Alkaline Phosphatase Troponin T Arterial Blood Ionized Calcium Urine WBC (Auto) 04/17/21 04/17/21 04/17/21 03:42 03:56 04:32 WBC Hgb Hct MCV MCH MCHC RDW Seg Neuts % (Manual) Lymphocytes % (Manual) Seg Neutrophils # Man Lymphocytes # (Manual) PT INR APTT ABG pH 7.245 L ABG pO2 ABG HCO3 ABG O2 Saturation ABG Base Excess ABG Hemoglobin 10.7 L ABG Oxyhemoglobin 93.7 L ABG Sodium 133.2 L ABG Potassium 6.0 H Oxyhemoglobin Sodium 134 L Potassium 6.4 H* Chloride Carbon Dioxide 15 L BUN 92 H Creatinine 17.0 H Glucose 137 H POC Glucose 128 H Calcium 8.0 L Phosphorus Magnesium Alkaline Phosphatase Troponin T Arterial Blood Ionized Calcium 4.5 L Urine WBC (Auto) 04/17/21 04/17/21 04/17/21 05:08 05:08 05:08 WBC Hgb Hct MCV MCH MCHC RDW Seg Neuts % (Manual) Lymphocytes % (Manual) Seg Neutrophils # Man Lymphocytes # (Manual) PT INR APTT ABG pH ABG pO2 ABG HCO3 ABG O2 Saturation ABG Base Excess ABG Hemoglobin ABG Oxyhemoglobin ABG Sodium ABG Potassium Oxyhemoglobin Sodium Potassium 6.5 H* Chloride Carbon Dioxide 17 L BUN 94 H Creatinine 17.4 H Glucose POC Glucose Calcium 7.9 L Phosphorus 7.50 H Magnesium 3.80 H Alkaline Phosphatase Troponin T 0.301 H* D Arterial Blood Ionized Calcium Urine WBC (Auto) 04/17/21 04/17/21 04/17/21 05:21 07:44 08:10 WBC 15.3 H Hgb 10.4 L Hct 32.8 L D MCV 73 L MCH 23 L MCHC RDW 20.2 H Seg Neuts % (Manual) 93.0 H Lymphocytes % (Manual) 4.0 L Seg Neutrophils # Man 14.2 H Lymphocytes # (Manual) 0.6 L PT INR APTT ABG pH ABG pO2 ABG HCO3 ABG O2 Saturation ABG Base Excess ABG Hemoglobin ABG Oxyhemoglobin ABG Sodium ABG Potassium Oxyhemoglobin Sodium Potassium 6.8 H* Chloride Carbon Dioxide BUN Creatinine Glucose POC Glucose 123 H Calcium Phosphorus Magnesium Alkaline Phosphatase Troponin T Arterial Blood Ionized Calcium Urine WBC (Auto) 04/17/21 04/17/21 04/17/21 09:36 09:43 10:16 WBC Hgb Hct MCV MCH MCHC RDW Seg Neuts % (Manual) Lymphocytes % (Manual) Seg Neutrophils # Man Lymphocytes # (Manual) PT INR APTT ABG pH ABG pO2 ABG HCO3 ABG O2 Saturation ABG Base Excess ABG Hemoglobin ABG Oxyhemoglobin ABG Sodium ABG Potassium Oxyhemoglobin Sodium Potassium Chloride Carbon Dioxide 18 L BUN 93 H Creatinine 16.5 H Glucose 139 H POC Glucose 112 H Calcium 8.2 L Phosphorus Magnesium 3.40 H Alkaline Phosphatase Troponin T Arterial Blood Ionized Calcium Urine WBC (Auto) 04/17/21 04/17/21 04/17/21 10:16 10:44 12:35 WBC Hgb Hct MCV MCH MCHC RDW Seg Neuts % (Manual) Lymphocytes % (Manual) Seg Neutrophils # Man Lymphocytes # (Manual) PT INR APTT ABG pH ABG pO2 ABG HCO3 ABG O2 Saturation ABG Base Excess ABG Hemoglobin ABG Oxyhemoglobin ABG Sodium ABG Potassium Oxyhemoglobin Sodium 136 L Potassium Chloride 97.8 L Carbon Dioxide 21 L BUN 61 H Creatinine 11.2 H Glucose 247 H POC Glucose 147 H Calcium 7.4 L Phosphorus Magnesium Alkaline Phosphatase Troponin T 0.282 H* Arterial Blood Ionized Calcium Urine WBC (Auto) 0704/17/21 04/17/21 12:36 16:39 17:40 WBC Hgb Hct MCV MCH MCHC RDW Seg Neuts % (Manual) Lymphocytes % (Manual) Seg Neutrophils # Man Lymphocytes # (Manual) PT INR APTT ABG pH ABG pO2 ABG HCO3 ABG O2 Saturation ABG Base Excess ABG Hemoglobin ABG Oxyhemoglobin ABG Sodium ABG Potassium Oxyhemoglobin Sodium Potassium Chloride Carbon Dioxide BUN Creatinine Glucose POC Glucose 248 H 119 H 135 H Calcium Phosphorus Magnesium Alkaline Phosphatase Troponin T Arterial Blood Ionized Calcium Urine WBC (Auto) 04/17/21 04/17/21 04/17/21 17:45 19:45 23:13 WBC Hgb Hct MCV MCH MCHC RDW Seg Neuts % (Manual) Lymphocytes % (Manual) Seg Neutrophils # Man Lymphocytes # (Manual) PT INR APTT ABG pH ABG pO2 ABG HCO3 ABG O2 Saturation ABG Base Excess ABG Hemoglobin ABG Oxyhemoglobin ABG Sodium ABG Potassium Oxyhemoglobin Sodium 135 L Potassium Chloride 96.4 L Carbon Dioxide BUN 45 H Creatinine 10.5 H Glucose 117 H POC Glucose 114 H 151 H Calcium 8.1 L Phosphorus Magnesium Alkaline Phosphatase Troponin T Arterial Blood Ionized Calcium Urine WBC (Auto) 04/17/21 04/18/21 04/18/21 23:25 00:02 00:58 WBC Hgb Hct MCV MCH MCHC RDW Seg Neuts % (Manual) Lymphocytes % (Manual) Seg Neutrophils # Man Lymphocytes # (Manual) PT INR APTT ABG pH ABG pO2 ABG HCO3 ABG O2 Saturation ABG Base Excess ABG Hemoglobin ABG Oxyhemoglobin ABG Sodium ABG Potassium Oxyhemoglobin Sodium 134 L Potassium Chloride 95.3 L Carbon Dioxide BUN 44 H Creatinine 11.0 H Glucose 149 H POC Glucose 149 H 123 H Calcium 8.2 L Phosphorus Magnesium Alkaline Phosphatase Troponin T Arterial Blood Ionized Calcium Urine WBC (Auto) 04/18/21 04/18/21 04/18/21 01:38 03:09 04:29 WBC Hgb Hct MCV MCH MCHC RDW Seg Neuts % (Manual) Lymphocytes % (Manual) Seg Neutrophils # Man Lymphocytes # (Manual) PT INR APTT ABG pH ABG pO2 ABG HCO3 ABG O2 Saturation ABG Base Excess ABG Hemoglobin ABG Oxyhemoglobin ABG Sodium ABG Potassium Oxyhemoglobin Sodium 136 L Potassium Chloride 96.2 L Carbon Dioxide BUN 45 H Creatinine 11.6 H Glucose 106 H POC Glucose 108 H 112 H Calcium 8.2 L Phosphorus Magnesium Alkaline Phosphatase Troponin T Arterial Blood Ionized Calcium Urine WBC (Auto) 04/18/21 04/18/21 04/18/21 05:38 06:41 07:39 WBC Hgb Hct MCV MCH MCHC RDW Seg Neuts % (Manual) Lymphocytes % (Manual) Seg Neutrophils # Man Lymphocytes # (Manual) PT INR APTT ABG pH ABG pO2 ABG HCO3 ABG O2 Saturation ABG Base Excess ABG Hemoglobin ABG Oxyhemoglobin ABG Sodium ABG Potassium Oxyhemoglobin Sodium Potassium Chloride Carbon Dioxide BUN Creatinine Glucose POC Glucose 140 H 121 H 108 H Calcium Phosphorus Magnesium Alkaline Phosphatase Troponin T Arterial Blood Ionized Calcium Urine WBC (Auto) 04/18/21 04/18/21 04/18/21 07:55 07:55 08:32 WBC 15.2 H Hgb 9.2 L Hct 28.6 L MCV 72 L MCH 23 L MCHC RDW 20.4 H Seg Neuts % (Manual) 92.0 H Lymphocytes % (Manual) 8.0 L Seg Neutrophils # Man 14.0 H Lymphocytes # (Manual) PT INR APTT ABG pH ABG pO2 ABG HCO3 ABG O2 Saturation ABG Base Excess ABG Hemoglobin ABG Oxyhemoglobin ABG Sodium ABG Potassium Oxyhemoglobin Sodium 134 L Potassium Chloride 93.4 L Carbon Dioxide BUN 45 H Creatinine 11.2 H Glucose 108 H POC Glucose 126 H Calcium 8.3 L Phosphorus Magnesium Alkaline Phosphatase Troponin T Arterial Blood Ionized Calcium Urine WBC (Auto) 04/18/21 04/18/21 09:27 11:58 WBC Hgb Hct MCV MCH MCHC RDW Seg Neuts % (Manual) Lymphocytes % (Manual) Seg Neutrophils # Man Lymphocytes # (Manual) PT INR APTT ABG pH ABG pO2 ABG HCO3 ABG O2 Saturation ABG Base Excess ABG Hemoglobin ABG Oxyhemoglobin ABG Sodium ABG Potassium Oxyhemoglobin Sodium Potassium Chloride Carbon Dioxide BUN Creatinine Glucose POC Glucose 119 H 115 H Calcium Phosphorus Magnesium Alkaline Phosphatase Troponin T Arterial Blood Ionized Calcium Urine WBC (Auto)
--- NOTE | 2021-04-18 13:18 | Progress Note ---
<MEHRANFredyPAUL - Last Filed: 04/18/21 13:18> Assessment and Plan Assessment and plan: This is a 26-year-old male with ESRD, HIV, HTN admitted s/p cardiac arrest, severe hyperkalemia, new onset seizures, acute hypoxic respiratory failure PMH: ESRD, HTN, HIV Past surgical history: AV fistula creation Home medications: Per chart audit * Lamivudine 75 mg p.o. daily * Lisinopril 20 mg p.o. daily * Tenofovir 300 mg p.o. daily * Trivicy 50 mg p.o. daily * Coreg 6.25 mg p.o. twice daily * Hydralazine 50 mg p.o. daily * Nifedipine 30 mg p.o. daily * Amlodipine 5 mg p.o. daily Neuro: Acute metabolic encephalopathy -04/16 CT head shows no acute endocrine abnormality -Multifactorial with regard imbalances, hypoxia, new onset seizure -04/17 UDS negative -Psych consulted, does not recommend acute inpatient hospitalization at this time -As needed Haldol New onset seizures -Witnessed by EMS and aborted with Versed -Patient was loaded with Keppra in the ED -Currently on Vimpat -Neurology consulted, appreciate recommendations -EEG pending -MRI pending Cardio: S/p cardiac arrest -Per EMS patient went into V. tach after having seizure aborted by Versed -Cardiology consulted, appreciate recommendations -Echocardiogram pending -CXR shows cardiomegaly -ASA, beta-sonia, CCB -Discontinue Lipitor r/t 04/16 Lipid panel: Triglyceride 114, cholesterol 147, LDL 85, HDL 52 Elevated troponins -04/16 troponin 0.047, 04/17 troponin 0.091, 04/17 troponin 0.301, 04/17 troponin 0.282 -Cardiology consulted, appreciate recommendations -Likely elevated secondary to cardiac arrest, NSTEMI type II h/o HTN -Coreg, amlodipine -s/p cardene gtt -IV as needed hydralazine, labetalol -Blood pressure monitoring per protocol Respiratory: Acute hypoxic respiratory failure -Patient was intubated in the field however he was intubated to stomach and had to be reintubated in the emergency department upon arrival -CCM consulted, appreciate recommendations -Extubated 04/17 -Pulmonary hygiene -Supplemental oxygen as needed FEN/GI ESRD -Nephrology consulted, appreciate recommendations -HD per nephrology -Avoid nephrotoxic medications -Renally dose medications -Strict intake and output -Daily weights Hyponatremia -Trend BMP -HD per nephrology Hypochloremia -Trend BMP, HD per nephrology Anemia of chronic disease -Presented with H/H of 11.9/40.5 but has been slowly drifting down -Trend CBC -Transfuse for hemoglobin less than 7 -Epogen per nephrology Hyperkalemia, resolved -S/p calcium gluconate, insulin, D50, Kionex -HD per nephrology Heme: UTI, slight -Patient started on cefepime -04/17 blood culture x2 NGTD -04/17 UA shows trace leukocyte esterase Guerrero catheter for strict intake and output -Guerrero care per nursing Skin, NAD -Offloading per nursing protocol DVT/GI prophylaxis: Heparin subcu, SCDs to bilateral lower extremities while in bed, PPI Full code Disposition: Transfer to floor Lines: Guerrero, PIV The high probability of a clinically significant, sudden or life threatening deterioration of the [multi] system(s) required my full and direct attention, intervention and personal management. The aggregate critical care time was [35] minutes. This time is in addition to time spent performing reported procedures but includes the following: [x] Data Review and interpretation [x] Patient assessment and monitoring of vital signs [x] Documentation [x] Medication orders and management History Interval history: This is a 26-year-old male with ESRD and HTN who presented to the emergency department s/p V. fib arrest after witnessed seizure with EMS and was treated with Versed and was noted to be in V. tach and after being shocked patient was noted to be in PEA and ACLS was initiated with achievement of ROSC and the patient was intubated. Upon arrival to the emergency department it was noted that patient was intubated into the stomach and was reintubated in the ED work- up in emergency department revealed hyperkalemia, high anion gap metabolic acidosis, elevated BUN/creatinine and troponin. He was started on DKA protocol. Patient was admitted to the hospital service with consults to CCM, cardiology, nephrology, neurology s/p cardiac arrest, ESRD on HD, DKA, hyperkalemia acute hypoxic respiratory failure and seizures 04/18: Patient was extubated as night by RT/ Dr. Resendez, neurology. Jaime farrell Vimpat. Psych was consulted overnight and they did not recommend any patient hospitalization at this time and have signed off. Patient has been cleared to transfer to the floor. No seizure activity noted Hospitalist Physical - Constitutional Vitals: Temp Pulse Resp BP Pulse Ox 98.2 F 106 H 20 183/94 97 04/18/21 04:34 04/18/21 12:00 04/18/21 12:00 04/18/21 12:00 04/18/21 11:30 General appearance: Present: no acute distress, other (intubated) - EENT Eyes: Present: PERRL, EOM intact ENT: hearing intact, clear oral mucosa, dentition normal - Neck Neck: Present: normal ROM - Respiratory Respiratory effort: normal Respiratory: bilateral: CTA - Cardiovascular Rhythm: regular Heart Sounds: Present: S1 & S2. Absent: systolic murmur, diastolic murmur - Extremities Extremities: no ischemia, pulses intact, pulses symmetrical, No edema, normal temperature, normal color, Full ROM Peripheral Pulses: within normal limits - Abdominal General gastrointestinal: soft, non-tender, non-distended, normal bowel sounds - Integumentary Integumentary: Present: clear, warm, dry - Psychiatric Psychiatric: appropriate mood/affect, memory intact, cooperative - Neurologic Neurologic: CNII-XII intact, no focal deficits, moves all extremities - Allied Health Allied health notes reviewed: nursing, RT HEART Score - HEART Score Troponin: Troponin T 0.282 ng/mL (0.00-0.029) H* 04/17/21 10:16 Results - Labs CBC & Chem 7: 04/18/21 07:55 04/18/21 07:55 Labs: Laboratory Last Values WBC 15.2 K/mm3 (4.5-11.0) H 04/18/21 07:55 RBC 3.96 M/mm3 (3.65-5.03) 04/18/21 07:55 Hgb 9.2 gm/dl (11.8-15.2) L 04/18/21 07:55 Hct 28.6 % (35.5-45.6) L 04/18/21 07:55 MCV 72 fl (84-94) L 04/18/21 07:55 MCH 23 pg (28-32) L 04/18/21 07:55 MCHC 32 % (32-34) 04/18/21 07:55 RDW 20.4 % (13.2-15.2) H 04/18/21 07:55 Plt Count 235 K/mm3 (140-440) 04/18/21 07:55 Lymph % (Auto) Senior Stack Engineer 04/16/21 23:41 Lymph # (Auto) Senior Stack Engineer 04/16/21 23:41 Add Manual Diff Complete 04/18/21 07:55 Total Counted 100 04/18/21 07:55 Seg Neutrophils % Senior Stack Engineer 04/18/21 07:55 Seg Neuts % (Manual) 92.0 % (40.0-70.0) H 04/18/21 07:55 Lymphocytes % (Manual) 8.0 % (13.4-35.0) L 04/18/21 07:55 Monocytes % (Manual) 3.0 % (0.0-7.3) 04/17/21 05:21 Eosinophils % (Manual) 1.0 % (0.0-4.3) 04/16/21 23:41 Nucleated RBC % Not Reportable 04/18/21 07:55 Seg Neutrophils # Man 14.0 K/mm3 (1.8-7.7) H 04/18/21 07:55 Band Neutrophils # 0.0 K/mm3 04/18/21 07:55 Lymphocytes # (Manual) 1.2 K/mm3 (1.2-5.4) 04/18/21 07:55 Abs React Lymphs (Man) 0.0 K/mm3 04/18/21 07:55 Monocytes # (Manual) 0.0 K/mm3 (0.0-0.8) 04/18/21 07:55 Eosinophils # (Manual) 0.0 K/mm3 (0.0-0.4) 04/18/21 07:55 Basophils # (Manual) 0.0 K/mm3 (0.0-0.1) 04/18/21 07:55 Metamyelocytes # 0.0 K/mm3 04/18/21 07:55 Myelocytes # 0.0 K/mm3 04/18/21 07:55 Promyelocytes # 0.0 K/mm3 04/18/21 07:55 Blast Cells # 0.0 K/mm3 04/18/21 07:55 WBC Morphology Not Reportable 04/18/21 07:55 Hypersegmented Neuts Not Reportable 04/18/21 07:55 Hyposegmented Neuts Not Reportable 04/18/21 07:55 Hypogranular Neuts Not Reportable 04/18/21 07:55 Smudge Cells Not Reportable 04/18/21 07:55 Toxic Granulation Not Reportable 04/18/21 07:55 Toxic Vacuolation Not Reportable 04/18/21 07:55 Dohle Bodies Not Reportable 04/18/21 07:55 Pelger-Huet Anomaly Not Reportable 04/18/21 07:55 Lila Rods Not Reportable 04/18/21 07:55 Platelet Estimate Consistent w auto 04/18/21 07:55 Clumped Platelets Not Reportable 04/18/21 07:55 Plt Clumps, EDTA Not Reportable 04/18/21 07:55 Large Platelets Not Reportable 04/18/21 07:55 Giant Platelets Not Reportable 04/18/21 07:55 Platelet Satelliting Not Reportable 04/18/21 07:55 Plt Morphology Comment Not Reportable 04/18/21 07:55 RBC Morphology Not Reportable 04/18/21 07:55 Dimorphic RBCs Not Reportable 04/18/21 07:55 Polychromasia Not Reportable 04/18/21 07:55 Hypochromasia Not Reportable 04/18/21 07:55 Poikilocytosis Not Reportable 04/18/21 07:55 Anisocytosis 1+ 04/18/21 07:55 Microcytosis Not Reportable 04/18/21 07:55 Macrocytosis Not Reportable 04/18/21 07:55 Spherocytes Not Reportable 04/18/21 07:55 Pappenheimer Bodies Not Reportable 04/18/21 07:55 Sickle Cells Not Reportable 04/18/21 07:55 Target Cells Not Reportable 04/18/21 07:55 Tear Drop Cells Not Reportable 04/18/21 07:55 Ovalocytes Not Reportable 04/18/21 07:55 Helmet Cells Not Reportable 04/18/21 07:55 [place] Bodies Not Reportable 04/18/21 07:55 Willard Rings Not Reportable 04/18/21 07:55 Elsie Cells Not Reportable 04/18/21 07:55 Bite Cells Not Reportable 04/18/21 07:55 Crenated Cell Not Reportable 04/18/21 07:55 Elliptocytes Not Reportable 04/18/21 07:55 Acanthocytes (Spur) Not Reportable 04/18/21 07:55 Rouleaux Not Reportable 04/18/21 07:55 Hemoglobin C Crystals Not Reportable 04/18/21 07:55 Schistocytes Rare 04/18/21 07:55 Malaria parasites Not Reportable 04/18/21 07:55 Nicolas Bodies Not Reportable 04/18/21 07:55 Hem Pathologist Commnt No 04/18/21 07:55 PT 18.3 Sec. (12.2-14.9) H 04/16/21 23:41 INR 1.47 (0.87-1.13) H 04/16/21 23:41 APTT 38.2 Sec. (24.2-36.6) H 04/16/21 23:41 ABG pH 7.245 (7.320-7.450) L 04/17/21 04:32 POC ABG pCO2 34.9 mmHg (32.0-48.0) 04/17/21 04:32 ABG pCO2 40.0 mm Hg 04/17/21 00:55 POC ABG pO2 92.3 mmHg (83-108) 04/17/21 04:32 ABG pO2 91.2 mm Hg (80.0-90.0) H 04/17/21 00:55 POC ABG HCO3 14.8 04/17/21 04:32 ABG HCO3 10.3 mmol/L (20.0-26.0) L 04/17/21 00:55 ABG O2 Saturation 95.1 (0-100) 04/17/21 04:32 ABG O2 Content 13.8 (0.0-44) 04/17/21 00:55 POC ABG Base Excess -11.5 04/17/21 04:32 ABG Base Excess -19.6 mmol/L (-2.0-3.0) L 04/17/21 00:55 ABG Hemoglobin 10.7 (12.0-17.5) L 04/17/21 04:32 ABG Oxyhemoglobin 93.7 (94-98) L 04/17/21 04:32 ABG Carboxyhemoglobin 1.5 % (0.0-5.0) 04/17/21 00:55 ABG Methemoglobin 0.3 (0.0-1.5) 04/17/21 04:32 ABG Sodium 133.2 mmol/L (136.0-145.0) L 04/17/21 04:32 ABG Potassium 6.0 mmol/L (3.40-4.50) H 04/17/21 04:32 ABG Chloride 102.0 mmol/L (98-107) 04/17/21 04:32 ABG Glucose 85 mg/dL (65-95) 04/17/21 04:32 Oxyhemoglobin 88.9 % (95.0-99.0) L 04/17/21 00:55 Carboxyhemoglobin 1.2 (0.5-1.5) 04/17/21 04:32 FiO2 30 % 04/17/21 00:55 FiO2 % 30.0 04/17/21 04:32 Sodium 134 mmol/L (137-145) L 04/18/21 07:55 Potassium 3.7 mmol/L (3.6-5.0) 04/18/21 07:55 Chloride 93.4 mmol/L (98-107) L 04/18/21 07:55 Carbon Dioxide 24 mmol/L (22-30) 04/18/21 07:55 Anion Gap 20 mmol/L 04/18/21 07:55 BUN 45 mg/dL (9-20) H 04/18/21 07:55 Creatinine 11.2 mg/dL (0.8-1.3) H 04/18/21 07:55 Estimated GFR 7 ml/min 04/18/21 07:55 BUN/Creatinine Ratio 4 % 04/18/21 07:55 Glucose 108 mg/dL (75-100) H 04/18/21 07:55 POC Glucose 115 mg/dL (70-105) H 04/18/21 11:58 Hemoglobin A1c 4.9 % (4-6) 04/18/21 07:55 Calcium 8.3 mg/dL (8.4-10.2) L 04/18/21 07:55 Phosphorus 7.50 mg/dL (2.5-4.5) H 04/17/21 05:08 Magnesium 3.40 mg/dL (1.7-2.3) H 04/17/21 09:36 Total Bilirubin 0.30 mg/dL (0.1-1.2) 04/16/21 23:41 AST 25 units/L (5-40) 04/16/21 23:41 ALT 20 units/L (7-56) 04/16/21 23:41 Alkaline Phosphatase 137 units/L (35-129) H 04/16/21 23:41 Troponin T 0.282 ng/mL (0.00-0.029) H* 04/17/21 10:16 Total Protein 7.8 g/dL (6.3-8.2) 04/16/21 23:41 Albumin 4.7 g/dL (3.9-5) 04/16/21 23:41 Albumin/Globulin Ratio 1.5 % 04/16/21 23:41 Triglycerides 114 mg/dL (2-149) 04/16/21 23:41 Cholesterol 147 mg/dL (50-199) 04/16/21 23:41 LDL Cholesterol Direct 85 mg/dL (50-130) 04/16/21 23:41 HDL Cholesterol 52 mg/dL (40-59) 04/16/21 23:41 Cholesterol/HDL Ratio 2.82 % 04/16/21 23:41 Arterial Blood Glucose 85 mg/dL (65-95) 04/17/21 04:32 Arterial Blood Ionized Calcium 4.5 mg/dL (4.6-5.3) L 04/17/21 04:32 Urine Color Yellow (Yellow) 04/17/21 01:05 Urine Turbidity Slightly-cloudy (Clear) 04/17/21 01:05 Urine pH 7.0 (5.0-7.0) 04/17/21 01:05 Ur Specific Ute 1.012 (1.003-1.030) 04/17/21 01:05 Urine Protein >500 mg/dL (Negative) 04/17/21 01:05 Urine Glucose (UA) >=500 mg/dL (Negative) 04/17/21 01:05 Urine Ketones Neg mg/dL (Negative) 04/17/21 01:05 Urine Blood Mod (Negative) 04/17/21 01:05 Urine Nitrite Neg (Negative) 04/17/21 01:05 Urine Bilirubin Neg (Negative) 04/17/21 01:05 Urine Urobilinogen < 2.0 mg/dL (<2.0) 04/17/21 01:05 Ur Leukocyte Esterase Tr (Negative) 04/17/21 01:05 Urine WBC (Auto) 51.0 /HPF (0.0-6.0) H 04/17/21 01:05 Urine RBC (Auto) 47.0 /HPF (0.0-6.0) 04/17/21 01:05 Urine Bacteria (Auto) 1+ /HPF (Negative) 04/17/21 01:05 Urine Opiates Screen Negative 04/17/21 10:28 Urine Methadone Screen Negative 04/17/21 10:28 Ur Barbiturates Screen Negative 04/17/21 10:28 Ur Phencyclidine Scrn Negative 04/17/21 10:28 Ur Amphetamines Screen Negative 04/17/21 10:28 U Benzodiazepines Scrn Negative 04/17/21 10:28 Urine Cocaine Screen Negative 04/17/21 10:28 U Marijuana (THC) Screen Negative 04/17/21 10:28 Drugs of Abuse Note Disclamer 04/17/21 10:28 Plasma/Serum Alcohol < 0.01 % (0-0.07) 04/17/21 00:08 Hepatitis A IgM Ab Non-reactive (NonReactive) 04/17/21 10:16 Hep Bs Antigen Non-reactive (Negative) 04/17/21 10:16 Hep B Core IgM Ab Non-reactive (NonReactive) 04/17/21 10:16 Hepatitis C Antibody Non-reactive (NonReactive) 04/17/21 10:16 Microbiology: Microbiology 04/17/21 00:08 Peripheral/Venous Blood Culture - Preliminary NO GROWTH AFTER 24 HOURS 04/17/21 00:41 Peripheral/Venous Blood Culture - Preliminary NO GROWTH AFTER 24 HOURS Guerrero/IV: Voiding Method Indwelling Catheter Active Medications - Current Medications Current Medications: Generic Name Dose Route Start Last Admin Trade Name Freq PRN Reason Stop Dose Admin Acetaminophen 650 mg 04/17/21 04:50 Acetaminophen 325 Mg Tab PO Q4H PRN Pain MILD(1-3)/Fever >100.5/BANKS Amlodipine Besylate 10 mg 04/18/21 14:00 Amlodipine 10 Mg Tab PO QDAY ZEE Atorvastatin Calcium 40 mg 04/17/21 22:00 04/17/21 21:22 Atorvastatin 40 Mg Tab PO 40 mg QHS ZEE Administration Carvedilol 12.5 mg 04/18/21 14:00 Carvedilol 12.5 Mg Tab PO BID ZEE Famotidine 20 mg 04/17/21 10:00 04/18/21 10:04 Famotidine 20 Mg/2 Ml Inj IV 20 mg DAILY ZEE Administration Fentanyl 50 mcg 04/16/21 23:26 04/17/21 21:30 Fentanyl 100 Mcg/2 Ml Inj IV 50 mcg Q10MIN PRN Administration ANALGESIA Haloperidol Lactate 5 mg 04/18/21 01:14 04/18/21 01:36 Haloperidol Lactate 5 Mg/1 Ml Inj IV 5 mg Q6H PRN Administration Agitation Hydralazine HCl 10 mg 04/17/21 13:23 04/18/21 08:07 Hydralazine 20 Mg/1 Ml Inj IV 10 mg Q4H PRN Administration Hypertension Hydrophilic Ointment 1 applic 04/16/21 23:26 Lip Therapy Vaseline TP Q2HR PRN Dry Lips Fentanyl Citrate 2,000 mcg in 100 mls @ 3.606 mls/hr 04/16/21 23:45 04/17/21 23:30 Fentanyl Drip Premix IV 0 mcg/kg/hr TITR ZEE 0 mls/hr Titration Protocol 1 MCG/KG/HR Dextrose/Sodium Chloride 1,000 mls @ 125 mls/hr 04/17/21 03:00 04/18/21 05:30 D5/0.45ns IV 125 mls/hr DIRECT ZEE Administration Cefepime HCl 1 gm in 100 mls @ 200 mls/hr 04/17/21 23:45 04/18/21 01:01 Cefepime/Ns 1 Gm/100 Ml IV 200 mls/hr Q24H ZEE Administration Protocol Propofol 1,000 mg in 100 mls @ 2.164 mls/hr 04/17/21 08:00 Diprivan 10 Mg/Ml IV TITR ZEE Protocol 5 MCG/KG/MIN Sodium Chloride 100 mls @ 999 mls/hr 04/17/21 08:24 Nacl 0.9% IV SHYANNE PRN Hypotension Lacosamide 50 mg/ Sodium 105 mls @ 100 mls/hr 04/17/21 13:00 04/18/21 01:01 Chloride IV 100 mls/hr Q12H ZEE Administration Labetalol HCl 10 mg 04/17/21 15:18 04/18/21 10:15 Labetalol 20 Mg/4 Ml Inj IV 10 mg Q4HR PRN Administration Hypertension Lorazepam 1 mg 04/18/21 01:14 04/18/21 03:02 Lorazepam 2 Mg/Ml Vial IV 1 mg Q4HR PRN Administration Agitation Multi-Ingred Cream/Lotion/Oil/Oint 1 applic 04/16/21 23:26 Mineral Oil/Petrolatum, White Ophth Oint 3.5 Gm OU Q4HR PRN Dry Eye(s) Nitroglycerin 0.4 mg 04/17/21 05:06 Nitroglycerin 0.4 Mg Tab Subl SL Q5M PRN Chest Pain Ondansetron HCl 4 mg 04/17/21 04:50 Ondansetron 4 Mg/2 Ml Inj IV Q8H PRN Nausea And Vomiting Senna/Docusate Sodium 1 tab 04/17/21 10:00 04/18/21 10:04 Sennosides/Docusate Sodium 8.6/50 Mg Tab FEEDTUBE 1 tab BID EZE Administration Sodium Chloride 10 ml 04/17/21 10:00 04/18/21 10:04 Sodium Chloride 0.9% 10 Ml Flush Syringe IV 10 ml BID ZEE Administration Sodium Chloride 10 ml 04/17/21 04:50 04/18/21 05:32 Sodium Chloride 0.9% 10 Ml Flush Syringe IV 10 ml PRN PRN Administration LINE FLUSH Nutrition/Malnutrition Assess - Dietary Evaluation Nutrition/Malnutrition Findings: Nutrition Notes Start: 04/17/21 09:15 Freq: Status: Active Protocol: Document 04/17/21 09:15 CW (Rec: 04/17/21 09:28 CW [id number]) Nutrition Notes Need for Assessment generated from: 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 Pt currently mechanically ventilated. Recommend initiate nutrition support. Burn Absent Trauma Absent Difficulty In Swallowing Current % PO Negligible Minimum of two criteria No physical signs of malnutrition #1 Nutrition Diagnosis Inadequate oral intake Etiology respiratory failure As Evidenced by Signs and Symptoms pt on mechanical vent Is patient on ventilator? Yes Is Patient Ambulatory and/or Out of Bed No REE-([facility]-confined to bed) 5033.583 Calculation Used for Recommendations [facility] Additional Notes protein needs: 87g (>1.2g/kgBW ) fluid needs: 1000 - 1500 ml/ day or per MD order Nutrition Intervention Change Diet Order: Initiate nutrition support when medically feasible or diet advancement following extubation Nutrition Support: Nepro at 48 ml/hr with a free water flush of 100 ml q4h Kcal 2,074 Protein (gm) 93 Fluid (mL) 838 Goal #1 Meet at least 75% of kcal and protein needs Anticipated Discharge Needs: unable to determine at this time Follow-Up By: 04/19/21 Additional Comments F/U TF consult or extubation <ANGELINE ARMSTRONG - Last Filed: 04/19/21 11:47> Assessment and Plan Assessment and plan: Agree with assessment and plan as outlined by nurse practitioner, I personally examined the patient. Patient has been extubated, responsive, psychiatry saw the patient for some behavioral disturbances the night before, however patient does not need inpatient psych. Patient does have a history of HIV, no seizure activity at this time, patient on seizure medication. EEG, MRI, echocardiogram pending. Hospitalist Physical - Constitutional Vitals: Temp Pulse Resp BP Pulse Ox 98.2 F 122 H 20 209/111 97 04/18/21 04:34 04/18/21 14:06 04/18/21 12:00 04/18/21 14:06 04/18/21 11:30 HEART Score - HEART Score Troponin: Troponin T 0.282 ng/mL (0.00-0.029) H* 04/17/21 10:16 Results - Labs CBC & Chem 7: 04/19/21 04:23 04/19/21 04:23 Labs: Laboratory Last Values WBC 15.2 K/mm3 (4.5-11.0) H 04/18/21 07:55 RBC 3.96 M/mm3 (3.65-5.03) 04/18/21 07:55 Hgb 9.2 gm/dl (11.8-15.2) L 04/18/21 07:55 Hct 28.6 % (35.5-45.6) L 04/18/21 07:55 MCV 72 fl (84-94) L 04/18/21 07:55 MCH 23 pg (28-32) L 04/18/21 07:55 MCHC 32 % (32-34) 04/18/21 07:55 RDW 20.4 % (13.2-15.2) H 04/18/21 07:55 Plt Count 235 K/mm3 (140-440) 04/18/21 07:55 Lymph % (Auto) Senior Stack Engineer 04/16/21 23:41 Lymph # (Auto) Senior Stack Engineer 04/16/21 23:41 Add Manual Diff Complete 04/18/21 07:55 Total Counted 100 04/18/21 07:55 Seg Neutrophils % Senior Stack Engineer 04/18/21 07:55 Seg Neuts % (Manual) 92.0 % (40.0-70.0) H 04/18/21 07:55 Lymphocytes % (Manual) 8.0 % (13.4-35.0) L 04/18/21 07:55 Monocytes % (Manual) 3.0 % (0.0-7.3) 04/17/21 05:21 Eosinophils % (Manual) 1.0 % (0.0-4.3) 04/16/21 23:41 Nucleated RBC % Not Reportable 04/18/21 07:55 Seg Neutrophils # Man 14.0 K/mm3 (1.8-7.7) H 04/18/21 07:55 Band Neutrophils # 0.0 K/mm3 04/18/21 07:55 Lymphocytes # (Manual) 1.2 K/mm3 (1.2-5.4) 04/18/21 07:55 Abs React Lymphs (Man) 0.0 K/mm3 04/18/21 07:55 Monocytes # (Manual) 0.0 K/mm3 (0.0-0.8) 04/18/21 07:55 Eosinophils # (Manual) 0.0 K/mm3 (0.0-0.4) 04/18/21 07:55 Basophils # (Manual) 0.0 K/mm3 (0.0-0.1) 04/18/21 07:55 Metamyelocytes # 0.0 K/mm3 04/18/21 07:55 Myelocytes # 0.0 K/mm3 04/18/21 07:55 Promyelocytes # 0.0 K/mm3 04/18/21 07:55 Blast Cells # 0.0 K/mm3 04/18/21 07:55 WBC Morphology Not Reportable 04/18/21 07:55 Hypersegmented Neuts Not Reportable 04/18/21 07:55 Hyposegmented Neuts Not Reportable 04/18/21 07:55 Hypogranular Neuts Not Reportable 04/18/21 07:55 Smudge Cells Not Reportable 04/18/21 07:55 Toxic Granulation Not Reportable 04/18/21 07:55 Toxic Vacuolation Not Reportable 04/18/21 07:55 Dohle Bodies Not Reportable 04/18/21 07:55 Pelger-Huet Anomaly Not Reportable 04/18/21 07:55 Lila Rods Not Reportable 04/18/21 07:55 Platelet Estimate Consistent w auto 04/18/21 07:55 Clumped Platelets Not Reportable 04/18/21 07:55 Plt Clumps, EDTA Not Reportable 04/18/21 07:55 Large Platelets Not Reportable 04/18/21 07:55 Giant Platelets Not Reportable 04/18/21 07:55 Platelet Satelliting Not Reportable 04/18/21 07:55 Plt Morphology Comment Not Reportable 04/18/21 07:55 RBC Morphology Not Reportable 04/18/21 07:55 Dimorphic RBCs Not Reportable 04/18/21 07:55 Polychromasia Not Reportable 04/18/21 07:55 Hypochromasia Not Reportable 04/18/21 07:55 Poikilocytosis Not Reportable 04/18/21 07:55 Anisocytosis 1+ 04/18/21 07:55 Microcytosis Not Reportable 04/18/21 07:55 Macrocytosis Not Reportable 04/18/21 07:55 Spherocytes Not Reportable 04/18/21 07:55 Pappenheimer Bodies Not Reportable 04/18/21 07:55 Sickle Cells Not Reportable 04/18/21 07:55 Target Cells Not Reportable 04/18/21 07:55 Tear Drop Cells Not Reportable 04/18/21 07:55 Ovalocytes Not Reportable 04/18/21 07:55 Helmet Cells Not Reportable 04/18/21 07:55 [place] Bodies Not Reportable 04/18/21 07:55 Willard Rings Not Reportable 04/18/21 07:55 [place] Cells Not Reportable 04/18/21 07:55 Bite Cells Not Reportable 04/18/21 07:55 Crenated Cell Not Reportable 04/18/21 07:55 Elliptocytes Not Reportable 04/18/21 07:55 Acanthocytes (Spur) Not Reportable 04/18/21 07:55 Rouleaux Not Reportable 04/18/21 07:55 Hemoglobin C Crystals Not Reportable 04/18/21 07:55 Schistocytes Rare 04/18/21 07:55 Malaria parasites Not Reportable 04/18/21 07:55 Nicolas Bodies Not Reportable 04/18/21 07:55 Hem Pathologist Commnt No 04/18/21 07:55 PT 18.3 Sec. (12.2-14.9) H 04/16/21 23:41 INR 1.47 (0.87-1.13) H 04/16/21 23:41 APTT 38.2 Sec. (24.2-36.6) H 04/16/21 23:41 ABG pH 7.245 (7.320-7.450) L 04/17/21 04:32 POC ABG pCO2 34.9 mmHg (32.0-48.0) 04/17/21 04:32 ABG pCO2 40.0 mm Hg 04/17/21 00:55 POC ABG pO2 92.3 mmHg (83-108) 04/17/21 04:32 ABG pO2 91.2 mm Hg (80.0-90.0) H 04/17/21 00:55 POC ABG HCO3 14.8 04/17/21 04:32 ABG HCO3 10.3 mmol/L (20.0-26.0) L 04/17/21 00:55 ABG O2 Saturation 95.1 (0-100) 04/17/21 04:32 ABG O2 Content 13.8 (0.0-44) 04/17/21 00:55 POC ABG Base Excess -11.5 04/17/21 04:32 ABG Base Excess -19.6 mmol/L (-2.0-3.0) L 04/17/21 00:55 ABG Hemoglobin 10.7 (12.0-17.5) L 04/17/21 04:32 ABG Oxyhemoglobin 93.7 (94-98) L 04/17/21 04:32 ABG Carboxyhemoglobin 1.5 % (0.0-5.0) 04/17/21 00:55 ABG Methemoglobin 0.3 (0.0-1.5) 04/17/21 04:32 ABG Sodium 133.2 mmol/L (136.0-145.0) L 04/17/21 04:32 ABG Potassium 6.0 mmol/L (3.40-4.50) H 04/17/21 04:32 ABG Chloride 102.0 mmol/L (98-107) 04/17/21 04:32 ABG Glucose 85 mg/dL (65-95) 04/17/21 04:32 Oxyhemoglobin 88.9 % (95.0-99.0) L 04/17/21 00:55 Carboxyhemoglobin 1.2 (0.5-1.5) 04/17/21 04:32 FiO2 30 % 04/17/21 00:55 FiO2 % 30.0 04/17/21 04:32 Sodium 134 mmol/L (137-145) L 04/18/21 07:55 Potassium 3.7 mmol/L (3.6-5.0) 04/18/21 07:55 Chloride 93.4 mmol/L (98-107) L 04/18/21 07:55 Carbon Dioxide 24 mmol/L (22-30) 04/18/21 07:55 Anion Gap 20 mmol/L 04/18/21 07:55 BUN 45 mg/dL (9-20) H 04/18/21 07:55 Creatinine 11.2 mg/dL (0.8-1.3) H 04/18/21 07:55 Estimated GFR 7 ml/min 04/18/21 07:55 BUN/Creatinine Ratio 4 % 04/18/21 07:55 Glucose 108 mg/dL (75-100) H 04/18/21 07:55 POC Glucose 115 mg/dL (70-105) H 04/18/21 11:58 Hemoglobin A1c 4.9 % (4-6) 04/18/21 07:55 Calcium 8.3 mg/dL (8.4-10.2) L 04/18/21 07:55 Phosphorus 7.50 mg/dL (2.5-4.5) H 04/17/21 05:08 Magnesium 3.40 mg/dL (1.7-2.3) H 04/17/21 09:36 Total Bilirubin 0.30 mg/dL (0.1-1.2) 04/16/21 23:41 AST 25 units/L (5-40) 04/16/21 23:41 ALT 20 units/L (7-56) 04/16/21 23:41 Alkaline Phosphatase 137 units/L (35-129) H 04/16/21 23:41 Troponin T 0.282 ng/mL (0.00-0.029) H* 04/17/21 10:16 Total Protein 7.8 g/dL (6.3-8.2) 04/16/21 23:41 Albumin 4.7 g/dL (3.9-5) 04/16/21 23:41 Albumin/Globulin Ratio 1.5 % 04/16/21 23:41 Triglycerides 114 mg/dL (2-149) 04/16/21 23:41 Cholesterol 147 mg/dL (50-199) 04/16/21 23:41 LDL Cholesterol Direct 85 mg/dL (50-130) 04/16/21 23:41 HDL Cholesterol 52 mg/dL (40-59) 04/16/21 23:41 Cholesterol/HDL Ratio 2.82 % 04/16/21 23:41 Arterial Blood Glucose 85 mg/dL (65-95) 04/17/21 04:32 Arterial Blood Ionized Calcium 4.5 mg/dL (4.6-5.3) L 04/17/21 04:32 Urine Color Yellow (Yellow) 04/17/21 01:05 Urine Turbidity Slightly-cloudy (Clear) 04/17/21 01:05 Urine pH 7.0 (5.0-7.0) 04/17/21 01:05 Ur Specific [place] 1.012 (1.003-1.030) 04/17/21 01:05 Urine Protein >500 mg/dL (Negative) 04/17/21 01:05 Urine Glucose (UA) >=500 mg/dL (Negative) 04/17/21 01:05 Urine Ketones Neg mg/dL (Negative) 04/17/21 01:05 Urine Blood Mod (Negative) 04/17/21 01:05 Urine Nitrite Neg (Negative) 04/17/21 01:05 Urine Bilirubin Neg (Negative) 04/17/21 01:05 Urine Urobilinogen < 2.0 mg/dL (<2.0) 04/17/21 01:05 Ur Leukocyte Esterase Tr (Negative) 04/17/21 01:05 Urine WBC (Auto) 51.0 /HPF (0.0-6.0) H 04/17/21 01:05 Urine RBC (Auto) 47.0 /HPF (0.0-6.0) 04/17/21 01:05 Urine Bacteria (Auto) 1+ /HPF (Negative) 04/17/21 01:05 Urine Opiates Screen Negative 04/17/21 10:28 Urine Methadone Screen Negative 04/17/21 10:28 Ur Barbiturates Screen Negative 04/17/21 10:28 Ur Phencyclidine Scrn Negative 04/17/21 10:28 Ur Amphetamines Screen Negative 04/17/21 10:28 U Benzodiazepines Scrn Negative 04/17/21 10:28 Urine Cocaine Screen Negative 04/17/21 10:28 U Marijuana (THC) Screen Negative 04/17/21 10:28 Drugs of Abuse Note Disclamer 04/17/21 10:28 Plasma/Serum Alcohol < 0.01 % (0-0.07) 04/17/21 00:08 Hepatitis A IgM Ab Non-reactive (NonReactive) 04/17/21 10:16 Hep Bs Antigen Non-reactive (Negative) 04/17/21 10:16 Hep B Core IgM Ab Non-reactive (NonReactive) 04/17/21 10:16 Hepatitis C Antibody Non-reactive (NonReactive) 04/17/21 10:16 Microbiology: Microbiology 04/17/21 00:08 Peripheral/Venous Blood Culture - Preliminary NO GROWTH AFTER 24 HOURS 04/17/21 00:41 Peripheral/Venous Blood Culture - Preliminary NO GROWTH AFTER 24 HOURS Guerrero/IV: Voiding Method Indwelling Catheter Active Medications - Current Medications Current Medications: Generic Name Dose Route Start Last Admin Trade Name Freq PRN Reason Stop Dose Admin Acetaminophen 650 mg 04/17/21 04:50 Acetaminophen 325 Mg Tab PO Q4H PRN Pain MILD(1-3)/Fever >100.5/BANKS Amlodipine Besylate 10 mg 04/18/21 14:00 04/18/21 14:04 Amlodipine 10 Mg Tab PO 10 mg QDAY ZEE Administration Famotidine 20 mg 04/17/21 10:00 04/18/21 10:04 Famotidine 20 Mg/2 Ml Inj IV 20 mg DAILY ZEE Administration Fentanyl 50 mcg 04/16/21 23:26 04/17/21 21:30 Fentanyl 100 Mcg/2 Ml Inj IV 50 mcg Q10MIN PRN Administration ANALGESIA Haloperidol Lactate 5 mg 04/18/21 01:14 04/18/21 01:36 Haloperidol Lactate 5 Mg/1 Ml Inj IV 5 mg Q6H PRN Administration Agitation Hydralazine HCl 10 mg 04/17/21 13:23 04/18/21 08:07 Hydralazine 20 Mg/1 Ml Inj IV 10 mg Q4H PRN Administration Hypertension Hydrophilic Ointment 1 applic 04/16/21 23:26 Lip Therapy Vaseline TP Q2HR PRN Dry Lips Fentanyl Citrate 2,000 mcg in 100 mls @ 3.606 mls/hr 04/16/21 23:45 04/17/21 23:30 Fentanyl Drip Premix IV 0 mcg/kg/hr TITR ZEE 0 mls/hr Titration Protocol 1 MCG/KG/HR Dextrose/Sodium Chloride 1,000 mls @ 125 mls/hr 04/17/21 03:00 04/18/21 05:30 D5/0.45ns IV 125 mls/hr DIRECT ZEE Administration Cefepime HCl 1 gm in 100 mls @ 200 mls/hr 04/17/21 23:45 04/18/21 01:01 Cefepime/Ns 1 Gm/100 Ml IV 200 mls/hr Q24H ZEE Administration Protocol Propofol 1,000 mg in 100 mls @ 2.164 mls/hr 04/17/21 08:00 Diprivan 10 Mg/Ml IV TITR ZEE Protocol 5 MCG/KG/MIN Sodium Chloride 100 mls @ 999 mls/hr 04/17/21 08:24 Nacl 0.9% IV SHYANNE PRN Hypotension Lacosamide 50 mg/ Sodium 105 mls @ 100 mls/hr 04/17/21 13:00 04/18/21 13:03 Chloride IV 100 mls/hr Q12H ZEE Administration Labetalol HCl 10 mg 04/18/21 15:00 Labetalol 20 Mg/4 Ml Inj IV Q4H PRN Hypertension Lorazepam 1 mg 04/18/21 01:14 04/18/21 03:02 Lorazepam 2 Mg/Ml Vial IV 1 mg Q4HR PRN Administration Agitation Metoprolol Tartrate 50 mg 04/18/21 14:18 Metoprolol Tartrate 50 Mg Tab PO BID ZEE Multi-Ingred Cream/Lotion/Oil/Oint 1 applic 04/16/21 23:26 Mineral Oil/Petrolatum, White Ophth Oint 3.5 Gm OU Q4HR PRN Dry Eye(s) Nitroglycerin 0.4 mg 04/17/21 05:06 Nitroglycerin 0.4 Mg Tab Subl SL Q5M PRN Chest Pain Ondansetron HCl 4 mg 04/17/21 04:50 Ondansetron 4 Mg/2 Ml Inj IV Q8H PRN Nausea And Vomiting Senna/Docusate Sodium 1 tab 04/17/21 10:00 04/18/21 10:04 Sennosides/Docusate Sodium 8.6/50 Mg Tab FEEDTUBE 1 tab BID ZEE Administration Sodium Chloride 10 ml 04/17/21 10:00 04/18/21 10:04 Sodium Chloride 0.9% 10 Ml Flush Syringe IV 10 ml BID ZEE Administration Sodium Chloride 10 ml 04/17/21 04:50 04/18/21 05:32 Sodium Chloride 0.9% 10 Ml Flush Syringe IV 10 ml PRN PRN Administration LINE FLUSH Nutrition/Malnutrition Assess - Dietary Evaluation Nutrition/Malnutrition Findings: Nutrition Notes Start: 04/17/21 09:15 Freq: Status: Active Protocol: Document 04/17/21 09:15 CW (Rec: 04/17/21 09:28 CW [id number]) Nutrition Notes Need for Assessment generated from: 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 Pt currently mechanically ventilated. Recommend initiate nutrition support. Burn Absent Trauma Absent Difficulty In Swallowing Current % PO Negligible Minimum of two criteria No physical signs of malnutrition #1 Nutrition Diagnosis Inadequate oral intake Etiology respiratory failure As Evidenced by Signs and Symptoms pt on mechanical vent Is patient on ventilator? Yes Is Patient Ambulatory and/or Out of Bed No REE-([facility]-confined to bed) [phone] Calculation Used for Recommendations [facility] Additional Notes protein needs: 87g (>1.2g/kgBW ) fluid needs: 1000 - 1500 ml/ day or per MD order Nutrition Intervention Change Diet Order: Initiate nutrition support when medically feasible or diet advancement following extubation Nutrition Support: Nepro at 48 ml/hr with a free water flush of 100 ml q4h Kcal 2,074 Protein (gm) 93 Fluid (mL) 838 Goal #1 Meet at least 75% of kcal and protein needs Anticipated Discharge Needs: unable to determine at this time Follow-Up By: 04/19/21 Additional Comments F/U TF consult or extubation
[2021-04-18] MEDS ORDERED: carvediloL 12.5 MG TAB PO SCH (14:00)
[2021-04-18] MEDS: amLODIPine 10 MG TAB PO SCH (14:04)
[2021-04-18] MEDS: METOPROLOL TARTRATE 50 MG TAB PO SCH ×2 (14:29→23:57)
[2021-04-18] MEDS ORDERED: TENOFOVIR DISOPROXIL FUMARATE PO SCH (14:45)
[2021-04-19] MEDS ORDERED: hydrALAZINE 20 MG/1 ML INJ IV ONE (00:07)
[2021-04-19] MEDS: CEFEPIME/NS 1 GM/100 ML 1 GM/100 ML BAG IV SCH ×2 (00:10→21:01)
[2021-04-19] MEDS: LACOSAMIDE 50 MG in SODIUM CHLORIDE 0.9% 100 ML IV SCH ×2 (01:14→13:09)
[2021-04-19] MEDS ORDERED: cloNIDine 0.2 MG TAB PO ONE (05:15)
[2021-04-19 05:47] LABS: Hematocrit 32.2 % (35.5-45.6); Hemoglobin 10.1 gm/dl (11.8-15.2); Mean Corpuscular HGB Conc 32 % (32-34); Mean Corpuscular Volume 72 fl (84-94); Platelet Count 311 K/mm3 (140-440); Red Blood Count 4.46 M/mm3 (3.65-5.03)
[2021-04-19 06:01] LABS: Calcium 7.8 mg/dL (8.4-10.2)
[2021-04-19] MEDS ORDERED: SODIUM CHLORIDE 0.9% 100 ML IV PRN (09:00)
[2021-04-19] MEDS: amLODIPine 10 MG TAB PO SCH (09:21)
[2021-04-19] MEDS: SENNOSIDES/DOCUSATE SODIUM 8.6/50 MG TAB FEEDTUBE SCH ×2 (09:21→21:02)
[2021-04-19] MEDS: lamiVUDine 50 MG/5 ML ORAL LIQD PO SCH (09:22)
[2021-04-19] MEDS: DOLUTEGRAVIR 50 MG TAB PO SCH (09:22)
[2021-04-19] MEDS: FAMOTIDINE 20 MG/2 ML INJ IV SCH (09:22)
[2021-04-19] MEDS: METOPROLOL TARTRATE 50 MG TAB PO SCH (09:22)
[2021-04-19] MEDS ORDERED: TIVICAY PO SCH (10:00)
[2021-04-19] MEDS ORDERED: LAMIVUDINE PO SCH (10:00)
[2021-04-19] MEDS ORDERED: METOPROLOL TARTRATE 50 MG TAB PO SCH (10:59)
--- NOTE | 2021-04-19 11:48 | Progress Note ---
Assessment and Plan Assessment and plan: This is a 26-year-old male with ESRD, HIV, HTN admitted s/p cardiac arrest, severe hyperkalemia, new onset seizures, acute hypoxic respiratory failure Acute metabolic encephalopathy -04/16 CT head shows no acute endocrine abnormality -Multifactorial with regard imbalances, hypoxia, new onset seizure -04/17 UDS negative -Psych consulted, does not recommend acute inpatient hospitalization at this time -As needed Haldol New onset seizures This is a second time this patient has had seizures, had a seizure about 3 months ago. -Witnessed by EMS and aborted with Versed -Patient was loaded with Keppra in the ED -Currently on Vimpat -Neurology consulted, appreciate recommendations -EEG pending -MRI pending S/p cardiac arrest -Per EMS patient went into V. tach after having seizure aborted by Versed -Cardiology consulted, appreciate recommendations -Echocardiogram pending -CXR shows cardiomegaly -ASA, beta-sonia, CCB -Discontinue Lipitor r/t 04/16 Lipid panel: Triglyceride 114, cholesterol 147, LDL 85, HDL 52 Elevated troponins -04/16 troponin 0.047, 04/17 troponin 0.091, 04/17 troponin 0.301, 04/17 troponin 0.282 -Cardiology consulted, appreciate recommendations -Likely elevated secondary to cardiac arrest, NSTEMI type II h/o HTN -Coreg, amlodipine -s/p cardene gtt -IV as needed hydralazine, labetalol -Blood pressure monitoring per protocol Acute hypoxic respiratory failure -Patient was intubated in the field however he was intubated to stomach and had to be reintubated in the emergency department upon arrival -CCM consulted, appreciate recommendations -Extubated 04/17 -Pulmonary hygiene -Supplemental oxygen as needed ESRD -Nephrology consulted, appreciate recommendations -HD per nephrology -Avoid nephrotoxic medications -Renally dose medications -Strict intake and output -Daily weights Hyponatremia -Trend BMP -HD per nephrology Hypochloremia -Trend BMP, HD per nephrology Anemia of chronic disease -Presented with H/H of 11.9/40.5 but has been slowly drifting down -Trend CBC -Transfuse for hemoglobin less than 7 -Epogen per nephrology Hyperkalemia, resolved -S/p calcium gluconate, insulin, D50, Kionex -HD per nephrology UTI, slight -Patient started on cefepime -04/17 blood culture x2 NGTD -04/17 UA shows trace leukocyte esterase DVT/GI prophylaxis: Heparin subcu, SCDs to bilateral lower extremities while in bed, PPI Full code Disposition: Patient to have MRI, EEG, echocardiogram. Continue blood pressure control. Patient will need to be discharged on seizure medication most likely since this is the second time he has had a seizure. Patient will continue dialysis at his clinic. History Interval history: This is a 26-year-old male with ESRD and HTN who presented to the emergency department s/p V. fib arrest after witnessed seizure with EMS and was treated with Versed and was noted to be in V. tach and after being shocked patient was noted to be in PEA and ACLS was initiated with achievement of ROSC and the patient was intubated. Upon arrival to the emergency department it was noted that patient was intubated into the stomach and was reintubated in the ED work- up in emergency department revealed hyperkalemia, high anion gap metabolic acidosis, elevated BUN/creatinine and troponin. He was started on DKA protocol. Patient was admitted to the hospital service with consults to CCM, cardiology, nephrology, neurology s/p cardiac arrest, ESRD on HD, DKA, hyperkalemia acute hypoxic respiratory failure and seizures 04/18: Patient was extubated as night by RT/ Dr. Resendez, neurology. Jaime continue Vimpat. Psych was consulted overnight and they did not recommend any patient hospitalization at this time and have signed off. Patient has been cleared to transfer to the floor. No seizure activity noted 04/19/2021: Patient seen and examined, patient on the floor, lying in bed, patient is not confused, states he did not want to sit up for me, very uncooperative. There is question of him being confused and not filling out the form for the MRI, most likely is not cooperative because patient was given me a good amount of his medical information. No family at the bedside. Patient denies any fevers or chills or chest pain or shortness of breath, no seizure activity overnight. Hospitalist Physical - Physical exam Narrative exam: General appearance: no acute distress, well-nourished EENT: PERRL, EOM intact, hearing intact, clear oral mucosa Respiratory: bilateral CTA, negative: rales, rhonchi, wheezing Cardiovascular: Regular rate/rhythm, Normal S1 & S2. No gallop, rub Extremities: no ischemia, No edema, normal temperature, normal color, Full ROM Abdominal: soft, no tenderness, non-distended, normal bowel sounds Integumentary: Present: clear, warm, dry no wounds, no erythema noted Psychiatric: Flat affect, mood seems stable. Neurologic: CNII-XII intact, moves all extremities, no sensory or motor abnormalities - Constitutional Vitals: Temp Pulse Resp BP Pulse Ox 98.4 F 102 H 20 168/97 94 04/19/21 05:29 04/19/21 10:00 04/19/21 05:29 04/19/21 09:21 04/19/21 05:29 HEART Score - HEART Score Troponin: Troponin T 0.282 ng/mL (0.00-0.029) H* 04/17/21 10:16 Results - Labs CBC & Chem 7: 04/19/21 04:23 04/19/21 04:23 Labs: Laboratory Last Values WBC 13.5 K/mm3 (4.5-11.0) H 04/19/21 04:23 RBC 4.46 M/mm3 (3.65-5.03) 04/19/21 04:23 Hgb 10.1 gm/dl (11.8-15.2) L 04/19/21 04:23 Hct 32.2 % (35.5-45.6) L 04/19/21 04:23 MCV 72 fl (84-94) L 04/19/21 04:23 MCH 23 pg (28-32) L 04/19/21 04:23 MCHC 32 % (32-34) 04/19/21 04:23 RDW 20.0 % (13.2-15.2) H 04/19/21 04:23 Plt Count 311 K/mm3 (140-440) 04/19/21 04:23 Lymph % (Auto) Research Program Coordinator 04/16/21 23:41 Lymph # (Auto) Research Program Coordinator 04/16/21 23:41 Add Manual Diff Complete 04/18/21 07:55 Total Counted 100 04/18/21 07:55 Seg Neutrophils % Research Program Coordinator 04/18/21 07:55 Seg Neuts % (Manual) 92.0 % (40.0-70.0) H 04/18/21 07:55 Lymphocytes % (Manual) 8.0 % (13.4-35.0) L 04/18/21 07:55 Monocytes % (Manual) 3.0 % (0.0-7.3) 04/17/21 05:21 Eosinophils % (Manual) 1.0 % (0.0-4.3) 04/16/21 23:41 Nucleated RBC % Not Reportable 04/18/21 07:55 Seg Neutrophils # Man 14.0 K/mm3 (1.8-7.7) H 04/18/21 07:55 Band Neutrophils # 0.0 K/mm3 04/18/21 07:55 Lymphocytes # (Manual) 1.2 K/mm3 (1.2-5.4) 04/18/21 07:55 Abs React Lymphs (Man) 0.0 K/mm3 04/18/21 07:55 Monocytes # (Manual) 0.0 K/mm3 (0.0-0.8) 04/18/21 07:55 Eosinophils # (Manual) 0.0 K/mm3 (0.0-0.4) 04/18/21 07:55 Basophils # (Manual) 0.0 K/mm3 (0.0-0.1) 04/18/21 07:55 Metamyelocytes # 0.0 K/mm3 04/18/21 07:55 Myelocytes # 0.0 K/mm3 04/18/21 07:55 Promyelocytes # 0.0 K/mm3 04/18/21 07:55 Blast Cells # 0.0 K/mm3 04/18/21 07:55 WBC Morphology Not Reportable 04/18/21 07:55 Hypersegmented Neuts Not Reportable 04/18/21 07:55 Hyposegmented Neuts Not Reportable 04/18/21 07:55 Hypogranular Neuts Not Reportable 04/18/21 07:55 Smudge Cells Not Reportable 04/18/21 07:55 Toxic Granulation Not Reportable 04/18/21 07:55 Toxic Vacuolation Not Reportable 04/18/21 07:55 Dohle Bodies Not Reportable 04/18/21 07:55 Pelger-Huet Anomaly Not Reportable 04/18/21 07:55 Lila Rods Not Reportable 04/18/21 07:55 Platelet Estimate Consistent w auto 04/18/21 07:55 Clumped Platelets Not Reportable 04/18/21 07:55 Plt Clumps, EDTA Not Reportable 04/18/21 07:55 Large Platelets Not Reportable 04/18/21 07:55 Giant Platelets Not Reportable 04/18/21 07:55 Platelet Satelliting Not Reportable 04/18/21 07:55 Plt Morphology Comment Not Reportable 04/18/21 07:55 RBC Morphology Not Reportable 04/18/21 07:55 Dimorphic RBCs Not Reportable 04/18/21 07:55 Polychromasia Not Reportable 04/18/21 07:55 Hypochromasia Not Reportable 04/18/21 07:55 Poikilocytosis Not Reportable 04/18/21 07:55 Anisocytosis 1+ 04/18/21 07:55 Microcytosis Not Reportable 04/18/21 07:55 Macrocytosis Not Reportable 04/18/21 07:55 Spherocytes Not Reportable 04/18/21 07:55 Pappenheimer Bodies Not Reportable 04/18/21 07:55 Sickle Cells Not Reportable 04/18/21 07:55 Target Cells Not Reportable 04/18/21 07:55 Tear Drop Cells Not Reportable 04/18/21 07:55 Ovalocytes Not Reportable 04/18/21 07:55 Helmet Cells Not Reportable 04/18/21 07:55 [place] Bodies Not Reportable 04/18/21 07:55 [place] Rings Not Reportable 04/18/21 07:55 [place] Cells Not Reportable 04/18/21 07:55 Bite Cells Not Reportable 04/18/21 07:55 Crenated Cell Not Reportable 04/18/21 07:55 Elliptocytes Not Reportable 04/18/21 07:55 Acanthocytes (Spur) Not Reportable 04/18/21 07:55 Rouleaux Not Reportable 04/18/21 07:55 Hemoglobin C Crystals Not Reportable 04/18/21 07:55 Schistocytes Rare 04/18/21 07:55 Malaria parasites Not Reportable 04/18/21 07:55 Nicolas Bodies Not Reportable 04/18/21 07:55 Hem Pathologist Commnt No 04/18/21 07:55 PT 18.3 Sec. (12.2-14.9) H 04/16/21 23:41 INR 1.47 (0.87-1.13) H 04/16/21 23:41 APTT 38.2 Sec. (24.2-36.6) H 04/16/21 23:41 D-Dimer 1722.02 ng/mlDDU (0-234) H 04/18/21 14:59 ABG pH 7.245 (7.320-7.450) L 04/17/21 04:32 POC ABG pCO2 34.9 mmHg (32.0-48.0) 04/17/21 04:32 ABG pCO2 40.0 mm Hg 04/17/21 00:55 POC ABG pO2 92.3 mmHg (83-108) 04/17/21 04:32 ABG pO2 91.2 mm Hg (80.0-90.0) H 04/17/21 00:55 POC ABG HCO3 14.8 04/17/21 04:32 ABG HCO3 10.3 mmol/L (20.0-26.0) L 04/17/21 00:55 ABG O2 Saturation 95.1 (0-100) 04/17/21 04:32 ABG O2 Content 13.8 (0.0-44) 04/17/21 00:55 POC ABG Base Excess -11.5 04/17/21 04:32 ABG Base Excess -19.6 mmol/L (-2.0-3.0) L 04/17/21 00:55 ABG Hemoglobin 10.7 (12.0-17.5) L 04/17/21 04:32 ABG Oxyhemoglobin 93.7 (94-98) L 04/17/21 04:32 ABG Carboxyhemoglobin 1.5 % (0.0-5.0) 04/17/21 00:55 ABG Methemoglobin 0.3 (0.0-1.5) 04/17/21 04:32 ABG Sodium 133.2 mmol/L (136.0-145.0) L 04/17/21 04:32 ABG Potassium 6.0 mmol/L (3.40-4.50) H 04/17/21 04:32 ABG Chloride 102.0 mmol/L (98-107) 04/17/21 04:32 ABG Glucose 85 mg/dL (65-95) 04/17/21 04:32 Oxyhemoglobin 88.9 % (95.0-99.0) L 04/17/21 00:55 Carboxyhemoglobin 1.2 (0.5-1.5) 04/17/21 04:32 FiO2 30 % 04/17/21 00:55 FiO2 % 30.0 04/17/21 04:32 Sodium 137 mmol/L (137-145) 04/19/21 04:23 Potassium 3.7 mmol/L (3.6-5.0) 04/19/21 04:23 Chloride 93.2 mmol/L (98-107) L 04/19/21 04:23 Carbon Dioxide 19 mmol/L (22-30) L 04/19/21 04:23 Anion Gap 29 mmol/L 04/19/21 04:23 BUN 58 mg/dL (9-20) H 04/19/21 04:23 Creatinine 14.2 mg/dL (0.8-1.3) H 04/19/21 04:23 Estimated GFR 5 ml/min 04/19/21 04:23 BUN/Creatinine Ratio 4 % 04/19/21 04:23 Glucose 95 mg/dL (75-100) 04/19/21 04:23 POC Glucose 115 mg/dL (70-105) H 04/18/21 11:58 Hemoglobin A1c 4.9 % (4-6) 04/18/21 07:55 Calcium 7.8 mg/dL (8.4-10.2) L 04/19/21 04:23 Phosphorus 7.50 mg/dL (2.5-4.5) H 04/17/21 05:08 Magnesium 3.40 mg/dL (1.7-2.3) H 04/17/21 09:36 Total Bilirubin 0.30 mg/dL (0.1-1.2) 04/16/21 23:41 AST 25 units/L (5-40) 04/16/21 23:41 ALT 20 units/L (7-56) 04/16/21 23:41 Alkaline Phosphatase 137 units/L (35-129) H 04/16/21 23:41 Troponin T 0.282 ng/mL (0.00-0.029) H* 04/17/21 10:16 Total Protein 7.8 g/dL (6.3-8.2) 04/16/21 23:41 Albumin 4.7 g/dL (3.9-5) 04/16/21 23:41 Albumin/Globulin Ratio 1.5 % 04/16/21 23:41 Triglycerides 114 mg/dL (2-149) 04/16/21 23:41 Cholesterol 147 mg/dL (50-199) 04/16/21 23:41 LDL Cholesterol Direct 85 mg/dL (50-130) 04/16/21 23:41 HDL Cholesterol 52 mg/dL (40-59) 04/16/21 23:41 Cholesterol/HDL Ratio 2.82 % 04/16/21 23:41 Arterial Blood Glucose 85 mg/dL (65-95) 04/17/21 04:32 Arterial Blood Ionized Calcium 4.5 mg/dL (4.6-5.3) L 04/17/21 04:32 Urine Color Yellow (Yellow) 04/17/21 01:05 Urine Turbidity Slightly-cloudy (Clear) 04/17/21 01:05 Urine pH 7.0 (5.0-7.0) 04/17/21 01:05 Ur Specific [place] 1.012 (1.003-1.030) 04/17/21 01:05 Urine Protein >500 mg/dL (Negative) 04/17/21 01:05 Urine Glucose (UA) >=500 mg/dL (Negative) 04/17/21 01:05 Urine Ketones Neg mg/dL (Negative) 04/17/21 01:05 Urine Blood Mod (Negative) 04/17/21 01:05 Urine Nitrite Neg (Negative) 04/17/21 01:05 Urine Bilirubin Neg (Negative) 04/17/21 01:05 Urine Urobilinogen < 2.0 mg/dL (<2.0) 04/17/21 01:05 Ur Leukocyte Esterase Tr (Negative) 04/17/21 01:05 Urine WBC (Auto) 51.0 /HPF (0.0-6.0) H 04/17/21 01:05 Urine RBC (Auto) 47.0 /HPF (0.0-6.0) 04/17/21 01:05 Urine Bacteria (Auto) 1+ /HPF (Negative) 04/17/21 01:05 Urine Opiates Screen Negative 04/17/21 10:28 Urine Methadone Screen Negative 04/17/21 10:28 Ur Barbiturates Screen Negative 04/17/21 10:28 Ur Phencyclidine Scrn Negative 04/17/21 10:28 Ur Amphetamines Screen Negative 04/17/21 10:28 U Benzodiazepines Scrn Negative 04/17/21 10:28 Urine Cocaine Screen Negative 04/17/21 10:28 U Marijuana (THC) Screen Negative 04/17/21 10:28 Drugs of Abuse Note Disclamer 04/17/21 10:28 Plasma/Serum Alcohol < 0.01 % (0-0.07) 04/17/21 00:08 Hepatitis A IgM Ab Non-reactive (NonReactive) 04/17/21 10:16 Hep Bs Antigen Non-reactive (Negative) 04/17/21 10:16 Hep B Core IgM Ab Non-reactive (NonReactive) 04/17/21 10:16 Hepatitis C Antibody Non-reactive (NonReactive) 04/17/21 10:16 Microbiology: Microbiology 04/17/21 00:08 Peripheral/Venous Blood Culture - Preliminary NO GROWTH AFTER 48 HOURS 04/17/21 00:41 Peripheral/Venous Blood Culture - Preliminary NO GROWTH AFTER 48 HOURS 04/17/21 16:46 Tracheal Aspirate Sputum Culture - Preliminary Guerrero/IV: Voiding Method Urinal Active Medications - Current Medications Current Medications: Generic Name Dose Route Start Last Admin Trade Name Freq PRN Reason Stop Dose Admin Acetaminophen 650 mg 04/17/21 04:50 Acetaminophen 325 Mg Tab PO Q4H PRN Pain MILD(1-3)/Fever >100.5/BANKS Amlodipine Besylate 10 mg 04/18/21 14:00 04/19/21 09:21 Amlodipine 10 Mg Tab PO 10 mg QDAY ZEE Administration Famotidine 20 mg 04/17/21 10:00 04/19/21 09:22 Famotidine 20 Mg/2 Ml Inj IV 20 mg DAILY ZEE Administration Haloperidol Lactate 5 mg 04/18/21 01:14 04/18/21 01:36 Haloperidol Lactate 5 Mg/1 Ml Inj IV 5 mg Q6H PRN Administration Agitation Hydralazine HCl 10 mg 04/17/21 13:23 04/18/21 19:43 Hydralazine 20 Mg/1 Ml Inj IV 10 mg Q4H PRN Administration Hypertension Hydralazine HCl 50 mg 04/19/21 14:00 Hydralazine 25 Mg Tab PO Q8HR ZEE Hydrophilic Ointment 1 applic 04/16/21 23:26 Lip Therapy Vaseline TP Q2HR PRN Dry Lips Cefepime HCl 1 gm in 100 mls @ 200 mls/hr 04/17/21 23:45 04/19/21 00:10 Cefepime/Ns 1 Gm/100 Ml IV 200 mls/hr Q24H ZEE Administration Protocol Lacosamide 50 mg/ Sodium 105 mls @ 100 mls/hr 04/17/21 13:00 04/19/21 01:14 Chloride IV 100 mls/hr Q12H ZEE Administration Sodium Chloride 100 mls @ 999 mls/hr 04/19/21 09:00 Nacl 0.9% IV SHYANNE PRN Hypotension Labetalol HCl 10 mg 04/18/21 15:00 04/19/21 02:40 Labetalol 20 Mg/4 Ml Inj IV 10 mg Q4H PRN Administration Hypertension Lamivudine 50 mg 04/19/21 10:00 04/19/21 09:22 Lamivudine 50 Mg/5 Ml Oral Liqd PO 50 mg DAILY ZEE Administration Lorazepam 1 mg 04/18/21 01:14 04/18/21 19:44 Lorazepam 2 Mg/Ml Vial IV 1 mg Q4HR PRN Administration Agitation Metoprolol Tartrate 100 mg 04/19/21 22:00 Metoprolol Tartrate 100 Mg Tab PO BID ZEE Nitroglycerin 0.4 mg 04/17/21 05:06 Nitroglycerin 0.4 Mg Tab Subl SL Q5M PRN Chest Pain Ondansetron HCl 4 mg 04/17/21 04:50 Ondansetron 4 Mg/2 Ml Inj IV Q8H PRN Nausea And Vomiting Senna/Docusate Sodium 1 tab 04/17/21 10:00 04/19/21 09:21 Sennosides/Docusate Sodium 8.6/50 Mg Tab FEEDTUBE 1 tab BID ZEE Administration Sodium Chloride 10 ml 04/17/21 10:00 04/19/21 09:23 Sodium Chloride 0.9% 10 Ml Flush Syringe IV 10 ml BID ZEE Administration Sodium Chloride 10 ml 04/17/21 04:50 04/18/21 05:32 Sodium Chloride 0.9% 10 Ml Flush Syringe IV 10 ml PRN PRN Administration LINE FLUSH Tenofovir Disoproxil Fumarate 300 mg 04/22/21 10:00 Tenofovir 300 Mg Tab PO Th [facility] Nutrition/Malnutrition Assess - Dietary Evaluation Nutrition/Malnutrition Findings: Nutrition Notes Start: 04/17/21 09:15 Freq: Status: Active Protocol: Document 04/17/21 09:15 CW (Rec: 04/17/21 09:28 CW [id number]) Nutrition Notes Need for Assessment generated from: MD Order,clinical research assistant Initial or Follow up Assessment Current Diagnosis CKD (stage V CKD),Diabetes, Hypertension Other Pertinent Diagnosis Cardiac arrest, on HD, seizure , DKA, metabolic acidosis, UTI Current Diet NPO Labs/Tests K 6.5 BUN 94 Cr 17.4 Phos 7.5 Mg 3.8 Pertinent Medications senokot kionex D5 1/2 NS at 125 ml/hr insulin gtt Humulin Height 6 ft Weight 72.121 kg Lilly Body Weight (kg) 80.90 BMI 21.5 Weight Status Appropriate Subjective/Other Information MD consult for nutrition recommendations, RN screen for hx of chewing diff, RN screen for new onest DM. Pt currently mechanically ventilated. Recommend initiate nutrition support. Burn Absent Trauma Absent Difficulty In Swallowing Current % PO Negligible Minimum of two criteria No physical signs of malnutrition #1 Nutrition Diagnosis Inadequate oral intake Etiology respiratory failure As Evidenced by Signs and Symptoms pt on mechanical vent Is patient on ventilator? Yes Is Patient Ambulatory and/or Out of Bed No REE-([facility]-confined to bed) 2516.040 Calculation Used for Recommendations [facility] Additional Notes protein needs: 87g (>1.2g/kgBW ) fluid needs: 1000 - 1500 ml/ day or per MD order Nutrition Intervention Change Diet Order: Initiate nutrition support when medically feasible or diet advancement following extubation Nutrition Support: Nepro at 48 ml/hr with a free water flush of 100 ml q4h Kcal 2,074 Protein (gm) 93 Fluid (mL) 838 Goal #1 Meet at least 75% of kcal and protein needs Anticipated Discharge Needs: unable to determine at this time Follow-Up By: 04/19/21 Additional Comments F/U TF consult or extubation
--- NOTE | 2021-04-19 13:02 | Progress Note ---
Assessment and Plan This is a 26 year old man who presents with cardiac arrest, hyperkalemia/acidosis # ESRD: HD STAT 04/17 for recurrent hyperkalemia/acidosis; plan for next today, continue MWF - Assess daily for needs for additional sessions - daily labs - renally dose meds - avoid nephrotoxins - renal diet # Anemia: hemoglobin at goal for ESRD, no ESAs indicated at this time # HTN: UF as tolerated. BP high initially, now much improved # Secondary Hyperparathyroidism: continue home binders as needed # Cardiac Arrest, s/p ROSC #Encephalopathy, improved mentation, w/u ongoing as per primary. Subjective Date of service: 04/19/21 Principal diagnosis: VT Arrest Interval history: Resting in bed. Sitter at bedside. Responding properly to questions. Objective - Exam Narrative Exam: General: No acute distress HEENT: Oral mucosa moist Neck: Supple, no JVD Chest: Clear to auscultation bilaterally Heart: RRR, S1 and S2, no pericardial rub Abdomen: Soft, nontender, no renal bruit Extremity: No peripheral cyanosis, edema Neurological: Alert, awake, no asterixis Dermatology: No skin rash Psych: No agitation Musculoskeletal: No joint effusion - Vital Signs Vital signs: Vital Signs - 12hr 04/19/21 04/19/21 04/19/21 02:36 02:40 04:00 Temperature 98.2 F Pulse Rate 94 H 94 H 94 H Pulse Rate [ From Monitor] Respiratory 25 H Rate Blood Pressure 187/119 187/119 Blood Pressure [180/104] O2 Sat by Pulse 96 Oximetry 04/19/21 04/19/21 04/19/21 05:10 05:21 05:27 Temperature 98.4 F Pulse Rate 95 H 100 H Pulse Rate [ From Monitor] Respiratory 20 Rate Blood Pressure 193/123 245/135 180/104 Blood Pressure [180/104] O2 Sat by Pulse 100 Oximetry 04/19/21 04/19/21 04/19/21 05:29 08:00 08:05 Temperature 98.4 F 98.1 F Pulse Rate 100 H 102 H 93 H Pulse Rate [ From Monitor] Respiratory 20 20 Rate Blood Pressure 168/97 Blood Pressure 180/104 [180/104] O2 Sat by Pulse 94 98 Oximetry 04/19/21 04/19/21 04/19/21 09:21 10:00 12:23 Temperature 98.5 F Pulse Rate 98 H Pulse Rate [ 102 H From Monitor] Respiratory 20 Rate Blood Pressure 168/97 158/94 Blood Pressure [180/104] O2 Sat by Pulse 96 Oximetry - Lab 04/19/21 04:23 04/19/21 04:23 Most recent lab results ABG pH 7.245 (7.320-7.450) L 04/17/21 04:32 ABG pCO2 40.0 mm Hg 04/17/21 00:55 ABG pO2 91.2 mm Hg (80.0-90.0) H 04/17/21 00:55 ABG HCO3 10.3 mmol/L (20.0-26.0) L 04/17/21 00:55 ABG O2 Saturation 95.1 (0-100) 04/17/21 04:32 Calcium 7.8 mg/dL (8.4-10.2) L 04/19/21 04:23 Phosphorus 7.50 mg/dL (2.5-4.5) H 04/17/21 05:08 Magnesium 3.40 mg/dL (1.7-2.3) H 04/17/21 09:36 Medications & Allergies - Medications Allergies/Adverse Reactions: Allergies No Known Allergies Allergy (Verified 04/16/21 23:39) Home Medications: Home Medications Medication Instructions Recorded Confirmed Last Taken Type Amlodipine Besylate 5 mg PO DAILY 04/18/21 04/18/21 Unknown History Lamivudine 150 mg PO DAILY 04/18/21 04/18/21 Unknown History Lisinopril 40 mg PO DAILY 04/18/21 04/18/21 Unknown History Nifedipine ER 30 mg PO DAILY 04/18/21 04/18/21 Unknown History Sevelamer Carbonate 800 mg PO TID 04/18/21 04/18/21 Unknown History Tenofovir Disoproxil Fumarate 300 mg PO 1XW 04/18/21 04/18/21 Unknown History Tivicay 50 mg PO DAILY 04/18/21 04/18/21 Unknown History carvediloL 6.25 mg PO BID 04/18/21 04/18/21 Unknown History hydrALAZINE 50 mg PO BID 04/18/21 04/18/21 Unknown History Active Medications: Generic Name Dose Route Start Last Admin Trade Name Freq PRN Reason Stop Dose Admin Acetaminophen 650 mg 04/17/21 04:50 Acetaminophen 325 Mg Tab PO Q4H PRN Pain MILD(1-3)/Fever >100.5/BANKS Amlodipine Besylate 10 mg 04/18/21 14:00 04/19/21 09:21 Amlodipine 10 Mg Tab PO 10 mg QDAY ZEE Administration Famotidine 20 mg 04/20/21 10:00 Famotidine 20 Mg Tab PO DAILY [facility] Haloperidol Lactate 5 mg 04/18/21 01:14 04/18/21 01:36 Haloperidol Lactate 5 Mg/1 Ml Inj IV 5 mg Q6H PRN Administration Agitation Hydralazine HCl 10 mg 04/17/21 13:23 04/18/21 19:43 Hydralazine 20 Mg/1 Ml Inj IV 10 mg Q4H PRN Administration Hypertension Hydralazine HCl 50 mg 04/19/21 14:00 Hydralazine 25 Mg Tab PO Q8HR [facility] Hydrophilic Ointment 1 applic 04/16/21 23:26 Lip Therapy Vaseline TP Q2HR PRN Dry Lips Cefepime HCl 1 gm in 100 mls @ 200 mls/hr 04/17/21 23:45 04/19/21 00:10 Cefepime/Ns 1 Gm/100 Ml IV 04/22/21 00:14 200 mls/hr Q24H ZEE Administration Protocol Lacosamide 50 mg/ Sodium 105 mls @ 100 mls/hr 04/17/21 13:00 04/19/21 01:14 Chloride IV 100 mls/hr Q12H ZEE Administration Sodium Chloride 100 mls @ 999 mls/hr 04/19/21 09:00 Nacl 0.9% IV SHYANNE PRN Hypotension Labetalol HCl 10 mg 04/18/21 15:00 04/19/21 02:40 Labetalol 20 Mg/4 Ml Inj IV 10 mg Q4H PRN Administration Hypertension Lamivudine 50 mg 04/19/21 10:00 04/19/21 09:22 Lamivudine 50 Mg/5 Ml Oral Liqd PO 50 mg DAILY ZEE Administration Lorazepam 1 mg 04/18/21 01:14 04/18/21 19:44 Lorazepam 2 Mg/Ml Vial IV 1 mg Q4HR PRN Administration Agitation Metoprolol Tartrate 100 mg 04/19/21 22:00 Metoprolol Tartrate 100 Mg Tab PO BID [facility] Nitroglycerin 0.4 mg 04/17/21 05:06 Nitroglycerin 0.4 Mg Tab Subl SL Q5M PRN Chest Pain Ondansetron HCl 4 mg 04/17/21 04:50 Ondansetron 4 Mg/2 Ml Inj IV Q8H PRN Nausea And Vomiting Senna/Docusate Sodium 1 tab 04/17/21 10:00 04/19/21 09:21 Sennosides/Docusate Sodium 8.6/50 Mg Tab FEEDTUBE 1 tab BID ZEE Administration Sodium Chloride 10 ml 04/17/21 10:00 04/19/21 09:23 Sodium Chloride 0.9% 10 Ml Flush Syringe IV 10 ml BID ZEE Administration Sodium Chloride 10 ml 04/17/21 04:50 04/18/21 05:32 Sodium Chloride 0.9% 10 Ml Flush Syringe IV 10 ml PRN PRN Administration LINE FLUSH Tenofovir Disoproxil Fumarate 300 mg 04/22/21 10:00 Tenofovir 300 Mg Tab PO [facility]
[2021-04-19] MEDS: hydrALAZINE 25 MG TAB PO SCH ×2 (13:09→21:02)
--- NOTE | 2021-04-19 14:10 | Magnetic Resonance Report ---
MR brain wo con INDICATION / CLINICAL INFORMATION: CVA, AMS, GENERALIZED WEAKNESS. TECHNIQUE: Multiplanar, multisequence MR images of the brain were obtained. COMPARISON: None available. FINDINGS: INTRACRANIAL: There is abnormal T2 signal hyperintensity involving the medulla, the danial(predominantl y posteriorly), midbrain with sparing of the red nucleus and the pino cerebri, and thalami. There i s intervening sparing of some of the tract without mass effect which is not typical for mass. No rest ricted diffusion to suggest acute osmotic demyelination. No hemorrhage. Ventricular caliber is normal . No extra-axial collection. No mass. No herniation. Major intracranial vascular flow voids are pres erved. ORBITS: No significant abnormality of visualized orbits. SINUSES / MASTOIDS: Mild mucosal thickening ADDITIONAL FINDINGS: None. IMPRESSION: 1. Abnormal signal involving the brainstem and thalami which is nonspecific but can be seen in atypic al central variant PRES. Correlate for hypertension. An encephalitis could have a similar appearance. Can obtain an MRI brain and lumbar puncture if indicated. If patient has had severe hypertension, re commend follow up examinations to ensure appropriate evolution. Signer Name: Dipak Hu MD Signed: 04/19/2021 2:06 PM Workstation Name: [id number]
--- NOTE | 2021-04-19 16:43 | Progress Note ---
Assessment and Plan NSTEMI * Patient is status post cardiac arrest with ROSC. Suspect elevated troponin is secondary to defibrillation. * Echo findings reviewed - EF 55-60%, moderate concentric LVH, no significant valvular abnormalities. ESRD on HD * Volume optimization and correction of electrolytes per Nephro. Hypertension * Optimize antihypertensive regimen: Increase metoprolol to 100 mg p.o. twice daily. Continue amlodipine 10 mg p.o. daily Continue to monitor on telemetry. Will follow This patient was seen in conjunction with Dr. Castillo who agrees with this assessment plan of care - Patient Problems (1) Cardiac arrest Current Visit: Yes Status: Acute (2) New onset seizure Current Visit: Yes Status: Acute (3) Acute metabolic encephalopathy Current Visit: Yes Status: Acute (4) Metabolic acidosis Current Visit: Yes Status: Acute (5) Hyperkalemia Current Visit: Yes Status: Acute (6) Hypermagnesemia Current Visit: Yes Status: Acute (7) Accelerated hypertension Current Visit: Yes Status: Acute (8) NSTEMI (non-ST elevated myocardial infarction) Current Visit: Yes Status: Acute Plan to address problem: (9) ESRD (end stage renal disease) on dialysis Current Visit: Yes Status: Chronic (10) Anemia Current Visit: Yes Status: Chronic (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 No events Objective Last Vital Signs Temp 98.3 F 04/19/21 15:35 Pulse 90 04/19/21 16:15 Resp 18 04/19/21 15:35 BP 181/104 04/19/21 16:15 Pulse Ox 96 04/19/21 12:23 - Physical Examination General: No Apparent Distress HEENT: Positive: PERRL, Normocephaly Neck: Negative: JVD/HJR Cardiac: Positive: Reg Rate and Rhythm, S1/S2 Lungs: Positive: Normal Exam, Normal Breath Sounds Neuro: Positive: Other (unresponsive) Abdomen: Positive: Soft Skin: Negative: Rash, Wound Musculoskeletal: No Fluid Collection Extremities: Present: lower extr. pulses. Absent: edema - Labs and Meds CBC 04/19/21 Range/Units 04:23 WBC 13.5 H (4.5-11.0) K/mm3 RBC 4.46 (3.65-5.03) M/mm3 Hgb 10.1 L (11.8-15.2) gm/dl Hct 32.2 L (35.5-45.6) % Plt Count 311 (140-440) K/mm3 Comprehensive Metabolic Panel 04/19/21 Range/Units 04:23 Sodium 137 (137-145) mmol/L Potassium 3.7 (3.6-5.0) mmol/L Chloride 93.2 L (98-107) mmol/L Carbon Dioxide 19 L (22-30) mmol/L BUN 58 H (9-20) mg/dL Creatinine 14.2 H (0.8-1.3) mg/dL Glucose 95 (75-100) mg/dL Calcium 7.8 L (8.4-10.2) mg/dL - Imaging and Cardiology EKG: report reviewed, image reviewed Echo: report reviewed - Telemetry EKG Rhythm: Sinus Rhythm - EKG Sinus rhythms and dysrhythmias: sinus tachycardia Repolarization changes or abnormalities: nonspecific abnormality, ST segment, and/or T wave
[2021-04-19] MEDS: hydrALAZINE 20 MG/1 ML INJ IV PRN ×2 (16:55→23:25)
[2021-04-19] MEDS: LORazepam 2 MG/ML VIAL IV PRN (21:01)
[2021-04-19] MEDS: HALOPERIDOL LACTATE 5 MG/1 ML INJ IV PRN (21:02)
[2021-04-19] MEDS: METOPROLOL TARTRATE 100 MG TAB PO SCH (21:03)
[2021-04-19] MEDS: ACETAMINOPHEN 325 MG TAB PO PRN (21:12)
[2021-04-20] MEDS: LACOSAMIDE 50 MG in SODIUM CHLORIDE 0.9% 100 ML IV SCH (03:52)
[2021-04-20] MEDS: CEFEPIME/NS 1 GM/100 ML 1 GM/100 ML BAG IV SCH (04:47)
[2021-04-20 05:45] LABS: Calcium 7.8 mg/dL (8.4-10.2)
[2021-04-20] MEDS: hydrALAZINE 25 MG TAB PO SCH (06:22)
[2021-04-20] MEDS ORDERED: REGADENOSON 0.4 MG/5 ML INJ IV ONE (07:18)
--- NOTE | 2021-04-20 09:30 | Progress Note ---
Assessment and Plan Assessment and plan: Acute metabolic encephalopathy -04/16 CT head shows no acute endocrine abnormality -Multifactorial with regard imbalances, hypoxia, new onset seizure -04/17 UDS negative -Psych consulted, does not recommend acute inpatient hospitalization at this time -As needed Haldol New onset seizures This is a second time this patient has had seizures, had a seizure about 3 months ago. -Witnessed by EMS and aborted with Versed -Patient was loaded with Keppra in the ED -Currently on Vimpat -Neurology consulted, appreciate recommendations -EEG pending S/p cardiac arrest -Per EMS patient went into V. tach after having seizure aborted by Versed -Cardiology consulted, appreciate recommendations -CXR shows cardiomegaly -ASA, beta-sonia, CCB -Discontinue Lipitor r/t 04/16 Lipid panel: Triglyceride 114, cholesterol 147, LDL 85, HDL 52 Elevated troponins -04/16 troponin 0.047, 04/17 troponin 0.091, 04/17 troponin 0.301, 04/17 troponin 0.282 -Cardiology consulted, appreciate recommendations -Likely elevated secondary to cardiac arrest, NSTEMI type II Accelerated hypertension HTN -Coreg, discontinued amlodipine and replaced with Procardia -s/p cardene gtt -IV as needed hydralazine, labetalol -Blood pressure monitoring per protocol Acute hypoxic respiratory failure -Patient was intubated in the field however he was intubated to stomach and had to be reintubated in the emergency department upon arrival -[facility] consulted, appreciate recommendations -Extubated 04/17 -Pulmonary hygiene -Supplemental oxygen as needed ESRD -Nephrology consulted, appreciate recommendations -HD per nephrology -Avoid nephrotoxic medications -Renally dose medications -Strict intake and output -Daily weights Hyponatremia -Trend BMP -HD per nephrology Hypochloremia -Trend BMP, HD per nephrology Anemia of chronic disease -Presented with H/H of 11.9/40.5 but has been slowly drifting down -Trend CBC -Transfuse for hemoglobin less than 7 -Epogen per nephrology Hyperkalemia, resolved -S/p calcium gluconate, insulin, D50, Kionex -HD per nephrology UTI, slight -Patient started on cefepime -04/17 blood culture x2 NGTD -04/17 UA shows trace leukocyte esterase DVT/GI prophylaxis: Heparin subcu, SCDs to bilateral lower extremities while in bed, PPI Full code 04/20/2021. Echocardiogram revealed EF 55-60%, moderate concentric LVH, no significant valvular abnormalities. Patient with stress test today that is pending. Also, await EEG evaluation per neurology recommendations. No new seizure activity. Continue seizure precautions. MRI reveals abnormal signal involving brainstem and thalamus which is nonspecific but can be seen in atypical central variant WI ES. Also, encephalitis could have a similar appearance. Therefore, we will consult ID for further evaluation. Patient needs better BP control for accelerated hypertension. Discontinue Norvasc and start Procardia 60 mg twice daily. Continue hydralazine and consider increasing 100 mg 3 times daily. History Interval history: No new seizure activity. Hospitalist Physical - Constitutional Vitals: Temp Pulse Resp BP Pulse Ox 98.2 F 98 H 19 175/115 97 04/20/21 03:33 04/20/21 06:22 04/20/21 03:33 04/20/21 06:22 04/20/21 03:33 General appearance: Present: no acute distress, other (intubated) - EENT Eyes: Present: PERRL, EOM intact ENT: hearing intact, clear oral mucosa, dentition normal - Neck Neck: Present: supple, normal ROM - Respiratory Respiratory effort: normal Respiratory: bilateral: CTA - Cardiovascular Rhythm: regular Heart Sounds: Present: S1 & S2. Absent: gallop, rub - Extremities Extremities: no ischemia, No edema, Full ROM - Abdominal General gastrointestinal: soft, non-tender, non-distended, normal bowel sounds - Integumentary Integumentary: Present: clear, warm, dry - Neurologic Neurologic: CNII-XII intact, moves all extremities HEART Score - HEART Score Troponin: Troponin T 0.120 ng/mL (0.00-0.029) H* D 04/20/21 04:14 Results - Labs CBC & Chem 7: 04/19/21 04:23 04/20/21 04:14 Labs: Laboratory Last Values WBC 13.5 K/mm3 (4.5-11.0) H 04/19/21 04:23 RBC 4.46 M/mm3 (3.65-5.03) 04/19/21 04:23 Hgb 10.1 gm/dl (11.8-15.2) L 04/19/21 04:23 Hct 32.2 % (35.5-45.6) L 04/19/21 04:23 MCV 72 fl (84-94) L 04/19/21 04:23 MCH 23 pg (28-32) L 04/19/21 04:23 MCHC 32 % (32-34) 04/19/21 04:23 RDW 20.0 % (13.2-15.2) H 04/19/21 04:23 Plt Count 311 K/mm3 (140-440) 04/19/21 04:23 Lymph % (Auto) Pourer Buggy Ladle 04/16/21 23:41 Lymph # (Auto) Pourer Buggy Ladle 04/16/21 23:41 Add Manual Diff Complete 04/18/21 07:55 Total Counted 100 04/18/21 07:55 Seg Neutrophils % Pourer Buggy Ladle 04/18/21 07:55 Seg Neuts % (Manual) 92.0 % (40.0-70.0) H 04/18/21 07:55 Lymphocytes % (Manual) 8.0 % (13.4-35.0) L 04/18/21 07:55 Monocytes % (Manual) 3.0 % (0.0-7.3) 04/17/21 05:21 Eosinophils % (Manual) 1.0 % (0.0-4.3) 04/16/21 23:41 Nucleated RBC % Not Reportable 04/18/21 07:55 Seg Neutrophils # Man 14.0 K/mm3 (1.8-7.7) H 04/18/21 07:55 Band Neutrophils # 0.0 K/mm3 04/18/21 07:55 Lymphocytes # (Manual) 1.2 K/mm3 (1.2-5.4) 04/18/21 07:55 Abs React Lymphs (Man) 0.0 K/mm3 04/18/21 07:55 Monocytes # (Manual) 0.0 K/mm3 (0.0-0.8) 04/18/21 07:55 Eosinophils # (Manual) 0.0 K/mm3 (0.0-0.4) 04/18/21 07:55 Basophils # (Manual) 0.0 K/mm3 (0.0-0.1) 04/18/21 07:55 Metamyelocytes # 0.0 K/mm3 04/18/21 07:55 Myelocytes # 0.0 K/mm3 04/18/21 07:55 Promyelocytes # 0.0 K/mm3 04/18/21 07:55 Blast Cells # 0.0 K/mm3 04/18/21 07:55 WBC Morphology Not Reportable 04/18/21 07:55 Hypersegmented Neuts Not Reportable 04/18/21 07:55 Hyposegmented Neuts Not Reportable 04/18/21 07:55 Hypogranular Neuts Not Reportable 04/18/21 07:55 Smudge Cells Not Reportable 04/18/21 07:55 Toxic Granulation Not Reportable 04/18/21 07:55 Toxic Vacuolation Not Reportable 04/18/21 07:55 Dohle Bodies Not Reportable 04/18/21 07:55 Pelger-Huet Anomaly Not Reportable 04/18/21 07:55 Lila Rods Not Reportable 04/18/21 07:55 Platelet Estimate Consistent w auto 04/18/21 07:55 Clumped Platelets Not Reportable 04/18/21 07:55 Plt Clumps, EDTA Not Reportable 04/18/21 07:55 Large Platelets Not Reportable 04/18/21 07:55 Giant Platelets Not Reportable 04/18/21 07:55 Platelet Satelliting Not Reportable 04/18/21 07:55 Plt Morphology Comment Not Reportable 04/18/21 07:55 RBC Morphology Not Reportable 04/18/21 07:55 Dimorphic RBCs Not Reportable 04/18/21 07:55 Polychromasia Not Reportable 04/18/21 07:55 Hypochromasia Not Reportable 04/18/21 07:55 Poikilocytosis Not Reportable 04/18/21 07:55 Anisocytosis 1+ 04/18/21 07:55 Microcytosis Not Reportable 04/18/21 07:55 Macrocytosis Not Reportable 04/18/21 07:55 Spherocytes Not Reportable 04/18/21 07:55 Pappenheimer Bodies Not Reportable 04/18/21 07:55 Sickle Cells Not Reportable 04/18/21 07:55 Target Cells Not Reportable 04/18/21 07:55 Tear Drop Cells Not Reportable 04/18/21 07:55 Ovalocytes Not Reportable 04/18/21 07:55 Helmet Cells Not Reportable 04/18/21 07:55 [place] Bodies Not Reportable 04/18/21 07:55 [place] Rings Not Reportable 04/18/21 07:55 [place] Cells Not Reportable 04/18/21 07:55 Bite Cells Not Reportable 04/18/21 07:55 Crenated Cell Not Reportable 04/18/21 07:55 Elliptocytes Not Reportable 04/18/21 07:55 Acanthocytes (Spur) Not Reportable 04/18/21 07:55 Rouleaux Not Reportable 04/18/21 07:55 Hemoglobin C Crystals Not Reportable 04/18/21 07:55 Schistocytes Rare 04/18/21 07:55 Malaria parasites Not Reportable 04/18/21 07:55 Nicolas Bodies Not Reportable 04/18/21 07:55 Hem Pathologist Commnt No 04/18/21 07:55 PT 18.3 Sec. (12.2-14.9) H 04/16/21 23:41 INR 1.47 (0.87-1.13) H 04/16/21 23:41 APTT 38.2 Sec. (24.2-36.6) H 04/16/21 23:41 D-Dimer 1722.02 ng/mlDDU (0-234) H 04/18/21 14:59 ABG pH 7.245 (7.320-7.450) L 04/17/21 04:32 POC ABG pCO2 34.9 mmHg (32.0-48.0) 04/17/21 04:32 ABG pCO2 40.0 mm Hg 04/17/21 00:55 POC ABG pO2 92.3 mmHg (83-108) 04/17/21 04:32 ABG pO2 91.2 mm Hg (80.0-90.0) H 04/17/21 00:55 POC ABG HCO3 14.8 04/17/21 04:32 ABG HCO3 10.3 mmol/L (20.0-26.0) L 04/17/21 00:55 ABG O2 Saturation 95.1 (0-100) 04/17/21 04:32 ABG O2 Content 13.8 (0.0-44) 04/17/21 00:55 POC ABG Base Excess -11.5 04/17/21 04:32 ABG Base Excess -19.6 mmol/L (-2.0-3.0) L 04/17/21 00:55 ABG Hemoglobin 10.7 (12.0-17.5) L 04/17/21 04:32 ABG Oxyhemoglobin 93.7 (94-98) L 04/17/21 04:32 ABG Carboxyhemoglobin 1.5 % (0.0-5.0) 04/17/21 00:55 ABG Methemoglobin 0.3 (0.0-1.5) 04/17/21 04:32 ABG Sodium 133.2 mmol/L (136.0-145.0) L 04/17/21 04:32 ABG Potassium 6.0 mmol/L (3.40-4.50) H 04/17/21 04:32 ABG Chloride 102.0 mmol/L (98-107) 04/17/21 04:32 ABG Glucose 85 mg/dL (65-95) 04/17/21 04:32 Oxyhemoglobin 88.9 % (95.0-99.0) L 04/17/21 00:55 Carboxyhemoglobin 1.2 (0.5-1.5) 04/17/21 04:32 FiO2 30 % 04/17/21 00:55 FiO2 % 30.0 04/17/21 04:32 Sodium 136 mmol/L (137-145) L 04/20/21 04:14 Potassium 3.4 mmol/L (3.6-5.0) L 04/20/21 04:14 Chloride 93.2 mmol/L (98-107) L 04/20/21 04:14 Carbon Dioxide 27 mmol/L (22-30) D 04/20/21 04:14 Anion Gap 19 mmol/L 04/20/21 04:14 BUN 32 mg/dL (9-20) H 04/20/21 04:14 Creatinine 9.1 mg/dL (0.8-1.3) H 04/20/21 04:14 Estimated GFR 9 ml/min 04/20/21 04:14 BUN/Creatinine Ratio 4 % 04/20/21 04:14 Glucose 103 mg/dL (75-100) H 04/20/21 04:14 POC Glucose 115 mg/dL (70-105) H 04/18/21 11:58 Hemoglobin A1c 4.9 % (4-6) 04/18/21 07:55 Calcium 7.8 mg/dL (8.4-10.2) L 04/20/21 04:14 Phosphorus 7.50 mg/dL (2.5-4.5) H 04/17/21 05:08 Magnesium 3.40 mg/dL (1.7-2.3) H 04/17/21 09:36 Total Bilirubin 0.30 mg/dL (0.1-1.2) 04/16/21 23:41 AST 25 units/L (5-40) 04/16/21 23:41 ALT 20 units/L (7-56) 04/16/21 23:41 Alkaline Phosphatase 137 units/L (35-129) H 04/16/21 23:41 Troponin T 0.120 ng/mL (0.00-0.029) H* D 04/20/21 04:14 Total Protein 7.8 g/dL (6.3-8.2) 04/16/21 23:41 Albumin 4.7 g/dL (3.9-5) 04/16/21 23:41 Albumin/Globulin Ratio 1.5 % 04/16/21 23:41 Triglycerides 114 mg/dL (2-149) 04/16/21 23:41 Cholesterol 147 mg/dL (50-199) 04/16/21 23:41 LDL Cholesterol Direct 85 mg/dL (50-130) 04/16/21 23:41 HDL Cholesterol 52 mg/dL (40-59) 04/16/21 23:41 Cholesterol/HDL Ratio 2.82 % 04/16/21 23:41 Arterial Blood Glucose 85 mg/dL (65-95) 04/17/21 04:32 Arterial Blood Ionized Calcium 4.5 mg/dL (4.6-5.3) L 04/17/21 04:32 Urine Color Yellow (Yellow) 04/17/21 01:05 Urine Turbidity Slightly-cloudy (Clear) 04/17/21 01:05 Urine pH 7.0 (5.0-7.0) 04/17/21 01:05 Ur Specific [place] 1.012 (1.003-1.030) 04/17/21 01:05 Urine Protein >500 mg/dL (Negative) 04/17/21 01:05 Urine Glucose (UA) >=500 mg/dL (Negative) 04/17/21 01:05 Urine Ketones Neg mg/dL (Negative) 04/17/21 01:05 Urine Blood Mod (Negative) 04/17/21 01:05 Urine Nitrite Neg (Negative) 04/17/21 01:05 Urine Bilirubin Neg (Negative) 04/17/21 01:05 Urine Urobilinogen < 2.0 mg/dL (<2.0) 04/17/21 01:05 Ur Leukocyte Esterase Tr (Negative) 04/17/21 01:05 Urine WBC (Auto) 51.0 /HPF (0.0-6.0) H 04/17/21 01:05 Urine RBC (Auto) 47.0 /HPF (0.0-6.0) 04/17/21 01:05 Urine Bacteria (Auto) 1+ /HPF (Negative) 04/17/21 01:05 Urine Opiates Screen Negative 04/17/21 10:28 Urine Methadone Screen Negative 04/17/21 10:28 Ur Barbiturates Screen Negative 04/17/21 10:28 Ur Phencyclidine Scrn Negative 04/17/21 10:28 Ur Amphetamines Screen Negative 04/17/21 10:28 U Benzodiazepines Scrn Negative 04/17/21 10:28 Urine Cocaine Screen Negative 04/17/21 10:28 U Marijuana (THC) Screen Negative 04/17/21 10:28 Drugs of Abuse Note Disclamer 04/17/21 10:28 Plasma/Serum Alcohol < 0.01 % (0-0.07) 04/17/21 00:08 Hepatitis A IgM Ab Non-reactive (NonReactive) 04/17/21 10:16 Hep Bs Antigen Non-reactive (Negative) 04/17/21 10:16 Hep B Core IgM Ab Non-reactive (NonReactive) 04/17/21 10:16 Hepatitis C Antibody Non-reactive (NonReactive) 04/17/21 10:16 Microbiology: Microbiology 04/17/21 00:08 Peripheral/Venous Blood Culture - Preliminary NO GROWTH AFTER 72 HOURS 04/17/21 00:41 Peripheral/Venous Blood Culture - Preliminary NO GROWTH AFTER 72 HOURS 04/17/21 01:05 Urine,Clean Catch Urine Culture - Preliminary NO GROWTH AFTER 24 HOURS Guerrero/IV: Voiding Method Urinal Active Medications - Current Medications Current Medications: Generic Name Dose Route Start Last Admin Trade Name Freq PRN Reason Stop Dose Admin Acetaminophen 650 mg 04/17/21 04:50 04/19/21 21:12 Acetaminophen 325 Mg Tab PO 650 mg Q4H PRN Administration Pain MILD(1-3)/Fever >100.5/BANKS Amlodipine Besylate 10 mg 04/18/21 14:00 04/19/21 09:21 Amlodipine 10 Mg Tab PO 10 mg QDAY ZEE Administration Famotidine 20 mg 04/20/21 10:00 Famotidine 20 Mg Tab PO DAILY ZEE Haloperidol Lactate 5 mg 04/18/21 01:14 04/19/21 21:02 Haloperidol Lactate 5 Mg/1 Ml Inj IV 5 mg Q6H PRN Administration Agitation Hydralazine HCl 10 mg 04/17/21 13:23 04/19/21 23:25 Hydralazine 20 Mg/1 Ml Inj IV 10 mg Q4H PRN Administration Hypertension Hydralazine HCl 50 mg 04/19/21 14:00 04/20/21 06:22 Hydralazine 25 Mg Tab PO 50 mg Q8HR ZEE Administration Hydrophilic Ointment 1 applic 04/16/21 23:26 Lip Therapy Vaseline TP Q2HR PRN Dry Lips Cefepime HCl 1 gm in 100 mls @ 200 mls/hr 04/17/21 23:45 04/20/21 04:47 Cefepime/Ns 1 Gm/100 Ml IV 04/22/21 00:14 Not Given Q24H ZEE Protocol Lacosamide 50 mg/ Sodium 105 mls @ 100 mls/hr 04/17/21 13:00 04/20/21 03:52 Chloride IV 100 mls/hr Q12H ZEE Administration Sodium Chloride 100 mls @ 999 mls/hr 04/19/21 09:00 Nacl 0.9% IV SHYANNE PRN Hypotension Labetalol HCl 10 mg 04/18/21 15:00 04/19/21 21:11 Labetalol 20 Mg/4 Ml Inj IV 10 mg Q4H PRN Administration Hypertension Lamivudine 50 mg 04/19/21 10:00 04/19/21 09:22 Lamivudine 50 Mg/5 Ml Oral Liqd PO 50 mg DAILY ZEE Administration Lorazepam 1 mg 04/18/21 01:14 04/19/21 21:01 Lorazepam 2 Mg/Ml Vial IV 1 mg Q4HR PRN Administration Agitation Metoprolol Tartrate 100 mg 04/19/21 22:00 04/19/21 21:03 Metoprolol Tartrate 100 Mg Tab PO 100 mg BID ZEE Administration Nitroglycerin 0.4 mg 04/17/21 05:06 04/19/21 21:11 Nitroglycerin 0.4 Mg Tab Subl SL 0.4 mg Q5M PRN Administration Chest Pain Ondansetron HCl 4 mg 04/17/21 04:50 Ondansetron 4 Mg/2 Ml Inj IV Q8H PRN Nausea And Vomiting Senna/Docusate Sodium 1 tab 04/17/21 10:00 04/19/21 21:02 Sennosides/Docusate Sodium 8.6/50 Mg Tab FEEDTUBE 1 tab BID ZEE Administration Sodium Chloride 10 ml 04/17/21 10:00 04/19/21 21:03 Sodium Chloride 0.9% 10 Ml Flush Syringe IV 10 ml BID ZEE Administration Sodium Chloride 10 ml 04/17/21 04:50 04/20/21 03:56 Sodium Chloride 0.9% 10 Ml Flush Syringe IV 10 ml PRN PRN Administration LINE FLUSH Tenofovir Disoproxil Fumarate 300 mg 04/22/21 10:00 Tenofovir 300 Mg Tab PO Th [facility] Nutrition/Malnutrition Assess - Dietary Evaluation Nutrition/Malnutrition Findings: Nutrition Notes Start: 04/17/21 0 9:15 Freq: Status: Active Protocol: Document 04/19/21 12:03 [facility] (Rec: 04/19/21 12:07 [facility] [id number]) Nutrition Notes Initial or Follow up Reassessment Current Diagnosis CKD (stage V CKD),Hypertension Other Pertinent Diagnosis s/p cardiac arrest, new onset seizures, HIV, acute metabolic encephalopathy Current Diet Renal Cardiac Labs/Tests BUN 58 Cr 14.2 Pertinent Medications Reviewed Height 6 ft Weight 90.7 kg [place] Body Weight (kg) 80.90 BMI 27.1 Weight change and time frame Wt change noted; fluid imbalance? Subjective/Other Information Pt extubated yesterday and transferred from ICU. He requires sitter at bedside; has bouts of confusion and agitation. BP elevated this am. No PO intakes documented yet. Burn Absent Trauma Absent #1 Nutrition Diagnosis Inadequate oral intake Diagnosis Progress(for reassessment Continues documentation) Is patient on ventilator? No Is Patient Ambulatory and/or Out of Bed No REE-([place]-St. Jeor-confined to bed) [phone] Calculation Used [facility]ations [facility] Additional Notes Pro needs >1.2g/kg: >109g/day Fluid needs 1-1.5L/day Nutrition Intervention Change Diet Order: Continue current diet order Goal #1 PO intakes to meet at least 75 % energy and pro needs Follow-Up By: 04/21/21 Additional Comments F/U: intakes, need for ONS
[2021-04-20] MEDS ORDERED: FAMOTIDINE 20 MG TAB PO SCH (10:00)
[2021-04-20] MEDS ORDERED: NIFEdipine XL 60 MG TAB PO SCH (10:00)
--- NOTE | 2021-04-20 10:15 | Electrocardiograph Report ---
[facility] Test Date: 2021-04-17 Test Time: 04:58:28 Pat Name: DIANA ARMENDARIZ Department: Room: A452 1 Gender: M [employer]: PAULINE : 1995 Requested By: MARCELO SCHULTZ Order Number: [id number] Reading MD: Damir Perry Measurements Intervals [place] Rate: 101 P: 75 MO: 160 QRS: 87 QRSD: 80 T: 70 QT: 377 QTc: 490 Interpretive Statements Sinus tachycardia Probable anteroseptal infarct, old Prolonged QT interval No previous ECG available for comparison Electronically Signed On 04-20-2021 10:15:21 EDT by Damir Perry
[2021-04-20] MEDS: lamiVUDine 50 MG/5 ML ORAL LIQD PO SCH (10:22)
[2021-04-20] MEDS: SENNOSIDES/DOCUSATE SODIUM 8.6/50 MG TAB FEEDTUBE SCH (10:22)
[2021-04-20] MEDS: DOLUTEGRAVIR 50 MG TAB PO SCH (10:23)
[2021-04-20] MEDS: METOPROLOL TARTRATE 100 MG TAB PO SCH (10:23)
[2021-04-20] MEDS: ACETAMINOPHEN 325 MG TAB PO PRN (10:23)
[2021-04-20] MEDS: hydrALAZINE 20 MG/1 ML INJ IV PRN (10:52)
--- NOTE | 2021-04-20 10:57 | Progress Note ---
Assessment and Plan This is a 26 year old man who presents with cardiac arrest, hyperkalemia/acidosis # ESRD: HD STAT 04/17 for recurrent hyperkalemia/acidosis; plan for next session tomorrow, continue MWF - Assess daily for needs for additional sessions - daily labs - renally dose meds - avoid nephrotoxins - renal diet # Anemia: hemoglobin at goal for ESRD, no ESAs indicated at this time # HTN urgency, recommend cardene drip given hypertensive urgency. Continue PO medications simultaneously with further titration as needed to achieve bp control. # Secondary Hyperparathyroidism: continue home binders as needed # Cardiac Arrest, s/p ROSC #Encephalopathy, improved mentation, w/u ongoing as per primary. Subjective Date of service: 04/20/21 Principal diagnosis: VT Arrest Interval history: Sitting up having breakfast. Denies headache and chest pain. Objective - Exam Narrative Exam: General: No acute distress HEENT: Oral mucosa moist Neck: Supple, no JVD Chest: Clear to auscultation bilaterally Heart: RRR, S1 and S2, no pericardial rub Abdomen: Soft, nontender, no renal bruit Extremity: No peripheral cyanosis, edema Neurological: Alert, awake, no asterixis Dermatology: No skin rash Psych: No agitation Musculoskeletal: No joint effusion - Vital Signs Vital signs: Vital Signs - 12hr 04/19/21 04/20/21 04/20/21 23:25 00:00 03:33 Temperature 97.8 F 98.2 F Pulse Rate 111 H 98 H 98 H Respiratory 18 19 Rate Blood Pressure 167/99 175/115 Blood Pressure [180/104] O2 Sat by Pulse 94 97 Oximetry 04/20/21 04/20/21 04/20/21 04:00 06:22 08:00 Temperature Pulse Rate 98 H 98 H 97 H Respiratory Rate Blood Pressure 175/115 Blood Pressure [180/104] O2 Sat by Pulse Oximetry 04/20/21 10:53 Temperature Pulse Rate 103 H Respiratory Rate Blood Pressure Blood Pressure 190/123 [180/104] O2 Sat by Pulse Oximetry - Lab 04/19/21 04:23 04/20/21 04:14 Most recent lab results ABG pH 7.245 (7.320-7.450) L 04/17/21 04:32 ABG pCO2 40.0 mm Hg 04/17/21 00:55 ABG pO2 91.2 mm Hg (80.0-90.0) H 04/17/21 00:55 ABG HCO3 10.3 mmol/L (20.0-26.0) L 04/17/21 00:55 ABG O2 Saturation 95.1 (0-100) 04/17/21 04:32 Calcium 7.8 mg/dL (8.4-10.2) L 04/20/21 04:14 Phosphorus 7.50 mg/dL (2.5-4.5) H 04/17/21 05:08 Magnesium 3.40 mg/dL (1.7-2.3) H 04/17/21 09:36 Medications & Allergies - Medications Allergies/Adverse Reactions: Allergies No Known Allergies Allergy (Verified 04/16/21 23:39) Home Medications: Home Medications Medication Instructions Recorded Confirmed Last Taken Type Amlodipine Besylate 5 mg PO DAILY 04/18/21 04/18/21 Unknown History Lamivudine 150 mg PO DAILY 04/18/21 04/18/21 Unknown History Lisinopril 40 mg PO DAILY 04/18/21 04/18/21 Unknown History Nifedipine ER 30 mg PO DAILY 04/18/21 04/18/21 Unknown History Sevelamer Carbonate 800 mg PO TID 04/18/21 04/18/21 Unknown History Tenofovir Disoproxil Fumarate 300 mg PO 1XW 04/18/21 04/18/21 Unknown History Tivicay 50 mg PO DAILY 04/18/21 04/18/21 Unknown History carvediloL 6.25 mg PO BID 04/18/21 04/18/21 Unknown History hydrALAZINE 50 mg PO BID 04/18/21 04/18/21 Unknown History Active Medications: Generic Name Dose Route Start Last Admin Trade Name Freq PRN Reason Stop Dose Admin Acetaminophen 650 mg 04/17/21 04:50 04/20/21 10:23 Acetaminophen 325 Mg Tab PO 650 mg Q4H PRN Administration Pain MILD(1-3)/Fever >100.5/BANKS Famotidine 20 mg 04/20/21 10:00 04/20/21 10:23 Famotidine 20 Mg Tab PO 20 mg DAILY ZEE Administration Haloperidol Lactate 5 mg 04/18/21 01:14 04/19/21 21:02 Haloperidol Lactate 5 Mg/1 Ml Inj IV 5 mg Q6H PRN Administration Agitation Hydralazine HCl 10 mg 04/17/21 13:23 04/20/21 10:52 Hydralazine 20 Mg/1 Ml Inj IV 10 mg Q4H PRN Administration Hypertension Hydralazine HCl 50 mg 04/19/21 14:00 04/20/21 06:22 Hydralazine 25 Mg Tab PO 50 mg Q8HR ZEE Administration Hydrophilic Ointment 1 applic 04/16/21 23:26 Lip Therapy Vaseline TP Q2HR PRN Dry Lips Cefepime HCl 1 gm in 100 mls @ 200 mls/hr 04/17/21 23:45 04/20/21 04:47 Cefepime/Ns 1 Gm/100 Ml IV 04/22/21 00:14 Not Given Q24H ZEE Protocol Lacosamide 50 mg/ Sodium 105 mls @ 100 mls/hr 04/17/21 13:00 04/20/21 03:52 Chloride IV 100 mls/hr Q12H ZEE Administration Sodium Chloride 100 mls @ 999 mls/hr 04/19/21 09:00 Nacl 0.9% IV SHYANNE PRN Hypotension Labetalol HCl 10 mg 04/18/21 15:00 04/19/21 21:11 Labetalol 20 Mg/4 Ml Inj IV 10 mg Q4H PRN Administration Hypertension Lamivudine 50 mg 04/19/21 10:00 04/20/21 10:22 Lamivudine 50 Mg/5 Ml Oral Liqd PO 50 mg DAILY ZEE Administration Lorazepam 1 mg 04/18/21 01:14 04/19/21 21:01 Lorazepam 2 Mg/Ml Vial IV 1 mg Q4HR PRN Administration Agitation Metoprolol Tartrate 100 mg 04/19/21 22:00 04/20/21 10:23 Metoprolol Tartrate 100 Mg Tab PO 100 mg BID ZEE Administration Nifedipine 60 mg 04/20/21 10:00 04/20/21 10:23 Nifedipine Xl 60 Mg Tab PO 60 mg Q12HR ZEE Administration Nitroglycerin 0.4 mg 04/17/21 05:06 04/19/21 21:11 Nitroglycerin 0.4 Mg Tab Subl SL 0.4 mg Q5M PRN Administration Chest Pain Ondansetron HCl 4 mg 04/17/21 04:50 Ondansetron 4 Mg/2 Ml Inj IV Q8H PRN Nausea And Vomiting Senna/Docusate Sodium 1 tab 04/17/21 10:00 04/20/21 10:22 Sennosides/Docusate Sodium 8.6/50 Mg Tab FEEDTUBE 1 tab BID ZEE Administration Sodium Chloride 10 ml 04/17/21 10:00 04/20/21 10:24 Sodium Chloride 0.9% 10 Ml Flush Syringe IV 10 ml BID ZEE Administration Sodium Chloride 10 ml 04/17/21 04:50 04/20/21 03:56 Sodium Chloride 0.9% 10 Ml Flush Syringe IV 10 ml PRN PRN Administration LINE FLUSH Tenofovir Disoproxil Fumarate 300 mg 04/22/21 10:00 Tenofovir 300 Mg Tab PO ZEE
--- NOTE | 2021-04-20 11:47 | Progress Note ---
Assessment and Plan NSTEMI * Patient is status post cardiac arrest with ROSC. Suspect elevated troponin is secondary to defibrillation. * Echo findings reviewed - EF 55-60%, moderate concentric LVH, no significant valvular abnormalities. * Lexiscan MPI stress test 04/20/2021: Negative for reversible ischemia ESRD on HD * Volume optimization and correction of electrolytes per Nephrology. Hypertension * Optimize antihypertensive regimen: Increase hydralazine to 100 3 times daily, continue metoprolol 100 twice daily, amlodipine 10 New Onset Seizures * Per mother patient has no prior seizure history before seizure event approximately 3 months ago. Neurology is following Dr Castillo spoke with patient's mother extensively regarding patient condition and disposition. Per mother patient has no psych history and has not previously been established with neurology. Continue to monitor on telemetry. Will follow Patient should follow-up with [facility] in our [place] office on 05/11/2021 at 2:30 PM. Patient should follow-up with Dr. Giovanna Phillips, [facility] in our [place] location {schedule pending.} #[phone] This patient was seen in conjunction with Dr. Castillo who agrees with this assessment plan of care - Patient Problems (1) Cardiac arrest Current Visit: Yes Status: Acute (2) New onset seizure Current Visit: Yes Status: Acute (3) Acute metabolic encephalopathy Current Visit: Yes Status: Acute (4) Metabolic acidosis Current Visit: Yes Status: Acute (5) Hyperkalemia Current Visit: Yes Status: Acute (6) Hypermagnesemia Current Visit: Yes Status: Acute (7) Accelerated hypertension Current Visit: Yes Status: Acute (8) NSTEMI (non-ST elevated myocardial infarction) Current Visit: Yes Status: Acute Plan to address problem: (9) ESRD (end stage renal disease) on dialysis Current Visit: Yes Status: Chronic (10) Anemia Current Visit: Yes Status: Chronic (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 No chest pain or shortness of breath overnight Telemetry reviewed: Sinus rhythm 98. No events Objective Last Vital Signs Temp 98.2 F 04/20/21 03:33 Pulse 103 H 04/20/21 10:53 Resp 19 04/20/21 03:33 BP 190/123 04/20/21 10:53 Pulse Ox 97 04/20/21 10:12 - Physical Examination General: No Apparent Distress HEENT: Positive: PERRL, Normocephaly Neck: Positive: neck supple, trachea midline Cardiac: Positive: Reg Rate and Rhythm, S1/S2 Lungs: Positive: Normal Exam, Normal Breath Sounds Neuro: Positive: Grossly Intact, Other (unresponsive) Abdomen: Positive: Unremarkable, Soft Skin: Negative: Rash, Wound Musculoskeletal: No Pain Extremities: Present: upper extr. pulses, lower extr. pulses. Absent: edema - Labs and Meds Comprehensive Metabolic Panel 04/20/21 Range/Units 04:14 Sodium 136 L (137-145) mmol/L Potassium 3.4 L (3.6-5.0) mmol/L Chloride 93.2 L (98-107) mmol/L Carbon Dioxide 27 D (22-30) mmol/L BUN 32 H (9-20) mg/dL Creatinine 9.1 H (0.8-1.3) mg/dL Glucose 103 H (75-100) mg/dL Calcium 7.8 L (8.4-10.2) mg/dL - Imaging and Cardiology EKG: report reviewed, image reviewed Nuclear stress test: report reviewed (Lexiscan MPI stress test 04/20/2021 is negative for reversible ischemia) Echo: report reviewed - EKG Sinus rhythms and dysrhythmias: sinus tachycardia Repolarization changes or abnormalities: nonspecific abnormality, ST segment, and/or T wave
--- NOTE | 2021-04-20 11:49 | Nuclear Medicine Report ---
APPROVED REPORT Exam: Nuclear Stress Test Indication: Chest pain Patient Location: [address] [place] [address] Room #: 452 Ht: 6 ft 0 in Wt: 200 lbs BSA: 2.13 m2 HR: 96 bpmBP: 190/118 mmHgBMI: 27.12 Rhythm: SINUS RHYTHM Stress Test Details Stress Test: Pharmacologic stress testing performed using 0.4 mg of regadenoson per 5 mL given IV over 10 seconds. HR Resting HR: 96 bpm Max HR Achieved: 125 bpm Max Heart Rate (APMHR): 195 bpm Target HR (85% APMHR): 165 bpm % of APMHR: 64 Recovery HR: 115 bpm BP Resting BP: 190/118 mmHg Max BP: 190/119 mmHg Recovery BP: 170/115 mmHg ECG Resting ECG: Sinus Rhythm Arrhythmia: None Clinical Reason for Termination: Completed protocol Stress Symptoms: None NM EXAM: Myocardial Perfusion REST/STRESS Imaging Protocol: Rest TI-201/Stress Tc-99m Resting Data Rest SPECT myocardial perfusion imaging was performed in supine position 30 minutes following the intravenous injection of 10 mCi of Tc-99m Myoview. Time of rest injection: 0710 Pharmacologic Stress Pharmacologic stress test was performed by injecting Regadenoson 0.4 mg IV push followed by the intravenous injection of 28 mCi of Tc-99m Myoview. Time of stress injection: 0830 Gated Stress SPECT was performed 45 minutes after stress injection. Study Data TID = 1.21. Perfusion Nuclear Conclusion ECG Findings: negative for ischemia Clinical Findings: negative for ischemia Nuclear Findings: negative for ischemia Exercise Capacity: not assessed Left Ventricular Function: normal Normal study. No scintigraphic evidence for myocardial ischemia or scar. Normal left ventricular size and function with no regional wall motion abnormalities.
[2021-04-20] MEDS ORDERED: hydrALAZINE 25 MG TAB PO SCH (11:53)
[2021-04-20] MEDS ORDERED: hydrALAZINE 100 MG TAB PO SCH (14:00)
--- NOTE | 2021-04-20 15:29 | Progress Note ---
Assessment and Plan 26 yo male with seizure 3 months ago, dm, esrdx, ?hiv, presents s/p cardiac arrest, and currently with in-hospital delirium with an abnormal MRI. Patient is currently on lamivudine and tenofovir. 1. Seizure d/o - continue vimpat 50 mg bid if ok by cardiology; EEG pending; pt will need to be placed on seizure restrictions and will need followup with Neurology within 4 weeks post-discharge. 2. Encephalitis / Encephalopathy - recommend CSF evaluation with hx of ?HIV (why is pt on tenofovir/lamivudine); awaiting ID recs. 3. PRES - possibility where BP may have spiked during seizure event or seen with renal / liver disease and/or medications; recommend cta head/neck w/ wo contrast (to be coordinated with dialysis). 4. Delirium - clinically monitor w/ smptomatic treatment. 5. Mother at bedside and answered all questions. Tacho Herman MD [place] cpt [id number] Subjective Date of service: 04/20/21 Principal diagnosis: VT Arrest Interval history: 26 yo male with hiv, hx of 1 seizure 3 months ago, presenting with seizure witnessed by EMS, given Versed. Noted with vtach and cardiac arrest. Noted with delirium during the hospital course. Patient notes he notes generalized weakness only. Objective - Exam Narrative Exam: Gen: nad, well-nourished; Head: normocephalic; Eyes: no gaze deviation; no ptosis; ENT: normal vocalization; CVS: warm and well-perfused; Pulm: no respiratory distress; GI: appears non-distended; Ext: no cyanosis at distal extremities; Skin: no acute rash at distal extremities; Heme: no pathologic bruising at distal extremities; Neuro: alert, oriented to name, age, month, year, surroundings, no dysarthria, no aphasia, CN 2 - PERRL, visual almaraz grossly intact, CN 3, 4, 6 - EOMI, CN 5 - facial sensation symmetric to light touch, CN 7 - facial movement symmetric, CN 8 - hearing grossly intact, CN 9, 10 - uvula midline, CN 11 - shrug symmetric, CN 12 - tongue midline; Motor - at least 4/5 in all exts; Sensory - light touch symmetric, Cerebellar - deferred. Gait - deferred secondary to fall risk; - Vital Sign Vital Signs - 12hr 04/20/21 04/20/21 04/20/21 03:33 04:00 06:22 Temperature 98.2 F Pulse Rate 98 H 98 H 98 H Pulse Rate [ From Monitor] Respiratory 19 Rate Blood Pressure 175/115 175/115 Blood Pressure [180/104] O2 Sat by Pulse 97 Oximetry 04/20/21 04/20/21 04/20/21 08:00 08:35 08:37 Temperature Pulse Rate 97 H Pulse Rate [ From Monitor] Respiratory Rate Blood Pressure 190/118 183/118 Blood Pressure [180/104] O2 Sat by Pulse Oximetry 04/20/21 04/20/21 04/20/21 09:06 09:07 09:08 Temperature Pulse Rate Pulse Rate [ From Monitor] Respiratory Rate Blood Pressure 179/106 176/116 170/115 Blood Pressure [180/104] O2 Sat by Pulse Oximetry 04/20/21 04/20/21 04/20/21 09:09 09:10 10:00 Temperature Pulse Rate Pulse Rate [ 102 H From Monitor] Respiratory Rate Blood Pressure 184/118 181/119 Blood Pressure [180/104] O2 Sat by Pulse Oximetry 04/20/21 04/20/21 10:12 10:53 Temperature Pulse Rate 108 H 103 H Pulse Rate [ From Monitor] Respiratory Rate Blood Pressure 192/125 Blood Pressure 190/123 [180/104] O2 Sat by Pulse 97 Oximetry - Laboratory Findings CBC and BMP: 04/19/21 04:23 04/20/21 04:14 Abnormal Lab Findings: Abnormal Labs 04/16/21 04/16/21 04/16/21 23:41 23:41 23:41 WBC Hgb Hct MCV 81 L MCH 24 L MCHC 29 L RDW 20.4 H Seg Neuts % (Manual) 26.0 L Lymphocytes % (Manual) 70.0 H Seg Neutrophils # Man Lymphocytes # (Manual) 6.8 H PT 18.3 H INR 1.47 H APTT 38.2 H D-Dimer ABG pH ABG pO2 ABG HCO3 ABG O2 Saturation ABG Base Excess ABG Hemoglobin ABG Oxyhemoglobin ABG Sodium ABG Potassium Oxyhemoglobin Sodium 135 L Potassium 6.0 H Chloride 87.9 L Carbon Dioxide 4 L* BUN 95 H Creatinine 17.9 H Glucose 239 H POC Glucose Calcium Phosphorus Magnesium Alkaline Phosphatase 137 H Troponin T 0.047 H Arterial Blood Ionized Calcium Urine WBC (Auto) 07/04/17/21 04/17/21 00:55 01:05 01:40 WBC Hgb Hct MCV MCH MCHC RDW Seg Neuts % (Manual) Lymphocytes % (Manual) Seg Neutrophils # Man Lymphocytes # (Manual) PT INR APTT D-Dimer ABG pH 7.030 L* ABG pO2 91.2 H ABG HCO3 10.3 L ABG O2 Saturation 90.8 L ABG Base Excess -19.6 L ABG Hemoglobin 10.9 L ABG Oxyhemoglobin ABG Sodium ABG Potassium Oxyhemoglobin 88.9 L Sodium Potassium Chloride Carbon Dioxide BUN Creatinine Glucose POC Glucose Calcium Phosphorus Magnesium Alkaline Phosphatase Troponin T 0.091 H Arterial Blood Ionized Calcium Urine WBC (Auto) 51.0 H 04/17/21 04/17/21 04/17/21 01:40 01:40 02:30 WBC Hgb Hct MCV MCH MCHC RDW Seg Neuts % (Manual) Lymphocytes % (Manual) Seg Neutrophils # Man Lymphocytes # (Manual) PT INR APTT D-Dimer ABG pH ABG pO2 ABG HCO3 ABG O2 Saturation ABG Base Excess ABG Hemoglobin ABG Oxyhemoglobin ABG Sodium ABG Potassium Oxyhemoglobin Sodium 133 L Potassium 7.6 H* D Chloride 94.8 L Carbon Dioxide 12 L D BUN 94 H Creatinine 17.6 H Glucose 209 H POC Glucose 151 H Calcium 7.9 L D Phosphorus 9.30 H Magnesium 3.70 H Alkaline Phosphatase Troponin T Arterial Blood Ionized Calcium Urine WBC (Auto) 04/17/21 04/17/21 04/17/21 03:42 03:56 04:32 WBC Hgb Hct MCV MCH MCHC RDW Seg Neuts % (Manual) Lymphocytes % (Manual) Seg Neutrophils # Man Lymphocytes # (Manual) PT INR APTT D-Dimer ABG pH 7.245 L ABG pO2 ABG HCO3 ABG O2 Saturation ABG Base Excess ABG Hemoglobin 10.7 L ABG Oxyhemoglobin 93.7 L ABG Sodium 133.2 L ABG Potassium 6.0 H Oxyhemoglobin Sodium 134 L Potassium 6.4 H* Chloride Carbon Dioxide 15 L BUN 92 H Creatinine 17.0 H Glucose 137 H POC Glucose 128 H Calcium 8.0 L Phosphorus Magnesium Alkaline Phosphatase Troponin T Arterial Blood Ionized Calcium 4.5 L Urine WBC (Auto) 04/17/21 04/17/21 04/17/21 05:08 05:08 05:08 WBC Hgb Hct MCV MCH MCHC RDW Seg Neuts % (Manual) Lymphocytes % (Manual) Seg Neutrophils # Man Lymphocytes # (Manual) PT INR APTT D-Dimer ABG pH ABG pO2 ABG HCO3 ABG O2 Saturation ABG Base Excess ABG Hemoglobin ABG Oxyhemoglobin ABG Sodium ABG Potassium Oxyhemoglobin Sodium Potassium 6.5 H* Chloride Carbon Dioxide 17 L BUN 94 H Creatinine 17.4 H Glucose POC Glucose Calcium 7.9 L Phosphorus 7.50 H Magnesium 3.80 H Alkaline Phosphatase Troponin T 0.301 H* D Arterial Blood Ionized Calcium Urine WBC (Auto) 04/17/21 04/17/21 04/17/21 05:21 07:44 08:10 WBC 15.3 H Hgb 10.4 L Hct 32.8 L D MCV 73 L MCH 23 L MCHC RDW 20.2 H Seg Neuts % (Manual) 93.0 H Lymphocytes % (Manual) 4.0 L Seg Neutrophils # Man 14.2 H Lymphocytes # (Manual) 0.6 L PT INR APTT D-Dimer ABG pH ABG pO2 ABG HCO3 ABG O2 Saturation ABG Base Excess ABG Hemoglobin ABG Oxyhemoglobin ABG Sodium ABG Potassium Oxyhemoglobin Sodium Potassium 6.8 H* Chloride Carbon Dioxide BUN Creatinine Glucose POC Glucose 123 H Calcium Phosphorus Magnesium Alkaline Phosphatase Troponin T Arterial Blood Ionized Calcium Urine WBC (Auto) 04/17/21 04/17/21 04/17/21 09:36 09:43 10:16 WBC Hgb Hct MCV MCH MCHC RDW Seg Neuts % (Manual) Lymphocytes % (Manual) Seg Neutrophils # Man Lymphocytes # (Manual) PT INR APTT D-Dimer ABG pH ABG pO2 ABG HCO3 ABG O2 Saturation ABG Base Excess ABG Hemoglobin ABG Oxyhemoglobin ABG Sodium ABG Potassium Oxyhemoglobin Sodium Potassium Chloride Carbon Dioxide 18 L BUN 93 H Creatinine 16.5 H Glucose 139 H POC Glucose 112 H Calcium 8.2 L Phosphorus Magnesium 3.40 H Alkaline Phosphatase Troponin T Arterial Blood Ionized Calcium Urine WBC (Auto) 04/17/21 04/17/21 04/17/21 10:16 10:44 12:35 WBC Hgb Hct MCV MCH MCHC RDW Seg Neuts % (Manual) Lymphocytes % (Manual) Seg Neutrophils # Man Lymphocytes # (Manual) PT INR APTT D-Dimer ABG pH ABG pO2 ABG HCO3 ABG O2 Saturation ABG Base Excess ABG Hemoglobin ABG Oxyhemoglobin ABG Sodium ABG Potassium Oxyhemoglobin Sodium 136 L Potassium Chloride 97.8 L Carbon Dioxide 21 L BUN 61 H Creatinine 11.2 H Glucose 247 H POC Glucose 147 H Calcium 7.4 L Phosphorus Magnesium Alkaline Phosphatase Troponin T 0.282 H* Arterial Blood Ionized Calcium Urine WBC (Auto) 04/17/21 04/17/21 04/17/21 12:36 16:39 17:40 WBC Hgb Hct MCV MCH MCHC RDW Seg Neuts % (Manual) Lymphocytes % (Manual) Seg Neutrophils # Man Lymphocytes # (Manual) PT INR APTT D-Dimer ABG pH ABG pO2 ABG HCO3 ABG O2 Saturation ABG Base Excess ABG Hemoglobin ABG Oxyhemoglobin ABG Sodium ABG Potassium Oxyhemoglobin Sodium Potassium Chloride Carbon Dioxide BUN Creatinine Glucose POC Glucose 248 H 119 H 135 H Calcium Phosphorus Magnesium Alkaline Phosphatase Troponin T Arterial Blood Ionized Calcium Urine WBC (Auto) 04/17/21 04/17/21 04/17/21 17:45 19:45 23:13 WBC Hgb Hct MCV MCH MCHC RDW Seg Neuts % (Manual) Lymphocytes % (Manual) Seg Neutrophils # Man Lymphocytes # (Manual) PT INR APTT D-Dimer ABG pH ABG pO2 ABG HCO3 ABG O2 Saturation ABG Base Excess ABG Hemoglobin ABG Oxyhemoglobin ABG Sodium ABG Potassium Oxyhemoglobin Sodium 135 L Potassium Chloride 96.4 L Carbon Dioxide BUN 45 H Creatinine 10.5 H Glucose 117 H POC Glucose 114 H 151 H Calcium 8.1 L Phosphorus Magnesium Alkaline Phosphatase Troponin T Arterial Blood Ionized Calcium Urine WBC (Auto) 04/17/21 04/18/21 04/18/21 23:25 00:02 00:58 WBC Hgb Hct MCV MCH MCHC RDW Seg Neuts % (Manual) Lymphocytes % (Manual) Seg Neutrophils # Man Lymphocytes # (Manual) PT INR APTT D-Dimer ABG pH ABG pO2 ABG HCO3 ABG O2 Saturation ABG Base Excess ABG Hemoglobin ABG Oxyhemoglobin ABG Sodium ABG Potassium Oxyhemoglobin Sodium 134 L Potassium Chloride 95.3 L Carbon Dioxide BUN 44 H Creatinine 11.0 H Glucose 149 H POC Glucose 149 H 123 H Calcium 8.2 L Phosphorus Magnesium Alkaline Phosphatase Troponin T Arterial Blood Ionized Calcium Urine WBC (Auto) 04/18/21 04/18/21 04/18/21 01:38 03:09 04:29 WBC Hgb Hct MCV MCH MCHC RDW Seg Neuts % (Manual) Lymphocytes % (Manual) Seg Neutrophils # Man Lymphocytes # (Manual) PT INR APTT D-Dimer ABG pH ABG pO2 ABG HCO3 ABG O2 Saturation ABG Base Excess ABG Hemoglobin ABG Oxyhemoglobin ABG Sodium ABG Potassium Oxyhemoglobin Sodium 136 L Potassium Chloride 96.2 L Carbon Dioxide BUN 45 H Creatinine 11.6 H Glucose 106 H POC Glucose 108 H 112 H Calcium 8.2 L Phosphorus Magnesium Alkaline Phosphatase Troponin T Arterial Blood Ionized Calcium Urine WBC (Auto) 04/18/21 04/18/21 04/18/21 05:38 06:41 07:39 WBC Hgb Hct MCV MCH MCHC RDW Seg Neuts % (Manual) Lymphocytes % (Manual) Seg Neutrophils # Man Lymphocytes # (Manual) PT INR APTT D-Dimer ABG pH ABG pO2 ABG HCO3 ABG O2 Saturation ABG Base Excess ABG Hemoglobin ABG Oxyhemoglobin ABG Sodium ABG Potassium Oxyhemoglobin Sodium Potassium Chloride Carbon Dioxide BUN Creatinine Glucose POC Glucose 140 H 121 H 108 H Calcium Phosphorus Magnesium Alkaline Phosphatase Troponin T Arterial Blood Ionized Calcium Urine WBC (Auto) 04/18/21 04/18/21 04/18/21 07:55 07:55 08:32 WBC 15.2 H Hgb 9.2 L Hct 28.6 L MCV 72 L MCH 23 L MCHC RDW 20.4 H Seg Neuts % (Manual) 92.0 H Lymphocytes % (Manual) 8.0 L Seg Neutrophils # Man 14.0 H Lymphocytes # (Manual) PT INR APTT D-Dimer ABG pH ABG pO2 ABG HCO3 ABG O2 Saturation ABG Base Excess ABG Hemoglobin ABG Oxyhemoglobin ABG Sodium ABG Potassium Oxyhemoglobin Sodium 134 L Potassium Chloride 93.4 L Carbon Dioxide BUN 45 H Creatinine 11.2 H Glucose 108 H POC Glucose 126 H Calcium 8.3 L Phosphorus Magnesium Alkaline Phosphatase Troponin T Arterial Blood Ionized Calcium Urine WBC (Auto) 04/18/21 04/18/21 04/18/21 09:27 11:58 14:59 WBC Hgb Hct MCV MCH MCHC RDW Seg Neuts % (Manual) Lymphocytes % (Manual) Seg Neutrophils # Man Lymphocytes # (Manual) PT INR APTT D-Dimer 1722.02 H ABG pH ABG pO2 ABG HCO3 ABG O2 Saturation ABG Base Excess ABG Hemoglobin ABG Oxyhemoglobin ABG Sodium ABG Potassium Oxyhemoglobin Sodium Potassium Chloride Carbon Dioxide BUN Creatinine Glucose POC Glucose 119 H 115 H Calcium Phosphorus Magnesium Alkaline Phosphatase Troponin T Arterial Blood Ionized Calcium Urine WBC (Auto) 04/19/21 04/19/21 04/20/21 04:23 04:23 04:14 WBC 13.5 H Hgb 10.1 L Hct 32.2 L MCV 72 L MCH 23 L MCHC RDW 20.0 H Seg Neuts % (Manual) Lymphocytes % (Manual) Seg Neutrophils # Man Lymphocytes # (Manual) PT INR APTT D-Dimer ABG pH ABG pO2 ABG HCO3 ABG O2 Saturation ABG Base Excess ABG Hemoglobin ABG Oxyhemoglobin ABG Sodium ABG Potassium Oxyhemoglobin Sodium 136 L Potassium 3.4 L Chloride 93.2 L 93.2 L Carbon Dioxide 19 L BUN 58 H 32 H Creatinine 14.2 H 9.1 H Glucose 103 H POC Glucose Calcium 7.8 L 7.8 L Phosphorus Magnesium Alkaline Phosphatase Troponin T 0.120 H* D Arterial Blood Ionized Calcium Urine WBC (Auto)
--- NOTE | 2021-04-20 16:46 | Consultation ---
History of Present Illness - Reason for Consult Consult date: 04/20/21 encephalitis Requesting physician: AGNES MIGUEL - History of Present Illness 26-year-old male with history of HIV infection since 2017, sees [place], donald?, End-stage renal disease on hemodialysis, hypertension, admitted on 04/16/2021 secondary to seizure-like activity and cardiac arrest in route. Patient initially walked to the ambulance. Patient is not the best historian, he does not remember any details of recent history. He does report he had a seizure 3 months before admission. Unfortunately, patient developed a seizure episode which could not be stopped, went into ventricular tachycardia, patient was shocked and went into cardiac arrest, initial rhythm was PEA patient received CPR. On arrival, temperature 97.6, HR 132, RR 20, O2 sat 100%, BP 241/149. Initial WBC 9.7. Hemoglobin 11.9. Platelets 369. Creatinine 17.9. Urinalysis with 51 WBCs, trace leukocyte esterase. UDS negative. Patient was intubated on arrival. Blood culture 04/17/2021 no growth today. Urine culture 04/17/2021 no growth. Sputum culture 717 pending. Brain MRI shows abnormal signal in the brainstem and thalami, atypical PRES. Stress test was negative. Transthoracic echo EF 55 to 60%. Review of Systems: Unable to obtain due to altered mental status Past History Past Medical History: ESRD, hypertension Past Surgical History: Other (unobtainable) Social history: other (unobtainable) Family history: other (unobtainable) Medications and Allergies Allergies Allergy/AdvReac Type Severity Reaction Status Date / Time No Known Allergies Allergy Verified 04/16/21 23:39 Home Medications Medication Instructions Recorded Confirmed Last Taken Type Amlodipine Besylate 5 mg PO DAILY 04/18/21 04/18/21 Unknown History Lamivudine 150 mg PO DAILY 04/18/21 04/18/21 Unknown History Lisinopril 40 mg PO DAILY 04/18/21 04/18/21 Unknown History Nifedipine ER 30 mg PO DAILY 04/18/21 04/18/21 Unknown History Sevelamer Carbonate 800 mg PO TID 04/18/21 04/18/21 Unknown History Tenofovir Disoproxil Fumarate 300 mg PO 1XW 04/18/21 04/18/21 Unknown History Tivicay 50 mg PO DAILY 04/18/21 04/18/21 Unknown History carvediloL 6.25 mg PO BID 04/18/21 04/18/21 Unknown History hydrALAZINE 50 mg PO BID 04/18/21 04/18/21 Unknown History Active Meds: Active Medications Acetaminophen (Acetaminophen 325 Mg Tab) 650 mg PO Q4H PRN PRN Reason: Pain MILD(1-3)/Fever >100.5/BANKS Last Admin: 04/20/21 10:23 Dose: 650 mg Documented by: Famotidine (Famotidine 20 Mg Tab) 20 mg PO DAILY [facility] Last Admin: 04/20/21 10:23 Dose: 20 mg Documented by: Haloperidol Lactate (Haloperidol Lactate 5 Mg/1 Ml Inj) 5 mg IV Q6H PRN PRN Reason: Agitation Last Admin: 04/19/21 21:02 Dose: 5 mg Documented by: Hydralazine HCl (Hydralazine 20 Mg/1 Ml Inj) 10 mg IV Q4H PRN PRN Reason: Hypertension Last Admin: 04/20/21 10:52 Dose: 10 mg Documented by: Hydralazine HCl (Hydralazine 100 Mg Tab) 100 mg PO Q8HR ZEE Last Admin: 04/20/21 14:44 Dose: 100 mg Documented by: Hydrophilic Ointment (Lip Therapy Vaseline) 1 applic TP Q2HR PRN PRN Reason: Dry Lips Cefepime HCl (Cefepime/Ns 1 Gm/100 Ml) 1 gm in 100 mls @ 200 mls/hr IV Q24H ZEE; Protocol Stop: 04/22/21 00:14 Last Admin: 04/20/21 04:47 Dose: Not Given Documented by: Sodium Chloride (Nacl 0.9%) 100 mls @ 999 mls/hr IV SHYANNE PRN PRN Reason: Hypotension Labetalol HCl (Labetalol 20 Mg/4 Ml Inj) 10 mg IV Q4H PRN PRN Reason: Hypertension Last Admin: 04/19/21 21:11 Dose: 10 mg Documented by: Lacosamide (Lacosamide 50 Mg Tab) 50 mg PO Q12HR ZEE Lamivudine (Lamivudine 50 Mg/5 Ml Oral Liqd) 50 mg PO DAILY [facility] Last Admin: 04/20/21 10:22 Dose: 50 mg Documented by: Lorazepam (Lorazepam 2 Mg/Ml Vial) 1 mg IV Q4HR PRN PRN Reason: Agitation Last Admin: 04/19/21 21:01 Dose: 1 mg Documented by: Metoprolol Tartrate (Metoprolol Tartrate 100 Mg Tab) 100 mg PO BID [facility] Last Admin: 04/20/21 10:23 Dose: 100 mg Documented by: Nifedipine (Nifedipine Xl 60 Mg Tab) 60 mg PO Q12HR [facility] Last Admin: 04/20/21 10:23 Dose: 60 mg Documented by: Nitroglycerin (Nitroglycerin 0.4 Mg Tab Subl) 0.4 mg SL Q5M PRN PRN Reason: Chest Pain Last Admin: 04/19/21 21:11 Dose: 0.4 mg Documented by: Ondansetron HCl (Ondansetron 4 Mg/2 Ml Inj) 4 mg IV Q8H PRN PRN Reason: Nausea And Vomiting Senna/Docusate Sodium (Sennosides/Docusate Sodium 8.6/50 Mg Tab) 1 tab FEEDTUBE BID [facility] Last Admin: 04/20/21 10:22 Dose: 1 tab Documented by: Sodium Chloride (Sodium Chloride 0.9% 10 Ml Flush Syringe) 10 ml IV BID [facility] Last Admin: 04/20/21 10:24 Dose: 10 ml Documented by: Sodium Chloride (Sodium Chloride 0.9% 10 Ml Flush Syringe) 10 ml IV PRN PRN PRN Reason: LINE FLUSH Last Admin: 04/20/21 03:56 Dose: 10 ml Documented by: Tenofovir Disoproxil Fumarate (Tenofovir 300 Mg Tab) 300 mg PO Th [facility] Physical Examination - Physical Exam Narrative exam: General appearance: Alert in NAD pleasant Eyes: anicteric sclerae, moist conjunctivae; no lid-lag; PERRLA HENT: Normocephalic, Atraumatic; normal external ears, nares open, oropharynx clear Neck: supple, tracheal midline, no JVD Lungs: CTA, with normal respiratory effort and no intercostal retractions CV: RRR no murmur Abdomen: Soft, non-tender; no masses or hepatosplenomegaly Extremities: no edema, no cyanosis Skin: No rash. Psych: no agitated Neuro: alert and oriented x 3. Moving all extermities - Constitutional Vitals: Vital Signs Temp Pulse Resp BP Pulse Ox 98.2 F 103 H 19 171/98 97 04/20/21 03:33 04/20/21 10:53 04/20/21 03:33 04/20/21 14:40 04/20/21 10:12 Temperature -Last 24 Hours Temperature 98.2 F Temperature 97.8 F Temperature 98.2 F Temperature 98.3 F Results - Labs CBC & Chem 7: 04/19/21 04:23 04/20/21 04:14 Labs: Abnormal lab results 04/20/21 Range/Units 04:14 Sodium 136 L (137-145) mmol/L Potassium 3.4 L (3.6-5.0) mmol/L Chloride 93.2 L (98-107) mmol/L BUN 32 H (9-20) mg/dL Creatinine 9.1 H (0.8-1.3) mg/dL Glucose 103 H (75-100) mg/dL Calcium 7.8 L (8.4-10.2) mg/dL Troponin T 0.120 H* D (0.00-0.029) ng/mL Assessment and Plan Cultures: Blood culture 04/17/2021 no growth today. Urine culture 04/17/2021 no growth. Sputum culture 717 pending. Assessment: 26-year-old male with history of HIV infection since 2016, sees [facility], on tivicay for 3 years?, End-stage renal disease on hemodialysis, hypertension, admitted on 04/16/2021 secondary to seizure-like activity and cardiac arrest in route: #Acute encephalopathy with new onset seizure: Brain MRI shows abnormal signal in the brainstem and thalami, atypical PRES (posterior reversible encephalopathy syndrome) with status epilecticus and c/o double vision now. I do not suspect opportunistic infection however patient h/o ART intake is questionable ? only on one component (tivicay). PRES is rare in virological suppresed HIV patients. DDX: PRES induced by hypertensive crisis, disseminated zoster, PML. #Hypertensive crisis #New seizures with status epilepticus #Status post cardiac arrest: patient developed a seizure episode which could not be stopped, went into ventricular tachycardia, patient was shocked and went into cardiac arrest, initial rhythm was PEA patient received CPR. #UTI: Mild #End-stage renal disease on hemodialysis #HIV infection: Since 2017, patient is MSM, does not know his baseline CD4 and viral load, he believes he only takes tivicay which is an incomplete regimen Recommendations: -Obtain lumbar puncture CSF for cell count, differential, protein, glucose, MIRIAM virus DNA PCR, VZV PCR/serology, cryptococcal antigen, VDRL, Gram and culture -Obtain CD4, viral load -Obtain records from [facility] -Continue renally dosed lamivudine, tenofovir, add dolutegravir -Obtain cryptococcus urine antigen -Stop cefepime -Start acyclovir 5 mg/kg/day until VZV is r/o Will follow. Sheyla Pittman MD Infectious Diseases Extrusion Operator [facility] ([facility]) M [phone] O [phone]
[2021-04-20 19:54] VITALS: BP 174/105
[2021-04-20] MEDS ORDERED: ACYCLOVIR 500 MG in SODIUM CHLORIDE 0.9% 100 ML IV SCH (20:00)
[2021-04-20] MEDS ORDERED: LACOSAMIDE 50 MG TAB PO SCH (22:00)
--- NOTE | 2021-04-21 11:00 | Discharge Summary ---
Providers - Providers Date of Admission: 04/17/21 02:27 Date of discharge: 04/21/21 Attending physician: AGNES MIGUEL 04/17/21 Consult to Cardiac Rehabilitation [CONS] Routine Reason For Exam: Phase I 04/17/21 04:57 Consult to Physician [CONS] Routine Comment: Consulting Provider: JAMIE GLOVER Physician Instructions: Reason For Exam: esrd 04/17/21 05:06 Consult to Cardiology [CONS] Routine Consulting Provider: YUSEF MOREIRA Reason For Exam: Cardiac arrest 04/17/21 05:18 Consult to Physician [CONS] Routine Comment: left mess./ alondra Consulting Provider: GABRIEL FERNANDEZ Physician Instructions: Reason For Exam: Seizure 04/18/21 02:14 psychiatry consult [Consult to Mental Health] [CONS] Routine Reason For Exam: See NN 04/18/2021 0214, safety concerns and behavi 04/19/21 16:12 Consult to Physician [CONS] Routine Comment: Consulting Provider: LESTER ROSA Physician Instructions: Reason For Exam: review MRI brain- r/o cva? pt has hx HTN 04/20/21 09:34 Consult to Physician [CONS] Routine Comment: Consulting Provider: THOMAS ROOT Physician Instructions: Reason For Exam: r/o encephalitis 04/20/21 12:26 Consult to Mental Health [CONS] Routine Reason For Exam: re-evalauate for 1:1 and anxiety Primary care physician: BOX BUILDER Hospitalization Reason for admission: AMS and new sz Condition: Critical Hospital course: 26-year-old male with history of HIV infection since 2017, sees [place] [facility], tivicay?, End-stage renal disease on hemodialysis, hypertension, admitted on 04/16/2021 secondary to seizure-like activity and cardiac arrest in route. Patient initially walked to the ambulance. He does report he had a seizure 3 months before admission. Unfortunately, patient developed a seizure episode which could not be stopped, went into ventricular tachycardia, patient was shocked and went into cardiac arrest, initial rhythm was PEA patient received CPR. On arrival, temperature 97.6, HR 132, RR 20, O2 sat 100%, BP 241/149. Initial WBC 9.7. Hemoglobin 11.9. Platelets 369. Creatinine 17.9. Urinalysis with 51 WBCs, trace leukocyte esterase. UDS negative. Patient was intubated on arrival. Blood culture 04/17/2021 no growth today. Urine culture 04/17/2021 no growth. Sputum culture 04/17 pending. Brain MRI showed abnormal signal in the brainstem and thalami, atypical PRES. Stress test was negative. Transthoracic echo EF 55 to 60%. Cardiology was consulted for a cardiac arrest with ROSC and the aforementioned stress test and echocardiograms were ordered. Nephrology was consulted for ESRD and completed hemodialysis. Infectious disease recommended lumbar puncture CSF for cell count, differential, protein, glucose, MIRIAM virus DNA PCR, VZV PCR/serology, cryptococcal antigen, VDRL, Gram and culture. Also to obtain CD4, viral load, records from [place] [facility] and continue antiretrovirals. ID also wanted cryptococcus urine antigen. Cefepime was discontinued and acyclovir was started. Nurse reportedly at 1945 opted to discharge AMA. The communication noted in the nurses notes are as follows: At 19:45, Mother (Lalo Lundberg ) who is the emergency contact called [phone] and informed on Patient's decision and and Doctor's order. She said she will call Patient and talk to him. Nurse went back to Patient's room with the form hoping Patient will change his mind before signing the form, but Patient insisted on leaving and he signed the form and instructed me "do not call and inform my Mother of me leaving because I do not want you to worry her". Later Mother called and told me Patient has changed his mind after Patient changed his mind, Nurse told Mother that once Patient has signed the form, if Nurse allow him to stay without Doctors order and he elopes during the night, Nurse will be responsible. Nurse told Patient and Mother he can come back to the emergency if he want to. Dedicated discharge time 35 minutes Disposition: [id number] LEFT AGAINST MED ADVICE Final Discharge Diagnosis (Prints w/discharge instructions): Toxic metabolic encephalopathy, new onset seizures, s/p cardiac arrest, elevated troponins, accelerated hypertension, acute hypoxic respiratory failure, ESRD, hyponatremia, hypochloremia, anemia of chronic disease, hyperkalemia, UTI, Core Measure Documentation - Palliative Care Palliative Care/ Comfort Measures: Not Applicable - Core Measures Any of the following diagnoses?: none Exam - Constitutional Vitals: Temp Pulse Resp BP Pulse Ox 98.4 F 107 H 16 174/105 97 07/20/21 19:51 04/20/21 19:51 04/20/21 19:51 04/20/21 19:51 04/20/21 19:51 Plan Care Plan Goals: Adult Intake Welcome to Adult Intake where we have 1st Come 1st served Assessments and Evaluations. Purpose: The Intake Assessment and Referral Unit serves as a point of entry into several [facility] services Addictive Disease Support Services (ADSS) Case Management Group Out-patient Services Counseling Individual Counseling Medication Administration (Health and Wellness Management) MH Intensive Residential MH Semi-Independent Residential Nursing Assessment and Health Services Nursing Assessment and Health Services Patient Assistance Program /Lab Peer support Group Psychosocial Rehabilitation (PSR) Group) Psychosocial Rehabilitation Individual (PSR-I) Substance Abuse Intensive Out-patient (IOP) Substance Abuse Residential Intensive My Sisters Keeper/My Brothers Keeper Womens Treatment and Recovery Supports (WTRS) Out-patient (SERGEI) Things to bring for the intake process proof of identification, proof of income, insurance cards (all Medicaid, Medicare, Blue Cross Blue Shield or [facility]), referral documents (Behavioral Health Link/crisis line, etc), hospital discharge papers (with diagnosis and medications listed), court ordered referrals documents, and insurance co-pays. TO BE ELIGIBLE FOR SERVICES AT [facility], you must bring proof of residence and proof of income in accordance with [facility] regulations. Effective 11/14/11, individuals who fail to provide proof of income will not be able to access services until proof is provided. PROOF OF RESIDENCE AND IDENTITY HI Front Desk Representative's License Certificate Passport Alien Card Affidavit (Lawful Presence) PROOF OF INCOME (REQUIRED BEFORE SERVICES ARE PROVIDED) may include any of the following: (Income will be verified every six (6) months) Last two (2) check stubs within 30 days Most current tax return On-going records of earnings and work expenses for self-employed individuals Copy of check or a letter from Social Security, SSI, Unemployment or Worker's Compensation pension or annuity Court order, divorce papers, or statement from person making payments for alimony or child support Verification of benefits from Department of Family & Children Services (DFCS) Wage Statement from Department of Labor ([employer]OL) if unemployed It is your responsibility to report changes in address and income. Failure to provide correct and current information may result in termination of services at [facility]. If you have insurance, you are expected to fill out insurance forms permitting [facility] to bill your insurance company for the cost of your services here. Crisis Line For Appointments, call Follow up with: PRIMARY CAREMD [Primary Care Provider] - 3-5 Days Forms: AMA Form
[2021-04-22] MEDS ORDERED: TENOFOVIR 300 MG TAB PO SCH (10:00)
== END 2021-04-20 20:00 | disposition home or self-care (01) | DRG 974 ==
LOC: ED 23:22 → CC1 04-17 02:27 → 4A 04-18 20:14
PROVIDERS: ADMIT Hospitalist; ATTEND Hospitalist
PROC: 0BH17EZ Insertion of Endotracheal Airway into Trachea, Via Natural or Artificial Opening (ICD-10-PCS; principal; 2021-04-16)
PROC: 5A1935Z Respiratory Ventilation, Less than 24 Consecutive Hours (ICD-10-PCS; 2021-04-16)
PROC: 4A033R1 Measurement of Arterial Saturation, Peripheral, Percutaneous Approach (ICD-10-PCS; 2021-04-17)
DX: A41.9 Sepsis, unspecified organism (principal); J96.01 Acute respiratory failure with hypoxia; B20 Human immunodeficiency virus [HIV] disease; E13.11 Other specified diabetes mellitus with ketoacidosis with coma; I46.9 Cardiac arrest, cause unspecified; I21.A1 Myocardial infarction type 2; N18.6 End stage renal disease; I12.0 Hypertensive chronic kidney disease with stage 5 chronic kidney disease or end stage renal disease; I42.5 Other restrictive cardiomyopathy; E87.1 Hypo-osmolality and hyponatremia; N30.01 Acute cystitis with hematuria; I16.1 Hypertensive emergency; N25.81 Secondary hyperparathyroidism of renal origin; I42.9 Cardiomyopathy, unspecified; R56.9 Unspecified convulsions; N28.9 Disorder of kidney and ureter, unspecified; D64.9 Anemia, unspecified; E87.5 Hyperkalemia; E87.8 Other disorders of electrolyte and fluid balance, not elsewhere classified; E83.42 Hypomagnesemia; Z91.19 Patient's noncompliance with other medical treatment and regimen; Z79.899 Other long term (current) drug therapy; Z79.891 Long term (current) use of opiate analgesic; Z79.01 Long term (current) use of anticoagulants
CPT/HCPCS: 36415; 36600; 70450; 70551; 71045; 78452; 80048; 80053; 80061; 80074; 80307; 80320; 81001; 82803; 82805; 82962; 83036; 83735; 84100; 84132; 84484; 85007; 85025; 85027; 85379; 85610; 85730; 87040; 87070; 87086; 87205; 93005; 93017; 93306; 94002; 94003; 99292; G0378; A9270-GY; A9502; C9254; G0480; J0360; J0610; J0692; J1630; J1815; J1953; J2060; J2785; J3010; J7030; J7050

== ENCOUNTER 2021-04-21 16:44 | Observation (INO) | payer BC ==
[2021-04-21] MEDS ORDERED: ASPIRIN 325 MG TAB PO ONE (16:53)
--- NOTE | 2021-04-21 17:00 | Event Note ---
ED Screening Note Date of service: 04/21/21 Time: 16:59 ED Screening Note: 26-year-old male patient with history of HIV, end-stage renal disease on dialysis, and cardiac arrest last week presents to the emergency department with complaints of blurred vision, chest pain, and palpitations. Patient states he has been experiencing the symptoms since his cardiac arrest. He left the hospital AGAINST MEDICAL ADVICE yesterday. He has returned to the emergency department to resume care. Patient has not missed dialysis. States he is compliant with his antiretroviral therapy. Patient is unsure what caused his cardiac arrest. Tachycardic in triage. General: Awake, appropriately interactive, no acute distress. Neck: Supple. Full range of motion intact. Cardiovascular: Normal peripheral perfusion. Pulmonary: No respiratory distress. Patient is speaking normally without use of accessory muscles. Skin: No apparent rashes or lesions. Neurological: No facial asymmetry. Speech is clear. Follows commands. Patient is alert and oriented. Musculoskeletal: Moves all four extremities spontaneously with normal range of motion. Psych: Cooperative. Appropriate mood and affect. I have greeted and performed a focused rapid initial assessment of this patient. A comprehensive ED assessment and evaluation of the patient, analysis of all test results, and completion of the medical decision-making process will be conducted by additional ED providers. This initial assessment/diagnostic order s/clinical plan/treatment(s) is/are subject to change based on patients health status, clinical progression and re-assessment. Further treatment and workup at subsequent clinical provider's discretion. Patient/guardian urged not to elope from the ED as their condition may be serious if not clinically assessed and managed.
--- NOTE | 2021-04-21 17:22 | XRay Report ---
CHEST 2 VIEWS INDICATION / CLINICAL INFORMATION: CP. COMPARISON: 04/16/2021 FINDINGS: SUPPORT DEVICES: None. HEART / MEDIASTINUM: Cardiomegaly. LUNGS / PLEURA: No significant pulmonary or pleural abnormality. No pneumothorax. There is subsegment al atelectasis versus scarring in the bilateral lung bases. ADDITIONAL FINDINGS: No significant additional findings. IMPRESSION: 1. No acute findings. Signer Name: James Bello DO Signed: 04/21/2021 5:18 PM Workstation Name: [id number]
[2021-04-21 17:36] LABS: Basophils # (Auto) 0.1 K/mm3 (0.0-0.1); Basophils % (Auto) 0.9 % (0.0-1.8); Eosinophils # (Auto) 0.3 K/mm3 (0.0-0.4); Eosinophils % (Auto) 3.4 % (0.0-4.3); Hematocrit 31.6 % (35.5-45.6); Hemoglobin 10.5 gm/dl (11.8-15.2); Lymphocytes % (Auto) 13.7 % (13.4-35.0); Mean Corpuscular HGB Conc 33 % (32-34); Mean Corpuscular Volume 72 fl (84-94); Monocytes # (Auto) 0.7 K/mm3 (0.0-0.8); Monocytes % (Auto) 9.6 % (0.0-7.3); Platelet Count 293 K/mm3 (140-440); Red Blood Count 4.37 M/mm3 (3.65-5.03); Red Cell Distribution Width 19.3 % (13.2-15.2)
[2021-04-21 17:44] LABS: Calcium 7.8 mg/dL (8.4-10.2)
[2021-04-21 17:47] LABS: INR 0.88 (0.87-1.13)
[2021-04-21 17:48] LABS: Partial Thromboplastin Time 27.9 Sec. (24.2-36.6)
--- NOTE | 2021-04-21 22:18 | Emergency Department Report ---
ED Chest Pain HPI - General Chief Complaint: Chest Pain Stated Complaint: CHEST PAIN PUI?: No Time Seen by Provider: 04/21/21 21:55 Source: patient Mode of arrival: Ambulatory Limitations: No Limitations - History of Present Illness Initial Comments: Patient is a 26-year-old male presents emergency room with complaints of chest pain. Patient states that his chest pain started 24 hours ago. Patient states his chest pain is worsening. Patient states he is overall not feeling well. Patient states that his chest pain is better with rest and worse with exertion. Patient also complains of shortness of breath and dyspnea on exertion. Patient states that shortness breath better with rest and worse with exertion. Patient states that he was here last Monday and went to a cardiac arrest. Patient patient had a seizure and called EMS and was given medication and went to the police arrhythmia and cardiac arrest. Patient was then intubated. Patient states that they told him that his cardiac arrest was secondary to a my ocardial infarction. Patient states that on Monday of this week approximately 2 days ago he signed out from the hospital AMA because he was feeling much better. Patient denies recent travel. Patient denies recent international travel. Patient denies exposure to the novel coronavirus. Patient denies sick contacts. Patient denies fever and chills. Patient denies cough. Patient denies diarr hea. Patient denies coming in contact with anybody with symptoms of the novel coronavirus. MD Complaint: chest pain -: Sudden Onset: during rest Pain Location: substernal, left chest Pain Radiation: none Severity: severe Severity scale (0 -10): 10 Quality: sharp Consistency: constant Improves With: rest Worsens With: exertion re: nausea, dyspnea, sense of impending doom. denies: vomting, diaphoresis Other Symptoms: leg swelling. denies: cough, fever, syncope, rash, acid taste in mouth, palpitations, burping Treatments Prior to Arrival: none Aspirin use within the Past 7 Days: (1) Yes - Related Data On Oral Contraceptives: No Home Medications Medication Instructions Recorded Confirmed Last Taken Amlodipine Besylate 5 mg PO DAILY 04/18/21 04/18/21 Unknown Lamivudine 150 mg PO DAILY 04/18/21 04/18/21 Unknown Lisinopril 40 mg PO DAILY 04/18/21 04/18/21 Unknown Nifedipine ER 30 mg PO DAILY 04/18/21 04/18/21 Unknown Sevelamer Carbonate 800 mg PO TID 04/18/21 04/18/21 Unknown Tenofovir Disoproxil Fumarate 300 mg PO 1XW 04/18/21 04/18/21 Unknown Tivicay 50 mg PO DAILY 04/18/21 04/18/21 Unknown carvediloL 6.25 mg PO BID 04/18/21 04/18/21 Unknown hydrALAZINE 50 mg PO BID 04/18/21 04/18/21 Unknown Allergies Allergy/AdvReac Type Severity Reaction Status Date / Time No Known Allergies Allergy Verified 04/16/21 23:39 Heart Score - HEART Score History: Moderately suspicious EKG: Non-specific Age: < 45 Risk factors: > 3 risk factors or hx of atherosclerotic disease Troponin: > 3x normal limit HEART Score: 6 - EKG Read Time Time EKG Completed: 16:57 EKG Read Time: 16:57 ED Review of Systems ROS: Stated complaint: CHEST PAIN Other details as noted in HPI Constitutional: denies: chills, fever Eyes: denies: eye pain, eye discharge, vision change ENT: denies: ear pain, throat pain Respiratory: shortness of breath. denies: cough, wheezing Cardiovascular: as per HPI, chest pain, dyspnea on exertion. denies: palpitations Endocrine: no symptoms reported Gastrointestinal: denies: abdominal pain, nausea, diarrhea Genitourinary: denies: urgency, dysuria Musculoskeletal: denies: back pain, joint swelling, arthralgia Skin: denies: rash, lesions Neurological: denies: headache, weakness, paresthesias Psychiatric: denies: anxiety, depression Hematological/Lymphatic: denies: easy bleeding, easy bruising ED Past Medical Hx - Past Medical History Previous Medical History?: Yes Hx Hypertension: Yes Hx Congestive Heart Failure: No Hx Diabetes: Yes (DKA) Hx Renal Disease: Yes (End-stage renal disease on dialysis. T T F) Hx Asthma: No Hx COPD: No Hx HIV: Yes Additional medical history: CARDIAC ARREST - Surgical History Past Surgical History?: Yes Additional Surgical History: Left arm dialysis fistula. - Family History Family history: no significant - Social History Smoking Status: Never Smoker Substance Use Type: None - Medications Home Medications: Home Medications Medication Instructions Recorded Confirmed Last Taken Type Amlodipine Besylate 5 mg PO DAILY 04/18/21 04/18/21 Unknown History Lamivudine 150 mg PO DAILY 04/18/21 04/18/21 Unknown History Lisinopril 40 mg PO DAILY 04/18/21 04/18/21 Unknown History Nifedipine ER 30 mg PO DAILY 04/18/21 04/18/21 Unknown History Sevelamer Carbonate 800 mg PO TID 04/18/21 04/18/21 Unknown History Tenofovir Disoproxil Fumarate 300 mg PO 1XW 04/18/21 04/18/21 Unknown History Tivicay 50 mg PO DAILY 04/18/21 04/18/21 Unknown History carvediloL 6.25 mg PO BID 04/18/21 04/18/21 Unknown History hydrALAZINE 50 mg PO BID 04/18/21 04/18/21 Unknown History ED Physical Exam - General Limitations: No Limitations General appearance: alert, in no apparent distress - Head Head exam: Present: atraumatic, normocephalic - Eye Eye exam: Present: normal appearance - ENT ENT exam: Present: mucous membranes moist - Neck Neck exam: Present: normal inspection - Respiratory Respiratory exam: Present: normal lung sounds bilaterally. Absent: respiratory distress - Cardiovascular Cardiovascular Exam: Present: regular rate, normal rhythm. Absent: systolic murmur, diastolic murmur, rubs, gallop - GI/Abdominal GI/Abdominal exam: Present: soft, normal bowel sounds. Absent: distended, guarding - Rectal Rectal exam: Present: deferred - Extremities Exam Extremities exam: Present: normal inspection - Back Exam Back exam: Present: normal inspection - Neurological Exam Neurological exam: Present: alert, oriented X3 - Psychiatric Psychiatric exam: Present: normal affect, normal mood - Skin Skin exam: Present: warm, dry, intact, normal color. Absent: rash ED Course Vital Signs 04/21/21 16:52 Temperature 98.5 F Pulse Rate 110 H Respiratory 22 Rate Blood Pressure 149/92 [Right] O2 Sat by Pulse 98 Oximetry - Reevaluation(s) Reevaluation #1: I discussed all results with patient. I discussed plan of care with patient. Patient agrees with plan of care and admission. Patient to be admitted to the hospitalist service. 04/21/21 22:19 - Consultations Consultation #1: Hospitalist consulted for admission. Hospitalist to admit patient. 04/21/21 22:20 DAYNA score - Dayna Score Age > 65: (0) No Aspirin use within the Past 7 Days: (1) Yes 3 or more CAD Risk Factors: (1) Yes 2 or more Angina events in past 24 hrs: (1) Yes Known CAD with more than 50% Stenosis: (0) No Elevated Cardiac Markers: (1) Yes ST Deviation Greater than 0.5mm: (0) No DAYNA Score: 4 ED Medical Decision Making - Lab Data Result diagrams: 04/21/21 17:04 04/21/21 17:04 - EKG Data -: EKG Interpreted by Me EKG shows normal: sinus rhythm, axis, intervals, QRS complexes, ST-T waves Rate: normal - Radiology Data Radiology results: report reviewed, image reviewed interpreted by me: Chest x-ray: No pneumonia, no pneumothorax, no foreign body, no osseous findings, no acute findings CHEST 2 VIEWS INDICATION / CLINICAL INFORMATION: CP. COMPARISON: 04/16/2021 FINDINGS: SUPPORT DEVICES: None. HEART / MEDIASTINUM: Cardiomegaly. LUNGS / PLEURA: No significant pulmonary or pleural abnormality. No pneumothorax. There is subsegmental atelectasis versus scarring in the bilateral lung bases. ADDITIONAL FINDINGS: No significant additional findings. IMPRESSION: 1. No acute findings. - Medical Decision Making Patient is a 26-year-old male who presents emergency room with complaints of chest pain and shortness of breath. Patient states that approximately 24 hours ago. Patient had a cardiac arrest 5 days ago. Patient was diagnosed cardiac arrest secondary to [place]. Patient states he signed out from the hospital yesterday and started having chest pain shortly after. Patient states that patient does not have a but he did because he was feeling so good prior to leaving the hospital. Patient states he then started having chest pain. Patient states his not feeling good at all. Patient had labs done which were essentially markable for end-stage renal disease and elevated troponin. Ciro choi's troponin is most likely elevated to his kidney disease but the patient recent [place] and cardiac arrest, the patient will require inpatient rule out of ACS. Patient had a chest x-ray which was negative for acute findings. I personally reviewed the chest x-ray. Patient had an EKG which is negative for acute findings and normal ST. Patient's EKG shows a sinus tachycardia. I personally reviewed the EKG. Patient admitted to the hospital service for further evaluation treatment. Critical care time documented due to the multiple reassessments, prolonged time at the bedside, interpretation of diagnostics and labs. - Differential Diagnosis Chest pain, ACS, shortness of breath, KELLEY, CHF, recent cardiac arrest Critical Care Time: Yes Critical care time in (mins) excluding proc time.: 35 Critical care attestation.: If time is entered above; I have spent that time in minutes in the direct care of this critically ill patient, excluding procedure time. Critical Care Time: 35 minutes ED Disposition Clinical Impression: ESRD needing dialysis, Elevated troponin I level Chest pain Qualifiers: Chest pain type: unspecified Qualified Code(s): R07.9 - Chest pain, unspecified Disposition: -09 OP ADMIT IP TO THIS HOSP Is pt being admited?: Yes Does the pt Need Aspirin: No Condition: Critical Time of Disposition: 22:26
[2021-04-21] MEDS ORDERED: ACETAMINOPHEN 325 MG TAB PO PRN (22:26)
[2021-04-21] MEDS ORDERED: oxyCODONE /ACETAMINOPHEN 5-325MG TAB PO PRN (22:26)
[2021-04-21] MEDS ORDERED: DEXTROSE 50% IN WATER (25GM) 50 ML SYRINGE IV PRN (22:26)
[2021-04-21] MEDS ORDERED: NITROGLYCERIN 0.4 MG TAB SUBL SL PRN (22:26)
[2021-04-21] MEDS ORDERED: NALOXONE 0.4 MG/1 ML INJ IV PRN (22:26)
--- NOTE | 2021-04-21 22:54 | History and Physical Report ---
History of Present Illness Date of examination: 04/21/21 Date of admission: 04/21/2021 Chief complaint: chest pain History of present illness: 26-year-old male with history of HIV, ESRD on HD, hypertension, status post cardiac arrest ([place]), newly diagnosed seizure disorder, and diabetes who presents to [facility] ED with complaints of chest pain. Patient states he is experiencing worsening 8/10 chest pain and is scared of going into cardiac arrest again. Of note patient was admitted last Monday after going into cardiac arrest, and being intubated. During that admission patient was diagnosed with new onset seizure and started on antiepileptic meds as well. Patient left AMA on Friday 04/20 after completing HD. He stated, " I felt better and did not need to be here anymore". He decided to return to the ED after experiencing worsening chest pain for the past day and a half. Endorses mild dyspnea on exertion which improves with rest. Denies nausea, vomiting, diaphoresis, fever, chills, headache, abdominal pain, or diarrhea Past History Past Medical History: acute [place] (04/17/21 V. tach arrest), dialysis (//), ESRD , HIV/AIDS, hypertension, seizures Past Surgical History: Other (AV fistula) Social history: single, full code. denies: alcohol abuse, prescription drug abuse Family history: hypertension Medications and Allergies Allergies Allergy/AdvReac Type Severity Reaction Status Date / Time No Known Allergies Allergy Verified 04/16/21 23:39 Home Medications Medication Instructions Recorded Confirmed Last Taken Type Amlodipine Besylate 5 mg PO DAILY 04/18/21 04/18/21 Unknown History Lamivudine 150 mg PO DAILY 04/18/21 04/18/21 Unknown History Lisinopril 40 mg PO DAILY 04/18/21 04/18/21 Unknown History Nifedipine ER 30 mg PO DAILY 04/18/21 04/18/21 Unknown History Sevelamer Carbonate 800 mg PO TID 04/18/21 04/18/21 Unknown History Tenofovir Disoproxil Fumarate 300 mg PO 1XW 04/18/21 04/18/21 Unknown History Tivicay 50 mg PO DAILY 04/18/21 04/18/21 Unknown History carvediloL 6.25 mg PO BID 04/18/21 04/18/21 Unknown History hydrALAZINE 50 mg PO BID 04/18/21 04/18/21 Unknown History Active Meds: Active Medications Acetaminophen (Acetaminophen 325 Mg Tab) 650 mg PO Q4H PRN PRN Reason: Pain, Mild (1-3) Atorvastatin Calcium (Atorvastatin 40 Mg Tab) 40 mg PO QHS [facility] Dextrose (Dextrose 50% In Water (25gm) 50 Ml Syringe) 50 ml IV Q30MIN PRN; Protocol PRN Reason: Hypoglycemia Docusate Sodium (Docusate Sodium 100 Mg Cap) 100 mg PO BID [facility] Heparin Sodium (Porcine) (Heparin 5,000 Unit/1 Ml Vial) 5,000 unit SUB-Q Q12HR [facility] Hydromorphone HCl (Hydromorphone 1 Mg/1 Ml Inj) 0.5 mg IV Q3H PRN PRN Reason: Pain , Severe (7-10) Insulin Human Lispro (Insulin Lispro 100 Unit/Ml) 0 unit SUB-Q ACHS [facility]; Protocol Miscellaneous Medication (Amlodipine Besylate) 5 mg PO DAILY [facility] Miscellaneous Medication (Hydralazine) 50 mg PO BID [facility] Miscellaneous Medication (Tivicay) 50 mg PO DAILY [facility] Naloxone HCl (Naloxone 0.4 Mg/1 Ml Inj) 0.1 mg IV Q2MIN PRN PRN Reason: Res Rate </= 8 or 02 SAT < 92% Nitroglycerin (Nitroglycerin 0.4 Mg Tab Subl) 0.4 mg SL .Q5MIN PRN PRN Reason: Chest Pain Ondansetron HCl (Ondansetron 4 Mg/2 Ml Inj) 4 mg IV Q6H PRN PRN Reason: Nausea And Vomiting Oxycodone/Acetaminophen (Oxycodone /Acetaminophen 5-325mg Tab) 1 tab PO Q6H PRN PRN Reason: Pain, Moderate (4-6) Sodium Chloride (Sodium Chloride 0.9% 10 Ml Flush Syringe) 10 ml IV BID [facility] Sodium Chloride (Sodium Chloride 0.9% 10 Ml Flush Syringe) 10 ml IV PRN PRN PRN Reason: LINE FLUSH Review of Systems All systems: negative (As stated in HPI) Exam - Physical Exam Narrative exam: Physical exam General appearance: Present: No acute distress, alert and oriented 3 - EENT Eyes: Present: PERRL, EOM intact ENT: hearing intact, normal dentition - Neck Neck: Present: supple, normal ROM - Respiratory Respiratory effort: Non-labored Respiratory: Clear throughout - Cardiovascular Heart rate: 107 (bpm) Rhythm: Sinus tachycardia Heart Sounds: Present: S1 & S2. Absent: rub, click - Extremities Extremities: no ischemia, pulses intact, AV fistula - Peripheral Assessment Peripheral Pulses: within normal limits - Abdominal General gastrointestinal: soft, non-tender, normal bowel sounds - Integumentary Integumentary: Present: warm, dry - Musculoskeletal Musculoskeletal: Able to move all extremities -Neurological Neurological: CN II-XII intact - Psychiatric Psychiatric: Appropriate for situation ,cooperative - Constitutional Vitals: Temp Pulse Resp BP Pulse Ox 98.5 F 107 H 21 162/99 94 04/21/21 16:52 04/21/21 22:15 04/21/21 22:15 04/21/21 22:32 04/21/21 22:32 HEART Score - HEART Score EKG: Non-specific Age: < 45 Risk factors: > 3 risk factors or hx of atherosclerotic disease Troponin: Troponin T 0.132 ng/mL (0.00-0.029) H* 04/21/21 20:49 Troponin: > 3x normal limit Results - Labs CBC & Chem 7: 04/21/21 17:04 04/21/21 17:04 Labs: Laboratory Last Values WBC 7.4 K/mm3 (4.5-11.0) 04/21/21 17:04 RBC 4.37 M/mm3 (3.65-5.03) 04/21/21 17:04 Hgb 10.5 gm/dl (11.8-15.2) L 04/21/21 17:04 Hct 31.6 % (35.5-45.6) L 04/21/21 17:04 MCV 72 fl (84-94) L 04/21/21 17:04 MCH 24 pg (28-32) L 04/21/21 17:04 MCHC 33 % (32-34) 04/21/21 17:04 RDW 19.3 % (13.2-15.2) H 04/21/21 17:04 Plt Count 293 K/mm3 (140-440) 04/21/21 17:04 Lymph % (Auto) 13.7 % (13.4-35.0) 04/21/21 17:04 [place] % (Auto) 9.6 % (0.0-7.3) H 04/21/21 17:04 Eos % (Auto) 3.4 % (0.0-4.3) 04/21/21 17:04 Baso % (Auto) 0.9 % (0.0-1.8) 04/21/21 17:04 Lymph # (Auto) 1.0 K/mm3 (1.2-5.4) L 04/21/21 17:04 [place] # (Auto) 0.7 K/mm3 (0.0-0.8) 04/21/21 17:04 Eos # (Auto) 0.3 K/mm3 (0.0-0.4) 04/21/21 17:04 Baso # (Auto) 0.1 K/mm3 (0.0-0.1) 04/21/21 17:04 Seg Neutrophils % 72.4 % (40.0-70.0) H 04/21/21 17:04 Seg Neutrophils # 5.4 K/mm3 (1.8-7.7) 04/21/21 17:04 PT 12.4 Sec. (12.2-14.9) 04/21/21 17:04 INR 0.88 (0.87-1.13) 04/21/21 17:04 APTT 27.9 Sec. (24.2-36.6) 04/21/21 17:04 Sodium 136 mmol/L (137-145) L 04/21/21 17:04 Potassium 3.8 mmol/L (3.6-5.0) 04/21/21 17:04 Chloride 91.5 mmol/L (98-107) L 04/21/21 17:04 Carbon Dioxide 23 mmol/L (22-30) 04/21/21 17:04 Anion Gap 25 mmol/L 04/21/21 17:04 BUN 54 mg/dL (9-20) H 04/21/21 17:04 Creatinine 13.0 mg/dL (0.8-1.3) H 04/21/21 17:04 Estimated GFR 6 ml/min 04/21/21 17:04 BUN/Creatinine Ratio 4 % 04/21/21 17:04 Glucose 145 mg/dL (75-100) H 04/21/21 17:04 Calcium 7.8 mg/dL (8.4-10.2) L 04/21/21 17:04 Magnesium 1.90 mg/dL (1.7-2.3) 04/21/21 17:04 Total Bilirubin 0.30 mg/dL (0.1-1.2) 04/21/21 17:04 AST 31 units/L (5-40) 04/21/21 17:04 ALT 13 units/L (7-56) 04/21/21 17:04 Alkaline Phosphatase 95 units/L (35-129) 04/21/21 17:04 Troponin T 0.132 ng/mL (0.00-0.029) H* 04/21/21 20:49 Total Protein 7.0 g/dL (6.3-8.2) 04/21/21 17:04 Albumin 4.0 g/dL (3.9-5) 04/21/21 17:04 Albumin/Globulin Ratio 1.3 % 04/21/21 17:04 - Imaging and Cardiology Chest x-ray: report reviewed (Impression: No acute findings), image reviewed Assessment and Plan Assessment and plan: Acute Chest Pain -Initiate chest pain protocol -Continuous telemetry monitoring -Continue supportive care -Pain mgmt -Troponin elevated x 2 ?? d/t ESRD, will trend -s/p Vtach arrest 04/17 Suspect secondary to significant electrolyte disturbances -EF 55-60%, moderate concentric LVH, no significant valvular abnormalities seen on Echo 04/17/20 -EKG unrevealing for acute ischemic abnormalities -Cardiology consulted DM -POC BG monitoring -SSI coverage prn ESRD on HD -T//S -Last dialyzed 04/20 -Avoid nephrotoxin agents -Renal dose all meds -Nephrology consulted for HD management Newly diagnosed with seizure disorder -Onset seizure on 04/17/2020 -Evaluated by neurology -Started on Vimpat 50 mg twice daily, will continue History of HIV -Continue antiretrovirals HTN -Monitor BP -Resume home hypertensive meds Advance Directives: No VTE prophylaxis?: Chemical, Mechanical Plan of care discussed with patient/family: Yes
[2021-04-22 06:46] LABS: Calcium 8.3 mg/dL (8.4-10.2)
[2021-04-22] MEDS: INSULIN LISPRO 100 UNIT/ML SUB-Q SCH ×3 (07:38→22:00)
[2021-04-22] MEDS ORDERED: ASPIRIN 325 MG TAB PO ONE (09:36)
[2021-04-22] MEDS ORDERED: amLODIPine 5 MG TAB PO SCH (10:00)
[2021-04-22] MEDS ORDERED: AMLODIPINE BESYLATE PO SCH (10:00)
[2021-04-22] MEDS ORDERED: TIVICAY PO SCH (10:00)
[2021-04-22] MEDS ORDERED: TENOFOVIR 300 MG TAB PO SCH (10:00)
[2021-04-22] MEDS ORDERED: NON-FORMULARY EACH (Hydralazine Tablet) PO SCH (10:00)
[2021-04-22] MEDS ORDERED: HEPARIN 10,000 UNITS/10 ML VIAL ONE (10:20)
[2021-04-22] MEDS ORDERED: HEPARIN/NS 5000 UNIT/500ML 1,000 ML IR ONE (10:20)
[2021-04-22] MEDS ORDERED: NITROGLYCERIN SYRINGE 0 ML ONE (10:21)
[2021-04-22] MEDS ORDERED: HEPARIN/NS 5000 UNIT/500ML 500 ML IR ONE (10:22)
--- NOTE | 2021-04-22 10:30 | Consultation ---
History of Present Illness Consult date: 04/22/21 Requesting physician: AGNES MIGUEL Consult reason: chest pain History of present illness: 26-year-old male with HIV end-stage renal disease on hemodialysis hypertension hyperlipidemia left the hospital AGAINST MEDICAL ADVICE yesterday comes back with chest pain nonradiating not exertional. This morning patient is chest pain-free. Patient had a seizure activity afterwards had a cardiac arrest patient had a normal stress test and echocardiogram but having persistent chest pain with abnormal troponins. Patient also had hyperkalemia and required emergent dialysis on last admission Past History Past Medical History: acute [place] (04/17/21 V. tach arrest), dialysis (//), ESRD, HIV/AIDS, hypertension, seizures Past Surgical History: Other (AV fistula) Social history: single, full code. denies: alcohol abuse, prescription drug abuse Family history: hypertension Medications and Allergies Allergies Allergy/AdvReac Type Severity Reaction Status Date / Time No Known Allergies Allergy Verified 04/16/21 23:39 Home Medications Medication Instructions Recorded Confirmed Last Taken Type Amlodipine Besylate 5 mg PO DAILY 04/18/21 04/18/21 Unknown History Lamivudine 150 mg PO DAILY 04/18/21 04/18/21 Unknown History Lisinopril 40 mg PO DAILY 04/18/21 04/18/21 Unknown History Nifedipine ER 30 mg PO DAILY 04/18/21 04/18/21 Unknown History Sevelamer Carbonate 800 mg PO TID 04/18/21 04/18/21 Unknown History Tenofovir Disoproxil Fumarate 300 mg PO 1XW 04/18/21 04/18/21 Unknown History Tivicay 50 mg PO DAILY 04/18/21 04/18/21 Unknown History carvediloL 6.25 mg PO BID 04/18/21 04/18/21 Unknown History hydrALAZINE 50 mg PO BID 04/18/21 04/18/21 Unknown History Active Meds: Active Medications Acetaminophen (Acetaminophen 325 Mg Tab) 650 mg PO Q4H PRN PRN Reason: Pain, Mild (1-3) Amlodipine Besylate (Amlodipine 5 Mg Tab) 5 mg PO QDAY [facility] Atorvastatin Calcium (Atorvastatin 40 Mg Tab) 40 mg PO QHS [facility] Dextrose (Dextrose 50% In Water (25gm) 50 Ml Syringe) 50 ml IV Q30MIN PRN; Protocol PRN Reason: Hypoglycemia Docusate Sodium (Docusate Sodium 100 Mg Cap) 100 mg PO BID [facility] Heparin Sodium (Porcine) (Heparin 5,000 Unit/1 Ml Vial) 5,000 unit SUB-Q Q12HR [facility] Hydralazine HCl (Hydralazine 25 Mg Tab) 50 mg PO BID [facility] Hydromorphone HCl (Hydromorphone 1 Mg/1 Ml Inj) 0.5 mg IV Q3H PRN PRN Reason: Pain , Severe (7-10) Sodium Chloride (Nacl 0.9% 500 Ml) 500 mls @ 50 mls/hr IV DIRECT [facility] Insulin Human Lispro (Insulin Lispro 100 Unit/Ml) 0 unit SUB-Q ACHS [facility]; Protocol Last Admin: 04/22/21 07:38 Dose: Not Given Documented by: Lacosamide (Lacosamide 50 Mg Tab) 50 mg PO Q12HR [facility] Lamivudine (Lamivudine 150 Mg Tab) 150 mg PO DAILY [facility] Naloxone HCl (Naloxone 0.4 Mg/1 Ml Inj) 0.1 mg IV Q2MIN PRN PRN Reason: Res Rate </= 8 or 02 SAT < 92% Nitroglycerin (Nitroglycerin 0.4 Mg Tab Subl) 0.4 mg SL .Q5MIN PRN PRN Reason: Chest Pain Ondansetron HCl (Ondansetron 4 Mg/2 Ml Inj) 4 mg IV Q6H PRN PRN Reason: Nausea And Vomiting Oxycodone/Acetaminophen (Oxycodone /Acetaminophen 5-325mg Tab) 1 tab PO Q6H PRN PRN Reason: Pain, Moderate (4-6) Sodium Chloride (Sodium Chloride 0.9% 10 Ml Flush Syringe) 10 ml IV BID [facility] Sodium Chloride (Sodium Chloride 0.9% 10 Ml Flush Syringe) 10 ml IV PRN PRN PRN Reason: LINE FLUSH Tenofovir Disoproxil Fumarate (Tenofovir 300 Mg Tab) 300 mg PO Th [facility] Review of Systems All systems: negative (as per hpi) Physical Examination Vital Signs Temp Pulse Resp BP Pulse Ox 98.5 F 110 H 22 149/92 98 04/21/21 16:52 04/21/21 16:52 04/21/21 16:52 04/21/21 16:52 04/21/21 16:52 General appearance: no acute distress, well-nourished HEENT: Positive: PERRL, Mucus Membranes Moist Neck: Positive: neck supple, trachea midline Cardiac: Positive: Reg Rate and Rhythm, S1/S2. Negative: Audible Murmur Lungs: Positive: clear to auscultation, Normal Breath Sounds Neuro: Positive: Grossly Intact Abdomen: Positive: Soft, Active Bowel Sounds. Negative: Tender, Distended Male genitourinary: Positive: normal Skin: Positive: Clear Incision: Cardiac Cath Site Musculoskeletal: No Pain, Normal Range of Motion Extremities: Present: normal. Absent: edema Results 04/21/21 17:04 04/22/21 06:14 Cardiac Enzymes 04/21/21 Range/Units 17:04 AST 31 (5-40) units/L Coagulation 04/21/21 Range/Units 17:04 PT 12.4 (12.2-14.9) Sec. INR 0.88 (0.87-1.13) APTT 27.9 (24.2-36.6) Sec. CBC 04/21/21 Range/Units 17:04 WBC 7.4 (4.5-11.0) K/mm3 RBC 4.37 (3.65-5.03) M/mm3 Hgb 10.5 L (11.8-15.2) gm/dl Hct 31.6 L (35.5-45.6) % Plt Count 293 (140-440) K/mm3 Lymph # (Auto) 1.0 L (1.2-5.4) K/mm3 [place] # (Auto) 0.7 (0.0-0.8) K/mm3 Eos # (Auto) 0.3 (0.0-0.4) K/mm3 Baso # (Auto) 0.1 (0.0-0.1) K/mm3 Comprehensive Metabolic Panel 04/21/21 04/22/21 Range/Units 17:04 06:14 Sodium 136 L 139 (137-145) mmol/L Potassium 3.8 3.8 (3.6-5.0) mmol/L Chloride 91.5 L 93.1 L (98-107) mmol/L Carbon Dioxide 23 26 (22-30) mmol/L BUN 54 H 68 H (9-20) mg/dL Creatinine 13.0 H 13.4 H (0.8-1.3) mg/dL Glucose 145 H 94 (75-100) mg/dL Calcium 7.8 L 8.3 L (8.4-10.2) mg/dL AST 31 (5-40) units/L ALT 13 (7-56) units/L Alkaline Phosphatase 95 (35-129) units/L Total Protein 7.0 (6.3-8.2) g/dL Albumin 4.0 (3.9-5) g/dL - Imaging and Cardiology Stress echo: report reviewed (Normal myocardial perfusion) Echo: report reviewed (Normal LV function no significant regurgitation) EKG interpretations - Telemetry EKG Rhythm: Sinus Rhythm (Sinus rhythm nonspecific ST-T) Assessment and Plan 36-year-old male with HIV end-stage renal disease on hemodialysis hypertension seizure activity with abnormal troponin suggestive of non-STEMI type II in view of negative ischemic evaluation and recurrent chest pain abnormal troponin risk factors scheduled for cardiac catheterization for suspected coronary arterial disease - Patient Problems (1) ESRD needing dialysis Current Visit: Yes Status: Chronic (2) Hypertensive emergency Current Visit: No Status: Acute (3) NSTEMI (non-ST elevated myocardial infarction) Current Visit: No Status: Acute (4) Seizure-like activity Current Visit: No Status: Acute (5) AIDS Current Visit: No Status: Chronic (6) ESRD (end stage renal disease) on dialysis Current Visit: No Status: Chronic (7) Medical non-compliance Current Visit: No Status: Chronic
[2021-04-22] MEDS: fentaNYL 100 MCG/2 ML INJ ONE ×2 (10:53→11:09)
[2021-04-22] MEDS: MIDAZOLAM 2 MG/2 ML INJ ONE ×2 (10:54→11:09)
[2021-04-22] MEDS: LIDOCAINE (2%) 20 MG/1 ML VIAL 20 ML MDV INFILTRATI ONE ×2 (10:55→11:10)
[2021-04-22] MEDS ORDERED: SODIUM CHLORIDE 0.9% 500 ML 500 ML IV SCH ×2 (11:00)
[2021-04-22] MEDS ORDERED: METOPROLOL TARTRATE 5 MG/5 ML INJ IV ONE (11:09)
--- NOTE | 2021-04-22 11:09 | Progress Note ---
Assessment and Plan Assessment and plan: Chest pain New onset seizure ESRD S/p cardiac arrest. Elevated troponin Accelerated hypertension Encephalopathy. Abnormal MRI Anemia of chronic disease HIV 04/22/2021. Patient left the hospital on 04/21 AGAINST MEDICAL ADVICE and returned with complaint of back with chest pain nonradiating not exertional. Patient had a seizure activity afterwards had a cardiac arrest patient had a normal stress test and echocardiogram but having persistent chest pain with abnormal troponins. Patient also had hyperkalemia and required emergent dialysis on last admission. Other complications during the previous hospitalization included encephalopathy thought to be potentially related to new seizure activity but MRI was abnormal revealing findings suggestive of encephalitis vs PRES. cardiology consulted on this admission and plans for cardiac catheterization in a.m. Nephrology will also be consulted for ESRD. Infectious disease consulted for the questionable encephalitis. History Interval history: No new issues overnight. Hospitalist Physical - Constitutional Vitals: Temp Pulse Resp BP Pulse Ox 98.5 F 110 H 18 166/90 99 04/21/21 16:52 04/22/21 09:58 04/22/21 09:58 04/22/21 09:58 04/22/21 09:58 General appearance: Present: no acute distress, well-nourished - EENT Eyes: Present: PERRL, EOM intact ENT: hearing intact, clear oral mucosa, dentition normal - Neck Neck: Present: supple, normal ROM - Respiratory Respiratory effort: normal Respiratory: bilateral: CTA - Cardiovascular Rhythm: regular Heart Sounds: Present: S1 & S2. Absent: gallop, rub - Extremities Extremities: no ischemia, No edema, Full ROM - Abdominal General gastrointestinal: soft, non-tender, non-distended, normal bowel sounds - Integumentary Integumentary: Present: clear, warm, dry - Neurologic Neurologic: CNII-XII intact, moves all extremities HEART Score - HEART Score EKG: Non-specific Age: < 45 Risk factors: > 3 risk factors or hx of atherosclerotic disease Troponin: Troponin T 0.123 ng/mL (0.00-0.029) H* 04/22/21 06:14 Troponin: > 3x normal limit Results - Labs CBC & Chem 7: 04/21/21 17:04 04/22/21 06:14 Labs: Laboratory Last Values WBC 7.4 K/mm3 (4.5-11.0) 04/21/21 17:04 RBC 4.37 M/mm3 (3.65-5.03) 04/21/21 17:04 Hgb 10.5 gm/dl (11.8-15.2) L 04/21/21 17:04 Hct 31.6 % (35.5-45.6) L 04/21/21 17:04 MCV 72 fl (84-94) L 04/21/21 17:04 MCH 24 pg (28-32) L 04/21/21 17:04 MCHC 33 % (32-34) 04/21/21 17:04 RDW 19.3 % (13.2-15.2) H 04/21/21 17:04 Plt Count 293 K/mm3 (140-440) 04/21/21 17:04 Lymph % (Auto) 13.7 % (13.4-35.0) 04/21/21 17:04 [place] % (Auto) 9.6 % (0.0-7.3) H 04/21/21 17:04 Eos % (Auto) 3.4 % (0.0-4.3) 04/21/21 17:04 Baso % (Auto) 0.9 % (0.0-1.8) 04/21/21 17:04 Lymph # (Auto) 1.0 K/mm3 (1.2-5.4) L 04/21/21 17:04 [place] # (Auto) 0.7 K/mm3 (0.0-0.8) 04/21/21 17:04 Eos # (Auto) 0.3 K/mm3 (0.0-0.4) 04/21/21 17:04 Baso # (Auto) 0.1 K/mm3 (0.0-0.1) 04/21/21 17:04 Seg Neutrophils % 72.4 % (40.0-70.0) H 04/21/21 17:04 Seg Neutrophils # 5.4 K/mm3 (1.8-7.7) 04/21/21 17:04 PT 12.4 Sec. (12.2-14.9) 04/21/21 17:04 INR 0.88 (0.87-1.13) 04/21/21 17:04 APTT 27.9 Sec. (24.2-36.6) 04/21/21 17:04 Sodium 139 mmol/L (137-145) 04/22/21 06:14 Potassium 3.8 mmol/L (3.6-5.0) 04/22/21 06:14 Chloride 93.1 mmol/L (98-107) L 04/22/21 06:14 Carbon Dioxide 26 mmol/L (22-30) 04/22/21 06:14 Anion Gap 24 mmol/L 04/22/21 06:14 BUN 68 mg/dL (9-20) H 04/22/21 06:14 Creatinine 13.4 mg/dL (0.8-1.3) H 04/22/21 06:14 Estimated GFR 6 ml/min 04/22/21 06:14 BUN/Creatinine Ratio 5 % 04/22/21 06:14 Glucose 94 mg/dL (75-100) 04/22/21 06:14 Calcium 8.3 mg/dL (8.4-10.2) L 04/22/21 06:14 Magnesium 1.90 mg/dL (1.7-2.3) 04/21/21 17:04 Total Bilirubin 0.30 mg/dL (0.1-1.2) 04/21/21 17:04 AST 31 units/L (5-40) 04/21/21 17:04 ALT 13 units/L (7-56) 04/21/21 17:04 Alkaline Phosphatase 95 units/L (35-129) 04/21/21 17:04 Troponin T 0.123 ng/mL (0.00-0.029) H* 04/22/21 06:14 Total Protein 7.0 g/dL (6.3-8.2) 04/21/21 17:04 Albumin 4.0 g/dL (3.9-5) 04/21/21 17:04 Albumin/Globulin Ratio 1.3 % 04/21/21 17:04 Active Medications - Current Medications Current Medications: Generic Name Dose Route Start Last Admin Trade Name Freq PRN Reason Stop Dose Admin Acetaminophen 650 mg 04/21/21 22:26 Acetaminophen 325 Mg Tab PO Q4H PRN Pain, Mild (1-3) Amlodipine Besylate 5 mg 04/22/21 10:00 Amlodipine 5 Mg Tab PO QDAY ZEE Atorvastatin Calcium 40 mg 04/22/21 22:00 Atorvastatin 40 Mg Tab PO QHS [facility] Dextrose 50 ml 04/21/21 22:26 Dextrose 50% In Water (25gm) 50 Ml Syringe IV Q30MIN PRN Hypoglycemia Protocol Docusate Sodium 100 mg 04/22/21 10:00 Docusate Sodium 100 Mg Cap PO BID [facility] Heparin Sodium (Porcine) 5,000 unit 04/22/21 10:00 Heparin 5,000 Unit/1 Ml Vial SUB-Q Q12HR [facility] Hydralazine HCl 50 mg 04/22/21 10:00 Hydralazine 25 Mg Tab PO BID [facility] Hydromorphone HCl 0.5 mg 04/21/21 22:26 Hydromorphone 1 Mg/1 Ml Inj IV Q3H PRN Pain , Severe (7-10) Sodium Chloride 500 mls @ 50 mls/hr 04/22/21 11:00 Nacl 0.9% 500 Ml IV 04/22/21 19:00 DIRECT [facility] Sodium Chloride 500 mls @ 50 mls/hr 04/22/21 11:00 Nacl 0.9% 500 Ml IV 04/22/21 20:59 DIRECT [facility] Insulin Human Lispro 0 unit 04/22/21 07:30 04/22/21 07:38 Insulin Lispro 100 Unit/Ml SUB-Q Not Given ACHS [facility] Protocol Lacosamide 50 mg 04/22/21 10:00 Lacosamide 50 Mg Tab PO Q12HR [facility] Lamivudine 150 mg 04/22/21 10:00 Lamivudine 150 Mg Tab PO DAILY [facility] Naloxone HCl 0.1 mg 04/21/21 22:26 Naloxone 0.4 Mg/1 Ml Inj IV Q2MIN PRN Res Rate </= 8 or 02 SAT < 92% Nitroglycerin 0.4 mg 04/21/21 22:26 Nitroglycerin 0.4 Mg Tab Subl SL .Q5MIN PRN Chest Pain Ondansetron HCl 4 mg 04/21/21 22:26 Ondansetron 4 Mg/2 Ml Inj IV Q6H PRN Nausea And Vomiting Oxycodone/Acetaminophen 1 tab 04/21/21 22:26 Oxycodone /Acetaminophen 5-325mg Tab PO Q6H PRN Pain, Moderate (4-6) Sodium Chloride 10 ml 04/22/21 10:00 Sodium Chloride 0.9% 10 Ml Flush Syringe IV BID [facility] Sodium Chloride 10 ml 04/21/21 22:26 Sodium Chloride 0.9% 10 Ml Flush Syringe IV PRN PRN LINE FLUSH Tenofovir Disoproxil Fumarate 300 mg 04/22/21 10:00 Tenofovir 300 Mg Tab PO Th ZEE
[2021-04-22] MEDS ORDERED: traMADol 50 MG TAB PO PRN (12:00)
--- NOTE | 2021-04-22 12:32 | Electrocardiograph Report ---
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
--- NOTE | 2021-04-22 12:42 | Cardiac Catherization Report ---
DATE OF SERVICE: 04/22/2021 LEFT HEART CATHETERIZATION CLINICAL INFORMATION: This is a 26-year-old gentleman with end-stage renal disease on hemodialysis, HIV, hypertension, presents back with chest pain with abnormal troponin despite negative stress test and echocardiogram. He is here for left heart cath. Left heart cath performed in the right common femoral artery, sterile technique, local anesthesia, 5 Australian groin sheath inserted. Left system engaged with JL3.5 catheter. Left main is large and patent. LAD is large caliber and patent. Circumflex, large caliber vessel, goes into large caliber. OM1, OM2 are patent. RCA is engaged with JR4 catheter, large dominant vessel, patent, bifurcates into medium caliber PDA, PLV that are patent. LV gram done in [place] and ALEX view shows normal LV function, LVEDP is 15 mmHg, LV is 154, aortic is 154/105. No gradient across the aortic valve on pullback. A 5-Australian catheters all taken over guidewire; 5-Australian groin sheath was discontinued, manual pressure held. No hematoma, no bleeding. SUMMARY: Normal coronaries, normal LV function. The patient was done with moderate sedation, started at 11:00, finished at 11:15. TID: [id number] RECEIPT: [id number] NICK/DEIRDRE
[2021-04-22] MEDS ORDERED: SODIUM CHLORIDE 0.9% 100 ML IV PRN (14:00)
[2021-04-22] MEDS: DOCUSATE SODIUM 100 MG CAP PO SCH ×2 (15:34→23:36)
[2021-04-22] MEDS: HEPARIN 5,000 UNIT/1 ML VIAL SUB-Q SCH ×2 (15:34→23:36)
[2021-04-22] MEDS: hydrALAZINE 25 MG TAB PO SCH ×3 (15:34→23:36)
[2021-04-22] MEDS: DOLUTEGRAVIR 50 MG TAB PO SCH (15:37)
[2021-04-22] MEDS: LACOSAMIDE 50 MG TAB PO SCH ×2 (15:37→23:35)
--- NOTE | 2021-04-22 16:30 | Progress Note ---
Assessment and Plan Cultures: Blood culture 04/17/2021 no growth today. Urine culture 04/17/2021 no growth. Sputum culture 717 pending. Assessment: 26-year-old male with history of HIV infection since 2017, sees [place] [facility], on tivicay for 3 years?, End-stage renal disease on hemodialysis, hypertension, admitted on 04/16/2021 secondary to seizure-like activity and cardiac arrest in route: #Acute encephalopathy with new onset seizure: Brain MRI shows abnormal signal in the brainstem and thalami, atypical PRES (posterior reversible encephalopathy syndrome) with status epilecticus and was c/o double vision. Currently asymptomatic. I do not suspect opportunistic infection however patient h/o ART intake is questionable ? only on one component (tivicay). PRES is rare in virological suppresed HIV patients. DDX: PRES induced by hypertensive crisis, disseminated zoster, PML. #Hypertensive crisis #New seizures with status epilepticus #Status post cardiac arrest: patient developed a seizure episode which could not be stopped, went into ventricular tachycardia, patient was shocked and went into cardiac arrest, initial rhythm was PEA patient received CPR. #UTI: Mild #End-stage renal disease on hemodialysis #HIV infection: Since 2017, patient is MSM, does not know his baseline CD4 and viral load, he believes he only takes tivicay which is an incomplete regimen Recommendations: -Obtain lumbar puncture CSF for cell count, differential, protein, glucose, MIRIAM virus DNA PCR, VZV PCR/serology, cryptococcal antigen, VDRL, Gram and culture -Obtain CD4, viral load -Obtain records from [place] [facility] -Continue renally dosed lamivudine, tenofovir, add dolutegravir -Obtain cryptococcus serum antigen -Patient is currently asymptomatic we will hold off on any therapeutics at this time Will follow. Sheyla Pittman MD Infectious Diseases [employer] [facility] M [phone] O [phone] Subjective Date of service: 04/22/21 Principal diagnosis: PRES Interval history: Readmitted, patient left AMA. See full consultation 04/20/2021. Currently asymptomatic. Denies any headache, diplopia, new seizures. 26-year-old male with history of HIV infection since 2016, sees [place] [facility], tivicay?, End-stage renal disease on hemodialysis, hypertension, admitted on 04/16/2021 secondary to seizure-like activity and cardiac arrest in route. Patient initially walked to the ambulance. Patient is not the best historian, he does not remember any details of recent history. He does report he had a seizure 3 months before admission. Unfortunately, patient developed a seizure episode which could not be stopped, went into ventricular tachycardia, patient was shocked and went into cardiac arrest, initial rhythm was PEA patient received CPR. On arrival, temperature 97.6, HR 132, RR 20, O2 sat 100%, BP 241/149. Initial WBC 9.7. Hemoglobin 11.9. Platelets 369. Creatinine 17.9. Urinalysis with 51 WBCs, trace leukocyte esterase. UDS negative. Patient was intubated on arrival. Blood culture 04/17/2021 no growth today. Urine culture 04/17/2021 no growth. Sputum culture 717 pending. Brain MRI shows abnormal signal in the brainstem and thalami, atypical PRES. Stress test was negative. Transthoracic echo EF 55 to 60%. Objective - Exam Narrative Exam: General appearance: Alert in NAD pleasant Eyes: anicteric sclerae, moist conjunctivae; no lid-lag; PERRLA HENT: Normocephalic, Atraumatic; normal external ears, nares open, oropharynx clear with moist mucous membranes and no oral thrush Neck: supple, tracheal midline, no JVD Lungs: CTA, with normal respiratory effort and no intercostal retractions CV: RRR no murmur Abdomen: Soft, non-tender; no masses or hepatosplenomegaly Extremities: no edema, no cyanosis Skin: No rash. Psych: no agitated Neuro: alert and oriented x 3. Moving all extermities - Constitutional Vitals: Vital Signs Temp Pulse Resp BP Pulse Ox 98.4 F 96 H 14 150/92 98 04/22/21 11:45 04/22/21 15:00 04/22/21 15:00 04/22/21 15:00 04/22/21 15:00 Temperature -Last 24 Hours Temperature 98.4 F Temperature 98.5 F - Labs CBC & Chem 7: 04/21/21 17:04 04/22/21 06:14 Labs: Abnormal lab results 04/21/21 04/21/21 04/21/21 Range/Units 17:04 17:04 20:49 Hgb 10.5 L (11.8-15.2) gm/dl Hct 31.6 L (35.5-45.6) % MCV 72 L (84-94) fl MCH 24 L (28-32) pg RDW 19.3 H (13.2-15.2) % [place] % (Auto) 9.6 H (0.0-7.3) % Lymph # (Auto) 1.0 L (1.2-5.4) K/mm3 Seg Neutrophils % 72.4 H (40.0-70.0) % Sodium 136 L (137-145) mmol/L Chloride 91.5 L (98-107) mmol/L BUN 54 H (9-20) mg/dL Creatinine 13.0 H (0.8-1.3) mg/dL Glucose 145 H (75-100) mg/dL Calcium 7.8 L (8.4-10.2) mg/dL Troponin T 0.142 H* 0.132 H* (0.00-0.029) ng/mL 04/22/21 04/22/21 Range/Units 06:14 06:14 Hgb (11.8-15.2) gm/dl Hct (35.5-45.6) % MCV (84-94) fl MCH (28-32) pg RDW (13.2-15.2) % [place] % (Auto) (0.0-7.3) % Lymph # (Auto) (1.2-5.4) K/mm3 Seg Neutrophils % (40.0-70.0) % Sodium (137-145) mmol/L Chloride 93.1 L (98-107) mmol/L BUN 68 H (9-20) mg/dL Creatinine 13.4 H (0.8-1.3) mg/dL Glucose (75-100) mg/dL Calcium 8.3 L (8.4-10.2) mg/dL Troponin T 0.123 H* (0.00-0.029) ng/mL
[2021-04-22] MEDS: LISINOPRIL 40 MG TAB PO SCH (23:35)
[2021-04-22] MEDS: carvediloL 6.25 MG TAB PO SCH (23:36)
[2021-04-23] MEDS: hydrALAZINE 20 MG/1 ML INJ IV PRN ×3 (04:33→23:27)
[2021-04-23 05:17] LABS: Basophils % (Auto) 0.5 % (0.0-1.8); Eosinophils # (Auto) 0.2 K/mm3 (0.0-0.4); Eosinophils % (Auto) 3.2 % (0.0-4.3); Hematocrit 24.7 % (35.5-45.6); Hemoglobin 7.9 gm/dl (11.8-15.2); Lymphocytes # (Auto) 1.1 K/mm3 (1.2-5.4); Lymphocytes % (Auto) 17.8 % (13.4-35.0); Mean Corpuscular HGB Conc 32 % (32-34); Mean Corpuscular Volume 74 fl (84-94); Monocytes # (Auto) 0.7 K/mm3 (0.0-0.8); Monocytes % (Auto) 11.2 % (0.0-7.3); Platelet Count 209 K/mm3 (140-440); Red Blood Count 3.35 M/mm3 (3.65-5.03); Red Cell Distribution Width 19.5 % (13.2-15.2)
[2021-04-23 05:34] LABS: Calcium 7.8 mg/dL (8.4-10.2)
[2021-04-23] MEDS: HYDROmorphone 1 MG/1 ML INJ IV PRN ×4 (05:35→21:25)
[2021-04-23] MEDS: ONDANSETRON 4 MG/2 ML INJ IV PRN (05:36)
[2021-04-23] MEDS: INSULIN LISPRO 100 UNIT/ML SUB-Q SCH ×4 (06:43→21:22)
[2021-04-23] MEDS ORDERED: NIFEdipine XL 30 MG TAB PO SCH ×3 (10:00→22:00)
--- NOTE | 2021-04-23 10:15 | Procedure Note ---
Date of procedure: 04/23/21 Pre-op diagnosis: encephalopathy, evaluate for meningitis Post-op diagnosis: same Procedure: Flouro guided lumbar puncture Findings: elevated CSF pressure 32cm H2O Anesthesia: local Surgeon: MEL CASTANON Estimated blood loss: none Pathology: list (4 CSF tubes, approximately 4cc each) Specimen disposition: to lab Condition: stable Disposition: floor
--- NOTE | 2021-04-23 10:28 | Progress Note ---
Assessment and Plan Assessment and plan: Chest pain New onset seizure ESRD S/p cardiac arrest. Elevated troponin Accelerated hypertension Encephalopathy. Abnormal MRI Anemia of chronic disease HIV 04/22/2021. Patient left the hospital on 04/21 AGAINST MEDICAL ADVICE and returned with complaint of back with chest pain nonradiating not exertional. Patient had a seizure activity afterwards had a cardiac arrest patient had a normal stress test and echocardiogram but having persistent chest pain with abnormal troponins. Patient also had hyperkalemia and required emergent dialysis on last admission. Other complications during the previous hospitalization included encephalopathy thought to be potentially related to new seizure activity but MRI was abnormal revealing findings suggestive of encephalitis vs PRES. cardiology consulted on this admission and plans for cardiac catheterization in a.m. Nephrology will also be consulted for ESRD. Infectious disease consulted for the questionable encephalitis. 04/23/2021. Patient is s/p lumbar puncture. Follow-up CSF for cell count, differential, protein, glucose, MIRIAM virus DNA PCR, VZV PCR/serology, cryptococcal antigen, VDRL, Gram and culture. Continue antiretrovirals per ID. Follow-up cryptococcal serum antigen and CD4/viral load. Patient with accelerated hypertension. Increase Procardia from 30 mg daily to 60 mg twice daily. Continue hydralazine 50 mg twice daily and lisinopril 40 mg daily. Will likely increase hydralazine if blood pressure remains elevated. Continue Vimpat. No new seizure activity History Interval history: No new issues overnight. Hospitalist Physical - Constitutional Vitals: Temp Pulse Resp BP Pulse Ox 98.1 F 102 H 18 192/127 97 04/23/21 08:08 04/23/21 08:08 04/23/21 08:08 04/23/21 08:08 04/23/21 08:08 General appearance: Present: no acute distress, well-nourished - EENT Eyes: Present: PERRL, EOM intact ENT: hearing intact, clear oral mucosa, dentition normal - Neck Neck: Present: supple, normal ROM - Respiratory Respiratory effort: normal Respiratory: bilateral: CTA - Cardiovascular Rhythm: regular Heart Sounds: Present: S1 & S2. Absent: gallop, rub - Extremities Extremities: no ischemia, No edema, Full ROM - Abdominal General gastrointestinal: soft, non-tender, non-distended, normal bowel sounds - Integumentary Integumentary: Present: clear, warm, dry - Neurologic Neurologic: CNII-XII intact, moves all extremities HEART Score - HEART Score EKG: Non-specific Age: < 45 Risk factors: > 3 risk factors or hx of atherosclerotic disease Troponin: Troponin T 0.123 ng/mL (0.00-0.029) H* 04/22/21 06:14 Troponin: > 3x normal limit Results - Labs CBC & Chem 7: 04/23/21 04:49 04/23/21 04:49 Labs: Laboratory Last Values WBC 6.2 K/mm3 (4.5-11.0) 04/23/21 04:49 RBC 3.35 M/mm3 (3.65-5.03) L 04/23/21 04:49 Hgb 7.9 gm/dl (11.8-15.2) L 04/23/21 04:49 Hct 24.7 % (35.5-45.6) L D 04/23/21 04:49 MCV 74 fl (84-94) L 04/23/21 04:49 MCH 24 pg (28-32) L 04/23/21 04:49 MCHC 32 % (32-34) 04/23/21 04:49 RDW 19.5 % (13.2-15.2) H 04/23/21 04:49 Plt Count 209 K/mm3 (140-440) 04/23/21 04:49 Lymph % (Auto) 17.8 % (13.4-35.0) 04/23/21 04:49 [place] % (Auto) 11.2 % (0.0-7.3) H 04/23/21 04:49 Eos % (Auto) 3.2 % (0.0-4.3) 04/23/21 04:49 Baso % (Auto) 0.5 % (0.0-1.8) 04/23/21 04:49 Lymph # (Auto) 1.1 K/mm3 (1.2-5.4) L 04/23/21 04:49 [place] # (Auto) 0.7 K/mm3 (0.0-0.8) 04/23/21 04:49 Eos # (Auto) 0.2 K/mm3 (0.0-0.4) 04/23/21 04:49 Baso # (Auto) 0.0 K/mm3 (0.0-0.1) 04/23/21 04:49 Seg Neutrophils % 67.3 % (40.0-70.0) 04/23/21 04:49 Seg Neutrophils # 4.2 K/mm3 (1.8-7.7) 04/23/21 04:49 PT 12.4 Sec. (12.2-14.9) 04/21/21 17:04 INR 0.88 (0.87-1.13) 04/21/21 17:04 APTT 27.9 Sec. (24.2-36.6) 04/21/21 17:04 Sodium 136 mmol/L (137-145) L 04/23/21 04:49 Potassium 4.1 mmol/L (3.6-5.0) 04/23/21 04:49 Chloride 96.3 mmol/L (98-107) L 04/23/21 04:49 Carbon Dioxide 26 mmol/L (22-30) 04/23/21 04:49 Anion Gap 18 mmol/L 04/23/21 04:49 BUN 32 mg/dL (9-20) H 04/23/21 04:49 Creatinine 9.0 mg/dL (0.8-1.3) H 04/23/21 04:49 Estimated GFR 9 ml/min 04/23/21 04:49 BUN/Creatinine Ratio 4 % 04/23/21 04:49 Glucose 118 mg/dL (75-100) H 04/23/21 04:49 POC Glucose 94 mg/dL (70-105) 04/22/21 20:43 Calcium 7.8 mg/dL (8.4-10.2) L 04/23/21 04:49 Magnesium 1.90 mg/dL (1.7-2.3) 04/21/21 17:04 Total Bilirubin 0.30 mg/dL (0.1-1.2) 04/21/21 17:04 AST 31 units/L (5-40) 04/21/21 17:04 ALT 13 units/L (7-56) 04/21/21 17:04 Alkaline Phosphatase 95 units/L (35-129) 04/21/21 17:04 Troponin T 0.123 ng/mL (0.00-0.029) H* 04/22/21 06:14 Total Protein 7.0 g/dL (6.3-8.2) 04/21/21 17:04 Albumin 4.0 g/dL (3.9-5) 04/21/21 17:04 Albumin/Globulin Ratio 1.3 % 04/21/21 17:04 Active Medications - Current Medications Current Medications: Generic Name Dose Route Start Last Admin Trade Name Freq PRN Reason Stop Dose Admin Acetaminophen 650 mg 04/21/21 22:26 Acetaminophen 325 Mg Tab PO Q4H PRN Pain, Mild (1-3) Atorvastatin Calcium 40 mg 04/22/21 22:00 04/22/21 23:36 Atorvastatin 40 Mg Tab PO 40 mg QHS ZEE Administration Carvedilol 6.25 mg 04/22/21 23:00 04/22/21 23:36 Carvedilol 6.25 Mg Tab PO 6.25 mg BID@0800,1700 ZEE Administration Clonidine HCl 0.2 mg 04/23/21 10:00 Clonidine 0.2 Mg Tab PO Q12HR ZEE Dextrose 50 ml 04/21/21 22:26 Dextrose 50% In Water (25gm) 50 Ml Syringe IV Q30MIN PRN Hypoglycemia Protocol Docusate Sodium 100 mg 04/22/21 10:00 04/22/21 23:36 Docusate Sodium 100 Mg Cap PO 100 mg BID ZEE Administration Heparin Sodium (Porcine) 5,000 unit 04/22/21 10:00 04/22/21 23:36 Heparin 5,000 Unit/1 Ml Vial SUB-Q 5,000 unit Q12HR ZEE Administration Hydralazine HCl 50 mg 04/22/21 10:00 04/22/21 23:36 Hydralazine 25 Mg Tab PO 50 mg BID ZEE Administration Hydralazine HCl 10 mg 04/23/21 04:20 04/23/21 04:33 Hydralazine 20 Mg/1 Ml Inj IV 10 mg Q6H PRN Administration Blood Pressure Hydromorphone HCl 0.5 mg 04/21/21 22:26 04/23/21 09:01 Hydromorphone 1 Mg/1 Ml Inj IV 0.5 mg Q3H PRN Administration Pain , Severe (7-10) Sodium Chloride 100 mls @ 999 mls/hr 04/22/21 14:00 Nacl 0.9% IV SHYANNE PRN Hypotension Insulin Human Lispro 0 unit 04/22/21 07:30 04/23/21 06:43 Insulin Lispro 100 Unit/Ml SUB-Q Not Given ACHS [facility] Protocol Lacosamide 50 mg 04/22/21 10:00 04/22/21 23:35 Lacosamide 50 Mg Tab PO 50 mg Q12HR ZEE Administration Lamivudine 150 mg 04/22/21 10:00 04/22/21 15:38 Lamivudine 150 Mg Tab PO 150 mg DAILY ZEE Administration Lisinopril 40 mg 04/22/21 22:51 04/22/21 23:35 Lisinopril 40 Mg Tab PO 40 mg QDAY [facility] Administration Naloxone HCl 0.1 mg 04/21/21 22:26 Naloxone 0.4 Mg/1 Ml Inj IV Q2MIN PRN Res Rate </= 8 or 02 SAT < 92% Nifedipine 30 mg 04/23/21 10:00 Nifedipine Xl 30 Mg Tab PO QDAY ZEE Nitroglycerin 0.4 mg 04/21/21 22:26 Nitroglycerin 0.4 Mg Tab Subl SL .Q5MIN PRN Chest Pain Ondansetron HCl 4 mg 04/21/21 22:26 04/23/21 05:36 Ondansetron 4 Mg/2 Ml Inj IV 4 mg Q6H PRN Administration Nausea And Vomiting Oxycodone/Acetaminophen 1 tab 04/21/21 22:26 04/23/21 08:01 Oxycodone /Acetaminophen 5-325mg Tab PO 1 tab Q6H PRN Administration Pain, Moderate (4-6) Sodium Chloride 10 ml 04/22/21 10:00 04/22/21 23:49 Sodium Chloride 0.9% 10 Ml Flush Syringe IV 10 ml BID ZEE Administration Sodium Chloride 10 ml 04/21/21 22:26 Sodium Chloride 0.9% 10 Ml Flush Syringe IV PRN PRN LINE FLUSH Tenofovir Disoproxil Fumarate 300 mg 04/22/21 10:00 04/22/21 15:37 Tenofovir 300 Mg Tab PO 300 mg Th ZEE Administration Tramadol HCl 50 mg 04/22/21 12:00 Tramadol 50 Mg Tab PO Q4H PRN Pain, Mild (1-3)
[2021-04-23] MEDS: HEPARIN 5,000 UNIT/1 ML VIAL SUB-Q SCH ×2 (10:34→21:26)
[2021-04-23] MEDS: DOCUSATE SODIUM 100 MG CAP PO SCH ×2 (10:37→21:25)
[2021-04-23] MEDS: carvediloL 6.25 MG TAB PO SCH ×2 (10:37→18:16)
[2021-04-23] MEDS: LISINOPRIL 40 MG TAB PO SCH (10:37)
[2021-04-23] MEDS: LACOSAMIDE 50 MG TAB PO SCH ×2 (10:37→21:23)
[2021-04-23] MEDS: hydrALAZINE 25 MG TAB PO SCH ×2 (10:37→21:24)
[2021-04-23] MEDS: cloNIDine 0.2 MG TAB PO SCH ×2 (10:38→21:23)
[2021-04-23 10:43] LABS: Glucose,CSF 60 mg/dL
[2021-04-23 11:10] LABS: Appearance,CSF Clear; Red Blood Cell,CSF 0 /mm3 (0-0); White Blood Cell,CSF 1 /mm3 (1-10)
--- NOTE | 2021-04-23 12:09 | Fluoroscopy Report ---
LUMBAR PUNCTURE INDICATION : Meningitis, encephalitis PROCEDURE: The risks (including but not limited to bleeding, infection, and spinal headache) and dayanara efits were explained to the patient and informed consent was obtained. A time out procedure was perf ormed. The procedure site was prepped and draped in the usual sterile fashion and lidocaine was used for local anesthesia. Under fluoroscopic guidance, a 22-gauge spinal needle was advanced into the L3-4 interlaminar space. The opening pressure was markedly elevated measuring 320 mm H2O which was calculated by adding the le ngth of the needle (9 cm) to the height of the CSF column. 4 separate collection tubes were used to o btain approximately 4 cc of CSF each. The closing pressure measured 160 mm of water. Samples were sen t to the lab per the ordering physician specifications for further evaluation. The patient tolerated the procedure well with no complications. IMPRESSION: Successful lumbar puncture as outlined above. Opening pressure was 320 mm H20. Fluoroscopic time: 0.4 Number of fluoroscopic images: 1 Signer Name: Vic Hickman Jr, MD Signed: 04/23/2021 12:05 PM Workstation Name: [id number]
[2021-04-23] MEDS: DOLUTEGRAVIR 50 MG TAB PO SCH (12:42)
--- NOTE | 2021-04-23 13:26 | Progress Note ---
Assessment and Plan 36-year-old male with HIV end-stage renal disease on hemodialysis hypertension seizure activity with abnormal troponin suggestive of non-STEMI type II in view of negative ischemic evaluation and recurrent chest pain abnormal troponin risk factors scheduled for cardiac catheterization for suspected coronary arterial disease NSTEMI type II * EKG shows no sign of acute ischemic changes changes. AMI ruled out * [facility] 04/22/2021- Shows normal coronary arteries normal LV function HTN * Optimize hypertension regimen: continue amlodipine 5mg QD, Coreg 6.25 BID, Hydralizine 50mg BID, Lisinopril 40mg QD. Initiated clonidine 0.2mg PO BID ESRD * Nephrology is following Patient is stable and may be discharged from a cardiac standpoint. Patient seen in conjunction with Dr. Castillo who agrees with this plan of care. Will see as needed - Patient Problems (1) ESRD needing dialysis Current Visit: Yes Status: Chronic (2) Hypertensive emergency Current Visit: No Status: Acute (3) NSTEMI (non-ST elevated myocardial infarction) Current Visit: No Status: Acute (4) Seizure-like activity Current Visit: No Status: Acute (5) AIDS Current Visit: No Status: Chronic (6) ESRD (end stage renal disease) on dialysis Current Visit: No Status: Chronic (7) Medical non-compliance Current Visit: No Status: Chronic Subjective Date of service: 04/23/21 Principal diagnosis: PRES Interval history: Patient resting in bed comfortably. Patient has no complaints. Denies SOB or chest pain Patient sinus 90s with no events on monitor Objective Last Vital Signs Temp 98.4 F 04/23/21 12:18 Pulse 91 H 04/23/21 12:18 Resp 18 04/23/21 12:18 BP 155/100 04/23/21 12:18 Pulse Ox 97 04/23/21 12:18 - Physical Examination General: No Apparent Distress HEENT: Positive: PERRL, Mucus Membranes Moist Neck: Positive: neck supple, trachea midline Cardiac: Positive: Reg Rate and Rhythm Lungs: Positive: Normal Breath Sounds Neuro: Positive: Grossly Intact Abdomen: Positive: Soft, Active Bowel Sounds. Negative: Tender, Distended Skin: Positive: Clear Incision: Cardiac Cath Site Musculoskeletal: No Pain, Normal Range of Motion Extremities: Present: normal. Absent: edema - Labs and Meds CBC 04/23/21 Range/Units 04:49 WBC 6.2 (4.5-11.0) K/mm3 RBC 3.35 L (3.65-5.03) M/mm3 Hgb 7.9 L (11.8-15.2) gm/dl Hct 24.7 L D (35.5-45.6) % Plt Count 209 (140-440) K/mm3 Lymph # (Auto) 1.1 L (1.2-5.4) K/mm3 [place] # (Auto) 0.7 (0.0-0.8) K/mm3 Eos # (Auto) 0.2 (0.0-0.4) K/mm3 Baso # (Auto) 0.0 (0.0-0.1) K/mm3 Comprehensive Metabolic Panel 04/23/21 Range/Units 04:49 Sodium 136 L (137-145) mmol/L Potassium 4.1 (3.6-5.0) mmol/L Chloride 96.3 L (98-107) mmol/L Carbon Dioxide 26 (22-30) mmol/L BUN 32 H (9-20) mg/dL Creatinine 9.0 H (0.8-1.3) mg/dL Glucose 118 H (75-100) mg/dL Calcium 7.8 L (8.4-10.2) mg/dL - Imaging and Cardiology Stress echo: report reviewed (Normal myocardial perfusion) Echo: report reviewed (Normal LV function no significant regurgitation) - Telemetry EKG Rhythm: Sinus Rhythm - EKG Sinus rhythms and dysrhythmias: sinus rhythm
[2021-04-23] MEDS: lamiVUDine 50 MG/5 ML ORAL LIQD PO SCH (13:49)
--- NOTE | 2021-04-23 14:13 | Electrocardiograph Report ---
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
--- NOTE | 2021-04-23 14:14 | Electrocardiograph Report ---
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
--- NOTE | 2021-04-23 14:15 | XRay Report ---
LEFT SHOULDER 3 VIEWS INDICATION: shoulder pain. COMPARISON: None. IMPRESSION: Normal bone mineralization. No acute osseous abnormality or joint pathology is detected . The left humeral head appears slightly low riding with respect to the glenoid which could represent a joint effusion. The soft tissues are unremarkable otherwise. If further evaluation is needed, MRI is recommended. Signer Name: Vic Hickman Jr, MD Signed: 04/23/2021 2:10 PM Workstation Name: [id number]
[2021-04-23 14:25] LABS: Total Cells Counted 13 /mm3
--- NOTE | 2021-04-23 19:54 | Consultation ---
History of Present Illness - Reason for Consult Consult date: 04/23/21 end stage renal disease - History of Present Illness This is a 26-year-old man with end-stage renal disease on hemodialysis who was recently admitted to the hospital with seizure and cardiac arrest who left AGAINST MEDICAL ADVICE and then presented again due to chest pain. Nephrology was consulted for ESRD management. Patient denies headaches, chest pain, shortness of breath, presyncope and syncope. Past History Past Medical History: acute [place] (04/17/21 V. tach arrest), dialysis (//), ESRD, HIV/AIDS, hypertension, seizures Past Surgical History: Other (AV fistula) Social history: single, full code. denies: alcohol abuse, prescription drug abuse Family history: hypertension Medications and Allergies Allergies Allergy/AdvReac Type Severity Reaction Status Date / Time No Known Allergies Allergy Verified 04/16/21 23:39 Home Medications Medication Instructions Recorded Confirmed Last Taken Type Amlodipine Besylate 5 mg PO DAILY 04/18/21 04/22/21 04/21/21 History 5 mg Lamivudine 150 mg PO DAILY 04/18/21 04/22/21 04/21/21 History 150 mg Lisinopril 40 mg PO DAILY 04/18/21 04/22/21 04/21/21 History 40 mg Nifedipine ER 30 mg PO DAILY 04/18/21 04/22/21 04/21/21 History 30 mg Sevelamer Carbonate 800 mg PO TID 04/18/21 04/22/21 04/21/21 History 800 mg Tenofovir Disoproxil Fumarate 300 mg PO 1XW 04/18/21 04/22/21 04/21/21 History 300 mg Tivicay 50 mg PO DAILY 04/18/21 04/22/21 04/21/21 History 50 mg carvediloL 6.25 mg PO BID 04/18/21 04/22/21 04/21/21 History 6.25mg hydrALAZINE 50 mg PO BID 04/18/21 04/22/21 04/21/21 History 50 mg Active Meds: Active Medications Acetaminophen (Acetaminophen 325 Mg Tab) 650 mg PO Q4H PRN PRN Reason: Pain, Mild (1-3) Atorvastatin Calcium (Atorvastatin 40 Mg Tab) 40 mg PO QHS ZEE Last Admin: 04/22/21 23:36 Dose: 40 mg Documented by: Carvedilol (Carvedilol 6.25 Mg Tab) 6.25 mg PO BID@0800,1700 [facility] Last Admin: 04/23/21 18:16 Dose: 6.25 mg Documented by: Clonidine HCl (Clonidine 0.2 Mg Tab) 0.2 mg PO Q12HR [facility] Last Admin: 04/23/21 10:38 Dose: 0.2 mg Documented by: Dextrose (Dextrose 50% In Water (25gm) 50 Ml Syringe) 50 ml IV Q30MIN PRN; Protocol PRN Reason: Hypoglycemia Docusate Sodium (Docusate Sodium 100 Mg Cap) 100 mg PO BID [facility] Last Admin: 04/23/21 10:37 Dose: 100 mg Documented by: Heparin Sodium (Porcine) (Heparin 5,000 Unit/1 Ml Vial) 5,000 unit SUB-Q Q12HR [facility] Last Admin: 04/23/21 10:34 Dose: Not Given Documented by: Hydralazine HCl (Hydralazine 25 Mg Tab) 50 mg PO BID [facility] Last Admin: 04/23/21 10:37 Dose: 50 mg Documented by: Hydralazine HCl (Hydralazine 20 Mg/1 Ml Inj) 10 mg IV Q6H PRN PRN Reason: Blood Pressure Last Admin: 04/23/21 16:50 Dose: 10 mg Documented by: Hydromorphone HCl (Hydromorphone 1 Mg/1 Ml Inj) 0.5 mg IV Q3H PRN PRN Reason: Pain , Severe (7-10) Last Admin: 04/23/21 12:43 Dose: 0.5 mg Documented by: Sodium Chloride (Nacl 0.9%) 100 mls @ 999 mls/hr IV SHYANNE PRN PRN Reason: Hypotension Insulin Human Lispro (Insulin Lispro 100 Unit/Ml) 0 unit SUB-Q ACHS [facility]; Protocol Last Admin: 04/23/21 16:35 Dose: Not Given Documented by: Lacosamide (Lacosamide 50 Mg Tab) 50 mg PO Q12HR [facility] Last Admin: 04/23/21 10:37 Dose: 50 mg Documented by: Lamivudine (Lamivudine 50 Mg/5 Ml Oral Liqd) 50 mg PO DAILY [facility] Last Admin: 04/23/21 13:49 Dose: Not Given Documented by: Lisinopril (Lisinopril 40 Mg Tab) 40 mg PO QDAY [facility] Last Admin: 04/23/21 10:37 Dose: 40 mg Documented by: Naloxone HCl (Naloxone 0.4 Mg/1 Ml Inj) 0.1 mg IV Q2MIN PRN PRN Reason: Res Rate </= 8 or 02 SAT < 92% Nifedipine (Nifedipine Xl 30 Mg Tab) 60 mg PO Q12HR [facility] Nitroglycerin (Nitroglycerin 0.4 Mg Tab Subl) 0.4 mg SL .Q5MIN PRN PRN Reason: Chest Pain Ondansetron HCl (Ondansetron 4 Mg/2 Ml Inj) 4 mg IV Q6H PRN PRN Reason: Nausea And Vomiting Last Admin: 04/23/21 05:36 Dose: 4 mg Documented by: Oxycodone/Acetaminophen (Oxycodone /Acetaminophen 5-325mg Tab) 1 tab PO Q6H PRN PRN Reason: Pain, Moderate (4-6) Last Admin: 04/23/21 08:01 Dose: 1 tab Documented by: Sodium Chloride (Sodium Chloride 0.9% 10 Ml Flush Syringe) 10 ml IV BID [facility] Last Admin: 04/23/21 10:35 Dose: 10 ml Documented by: Sodium Chloride (Sodium Chloride 0.9% 10 Ml Flush Syringe) 10 ml IV PRN PRN PRN Reason: LINE FLUSH Tenofovir Disoproxil Fumarate (Tenofovir 300 Mg Tab) 300 mg PO Th [facility] Last Admin: 04/22/21 15:37 Dose: 300 mg Documented by: Tramadol HCl (Tramadol 50 Mg Tab) 50 mg PO Q4H PRN PRN Reason: Pain, Mild (1-3) Review of Systems Constitutional: no fever, no chills Ears, nose, mouth and throat: no nasal congestion, no nasal discharge Cardiovascular: chest pain, no syncope Respiratory: no cough, no cough with sputum Gastrointestinal: no nausea, no vomiting Musculoskeletal: no muscle weakness, no muscle cramps Integumentary: no rash, no redness Neurological: no weakness, no parathesias Psychiatric: no anxiety, no paranoia Endocrine: no polyphagia, no excessive thirst Allergic/Immunologic: no wheezing Exam - Vital Signs Vital signs: Vital Signs Temp Pulse Resp BP Pulse Ox 98.5 F 110 H 22 149/92 98 04/21/21 16:52 04/21/21 16:52 04/21/21 16:52 04/21/21 16:52 04/21/21 16:52 - Physical Exam Narrative exam: General: No acute distress HEENT: Oral mucosa moist Neck: Supple, no JVD Chest: Clear to auscultation bilaterally Heart: RRR, S1 and S2, no pericardial rub Abdomen: Soft, nontender, no renal bruit Extremity: No peripheral cyanosis, edema Neurological: Alert, awake, no asterixis Dermatology: No skin rash Psych: No agitation Musculoskeletal: No joint effusion Results - Lab Results 04/23/21 04:49 04/23/21 04:49 Most recent lab results Calcium 7.8 mg/dL (8.4-10.2) L 04/23/21 04:49 Magnesium 1.90 mg/dL (1.7-2.3) 04/21/21 17:04 Assessment and Plan Assessment - End-stage renal disease on hemodialysis - Hypertension - Anemia of ESRD - Hyperparathyroidism - Hyperphosphatemia Recommendations - Continue HD TTS - Monitor labs and volume status daily and assess need for additional dialysis session - Continue home antihypertensives - Hold antihypertensives on hemodialysis days for systolics less than 160 - Epogen with HD once bp is better controlled - Check P - ESRD diet with 1.4 g/kg per day protein - Renally dose medication for creatinine clearance less than 15 cc/min
[2021-04-23] MEDS ORDERED: traZODone 50 MG TAB PO ONE (21:39)
[2021-04-24] MEDS: HYDROmorphone 1 MG/1 ML INJ IV PRN ×2 (05:04→14:11)
[2021-04-24] MEDS: hydrALAZINE 20 MG/1 ML INJ IV PRN (05:04)
[2021-04-24] MEDS: INSULIN LISPRO 100 UNIT/ML SUB-Q SCH ×2 (08:20→11:00)
--- NOTE | 2021-04-24 08:20 | Progress Note ---
Assessment and Plan Cultures: Blood culture 04/17/2021 no growth today. Urine culture 04/17/2021 no growth. Sputum culture 717 pending. Assessment: 26-year-old male with history of HIV infection since 2017, sees [place] [facility], on tivicay for 3 years?, End-stage renal disease on hemodialysis, hypertension, admitted on 04/16/2021 secondary to seizure-like activity and cardiac arrest in route: #Acute encephalopathy with new onset seizure: Brain MRI shows abnormal signal in the brainstem and thalami, atypical PRES (posterior reversible encephalopathy syndrome) with status epilecticus and was c/o double vision. Currently asymptomatic. I do not suspect opportunistic infection however patient h/o ART intake is questionable ? only on one component (tivicay). PRES is rare in virological suppressed HIV patients. DDX: PRES induced by hypertensive crisis, disseminated zoster, PML. S/p LP CSF not c/w meningitis, no pleocytosis or elevated protein. #Hypertensive crisis: better. #New seizures with status epilepticus. Controlled. #Status post cardiac arrest: patient developed a seizure episode which could not be stopped, went into ventricular tachycardia, patient was shocked and went into cardiac arrest, initial rhythm was PEA patient received CPR. #UTI: Mild #End-stage renal disease on hemodialysis #HIV infection: Since 2017, patient is MSM, does not know his baseline CD4 and viral load, he believes he only takes tivicay which is an incomplete regimen Recommendations: -Ok to dc -F/u CD4, viral load -F/u with [place] [facility] -Continue outpatient ART Will sign off Sheyla Pittman MD Infectious Diseases [employer] [facility] M [phone] O [phone] Subjective Date of service: 04/24/21 Principal diagnosis: PRES Interval history: Patient feels better. No headaches, no diplopia. Objective - Exam Narrative Exam: General appearance: Alert in NAD pleasant Eyes: anicteric sclerae, moist conjunctivae; no lid-lag; PERRLA HENT: Normocephalic, Atraumatic; normal external ears, nares open, oropharynx clear with moist mucous membranes and no oral thrush Neck: supple, tracheal midline, no JVD Lungs: CTA, with normal respiratory effort and no intercostal retractions CV: RRR no murmur Abdomen: Soft, non-tender; no masses or hepatosplenomegaly Extremities: no edema, no cyanosis Skin: No rash. Psych: no agitated Neuro: alert and oriented x 3. Moving all extermities - Constitutional Vitals: Vital Signs Temp Pulse Resp BP Pulse Ox 97.9 F 95 H 19 168/107 97 04/24/21 07:31 04/24/21 07:31 04/24/21 07:31 04/24/21 07:31 04/24/21 07:31 Temperature -Last 24 Hours Temperature 97.9 F Temperature 97.9 F Temperature 97.3 F Temperature 98.3 F Temperature 97.2 F Temperature 98.4 F - Labs CBC & Chem 7: 04/23/21 04:49 04/23/21 04:49
[2021-04-24] MEDS: carvediloL 6.25 MG TAB PO SCH (09:03)
[2021-04-24] MEDS ORDERED: hydrALAZINE 25 MG TAB PO SCH (09:09)
[2021-04-24] MEDS ORDERED: hydrALAZINE 100 MG TAB PO SCH ×2 (10:00→14:00)
[2021-04-24] MEDS ORDERED: ASPIRIN 81 MG TAB CHEW PO SCH (10:00)
[2021-04-24] MEDS: ONDANSETRON 4 MG/2 ML INJ IV PRN (10:07)
--- NOTE | 2021-04-24 10:26 | Discharge Summary ---
Providers - Providers Date of Admission: 04/21/21 22:27 Date of discharge: 04/24/21 Attending physician: AGNES MIGUEL 04/21/21 22:31 Consult to Cardiology [CONS] Routine Consulting Provider: DAIANA CALDERA Reason For Exam: CP, s/p vtach arrest 04/17, left ama 04/2104/22/21 07:39 Consult to Physician [CONS] Routine Comment: Consulting Provider: THOMAS ROOT Physician Instructions: Reason For Exam: r/o encephalitis per MRI, left AMA but now back 04/22/21 11:09 Consult to Physician [CONS] Routine Comment: Consulting Provider: ARIANNA ALATORRE Physician Instructions: Reason For Exam: ESRD 04/22/21 11:27 Consult to Cardiac Rehabilitation [CONS] Routine Reason For Exam: Cardiac Rehab Evaluation Primary care physician: [employer] Hospitalization Reason for admission: cp Condition: Critical Hospital course: 26-year-old patient who was admitted back to the hospital after he left the hospital on 04/21 AGAINST MEDICAL ADVICE and returned with complaint of back with chest pain nonradiating not exertional. On the previous hospitalization, patient had seizure activity afterwards had a cardiac arrest. The patient had work-up with cardiology consultation and noted to have a normal stress test and echocardiogram but presented back to the emergency department with persistent chest pain with abnormal troponins. Patient also had hyperkalemia and required emergent dialysis on last admission. Other complications during the previous hospitalization included encephalopathy thought to be potentially related to new seizure activity but MRI was abnormal revealing findings suggestive of encephalitis vs PRES. Cardiology was consulted again on this admission and recommended cardiac catheterization. Cardiac catheterization revealed normal coronaries and normal LV function. Nephrology will also consulted again for ESRD. Infectious disease consulted for the questionable encephalitis. Infectious disease recommended lumbar puncture that was negative and not consistent with meningitis with no pleocytosis or elevated protein. Patient also had accelerated hypertension treated with Procardia, hydralazine and lisinopril. Will likely increase hydralazine if blood pressure remains elevated. Continue Vimpat. Cardiology and infectious disease cleared the patient for discharge. Patient will resume hemodialysis as an outpatient. Dedicated discharge time 35 minutes Disposition: DC-01 TO HOME OR SELFCARE Final Discharge Diagnosis (Prints w/discharge instructions): Accelerated HTN, CP, GERD Core Measure Documentation - Palliative Care Palliative Care/ Comfort Measures: Not Applicable - Core Measures Any of the following diagnoses?: none Exam - Constitutional Vitals: Temp Pulse Resp BP Pulse Ox 98.3 F 98 H 16 190/116 97 04/24/21 09:30 04/24/21 09:40 04/24/21 09:30 04/24/21 09:40 04/24/21 08:00 General appearance: Present: no acute distress, well-nourished - EENT Eyes: Present: PERRL ENT: hearing intact, clear oral mucosa - Neck Neck: Present: supple, normal ROM - Respiratory Respiratory effort: normal Respiratory: bilateral: CTA - Cardiovascular Heart Sounds: Present: S1 & S2. Absent: rub, click - Extremities Extremities: pulses symmetrical, No edema Peripheral Pulses: within normal limits - Abdominal General gastrointestinal: Present: soft, non-tender, non-distended, normal bowel sounds Male genitourinary: Present: normal - Integumentary Integumentary: Present: clear, warm, dry - Musculoskeletal Musculoskeletal: gait normal, strength equal bilaterally - Psychiatric Psychiatric: appropriate mood/affect, intact judgment & insight - Neurologic Neurologic: CNII-XII intact, moves all extremities Plan Activity: advance as tolerated Weight Bearing Status: Weight Bear as Tolerated Diet: regular Follow up with: PRIMARY CARE, [Primary Care Provider] - 7 Days BATSHEVA JARVIS MD [Staff Physician] - 7 Days THOMAS ROOT MD [Staff Physician] - 7 Days ARIANNA ALATORRE MD [Staff Physician] - 7 Days Prescriptions: hydrALAZINE [Apresoline TAB] 100 mg PO TID #90 tab Aspirin [Aspirin BABY CHEW TAB] 81 mg PO QDAY #30 tab.chew cloNIDine [Catapres] 0.2 mg PO Q12HR #60 tablet carvediloL [Coreg] 6.25 mg PO BID@0800,1700 #60 tablet AtorvaSTATin [Lipitor] 40 mg PO QHS #30 tablet NIFEdipine XL [Procardia Xl] 90 mg PO Q12HR #60 tablet Dolutegravir [Tivicay] 50 mg PO DAILY #30 tablet Lacosamide [Vimpat] 50 mg PO Q12HR #60 tablet Tenofovir [Viread] 300 mg PO Th #6 tablet lisinopriL [Zestril TAB] 40 mg PO QDAY #30 tablet
[2021-04-24] MEDS ORDERED: NIFEdipine XL 30 MG TAB PO SCH (10:33)
--- NOTE | 2021-04-24 11:05 | Progress Note ---
Assessment and Plan 36-year-old male with HIV end-stage renal disease on hemodialysis hypertension seizure activity with abnormal troponin suggestive of non-STEMI type II in view of negative ischemic evaluation and recurrent chest pain abnormal troponin risk factors scheduled for cardiac catheterization revealed patent coronaries. Blood pressure controlled may be discharged from cardiovascular point of view - Patient Problems (1) ESRD needing dialysis Current Visit: Yes Status: Chronic (2) Hypertensive emergency Current Visit: No Status: Acute (3) NSTEMI (non-ST elevated myocardial infarction) Current Visit: No Status: Acute (4) Seizure-like activity Current Visit: No Status: Acute (5) AIDS Current Visit: No Status: Chronic (6) ESRD (end stage renal disease) on dialysis Current Visit: No Status: Chronic (7) Medical non-compliance Current Visit: No Status: Chronic Subjective Date of service: 04/24/21 Principal diagnosis: PRES Interval history: no cp Objective Vital Signs Temp Pulse Resp BP Pulse Ox 04/24/21 10:45 94 H 183/106 04/24/21 10:30 92 H 188/108 04/24/21 10:15 92 H 178/108 04/24/21 10:00 93 H 185/100 04/24/21 09:45 89 180/97 04/24/21 09:40 98 H 190/116 04/24/21 09:30 98.3 F 98 H 16 190/116 04/24/21 08:00 17 97 04/24/21 07:31 97.9 F 95 H 19 168/107 97 04/24/21 05:04 102 H 164/110 04/24/21 04:15 97.9 F 102 H 16 164/110 100 04/23/21 23:27 91 H 170/109 04/23/21 23:12 97.3 F L 91 H 16 170/109 98 04/23/21 21:24 95 H 184/118 04/23/21 21:23 95 H 184/118 04/23/21 21:00 16 98 04/23/21 19:21 98.3 F 95 H 16 184/118 98 04/23/21 16:24 97.2 F L 90 18 199/106 97 04/23/21 12:18 98.4 F 91 H 18 155/100 97 - Physical Examination General: No Apparent Distress HEENT: Positive: PERRL, Mucus Membranes Moist Neck: Positive: neck supple, trachea midline Cardiac: Positive: Reg Rate and Rhythm Lungs: Positive: clear to auscultation Neuro: Positive: Grossly Intact Abdomen: Positive: Soft, Active Bowel Sounds. Negative: Tender, Distended Skin: Positive: Clear Incision: Cardiac Cath Site Musculoskeletal: No Pain, Normal Range of Motion Extremities: Present: normal. Absent: edema - Imaging and Cardiology Stress echo: report reviewed (Normal myocardial perfusion) Echo: report reviewed (Normal LV function no significant regurgitation) - EKG Sinus rhythms and dysrhythmias: sinus rhythm
[2021-04-24] MEDS ORDERED: NIFEdipine XL 90 MG TAB PO SCH (11:30)
[2021-04-24] MEDS: cloNIDine 0.2 MG TAB PO SCH (14:07)
[2021-04-24] MEDS: DOCUSATE SODIUM 100 MG CAP PO SCH (14:08)
[2021-04-24] MEDS: LACOSAMIDE 50 MG TAB PO SCH (14:08)
[2021-04-24] MEDS: LISINOPRIL 40 MG TAB PO SCH (14:08)
[2021-04-24] MEDS: DOLUTEGRAVIR 50 MG TAB PO SCH (14:09)
[2021-04-24] MEDS: HEPARIN 5,000 UNIT/1 ML VIAL SUB-Q SCH (14:09)
[2021-04-24 14:10] VITALS: BP 155/74
[2021-04-24] MEDS: lamiVUDine 50 MG/5 ML ORAL LIQD PO SCH (14:10)
[2021-04-28 18:40] LABS: CD4/CD8 Ratio 0.88 (0.86-5.00)
== END 2021-04-24 14:53 | disposition home or self-care (01) ==
LOC: ED 16:44 → 4A 22:27
PROVIDERS: ADMIT Internal Medicine Geriatric Medicine; ATTEND Hospitalist
DX: R07.89 Other chest pain (principal); I16.0 Hypertensive urgency; I12.9 Hypertensive chronic kidney disease with stage 1 through stage 4 chronic kidney disease, or unspecified chronic kidney disease; N18.6 End stage renal disease; E11.22 Type 2 diabetes mellitus with diabetic chronic kidney disease; I21.4 Non-ST elevation (NSTEMI) myocardial infarction; D63.1 Anemia in chronic kidney disease; I95.9 Hypotension, unspecified; I25.2 Old myocardial infarction; B20 Human immunodeficiency virus [HIV] disease; E21.3 Hyperparathyroidism, unspecified; R56.9 Unspecified convulsions; R77.8 Other specified abnormalities of plasma proteins; Z99.2 Dependence on renal dialysis; Z79.899 Other long term (current) drug therapy; Z98.890 Other specified postprocedural states; Z79.4 Long term (current) use of insulin; Z91.19 Patient's noncompliance with other medical treatment and regimen
CPT/HCPCS: 36415; 62270; 62328; 71046; 73030; 80048; 80053; 82024; 82947; 82962; 83735; 84160; 84484; 85025; 85610; 85730; 86403; 86592; 87116; 87535; 89051; 93005; 93458; 96372; 96374; 96375; 96376; 99291; A9270; G0257; G0378; J0360; J1170; J1644; J2250; J2405; J3010; Q9967